=== PATIENT | female | born 1945 | race Caucasian/White ===

== ENCOUNTER → 2017-07-21 13:50 | Outpatient (CLI) | payer MEDICARE, OTHER, SELFPAY ==
[2017-07-19 09:20] VITALS: BP 153/92; BMI 22.8
--- NOTE | 2017-07-21 13:52 | US_ITS ---
PROCEDURE: ULTRASOUND GUIDED THORACENTESIS. DATE: July 21, 2017.. INDICATION: Female, 71 years old. Right pleural effusion. PHYSICIAN: Hever Madden M.D. PROCEDURE: The risks, benefits, and alternatives to the procedure were explained to the patient. The specific risks of bleeding, infection, and pneumothorax requiring chest tube insertion were discussed and accepted. Written informed consent was obtained. Ultrasonographic evaluation of the right lower pleural space was carried out. An adequate pocket was identified. The patient was placed in the sitting, upright position. The overlying skin was prepped and draped in sterile fashion. 1% lidocaine was administered subcutaneously for local anesthesia. Under ultrasound guidance, a 6 Portuguese thoracentesis needle/catheter system was advanced into the right posterior lower pleural fluid collection. Approximately 650 mL of librado-colored fluid fluid was drained. The catheter was removed, and a sterile dressing was applied. The patient tolerated the procedure well. A chest x-ray was ordered. US/Thoracentesis W US IMPRESSION: Ultrasound-guided right thoracentesis.. Electronically Signed: Hever Madden MD at 15:08 EST Tel [phone], Service support ,
--- NOTE | 2017-07-21 14:29 | RAD_ITS ---
STUDY: X-RAY CHEST REASON FOR EXAM: Female, 71 years old. The patient is status post right thoracentesis. TECHNIQUE: Single frontal inspiratory view of the chest. COMPARISON: Comparison is made with prior examination dated July 21, 2017. FINDINGS: The patient is status post right thoracentesis. There is no evidence of pneumothorax. Persistent elevation of the right hemidiaphragm. Persistent pleural parenchymal changes at both lung bases. RAD/Chest Insp/Exp 2 View IMPRESSION: Status post right thoracentesis. There is no evidence of pneumothorax. Electronically Signed: Hever Madden MD at 14:51 EST Tel [phone], Service support ,
== END ==
PROVIDERS: Visit Provider Internal Medicine Medical Oncology
DX: C50.919 Malignant neoplasm of unspecified site of unspecified female breast (principal); J90 Pleural effusion, not elsewhere classified
CPT/HCPCS: 32555; 71046

== ENCOUNTER → 2017-10-13 11:39 | Outpatient (CLI) | payer MEDICARE, OTHER, SELFPAY ==
--- NOTE | 2017-10-13 | FLU_PTH ---
PATIENT: ADOLFO TAMEZ LOC: U#:[id number] AGE/SX: 79/F ROOM: RE10/13/[address]: Dr. Saleem Tate MD : 1945 BED: DIS: SPEC #: [id number] RECD: 10/13/17 13:37 STATUS: JEANNINE CHRIS #: [id number] PETRA: 10/13/17 00:[address]: Saleem Tate DEPT: CYTOLOGY RECD BY: Rome Gil ENTERED: 10/13/17 13:37 SP TYPE: Fluid OTHR DR: Dr. Dm Barahona MD Tissues: THORACIC FLUID Procedures: Pap Stain (control) Special Stain Group II Surgery Specimen Level IV Cell Block Cytospin Fluid HEADER OPERATION: Ultrasound-guided thoracentesis PRE-OP DIAGNOSIS: Pleural effusion TISSUE SUBMITTED: Thoracentesis fluid for cytology DIAGNOSIS CYTOLOGY Thoracentesis fluid for cytology (cytospin and cell block): Negative for malignant cells. See cytology study and comment. SJ:yaya 10/14/17 COMMENT Please make reference to previous cytology ([id number]) pleural effusion with diagnosis of rare atypical cells noted. Clinical correlation and appropriate follow up are necessary. CYTOLOGY STUDY Slides are reviewed. The specimen consists of macrophages, mesothelial cells and inflammatory cells. CYTOLOGY GROSS Received is 120 ml of yellow, cloudy fluid labeled with the patient's name and and designated per the requisition as thoracentesis. Submitted for cytology preparation including cell block. / 10/13/17 TC:5 CPT: 81942, 55888
--- NOTE | 2017-10-13 11:43 | US_ITS ---
PROCEDURE: ULTRASOUND GUIDED THORACENTESIS - RIGHT HEMITHORAX CLINICAL HISTORY: Female, 71 years old. Right pleural effusion CONSENT: The risks, benefits and alternatives to the procedure were explained to the patient, and the patient agreed to the procedure and signed the consent. 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 SEDATION: Local anesthesia TECHNIQUE: Under the ultrasound guidance using all elements of maximum sterile technique and after infiltration of the skin and subcutaneous soft tissues with 10 mL of lidocaine 1% a 5 Maltese drainage catheter is introduced in the lower part of the right hemithorax. 120 mL of fluid were removed sample sent to lab for evaluation. The patient tolerated the procedure there was no immediate complication. US/Thoracentesis W US IMPRESSION: Successful ultrasound-guided thoracentesis. Electronically Signed: Sulma Cormier MD at 15:43 EDT Tel , Service support ,
--- NOTE | 2017-10-13 13:08 | RAD_ITS ---
STUDY: X-RAY CHEST REASON FOR EXAM: Female, 71 years old. PLEURAL EFFUSION. RT SIDE POST THORACENTESIS. INSPR AND EXPR VIEWS TECHNIQUE: Two view, frontal inspiration and expiration. COMPARISON: Oct 11 2017 10:54am FINDINGS: Slightly decreased decreased right pleural effusion. Stable right lower lobe consolidation. Left lung is clear. No evidence of left effusion. Extensive surgical clips in the chest wall region. Normal size heart. Normal mediastinum and hakan. Normal visualized pulmonary arteries. Normal visualized aortic arch and descending thoracic aorta. There are diffuse degenerative changes and metastatic lesions of the visualized thoracic spine. There is degenerative osteoarthritis of the bilateral shoulders. There is no demonstrated abnormality of the visualized soft tissue structures of the upper abdomen. RAD/Chest Insp/Exp 2 View IMPRESSION: Slightly decreased right pleural effusion with compressive consolidation of the right lower lobe. There is no evidence of pneumothorax. Electronically Signed: Sulma Cormier MD at 16:10 EDT Tel , Service support ,
[2017-10-13 13:25] LABS: Cytology, Body Fluid / CSF SEE PATHOLOGY REPORT
== END ==
PROVIDERS: Visit Provider Internal Medicine Medical Oncology
DX: J90 Pleural effusion, not elsewhere classified (principal)
CPT/HCPCS: 32555; 71046; 88108; 88305; 88313

== ENCOUNTER → 2017-10-27 12:00 | Outpatient (CLI) | payer MEDICARE, OTHER, SELFPAY ==
--- NOTE | 2017-10-27 12:02 | US_ITS ---
PROCEDURE: ULTRASOUND GUIDED THORACENTESIS. DATE: October 27, 2017.. INDICATION: Female, 71 years old. Right pleural effusion. PHYSICIAN: Hever Madden M.D. PROCEDURE: The risks, benefits, and alternatives to the procedure were explained to the patient. The specific risks of bleeding, infection, and pneumothorax requiring chest tube insertion were discussed and accepted. Written informed consent was obtained. Ultrasonographic evaluation of the right lower pleural space was carried out. An adequate pocket was identified. The patient was placed in the sitting, upright position. The overlying skin was prepped and draped in sterile fashion. 1% lidocaine was administered subcutaneously for local anesthesia. Under ultrasound guidance, a 6 Cypriot thoracentesis needle/catheter system was advanced into the right posterior lower pleural fluid collection. Approximately 550 mL of librado-colored fluid was drained. The catheter was removed, and a sterile dressing was applied. The patient tolerated the procedure well. A chest x-ray was ordered. US/Thoracentesis W US IMPRESSION: Ultrasound-guided right thoracentesis. Electronically Signed: Hever Madden MD at 13:52 EDT Tel [phone], Service support ,
--- NOTE | 2017-10-27 13:03 | RAD_ITS ---
STUDY: X-RAY CHEST REASON FOR EXAM: Female, 71 years old. Post right thoracentesis. TECHNIQUE: AP upright inspiration expiration views. COMPARISON: Comparison is made with prior study dated October 13, 2017. FINDINGS: The patient is status post right thoracentesis. There is no evidence of pneumothorax. Stable elevation of the right hemidiaphragm with right basilar atelectasis and residual blunting of the right costo phrenic angle. RAD/Chest Insp/Exp 2 View IMPRESSION: No evidence of pneumothorax following the right thoracocentesis. Electronically Signed: Hever Madden MD at 13:52 EDT Tel [phone], Service support ,
== END ==
PROVIDERS: Visit Provider Internal Medicine Medical Oncology
DX: J90 Pleural effusion, not elsewhere classified (principal)
CPT/HCPCS: 32555; 71046

== ENCOUNTER 2020-08-19 12:05 | Outpatient (RCR) | payer MEDICARE, OTHER, SELFPAY ==
[2020-08-18 09:13] VITALS: BMI 22.8
[2020-08-19] MEDS: COVID-19 VACC, MRNA(PFIZER)/PF 30 MCG/0.3 ML SYRINGE IM (13:34)
[2020-09-09] MEDS: COVID-19 VACC, MRNA(PFIZER)/PF 30 MCG/0.3 ML SYRINGE IM (13:23)
== END 2020-11-18 23:59 ==
LOC: IMMUN 12:05
PROVIDERS: Visit Provider Family Medicine
DX: Z23 Encounter for immunization (principal)
CPT/HCPCS: 0001A; 0002A; 91300

== ENCOUNTER → 2021-12-31 | Outpatient (CLI) | payer MEDICARE, SELFPAY ==
--- NOTE | 2021-12-31 08:06 | CT_ITS ---
STUDY: CT CHEST, ABDOMEN T PELVIS WITHOUT CONTRAST REASON FOR EXAM: Female, 76 years old. Assess response to treatment. History of metastatic breast cancer. RADIATION DOSAGE (If Supplied By Facility): CTDIvol = ( 5.98 ) mGy, DLP = ( 470.66 ) mGycm TECHNIQUE: Transaxial imaging was performed without the administration of intravenous contrast material. Multiplanar coronal and sagittal images were reformatted. Individualized dose optimization techniques were used for this CT. COMPARISON: Comparison is made with prior examination dated 06/27/2017. FINDINGS: CHEST Stable small benign-appearing axillary lymph nodes. Surgical clips are seen in the presternal region. Thickening of the overlying skin of the right breast. Small right pleural effusion. Fluid is also seen in the right major fissure. Atelectasis with mild degree of bronchiectasis at the right lung base. The left lung is clear. Stable small calcified granuloma in the posterior medial segment of the right lower lobe. There are calcifications of the coronary arteries. Normal mediastinum. Calcified right hilar lymph nodes. Normal unenhanced pulmonary arteries. There is atherosclerotic calcification of the aortic arch with tortuosity and elongation of the aortic arch and descending thoracic aorta. There is evidence of a sclerotic metastasis throughout the visualized lower cervical spine and thoracic spine. Stable 1.4 cm cystic nodule in the anterior aspect of the right lobe of liver near the dome. ABDOMEN Scattered small hypodense nodules throughout the liver. The previously seen nodular density in the inferior aspect of the right lobe of liver with focal calcification has resolved. Residual calcific densities are seen. Stable hypodensities in the left lobe of liver as well as in the region of the gallbladder fossa. These most likely represent cysts. Normal gallbladder and extrahepatic biliary system. There are multiple benign calcified granulomata of the spleen. Normal pancreas. Normal bilateral adrenal glands. Normal right kidney. Normal left kidney. There is a small hiatal hernia. Normal small intestine. There are multiple colonic diverticula consistent with diverticulosis. The appendix is visualized and appears normal. There is diffuse atherosclerotic calcification of the abdominal aorta, without a demonstrated aneurysm. Normal inferior vena cava. Normal retroperitoneum. Normal abdominal wall. There are diffuse degenerative changes of the visualized lumbar spine. Diffuse sclerotic metastasis involving the lumbar spine as well as the pelvic bones including the sacrum and iliac bones. PELVIS Normal urinary bladder. Normal visualized small intestine. There are multiple colonic diverticula of the sigmoid colon consistent with chronic diverticulosis. There is no pelvic fluid. There is no pelvic lymphadenopathy or mass lesion. There is diffuse atherosclerotic calcification of the pelvic arteries. CT/CT Chest, Abd, Pelvis WO Cont IMPRESSION: Diffuse bony metastasis as described. Stable appearance of the hepatic hypodensities. Sigmoid diverticulosis. Small right pleural effusion. The left lung is clear. Electronically Signed: Hever Madden MD at 12:07 EDT ,
== END | disposition home or self-care (01) ==
PROVIDERS: PCP Family Medicine; Referring Provider Nurse Practitioner Family; Visit Provider Nurse Practitioner Family
DX: C50.919 Malignant neoplasm of unspecified site of unspecified female breast (principal)
CPT/HCPCS: 71250; 74176

== ENCOUNTER → 2022-01-01 | Outpatient (CLI) | payer MEDICARE, SELFPAY ==
--- NOTE | 2022-01-01 09:35 | NM_ITS ---
STUDY: NM Bone Imaging Whole Body 01/01/2022 9:26 PM HISTORY: Female, 76 years old. History: METASTATIC BREAST CANCER -- -- COMPARE TO CT History: METASTATIC BREAST CANCER -- -- COMPARE TO CT TECHNIQUE: Following the IV administration of 26.7 MCI MDP , whole body bone imaging was performed with a gamma camera following a three hour delay. COMPARISON STUDIES : NM - None. CR - Not available for review at this time. CT - 12.31.21 MR - Not available for review at this time. US - Not available for review at this time. FINDINGS: There is abnormal concentration of radiopharmaceutical throughout the axial and appendicular skeletal system. Whole body delayed images demonstrate abnormal uptake in the shoulder, and wrist joints. This is likely related to degenerative findings. Focal increase in uptake is noted in the cervical spine, thoracic spine, lumbar spine, pelvic bones, and sacrum. NM/Bone Scan Whole Body IMPRESSION: The whole body scan confirms multiple metastatic foci. Electronically Signed: Bismark Haney MD at 21:31 EDT ,
== END | disposition home or self-care (01) ==
PROVIDERS: PCP Family Medicine; Referring Provider Internal Medicine Hematology & Oncology; Visit Provider Internal Medicine Hematology & Oncology
DX: C50.911 Malignant neoplasm of unspecified site of right female breast (principal)
CPT/HCPCS: 78306; A9503

== ENCOUNTER → 2022-04-23 | Outpatient (CLI) | payer MEDICARE, SELFPAY ==
--- NOTE | 2022-04-23 07:43 | CT_ITS ---
STUDY: CT CHEST, ABDOMEN T PELVIS WITH CONTRAST REASON FOR EXAM: Female, 76 years old. F/U METASTATIC BREAST CANCER RADIATION DOSAGE (If Supplied By Facility): CTDIvol = ( 7.95 ) mGy, DLP = ( 517.10 ) mGycm TECHNIQUE: Transaxial imaging was performed following intravenous administration of IV 100mL Isovue-300. Multiplanar coronal and sagittal images were reformatted. Individualized dose optimization techniques were used for this CT. COMPARISON: Comparison is made with prior examination of 12/31/2021. FINDINGS: CHEST Stable appearance of the surgical clips in the presternal region. Stable skin thickening overlying the right breast. Stable right pleural effusion with underlying basilar dependent atelectasis. The left lung is clear. There are calcifications of the coronary arteries. Normal mediastinum. Calcified right hilar lymph nodes. Normal unenhanced pulmonary arteries. There is atherosclerotic calcification of the aortic arch with tortuosity and elongation of the aortic arch and descending thoracic aorta. Once again, there is evidence of sclerotic metastasis of the visualized thoracic and lumbar vertebrae. ABDOMEN Stable small cysts seen throughout both lobes. Normal gallbladder and extrahepatic biliary system. There are multiple benign calcified granulomata of the spleen. Normal pancreas. Normal bilateral adrenal glands. Normal right kidney. Normal left kidney. Normal visualized stomach. Normal small intestine. There are multiple colonic diverticula consistent with diverticulosis. The appendix is visualized and appears normal. Normal abdominal aorta. Normal inferior vena cava. Normal retroperitoneum. Normal abdominal wall. Stable sclerotic metastasis of the visualized lumbar spine as well as the pelvic bones. PELVIS Normal urinary bladder. There is no pelvic fluid. There is no pelvic lymphadenopathy or mass lesion. There is diffuse atherosclerotic calcification of the pelvic arteries. CT/CT Chest, Abd, Pel w/Contrast IMPRESSION: Stable examination. Electronically Signed: Hever Madden MD at 14:03 EST ,
== END | disposition home or self-care (01) ==
PROVIDERS: PCP Family Medicine; Referring Provider Internal Medicine Hematology & Oncology; Visit Provider Internal Medicine Hematology & Oncology
DX: C50.919 Malignant neoplasm of unspecified site of unspecified female breast (principal); C79.51 Secondary malignant neoplasm of bone; J90 Pleural effusion, not elsewhere classified; I25.10 Atherosclerotic heart disease of native coronary artery without angina pectoris; K57.30 Diverticulosis of large intestine without perforation or abscess without bleeding
CPT/HCPCS: 71260; 74177; Q9967; A4216

== ENCOUNTER 2022-05-11 10:25 | Outpatient (CLI) | payer MEDICARE, SELFPAY ==
[2022-05-11 11:53] LABS: Microalbumin:Creatinine Ratio 53.8 mg/g CRE (<30 mg/g CRE)
[2022-05-11 12:07] LABS: Anion Gap 7 (5-15); BUN 18 mg/dL (7-18); BUN/Creat Ratio 14.1 RATIO (10-20); Calcium,Total 9.3 mg/dL (8.5-10.1); Chloride 106 mmol/L (98-107); Creatinine, Serum 1.28 mg/dL (0.55-1.02); EST Glomerular Filtration Rate 43 mL/min (>60); Est Glom Filt Rate - Afr Amer 52 mL/min (>60); Glucose 112 mg/dL (74-106); Potassium 3.9 mmol/L (3.5-5.1); Sodium Level 142 mmol/L (136-145)
== END 2022-05-11 23:59 | disposition home or self-care (01) ==
LOC: LAB 10:26
PROVIDERS: PCP Family Medicine; Visit Provider Internal Medicine Nephrology
DX: N18.31 Chronic kidney disease, stage 3a (principal)
CPT/HCPCS: 36415; 80048; 82043; 82570

== ENCOUNTER → 2022-07-08 | Outpatient (CLI) | payer MEDICARE, SELFPAY ==
--- NOTE | 2022-07-08 09:20 | NM_ITS ---
CLINICAL: 76-year-old female with history of primary breast carcinoma. WHOLE BODY 99m Tc MDP RADIONUCLIDE BONE SCINTIGRAPHY COMPARISON: Previous whole body bone scintigraphy study dated 01/01/2022, CT of the chest abdomen and pelvis 04/23/2022 FINDINGS: Following the intravenous administration of 26.9 mCi of 99m Tc MDP, whole body bone images reveal: 1. Enhanced uptake remains apparent in the left wrist, right knee, the bilateral shoulders, the cervical and thoracic spine. 2. Facilitated radiopharmaceutical concentration is noted in the proximal right clavicle-sternoclavicular joint, the second through fifth lumbar vertebra and sacrum. 3. The remaining skeletal structures are scintigraphically unremarkable with normal-appearing renal images and urinary bladder activity identified. Increased tracer distribution is noted in the left lacrimal bone most consistent with periostitis. NM/Bone Scan Whole Body IMPRESSION: 1. The increase in radiopharmaceutical concentration defined in the left wrist, right knee, the bilateral shoulders, the cervical and thoracic spine is commensurate with degenerative arthritis. 2. Uptake noted in the right proximal clavicle, the lumbar spine and sacrum likely is attributed to skeletal metastasis described on the previous bone scan report dated 01/01/2022. 3. Overall compared to the previous whole body bone scintigraphy study dated 01/01/2022, there is no significant interval change. Electronically Signed: Vasquez Sanchez, at 10:06 EST ,
== END | disposition home or self-care (01) ==
LOC: NM 09:20
PROVIDERS: PCP Family Medicine; Visit Provider Nurse Practitioner Family
DX: M19.012 Primary osteoarthritis, left shoulder (principal); C50.911 Malignant neoplasm of unspecified site of right female breast; M47.812 Spondylosis without myelopathy or radiculopathy, cervical region; M47.814 Spondylosis without myelopathy or radiculopathy, thoracic region; M19.011 Primary osteoarthritis, right shoulder; M17.11 Unilateral primary osteoarthritis, right knee; M19.032 Primary osteoarthritis, left wrist
CPT/HCPCS: 78306; A9503

== ENCOUNTER → 2022-07-13 | Outpatient (CLI) | payer MEDICARE, SELFPAY ==
--- NOTE | 2022-07-13 13:36 | CT_ITS ---
STUDY: CT CHEST, ABDOMEN T PELVIS WITH CONTRAST REASON FOR EXAM: Female, 76 years old. breast ca, assess treatment response; IV only RADIATION DOSAGE (If Supplied By Facility): CTDIvol = ( 8.00 ) mGy, DLP = ( 544.18 ) mGycm TECHNIQUE: Transaxial imaging was performed following intravenous administration of IV 100mL Isovue-300. Individualized dose optimization techniques were used for this CT. COMPARISON: April 23, 2022, December 31, 2021. FINDINGS: CHEST Unchanged moderate layering right pleural effusion with mild compressive atelectasis in the right lower lobe. No left lung effusion. Mild atelectasis left lung base. No new consolidation or pulmonary mass. No gross pleural thickening. Small calcified granuloma in the right lower lung. No cardiomegaly or pericardial effusion.. Moderate multivessel coronary atherosclerosis. No suspicious mediastinal or hilar adenopathy. Scattered small calcified lymph nodes are present.. Normal unenhanced pulmonary arteries. Mild aortic atherosclerosis without dissection or ectasia. ABDOMEN Unchanged hepatic cysts and segment 4 focal fat appear to April 23, 2022. No intrahepatic biliary ductal dilatation. Normal gallbladder and extrahepatic biliary system. Normal spleen. Normal pancreas. Normal bilateral adrenal glands. Normal right kidney. Normal left kidney. Minimal hiatal hernia. No acute gastric finding. No small bowel distention or focal wall thickening. Normal appendix. Large colonic stool burden without focal wall thickening or surrounding inflammation. Low-lying transverse colon is noted. Mild distal colonic diverticulosis without evidence of diverticulitis. Aortic atherosclerosis without ectasia.. Normal inferior vena cava. Normal retroperitoneum. Decompressed bladder. Unremarkable uterus and adnexa no free fluid, free air, or adenopathy. MUSCULOSKELETAL No subcutaneous soft tissue mass. Unchanged right scapular 1.1 cm sclerotic lesion, right proximal clavicle 1.1 cm sclerotic lesion, scattered bilateral posterior lateral rib sclerotic lesions, scattered diffuse vertebral sclerotic lesions, and pelvic sclerotic lesions remain unchanged from April 23, 2022. CT/CT Chest, Abd, Pel w/Contrast IMPRESSION: No evidence of new or enlarging mass along the chest abdomen or pelvis. No significant change in scattered diffuse osteoblastic metastatic disease compared with April 23, 2022. No significant change in unilateral right pleural effusion. Moderate multivessel coronary atherosclerosis. Large colonic stool burden as can be seen with constipation. Distal colonic diverticulosis without evidence of diverticulitis. Electronically Signed: Daniel Elmore MD at 23:03 EST ,
== END | disposition home or self-care (01) ==
LOC: CT 13:34
PROVIDERS: PCP Family Medicine; Referring Provider Nurse Practitioner Family; Visit Provider Nurse Practitioner Family
DX: I25.10 Atherosclerotic heart disease of native coronary artery without angina pectoris (principal); I70.0 Atherosclerosis of aorta; C50.911 Malignant neoplasm of unspecified site of right female breast; K57.30 Diverticulosis of large intestine without perforation or abscess without bleeding; J90 Pleural effusion, not elsewhere classified; K44.9 Diaphragmatic hernia without obstruction or gangrene
CPT/HCPCS: 71260; 74177; Q9967

== ENCOUNTER → 2022-10-05 | Outpatient (CLI) | payer MEDICARE, SELFPAY ==
--- NOTE | 2022-10-05 08:22 | CT_ITS ---
STUDY: CT CHEST, ABDOMEN T PELVIS WITH CONTRAST REASON FOR EXAM: Female, 76 years old. met breast ca; assess response to tx. Status post right lumpectomy. RADIATION DOSAGE (If Supplied By Facility): CTDIvol = ( 8.67 ) mGy, DLP = ( 611.33 ) mGycm TECHNIQUE: Transaxial imaging was performed following intravenous administration of IV 100mL Isovue-300. Individualized dose optimization techniques were used for this CT. COMPARISON: Comparison is made with prior study dated July 13, 2022. FINDINGS: CHEST Small right pleural effusion with atelectasis at the right lung base. The left lung is clear. Calcified granuloma in the posterior medial segment of the right lower lobe. There is no demonstrated pleural abnormality. There are calcifications of the coronary arteries. Tiny calcified mediastinal and right hilar lymph nodes. Normal unenhanced pulmonary arteries. There is atherosclerotic calcification of the aortic arch. Multiple sclerotic metastases are seen in the thoracic vertebrae more prominent in the upper thoracic vertebrae. This is unchanged. Sclerotic bilateral rib metastasis. ABDOMEN Stable subcentimeter cysts are seen scattered throughout both right and left lobes of the liver. There is evidence of fatty infiltration of the liver. Normal gallbladder and extrahepatic biliary system. Normal spleen. Normal pancreas. Normal bilateral adrenal glands. Normal right kidney. Normal left kidney. Normal visualized stomach. Normal small intestine. There are multiple colonic diverticula consistent with diverticulosis. The appendix is visualized and appears normal. There is diffuse atherosclerotic calcification of the abdominal aorta, without a demonstrated aneurysm. Normal inferior vena cava. Normal retroperitoneum. Normal abdominal wall. There are diffuse degenerative changes of the visualized lumbar spine. Sclerotic bony metastasis seen in the lower thoracic and lumbar vertebrae. Sclerotic metastasis seen within the pelvic bones. PELVIS Normal urinary bladder. Normal visualized pelvic arteries. CT/CT Chest, Abd, Pel w/Contrast IMPRESSION: Residual small right pleural effusion with right basilar atelectasis. Bony metastasis involving the thoracic and lumbar spines as well as the pelvic bones. There has been essentially no change. Multiple small benign-appearing hepatic cysts. Electronically Signed: Hever Madden MD at 15:30 EDT ,
== END | disposition home or self-care (01) ==
LOC: CT 08:21
PROVIDERS: PCP Family Medicine; Referring Provider Nurse Practitioner Family; Visit Provider Nurse Practitioner Family
DX: C50.919 Malignant neoplasm of unspecified site of unspecified female breast (principal)
CPT/HCPCS: 71260; 74177; Q9967

== ENCOUNTER → 2022-12-28 | Outpatient (CLI) | payer MEDICARE, SELFPAY ==
--- NOTE | 2022-12-28 07:33 | CT_ITS ---
STUDY: CT CHEST, ABDOMEN T PELVIS WITH CONTRAST REASON FOR EXAM: Female, 77 years old. met breast ca;assess response to tx RADIATION DOSAGE (If Supplied By Facility): CTDIvol = ( 8.08 ) mGy, DLP = ( 553.01 ) mGycm TECHNIQUE: Transaxial imaging was performed following intravenous administration of IV 100mL Isovue-300. Individualized dose optimization techniques were used for this CT. COMPARISON: October 05, 2022 FINDINGS: CHEST There is a persistent small pleural effusion on the right. There is persistent right lower lobe atelectasis of enhancing lung. There is persistent stable consolidation in the right middle lobe with hypoenhancement possibly representing fibrosis. Normal heart and pericardium. Normal mediastinum. Normal hilar regions. Normal unenhanced pulmonary arteries. Normal aorta arch and descending thoracic aorta. Sclerotic foci noted throughout the thoracic vertebral bodies appear grossly stable, possibly representing metastatic disease. ABDOMEN Tiny hypodensities are noted in the liver likely representing cysts. Normal gallbladder and extrahepatic biliary system. Normal spleen. Normal pancreas. Normal bilateral adrenal glands. Normal right kidney. Normal left kidney. Normal visualized stomach. Normal small intestine. There is descending and sigmoid colon diverticulosis without evidence for acute diverticulitis. The appendix is visualized and appears normal. Normal abdominal aorta. Normal inferior vena cava. Normal retroperitoneum. Normal abdominal wall. There is extensive sclerosis noted in the lumbar vertebral bodies and pelvic bones post representing metastatic disease appearing similar to prior study. PELVIS Normal urinary bladder. There is no pelvic fluid. There is no pelvic lymphadenopathy or mass lesion. Normal visualized pelvic arteries. CT/CT Chest, Abd, Pel w/Contrast IMPRESSION: Stable findings when compared to prior study including right pleural effusion, right lower lobe atelectasis, right middle lobe consolidation possibly fibrotic, and skeletal sclerosis suggestive of metastatic disease. Electronically Signed: Vitor Macdonald, at 8:21 EDT ,
== END | disposition home or self-care (01) ==
LOC: CT 07:32
PROVIDERS: PCP Family Medicine; Referring Provider Nurse Practitioner Family; Visit Provider Nurse Practitioner Family
DX: C50.919 Malignant neoplasm of unspecified site of unspecified female breast (principal)
CPT/HCPCS: 71260; 74177; Q9967

== ENCOUNTER 2023-02-09 06:07 | Day surgery (SDC) | payer MEDICARE, SELFPAY ==
[2023-02-09] VITALS (7 sets, daily range): BP systolic 95–137; BP diastolic 54–62; PULSE 69–74; RESP 16–18; TEMP 36.3–36.7; O2SAT 95–100; BMI 22.3
[2023-02-09] MEDS: Lactated Ringers 1,000 ML 15 ML IV (06:42)
--- NOTE | 2023-02-09 07:15 | IMM_PTH ---
PATIENT: ADOLFO TAMEZ LOC: EN U#:[id number] AGE/SX: 77/F ROOM: RE02/09/[address]: Dr. Carroll Dawson DO : 1945 BED: DIS: 02/09/2023 SPEC #: [id number] RECD: 02/09/23 13:58 STATUS: JEANNINE REZayda #: [id number] PETRA: 02/09/23 07:[address]: Carroll Dawson DEPT: IMMUNOHISTOCHEMISTRY RECD BY: Janneth Toro ENTERED: 02/09/23 13:58 SP TYPE: IMMUNO OTHR DR: Dr. Mar Bucio MD Tissues: A - Stomach, NOS Procedures: H Pylori (initial) PHYSICIAN & INSTITUTION [place] [id number] SPECIMEN INFORMATION: Tissue Source: A - Gastric body Clinical Info: GERD Specimen Number: [id number] CPT code: 86662 METHODOLOGY: Deparaffinized sections of prefer/formalin-fixed tissue or PAP/DQ stained slides are incubated with monoclonal/polyclonal antibodies/oligonucleotide probes. Localization is made via biotin free immunoperoxidase method. Appropriate controls are performed and reacted as expected. Results on target cell population are indicated in the following table: RESULTS: ANTIBODY / CLONE RESULT Block A H Pylori (polyclonal) negative These tests were developed and their performance characteristics determined by [facility]. They may not have been cleared or approved by the U.S. Food and Drug Administration. The FDA has determined that such clearance or approval is not necessary. The above immunohistochemical/dualISH markers are ordered and reviewed by the Pathologist. INTERPRETATION: A. Gastric body, biopsy: Negative for Helicobacter pylori organisms. SJ:yaya 02/10/2023
--- NOTE | 2023-02-09 07:15 | EGD_PTH ---
PATIENT: ADOLFO TAMEZ LOC: EN U#:[id number] AGE/SX: 77/F ROOM: RE02/09/[address]: Dr. Carroll Dawson DO : 1945 BED: DIS: 02/09/2023 SPEC #: [id number] RECD: 02/09/23 09:42 STATUS: JEANNINE ARIES #: [id number] PETRA: 02/09/23 07:[address]: Carroll Dawson DEPT: SURGICAL PATHOLOGY RECD BY: Ciara Sethi ENTERED: 02/09/23 11:00 SP TYPE: EGD BIOPSY [facility] DR: Dr. Mar Bucio MD Tissues: A - Gastric mucous membrane B - Esophagus, NOS C - Transverse colon Procedures: Special Stain Group II Surgery Specimen Level IV Alcian Blue/PAS (control) HEADER OPERATION: Colonoscopy, EGD [place] [place] biopsy PRE-OP DIAGNOSIS: GERD TISSUE SUBMITTED: A - Gastric body biopsy, B - Distal esophagus biopsy, C - Transverse polyp biopsy MICROSCOPIC DIAGNOSIS A. Gastric body, biopsy: Mild gastritis. See microscopic description and comment. B. Distal esophagus, biopsy: Fragments of gastroesophageal mucosa with moderate chronic inflammation. Intestinal metaplasia (goblet cell metaplasia) not identified. See comment. C. Transverse colon polyp, biopsy: A fragment of colonic mucosa, no pathologic diagnosis. SJ:rg 02/10/2023 COMMENT A. The results of immunohistochemistry for Helicobacter pylori will be reported separately ([id number]). B. Alcian blue/PAS stain with matched control is used in the evaluation of the specimen. MICROSCOPIC DESCRIPTION Slides are reviewed. A. The specimen shows fragments of gastric mucosa with chronic inflammatory cell infiltrates in the lamina propria consisting of lymphocytes and plasma cells, consistent with mild chronic gastritis. GROSS DESCRIPTION A - Received in fixative is one container labeled with the patient's name and designated gastric body biopsy. The specimen consists of one irregular fragment of light jeffries soft tissue that measures 0.8 x 0.2 x 0.1 cm. The specimen is totally submitted in one cassette. B - Received in fixative is one container labeled with the patient's name and designated distal esophagus biopsy. The specimen consists of two irregular fragments of light jeffries soft tissue that in aggregate measure 0.6 x 0.3 x 0.1 cm. The specimen is totally submitted in one cassette. C - Received in fixative is one container labeled with the patient's name and designated transverse polyp biopsy. The specimen consists of one irregular fragment of light jeffries soft tissue that measures 0.2 x 0.2 x 0.1 cm. The specimen is totally submitted in one cassette. / SJ:rg 02/09/2023 TC:3 CPT: 77218 x3, 57301
--- NOTE | 2023-02-09 07:16 | HP.PCM_ITS ---
History and Physical Date of Admission: 02/09/23 Chief Complaint: desire for colonoscopy Details: ADOLFO TAMEZ, is a 76 F who presents to the office today to establish with Gastroenterology in order to schedule a colonoscopy. She was referred by her oncologist for rectal bleeding, she has metastatic breast cancer. Pt denies any rectal bleeding. No melena. She reports she has hemorrhoids. She denies any abdominal pain, diarrhea, constipation. She has been on pantoprazole for heartburn x years. No prior EGD. Last colonoscopy [address] Mina at [facility], he recommended repeat in 3 yrs. She doesn't recall if hx of polyps. No nausea, vomiting, dysphagia, acid reflux. Weight is stable. ROS Const Constitutional: No fatigue ENT ENT: No difficulty swallowing Gastro GI: No abdominal pain, belching, bloating, change in bowel habits, change in stool character, coffee ground emesis, constipation, cramping, diarrhea, heartburn, difficulty swallowing, feeling full early, excessive flatus, incontinent of stools, Vomiting blood/hematemesis, Blood in stool, loose stools, Black,tarry stools, nausea/dyspepsia, pain with swallowing, vomiting or other Musc Musculoskeletal: No joint pain Skin Skin: No yellowing of the eye or itchy eyes Psych Psychiatric: No anxiety and No depression Endo Endocrine: No fatigue Aller/Imm Allergy/Immunologic: No itchy eyes Jaydon/Lymp Hematologic/Lymphatic: No easy bleeding or easy bruising Exam Const General: cooperative and comfortable Nutritional Appearance: average body habitus Orientation: alert, awake and oriented x3 Quality Reporting Tobacco Screening ([facility] 138) Smoking Status: Never smoker Assessment and Plan Assessment and Plan (1) GERD (gastroesophageal reflux disease): Status: Chronic Plan: Will schedule her for EGD and colonoscopy, f/u in office 2 wks later Continue PPI (2) Colonoscopy planned: Status: Acute Plan: as above I have examined the patient and the H&P has been reviewed. There are no clinical changes since date of exam.
--- NOTE | 2023-02-09 07:51 | OP.CCLET_ITS ---
02/09/2023 Mar Bucio [place] [id number] [address] Re : Upper GI endoscopy procedure for Martha Stephens Dear Dr. Bucio This procedure was performed on Tuesday, February 09, 2023. My impressions and recommendations are as follows: Impressions : - LA Grade A reflux esophagitis with no bleeding. Biopsied. - Hiatal hernia. - Erosive gastropathy with no stigmata of recent bleeding. Biopsied. Recommendations : - Discharge patient to home. - Resume previous diet. - Continue present medications. - Await pathology results. My findings are described in the full procedure note, which is enclosed. If I can be of further assistance, please feel free to contact me at . Sincerely, Carroll Dawson, 02/09/2023 7:50:18 AM This report has been signed electronically.
--- NOTE | 2023-02-09 07:51 | OP.EGD_ITS ---
Patient Name: Martha Stephens Procedure Date: 02/09/2023 7:10 AM Date of : 1945 Age: 77 Procedure: Upper GI endoscopy Indications: Functional Dyspepsia, Heartburn Providers: Carroll Dawson DO Referring MD: Mar Bucio Medicines: Monitored Anesthesia Care Patient Profile: This is a 77 year old female. Refer to note in patient chart for documentation of history and physical. Patient has symptoms of chronic heartburn. Complications: No immediate complications. Procedure: Pre-Anesthesia Assessment: - Prior to the procedure, a History and Physical was performed, and patient medications and allergies were reviewed. The patient is competent. The risks and benefits of the procedure and the sedation options and risks were discussed with the patient. All questions were answered and informed consent was obtained. Patient identification and proposed procedure were verified by the physician in the pre-procedure area. Mental Status Examination: alert and oriented. Airway Examination: normal oropharyngeal airway and neck mobility. Respiratory Examination: clear to auscultation. CV Examination: normal. Prophylactic Antibiotics: The patient does not require prophylactic antibiotics. Prior Anticoagulants: The patient has taken no anticoagulant or antiplatelet agents. ASA Grade Assessment: II - A patient with mild systemic disease. After reviewing the risks and benefits, the patient was deemed in satisfactory condition to undergo the procedure. The anesthesia plan was to use monitored anesthesia care (MAC). Immediately prior to administration of medications, the patient was re-assessed for adequacy to receive sedatives. The heart rate, respiratory rate, oxygen saturations, blood pressure, adequacy of pulmonary ventilation, and response to care were monitored throughout the procedure. The physical status of the patient was re-assessed after the procedure. After obtaining informed consent, the endoscope was passed under direct vision. Throughout the procedure, the patient's blood pressure, pulse, and oxygen saturations were monitored continuously. The colonoscope was introduced through the mouth, and advanced to the second part of duodenum. The upper GI endoscopy was accomplished without difficulty. The upper GI endoscopy was accomplished without difficulty. The patient tolerated the procedure well. Scope In: 7:20:56 AM Scope Out: 7:24:10 AM Total Procedure Duration Time 0 hours 3 minutes 14 seconds Findings: LA Grade A (one or more mucosal breaks less than 5 mm, not extending between tops of 2 mucosal folds) esophagitis with no bleeding was found 36 to 38 cm from the incisors. Biopsies were taken with a cold forceps for histology. Verification of patient identification for the specimen was done. Estimated blood loss was minimal. A hiatal hernia was present. A few localized 5 mm erosions with no stigmata of recent bleeding were found in the gastric body. Biopsies were taken with a cold forceps for histology. Verification of patient identification for the specimen was done. Estimated blood loss was minimal. Biopsies were taken with a cold forceps for Helicobacter pylori testing. Verification of patient identification for the specimen was done. Estimated blood loss was minimal. The exam of the duodenum was otherwise normal. Impression: - LA Grade A reflux esophagitis with no bleeding. Biopsied. - Hiatal hernia. - Erosive gastropathy with no stigmata of recent bleeding. Biopsied. Recommendation: - Discharge patient to home. - Resume previous diet. - Continue present medications. - Await pathology results. Procedure Code(s): --- Professional --- 82373, Esophagogastroduodenoscopy, flexible, transoral; with biopsy, single or multiple CPT copyright 2021 [employer]. All rights reserved. The codes documented in this report are preliminary and upon government teacher review may be revised to meet current compliance requirements. Carroll Dawson DO 02/09/2023 7:50:18 AM This report has been signed electronically. Number of Addenda: 0 Note Initiated On: 02/09/2023 7:10 AM
--- NOTE | 2023-02-09 07:53 | OP.COLON_ITS ---
Patient Name: Martha Stephens Procedure Date: 02/09/2023 7:24 AM Date of : 1945 Age: 77 Procedure: Colonoscopy Indications: Screening for colorectal malignant neoplasm Providers: Carroll Dawson DO Referring MD: Mar Bucio Medicines: Monitored Anesthesia Care Patient Profile: This is a 77 year old female. Refer to note in patient chart for documentation of history and physical. Patient has symptoms of chronic heartburn. Last Colonoscopy: several years ago. Complications: No immediate complications. Procedure: Pre-Anesthesia Assessment: - Prior to the procedure, a History and Physical was performed, and patient medications and allergies were reviewed. The patient is competent. The risks and benefits of the procedure and the sedation options and risks were discussed with the patient. All questions were answered and informed consent was obtained. Patient identification and proposed procedure were verified by the physician in the pre-procedure area. Mental Status Examination: alert and oriented. Airway Examination: normal oropharyngeal airway and neck mobility. Respiratory Examination: clear to auscultation. CV Examination: normal. Prophylactic Antibiotics: The patient does not require prophylactic antibiotics. Prior Anticoagulants: The patient has taken no anticoagulant or antiplatelet agents. ASA Grade Assessment: II - A patient with mild systemic disease. After reviewing the risks and benefits, the patient was deemed in satisfactory condition to undergo the procedure. The anesthesia plan was to use monitored anesthesia care (MAC). Immediately prior to administration of medications, the patient was re-assessed for adequacy to receive sedatives. The heart rate, respiratory rate, oxygen saturations, blood pressure, adequacy of pulmonary ventilation, and response to care were monitored throughout the procedure. The physical status of the patient was re-assessed after the procedure. After I obtained informed consent, the scope was passed under direct vision. Throughout the procedure, the patient's blood pressure, pulse, and oxygen saturations were monitored continuously. The colonoscope was introduced through the anus and advanced to the cecum, identified by appendiceal orifice and ileocecal valve. The colonoscopy was performed without difficulty. The patient tolerated the procedure well. The patient tolerated the procedure well. The quality of the bowel preparation was adequate. The ileocecal valve, appendiceal orifice, and rectum were photographed. Scope In: 7:25:57 AM Scope Withdrawal Time 0 hours 9 minutes 51 seconds Scope Out: 7:45:17 AM Total Procedure Duration Time 0 hours 19 minutes 20 seconds Findings: The perianal and digital rectal examinations were normal. Multiple small and large-mouthed diverticula were found in the recto-sigmoid colon, sigmoid colon and descending colon. A 5 mm polyp was found in the transverse colon. The polyp was sessile. The polyp was removed with a cold snare. Resection and retrieval were complete. Verification of patient identification for the specimen was done. Estimated blood loss was minimal. The exam was otherwise without abnormality on direct and retroflexion views. Impression: - Diverticulosis in the recto-sigmoid colon, in the sigmoid colon and in the descending colon. - One 5 mm polyp in the transverse colon, removed with a cold snare. Resected and retrieved. - The examination was otherwise normal on direct and retroflexion views. Recommendation: - Discharge patient to home. - Resume previous diet. - Continue present medications. - Await pathology results. - Repeat colonoscopy in 5 years for surveillance. Procedure Code(s): --- Professional --- 79334, Colonoscopy, flexible; with removal of tumor(s), polyp(s), or other lesion(s) by snare technique CPT copyright 2021 [employer]. All rights reserved. The codes documented in this report are preliminary and upon online advertising manager review may be revised to meet current compliance requirements. Carroll Dawson DO 02/09/2023 7:52:54 AM This report has been signed electronically. Number of Addenda: 0 Note Initiated On: 02/09/2023 7:24 AM
--- NOTE | 2023-02-09 07:53 | OP.CCLET_ITS ---
02/09/2023 Mar Bucio [place] [id number] [address] Re : Colonoscopy procedure for Martha Stephens Dear Dr. Bucio This procedure was performed on Thursday, February 09, 2023. My impressions and recommendations are as follows: Impressions : - Diverticulosis in the recto-sigmoid colon, in the sigmoid colon and in the descending colon. - One 5 mm polyp in the transverse colon, removed with a cold snare. Resected and retrieved. - The examination was otherwise normal on direct and retroflexion views. Recommendations : - Discharge patient to home. - Resume previous diet. - Continue present medications. - Await pathology results. - Repeat colonoscopy in 5 years for surveillance. My findings are described in the full procedure note, which is enclosed. If I can be of further assistance, please feel free to contact me at . Sincerely, Carroll Dawson, 02/09/2023 7:52:54 AM This report has been signed electronically.
== END 2023-02-09 08:39 | disposition home or self-care (01) ==
LOC: EN 06:08 → AC 06:10
PROVIDERS: PCP Family Medicine; Referring Provider Family Medicine; Visit Provider Internal Medicine Gastroenterology
PROC: 0DJD8ZZ Inspection of Lower Intestinal Tract, Via Natural or Artificial Opening Endoscopic (ICD-10-PCS; CPT 45378; principal; 2023-02-09 07:10)
DX: Z12.11 Encounter for screening for malignant neoplasm of colon (principal); C78.7 Secondary malignant neoplasm of liver and intrahepatic bile duct; C79.51 Secondary malignant neoplasm of bone; C50.911 Malignant neoplasm of unspecified site of right female breast; K62.5 Hemorrhage of anus and rectum; K63.5 Polyp of colon; K44.9 Diaphragmatic hernia without obstruction or gangrene; K57.30 Diverticulosis of large intestine without perforation or abscess without bleeding; K21.00 Gastro-esophageal reflux disease with esophagitis, without bleeding; K29.70 Gastritis, unspecified, without bleeding; I12.9 Hypertensive chronic kidney disease with stage 1 through stage 4 chronic kidney disease, or unspecified chronic kidney disease; N18.9 Chronic kidney disease, unspecified; E78.00 Pure hypercholesterolemia, unspecified
CPT/HCPCS: 45385; 43239; 88305; 88313; 88342; J7120; J2405

== ENCOUNTER → 2023-03-17 | Outpatient (CLI) | payer MEDICARE, SELFPAY ==
--- NOTE | 2023-03-17 08:31 | NM_ITS ---
CLINICAL: Female, 77 years old. met breast ca; assess treatment response WHOLE BODY NUCLEAR BONE SCAN TECHNIQUE: Following the IV administration of 25.9 mCi of Tc MDP, whole body bone imaging was performed with a gamma camera following a three hour delay. COMPARISON STUDIES : NM - comparison is made with prior nuclear medicine bone scan dated July 08, 2022. CR - Not available for review at this time. CT - Not available for review at this time. MR - Not available for review at this time. US - Not available for review at this time. FINDINGS: Once again, there is evidence of enhanced uptake of the radiopharmaceutical in the medial aspect of the right clavicle at the level of the sternoclavicular joint. This also evidence of increased uptake in the lumbar vertebrae as well as both sacral alar. Focal uptake is also seen in the dorsal spine. There has been essentially no change. NM/Bone Scan Whole Body IMPRESSION: Stable examination. Electronically Signed: Hever Madden MD at 15:21 EDT ,
== END | disposition home or self-care (01) ==
LOC: NM 08:31
PROVIDERS: PCP Family Medicine; Referring Provider Nurse Practitioner Family; Visit Provider Nurse Practitioner Family
DX: C79.51 Secondary malignant neoplasm of bone (principal)
CPT/HCPCS: 78306; A9503

== ENCOUNTER → 2023-03-23 | Outpatient (CLI) | payer MEDICARE, SELFPAY ==
--- NOTE | 2023-03-23 12:38 | CT_ITS ---
STUDY: CT CHEST, ABDOMEN T PELVIS WITH CONTRAST REASON FOR EXAM: Female, 77 years old. met breast ca; assess treatment response RADIATION DOSAGE (If Supplied By Facility): CTDIvol = ( 6.75 ) mGy, DLP = ( 445.70 ) mGycm TECHNIQUE: Transaxial imaging was performed following intravenous administration of Oral and amp; IV and amp; 100mL Isovue-300. Individualized dose optimization techniques were used for this CT. COMPARISON: Prior study dated: 12/28/2022. Bone scan from 03/17/2023. FINDINGS: CHEST Lungs/pleura: The central airways are patent. Persistent atelectasis of the right lower lobe and right middle lobe. This is similar to prior. No pneumothorax. Unchanged small right-sided pleural effusion with mild tracking along the right major fissure. No pneumothorax. Right lower lobe calcified granuloma. No suspicious pulmonary nodules. Mediastinum: Normal heart and pericardium. There are calcifications of the coronary arteries. Calcified mediastinal lymph nodes noted. No lymphadenopathy. Calcified hilar nodes also noted. Normal pulmonary arteries. Normal aorta arch and descending thoracic aorta. Chest wall: No axillary lymphadenopathy or chest wall mass. Surgical clips in the right axilla and right breast. ABDOMEN/PELVIS Liver/gallbladder/biliary tree: The liver is normal in size and shape. There is decreased attenuation of the liver consistent with steatosis. No biliary ductal dilatation. Multiple hypoattenuating lesions are again noted in the liver, unchanged from prior. These are too small to fully characterize but likely represent cysts. Normal gallbladder and extrahepatic biliary system. Pancreas: Normal pancreas. Spleen: Normal in size. No splenic lesion. Adrenal glands: Normal bilateral adrenal glands. Kidneys: The right kidney is normal in size, shape, and position. No hydronephrosis or nephrolithiasis. The left kidney is normal in size, shape, and position. No hydronephrosis or nephrolithiasis. GI tract: Small hiatal hernia. The stomach is otherwise unremarkable. Normal small intestine. Colonic diverticulosis without diverticulitis. No wall thickening or inflammation. The appendix is visualized and appears normal. Lymphovascular: There is diffuse atherosclerotic calcification of the abdominal aorta, without a demonstrated aneurysm. Normal inferior vena cava. Normal retroperitoneum. No retroperitoneal or mesenteric lymphadenopathy. Abdominal wall: Normal abdominal wall. Bladder: Normal urinary bladder. Pelvic viscera: There is no pelvic fluid. There is no pelvic lymphadenopathy or mass lesion. OSSEOUS STRUCTURES Diffuse sclerotic lesions throughout the osseous structures are again noted. This involves multiple vertebral bodies. Sulci involves the right scapula. Multiple lesions throughout the pelvis and bilateral femora. No significant change from prior. CT/CT Chest, Abd, Pel w/Contrast IMPRESSION: No significant change from previous. Small right-sided pleural effusion with right lower and middle lobe atelectasis. No lymphadenopathy. Diffuse osseous metastatic disease. Electronically Signed: Rolf Graham MD at 17:00 EDT ,
== END | disposition home or self-care (01) ==
LOC: CT 12:37
PROVIDERS: PCP Family Medicine; Referring Provider Nurse Practitioner Family; Visit Provider Nurse Practitioner Family
DX: C50.919 Malignant neoplasm of unspecified site of unspecified female breast (principal)
CPT/HCPCS: 71260; 74177; Q9967

== ENCOUNTER → 2023-06-07 | Outpatient (CLI) | payer MEDICARE, SELFPAY ==
[2023-06-07 10:07] LABS: Protein, Urine (Random) 22.5 mg/dL (<11.9); Protein:Creat Ratio 151 mg/g CRE (0-200)
[2023-06-07 10:29] LABS: Anion Gap 3 (5-15); BUN 20 mg/dL (7-18); BUN/Creat Ratio 14.1 RATIO (10-20); Calcium,Total 9.6 mg/dL (8.5-10.1); Chloride 107 mmol/L (98-107); Creatinine, Serum 1.42 mg/dL (0.55-1.02); EST Glomerular Filtration Rate 38 mL/min (>60); Est Glom Filt Rate - Afr Amer 46 mL/min (>60); Glucose 111 mg/dL (74-106); Sodium Level 139 mmol/L (136-145)
== END | disposition home or self-care (01) ==
LOC: LAB 08:30
PROVIDERS: PCP Family Medicine; Referring Provider Internal Medicine Nephrology; Visit Provider Internal Medicine Nephrology
DX: N18.31 Chronic kidney disease, stage 3a (principal)
CPT/HCPCS: 36415; 80048; 82570; 84156

== ENCOUNTER → 2023-06-14 | Outpatient (CLI) | payer MEDICARE, SELFPAY ==
--- NOTE | 2023-06-14 08:06 | CT_ITS ---
EXAM: CT CHEST, ABDOMEN AND PELVIS WITH INTRAVENOUS CONTRAST CLINICAL INDICATION: met breast ca assess response to treatment TECHNIQUE: Helically acquired images were obtained of the chest, abdomen and pelvis with intravenous contrast. This CT exam was performed using one or more of the following dose reduction techniques: automated exposure control, adjustment of the mA and/or kV according to patient size, and/or use of iterative reconstruction technique. CONTRAST: IV 100mL Isovue-370 RADIATION DOSE: CTDIvol = 6.74 mGy, DLP = 546.39 mGy-cm COMPARISON: 03/23/2023 FINDINGS: CHEST: LUNGS AND PLEURAL SPACES: Grossly stable small right pleural effusion. Stable compressive atelectasis in the right lower lobe. No definite mass. No pneumothorax. Elevated right hemidiaphragm. HEART: Coronary artery calcifications. Heart size is normal. No pericardial effusion. MEDIASTINUM: Unremarkable. No mediastinal or hilar adenopathy. Esophagus is unremarkable. Small hiatal hernia. THYROID: Unremarkable. No thyroid lesions. ABDOMEN: LIVER: Stable small low density structures of the liver as much as, most likely cysts. Otherwise Homogeneous. No definite solid mass. GALLBLADDER AND BILE DUCTS: Unremarkable. No calcified gallstones. No gallbladder distention or wall edema. No intra- or extrahepatic biliary ductal dilation. PANCREAS: Unremarkable. No focal cystic or solid mass. SPLEEN: Unremarkable. Normal size without focal cystic or solid mass. ADRENALS: Unremarkable. No nodules. KIDNEYS AND URETERS: Unremarkable. Normal renal size and position. No hydronephrosis. STOMACH AND BOWEL: Unremarkable. No stomach or bowel distention. No focal inflammatory change. PELVIS: APPENDIX: No evidence of acute appendicitis. BLADDER: Unremarkable. REPRODUCTIVE: Atrophic uterus. No mass. CHEST, ABDOMEN and PELVIS: INTRAPERITONEAL SPACE: Unremarkable. No ascites or other fluid collection. No free air. BONES/JOINTS: Stable extensive metastatic disease, especially throughout the spine. No compression fractures. Degenerative changes of the lumbar spine with mild dextroconvex scoliosis. SOFT TISSUES: Unremarkable. No discrete abdominal or pelvic wall hernia. VASCULATURE: Calcified tortuous abdominal aorta. No aneurysm. LYMPH NODES: Unremarkable. No enlarged lymph nodes. CT/CT Chest, Abd, Pel w/Contrast IMPRESSION: 1. No definite change. 2. Stable small right pleural effusion. 3. Stable widespread skeletal metastatic disease. 4. Probable liver cysts, stable. Electronically Signed: Hakan Rich MD at 18:30 EST ,
--- OUTSIDE RECORDS SUMMARY | 2023-06-14 08:33 | XMS RPT_ITS | CCD ---
Author Name Unknown Address [address] [place] [address] Organization [facility] Care Team Providers Care Greaser Helper Name Role Phone Dru Barahona Unavailable CHAPARRO LIU Unavailable Unavailable DRU BARAHONA Unavailable Unavailable Bryn Riojas Unavailable Unavailable Bryn Riojas Unavailable Unavailable Dru Barahona Unavailable Unavailable Dru Barahona Unavailable Unavailable Ivanauskeleonora, Saulius Unavailable Unavailable Jeanine, Saulius Unavailable Unavailable Dru Barahona DO Primary Care Provider No, Physician Primary Care Provider Unavailabl e SALEEM BROWN Admitting Unavaila ble TEQUILA KAY Attending Unavailable SALEEM BROWN Referring Unavaila DRU Tirado Primary Care Unavailable SALEEM BROWN Admitting Unavaila ble JAYSON GRANT Attending Unavailable SALEEM BROWN Referring Unavaila ble NO, PHYSICIAN Primary Care Unavailable SALEEM BROWN Admitting Unavaila ble SHANIKA WATSON Attending Unavailable SALEEM BROWN Referring Unavaila ble NO, PHYSICIAN Primary Care Unavailable SALEEM BROWN Admitting Unavaila ble SHANIKA WATSON Attending Unavailable SALEEM BROWN Referring Unavaila ble NO, PHYSICIAN Primary Care Unavailable SALEEM BROWN Admitting Unavaila ble MILI REYNOLDS Attending Unavailable SALEEM BROWN Referring Unavaila ble NO, PHYSICIAN Primary Care Unavailable SALEEM BROWN Admitting Unavaila ble JAYSON GRANT Attending Unavailable SALEEM BROWN Referring Unavaila ble NO, PHYSICIAN Primary Care Unavailable SALEEM BROWN Admitting Unavaila ble MILI REYNOLDS Attending Unavailable SALEEM BROWN Referring Unavaila ble NO, PHYSICIAN Primary Care Unavailable SALEEM BROWN Admitting Unavaila CRYSTAL Slater Attending Unavailable SALEEM BROWN Referring Unavaila ble NO, PHYSICIAN Primary Care Unavailable Dru Barahona DO Primary Care Provider [phone] Williams TORRES, Joyti Unavailable Amita TORRES, PhD, Catarino Renteria Unavailable Davin VERDIN-MASSAGE THERAPIST, Ghazal Elizalde Unavailable [phone] Buzz RN, Jennifer Unavailable Unavailable Brett EMANUEL, Bethany Unavailable Unavailable Jeffery [facility], Kody Unavailable [facility], Dimitris Unavailable Lawrence TORRES, Korey P Unavailable Jeffery [facility], Kody W Unavailable [phone] [facility], Dimitris Unavailable [phone] Lawrence TORRES, Korey P Unavailable [phone] Doug HOOKS, Fco Unavailable Dread VERDIN-MASSAGE THERAPIST, Taylor Huff Unavailable Mar Bucio Primary Care Provider [phone] Bryn Riojas Unavailable [phone] DRU BARAHONA Primary Care Unavailable CATARINO LEVI Attending Unavailable DRU BARAHONA Referring Unavailable CATARINO LEVI Referring Unavailable DRU BARAHONA Primary Care Unavailable CATARINO LEVI Attending Unavailable AMITA CATARINO B Referring Unavailable DRU BARAHONA Primary Care Unavailable CATARINO LEVI Attending Unavailable DRU BARAHONA Referring Unavailable DRU BARAHONA Primary Care Unavailable DRU BARAHONA Primary Care Unavailable AMITA, CATARINO B Referring Unavailable CATARINO LEVI B Attending Unavailable CATARINO LEVI B Attending Unavailable DRU BARAHONA Primary Care Unavailable DRU BARAHONA Referring Unavailable DRU BARAHONA Primary Care Unavailable VANDSITASEN, CATARINO B Referring Unavailable URBANOSEN, CATARINO B Attending Unavailable DRU BARAHONA Primary Care Unavailable VANDSITASENCATARINO Attending Unavailable URBANOSENCATARINO B Referring Unavailable DRU BARAHONA Primary Care Unavailable VANDEUSEN, CATARINO Renteria Attending Unavailable DRU BARAHONA Primary Care Unavailable VANDEUSEN, CATARINO Renteria Referring Unavailable VANDEUSEN, CATARINO Renteria Attending Unavailable DRU BARAHONA Primary Care Unavailable VANDEUSEN, CATARINO B Referring Unavailable VANDEUSEN, CATARINO B Attending Unavailable SURAJEUSEN, CATARINO B Referring Unavailable DRU BARAHONA Primary Care Unavailable DRU BARAHONA Primary Care Unavailable VANDEUSEN, CATARINO Renteria Attending Unavailable DRU BARAHONA Referring Unavailable VANDEUSEN, CATARINO Renteria Referring Unavailable DRU BARAHONA Primary Care Unavailable SURAJEUSEN, CATARINO Renteria Attending Unavailable DRU BARAHONA Primary Care Unavailable SURAJEUSEN, CATARINO B Referring Unavailable CATARINO LEVI Attending Unavailable DRU BARAHONA Primary Care Unavailable CATARINO LEVI Referring Unavailable SURAJEUSEN, CATARINO Rentreia Attending Unavailable DRU BARAHONA Referring Unavailable DRU BARAHONA Primary Care Unavailable SURAJEUSEN, CATARINO Renteria Attending Unavailable DRU BARAHONA Primary Care Unavailable URBANOSEN, CATARINO Renteria Referring Unavailable URBANOSEN, CATARINO Renteria Attending Unavailable DRU BARAHONA Primary Care Unavailable URBANOSENCATARINO Referring Unavailable URBANOSENCATARINO Attending Unavailable Mar Bucio Primary Care Provider [phone] Mar Bucio MD Primary Care Provider Mar Bucio MD Primary Care Provider QUE TOWNSEND Admitting Unavailable QUE TOWNSEND Attending Unavailable MAR BUCIO Primary Care UnavailQUE Galeana Attending Unavailable MAR BUCIO Primary Care Unavailable SHREYAS GASTON Referring Unavailabl e OWEN BUCIOH Jean Claude Primary Care Unavailable SHREYAS GASTON Attending UnavailQUE Galeana Attending Unavailable MAR BCUIO Primary Care Unavailable QUE TOWNSEND Referring Unavailable PABLITO BUCIONAH Jean Claude Primary Care Unavailable SHREYAS GASTON Attending Unavailabl e MIEDEL, MAR E Primary Care Unavailable TOWNSEND, QUE K Referring Unavailable COOPERRIDER II, JOSH H Attending Unavailabl e MIEDEL, MAR E Primary Care Unavailable ОЛЬГА TABARES Attending Unavailable TOWNSEND, QUE K Referring Unavailable MIEDEL, MAR E Primary Care Unavailable COOPERRIDER II, JOSH H Attending Unavailabl e TOWNSEND, QUE K Referring Unavailable MIEDEL, MAR E Primary Care Unavailable TOWNSEND, QUE K Referring Unavailable TOWNSEND, QUE K Attending Unavailable MIEDEL, MAR E Primary Care Unavailable TOWNSEND, QUE K Referring Unavailable TOWNSEND, QUE K Attending Unavailable COOPERRIDER II, JOSH H Attending Unavailabl e COOPERRIDER II, JOSH H Referring Unavailabl e MIEDEL, MAR E Primary Care Unavailable MIEDEL, MAR E Primary Care Unavailable TOWNSEND, QUE K Referring Unavailable TOWNSEND, QUE K Attending Unavailable TOWNSEND, QUE K Attending Unavailable MIEDEL, MAR E Primary Care Unavailable TOWNSEND, QUE K Referring Unavailable AngelesedMar giles MD Primary Care Provider U navailable Allergies Allergy Classification Reported Allergen(s) Allergy Type Date of Onset Reaction(s) Facility (5 sources) Sulfonamides (Antibiotic); Translations: [SULFA (SULFONAMIDE ANTIBIOTICS)] Propensity to adverse reactions to drug 6 [facility] Work Phone: (2 sources) Sulfonamides (Antibiotic); Translations: [sulfa drugs] Propensity to adverse reactions to drug (disorder) [facility] Repository (20 sources) Sulfonamides (Antibiotic) Propensity to adverse reactions to drug 6 [facility] (5 sources) Sulfonamides (Antibiotic) Propensity to adverse reactions to drug 9 [facility] Medications Current Medications Medication Drug Class(es) Dates Sig (Normalized) Sig (Original) calcium carbonate 1250 mg oral tablet (20 sources) take 1 tablet by heather once daily calcium carbonate (Oscal) 500 mg calcium (1,250 mg) tablet Take 1 tablet (1,250 mg) by mouth once daily. 0 Active Completed/Discontinued Medications Medication Drug Class(es) Dates Sig (Normalized) Sig (Original) acetaminophen 500 mg oral tablet (16 sources) acetaminophen (T YLENOL) 500 mg tablet Take 500 mg by mouth. 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] Onset: 10-26-2016 Chronic Cataract (20 sources) Bilateral senile combined form cataracts of eyes; Translations: [Combined forms of age-related cataract, bilateral] Onset: 05-13-2014 Resolved: 03-24-2023 Chronic Chronic kidney disease (1 source) Chronic kidney disease stage 3A ; Translations: [Stage 3a chronic kidney disease] Chronic Disorders of lipid metabolism (11 sources) Mixed hyperlipidemia; Translations: [Mixed hyperlipidemia] Onset: 05-17-2017 05-17-2017 Chronic Essential hypertension (18 sources) Hypertensive disorder; Translations: [Essential hypertension] Onset: 05-17-2017 05-17-2017 Chronic Heart valve disorders (1 source) Aortic valve stenosis Chronic Maintenance chemotherapy; radiotherapy (1 source) Patient encounter status; Translations: [Encounter for antineoplastic chemotherapy] Chronic Mood disorders (6 sources) Depressive disorder; Translations: [Depression] Onset: 03-24-2023 03-24-2023 Chronic Other acquired deformities (1 source) Acquired scoliosis; Translations: [Other forms of scoliosis, site unspecified] Chronic Other connective tissue disease (1 source) Muscle weakness; Translations: [Muscle weakness (generalized)] Episodic Other eye disorders (11 sources) Bilateral vitreous floaters; Translations: [Other vitreous opacities, bilateral] Onset: 05-13-2014 05-19-2015 Chronic Other eye disorders (20 sources) Chorioretinal scar of left eye; Translations: [Other chorioretinal scars, left eye] Onset: 12-02-2016 12-02-2016 Chronic Other eye disorders (11 sources) Choroidal and/or chorioretinal disorder; Translations: [Chorioretinal disorders in diseases classified elsewhere] Onset: 12-02-2016 12-02-2016 Chronic Other eye disorders (4 sources) H/O: R cataract extraction; Translations: [Cataract extraction status, right eye] 02-25-2023 Episodic Other eye disorders (3 sources) H/O: L cataract extraction; Translations: [Cataract extraction status, left eye] 03-30-2023 Episodic Retinal detachments; defects; vascular occlusion; and retinopathy (20 sources) Nonexudative age-related macular degeneration; Translations: [Nonexudative age-related macular degeneration, bilateral, early dry stage] Onset: 05-13-2014 Chronic Secondary malignancies (7 sources) Secondary malignant neoplasm of bone; Translations: [Secondary malignant neoplasm of bone] Onset: 01-16-2018 Chronic Secondary malignancies (4 sources) 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; Translations: [Secondary malignant neoplasm of unspecified site] Onset: 12-02-2016 Chronic Secondary malignancies (11 sources) Secondary malignant neoplasm of choroid; Translations: [Secondary malignant neoplasm of other parts of nervous system] Onset: 10-25-2022 Chronic Secondary malignancies (11 sources) Primary malignant neoplasm of breast; Translations: [Secondary malignant neoplasm of unspecified site] Onset: 12-02-2016 12-02-2016 Chronic Spondylosis; intervertebral disc disorders; other back problems (15 sources) Degeneration of lumbar intervertebral disc; Translations: [Other intervertebral disc degeneration, lumbar region] Onset: 06-26-2021 Chronic Spondylosis; intervertebral disc disorders; other back problems (1 source) Low back pain; Translations: [Lumbago] Episodic Past or Other Problems Problem Classification Problem Date Documented Da te Episodic/Chronic Cancer of breast (11 sources) History of malignant neoplasm of breast; Translations: [Personal history of malignant neoplasm of breast] Onset: 10-26-2016 10-26-2016 Episodic Cancer of bronchus; lung (13 sources) History of malignant neoplasm of thoracic cavity structure; Translations: [Personal history of other malignant neoplasm of bronchus and lung] Onset: 10-26-2016 10-26-2016 Episodic Cardiac dysrhythmias (1 source) Tachycardia Episodic Gastrointestinal hemorrhage (11 sources) Hemorrhage of rectum and anus; Translations: [Hemorrhage of anus and rectum] Onset: 01-11-2007 01-11-2007 Episodic Mood disorders (1 source) Mood disorders Onset: 10-05-2021 10-05-2021 Other and unspecified benign neoplasm (11 sources) Benign neoplasm of colon; Translations: [Benign neoplasm of colon, unspecified] Onset: 01-12-2007 01-12-2007 Episodic Other skin disorders (5 sources) Neck swelling; Translations: [Localized swelling, mass and lump, neck] Onset: 05-28-2018 Resolved: 03-31-2019 03-31-2019 Episodic Pleurisy; pneumothorax; pulmonary collapse (12 sources) Pleural effusion; Translations: [Pleural effusion, not elsewhere classified] Onset: 11-01-2016 Episodic Retinal detachments; defects; vascular occlusion; and retinopathy (11 sources) Retinal round hole; Translations: [Round hole, left eye] Onset: 01-03-2018 01-03-2018 Episodic Results Test Name Value Interpretation Reference Range Facil ity Vital Signs Date Time Vital Sign Value Performing Clinician Facility 03-24-2023 13:40-0400 Diastolic blood pressure 81 mm[Hg] Que Townsend MD Work Phone: [facility] 03-24-2023 13:40-0400 Heart rate 78 /min Que Townsend MD Work Phone: [facility] 03-24-2023 13:40-0400 Respiratory rate 16 /min Que Townsend MD Work Phone: [facility] 03-24-2023 13:40-0400 SaO2% (BldA) [Mass fraction] 94 % Que Townsend MD Work Phone: [facility] 03-24-2023 13:40-0400 Systolic blood pressure 132 mm[Hg] Que Townsend MD Work Phone: [facility] 03-24-2023 13:25-0400 Body temperature 97.9 [degF] Que Townsend MD Work Phone: [facility] 03-24-2023 12:09-0400 Body height 158 cm Que Townsend MD Work Phone: [facility] 03-24-2023 12:09-0400 Body mass index (BMI) [Ratio] 22.43 kg/m2 Que Townsend MD Work Phone: [facility] 03-24-2023 12:090400 Body weight 56 kg Que Townsend MD Work Phone: [facility] 02-16-2023 15:24-0400 Diastolic blood pressure 83 mm[Hg] Que Townsend MD Work Phone: [facility] 02-16-2023 15:24-0400 Heart rate 83 /min Que Townsend MD Work Phone: [facility] 02-16-2023 15:24-0400 Systolic blood pressure 145 mm[Hg] Que Townsend MD Work Phone: [facility] 01-28-2023 09:45-0400 Diastolic blood pressure 83 mm[Hg] Que Townsend MD Work Phone: [facility] 01-28-2023 09:45-0400 Heart rate 83 /min Que Townsend MD Work Phone: [facility] 01-28-2023 09:45-0400 Systolic blood pressure 145 mm[Hg] Que Townsend MD Work Phone: [facility] 10-05-2021 09:26-0400 Body mass index (BMI) [Ratio] 21.84 kg/m2 Fco HOOKS Work Phone: [facility] 10-05-2021 09:26-0400 Body temperature 98.4 [degF] Fco HOOKS Work Phone: [facility] 10-05-2021 09:26-0400 Body weight 54.16 kg Fco HOOKS Work Phone: [facility] 10-05-2021 09:26-0400 Diastolic blood pressure 84 mm[Hg] Fco HOOKS Work Phone: [facility] 10-05-2021 09:26-0400 Heart rate 79 /min Fco HOOKS Work Phone: [phone] [place] [address] 10-05-2021 09:26-0400 Respiratory rate 16 /min Fco HOOKS Work Phone: [phone] [place] [address] 10-05-2021 09:26-0400 Systolic blood pressure 145 mm[Hg] Fco HOOKS Work Phone: [phone] [place] [address] 01-26-2021 09:51-0400 Body mass index (BMI) [Ratio] 22.79 kg/m2 Catarino Levi MD, PhD Work Phone: [phone] [place] [address] 01-26-2021 09:51-0400 Body temperature 98.01 [degF] Catarino Levi MD, PhD Work Phone: [phone] [place] [address] 01-26-2021 09:51-0400 Body weight 56.52 kg Catarino Levi MD, PhD Work Phone: [phone] [place] [address] 01-26-2021 09:51-0400 Diastolic blood pressure 87 mm[Hg] Catarino Levi MD, PhD Work Phone: [phone] [place] [address] 01-26-2021 09:51-0400 Heart rate 88 /min Catarino Levi MD, PhD Work Phone: [phone] [place] [address] 01-26-2021 09:51-0400 Respiratory rate 16 /min Catarino Levi MD, PhD Work Phone: [phone] [place] [address] 01-26-2021 09:51-0400 SaO2% (BldA) [Mass fraction] 100 % Catarino Levi MD, PhD Work Phone: [phone] [place] [address] 01-26-2021 09:51-0400 Systolic blood pressure 152 mm[Hg] Catarino Levi MD, PhD Work Phone: [phone] [place] [address] 05-17-2017 09:40-0500 BMI (Body Mass Index) 21.77 kg/m2 Chaparro Liu [facility] Work Phone: 05-17-2017 09:40-0500 BP Diastolic 79 mm[Hg] Chaparro Liu [facility] Work Phone: 05-17-2017 09:40-0500 BP Systolic 116 mm[Hg] Chaparro Liu [facility] Work Phone: 05-17-2017 09:40-0500 Height 157.5 cm Chaparro Liu [facility] Work Phone: 05-17-2017 09:40-0500 Pulse (Heart Rate) 97 /min Chaparro Liu [facility] Work Phone: 05-17-2017 09:40-0500 Pulse Oximetry 94 % Chaparro Liu [facility] Work Phone: 05-17-2017 09:40-0500 Weight 53.98 kg Chaparro Liu [facility] Work Phone: Encounters Encounter Date Encounter Type Care Provider Facility Start: 04-20-2023 End: 04-20-2023 ambulatory [facility] Facility:[facility] Start: 04-20-2023 End: 04-20-2023 Patient encounter procedure Josh Gaston OD Work Phone: Optometry Procedures Date Procedure Procedure Detail Performing Clinician Start: 04-05-2023 End: 04-05-2023 Computerized ophthalmic imaging retina Ольга Tabares MD Work Phone: Start: 03-24-2023 DISCHARGE PATIENT EMIL GONZALEZ Start: 03-24-2023 PLACE IN OUTPATIENT/HOSPITAL AMBULATORY SURGERY QUE TOWNSEND Start: 01-28-2023 End: 01-28-2023 Visual field xm uni/bi w/interp extended exam Que Townsend MD Work Phone: Start: 01-28-2023 IOL BIOMETRY W/ IOL CALC OU (BOTH EYES) Que Townsend MD Work Phone: Start: 10-25-2022 End: 10-25-2022 Computerized ophthalmic imaging retina Que Townsend MD Work Phone: Start: 10-07-2021 Lipid 1996 panel - S jasson or Plasma Que Townsend MD Work Phone: Start: 10-06-2021 End: 10-06-2021 Computerized ophthalmic imaging retina Que Townsend MD Work Phone: Start: 10-05-2021 Bilirubin direct Meliss a L Jin [employer] FOREMAN-MASSAGE THERAPIST Work Phone: Start: 10-05-2021 CBC AND ELECTRONIC DIFF Ghazal L Jin [employer] FOREM[employer]-MASSAGE THERAPIST Work Phone: Start: 10-05-2021 Complete blood count with white cell differential, automated Ghazal L Jin [employer] FOREM[employer]-MASSAGE THERAPIST Work Phone: Start: 10-05-2021 MANUAL DIFF Ghazal L Jin [employer] FOREM[employer]-MASSAGE THERAPIST Work Phone: Start: 01-26-2021 Bilirubin direct Meliss a L Jin [employer] FOREMAN-MASSAGE THERAPIST Work Phone: Start: 01-26-2021 CBC AND ELECTRONIC DIFF Ghazal L Jin [employer] FOREMAN-MASSAGE THERAPIST Work Phone: Start: 01-26-2021 Complete blood count with white cell differential, automated Ghazal L Jin [employer] FOREMAN-MASSAGE THERAPIST Work Phone: Start: 01-26-2021 MANUAL DIFF Ghazal L Jin [employer] FOREM[employer]-MASSAGE THERAPIST Work Phone: Start: 01-26-2021 Ct thorax w/o contra st material Catarino Levi MD, PhD Work Phone: Start: 02-26-2016 Mammography Que philippe MD Work Phone: Start: 05-29-2015 Colonoscopy Que philippe MD Work Phone: Plan of Treatment Date Care Activity Detail Author Start: 03-14-2028 Tetanus vaccination [facility] Start: 03-14-2028 Urine microalbumin profile DTaP,Tdap,Td Vaccine (2 - Td or Tdap) [facility] Start: 10-07-2026 Lipid 1996 panel - Serum or Plasma Lipid Screening [facility] Start: 10-07-2026 LIPID SCREEN LIPID SCREEN [facility] Start: 10-07-2024 DIABETES SCREEN DIABETES SCREEN [facility] Start: 10-07-2024 Diabetes Screening Diabetes Screening [facility] Start: 03-24-2023 End: 03-24-2023 Phacoemulsification Cataract with Insertion Intraocular Lens Phacoemulsification Cataract with Insertion Intraocular Lens Combined forms of age-related cataract of left eye 03/24/2023 12:52 PM EDT [facility] Work Phone: Start: 02-11-2023 Covid-19 Vaccine () Covid-19 Vaccine () [facility] Start: 02-11-2023 Influenza vaccination [facility] Start: 06-13-2022 ADVANCE DIRECTIVE DISCUSSION ADVANCE DIRECTIVE DISCUSSION [facility] Start: 06-13-2022 DEPRESSION ASSESSMENT DEPRESSION ASSESSMENT [facility] Start: 06-03-2022 COVID-19 VACCINE (5 - Pfizer risk series) COVID-19 VACCINE (5 - Pfizer risk series) [facility] Start: 02-11-2022 Influenza vaccination INFLUENZA (#1) [facility] Start: 12-02-2021 End: 12-02-2021 Patient encounter procedure Department o f Radiology Start: 10-18-2021 COVID-19 Vaccine (4 - Booster for Pfizer series) COVID-19 Vaccine (4 - Booster for Pfizer series) [facility] Start: 09-18-2021 COVID-19 Vaccine (4 - Booster for Pfizer series) COVID-19 Vaccine (4 - Booster for Pfizer series) [facility] Start: 07-31-2021 End: 07-31-2021 ambulatory 07/31/2021 Treatment Rehabilitation Saleem Brown, DO [address] [place] [address] [phone] Tequila Kay, PT [facility] Start: 07-28-2021 End: 07-28-2021 ambulatory 07/28/2021 Treatment Rehabilitation Saleem Brown, DO [address] [place] [address] [place] [id number] Mili Reynolds, [facility] Start: 07-23-2021 End: 07-23-2021 ambulatory 07/23/2021 Treatment Rehabilitation Kevin Saleem Korey, DO [address] [place] [address] Jayson Grant [facility] Start: 07-21-2021 End: 07-21-2021 ambulatory 07/21/2021 Treatment Rehabilitation Saleem Brown, DO [address] [place] [address] [address] [place] [address] Mili Reynolds [facility] Start: 07-21-2021 COVID-19 VACCINE (4 - Booster for Pfizer series) COVID-19 VACCINE (4 - Booster for Pfizer series) [facility] Start: 07-17-2021 End: 07-17-2021 ambulatory [facility] Start: 07-14-2021 End: 07-14-2021 ambulatory 07/14/2021 Treatment Rehabilitation Saleem Brown, DO [address] [place] [address] [address] [place] [address] Shanika Watson [facility] Start: 07-09-2021 End: 07-09-2021 ambulatory 07/09/2021 Treatment Rehabilitation Saleem Brown, DO [address] [place] [address] [address] [place] [address] Jayson Grant [facility] Start: 07-07-2021 End: 07-07-2021 ambulatory 07/07/2021 [place] [address] [place] [address] Road [address] [place] [address] Shanika Watson [facility] Start: 07-02-2021 End: 07-02-2021 ambulatory 07/02/2021 Treatment Rehabilitation Saleem Brown, DO [address] [place] [address] [address] [place] [address] Jayson Grant PTA [facility] Start: 06-30-2021 End: 06-30-2021 ambulatory 06/30/2021 Treatment Rehabilitation Saleem Brown, DO [address] [place] [address] [address] [place], [place] [id number] Shanika Watson PTA [facility] Start: 06-15-2021 COVID-19 Vaccine (2 - Pfizer series) COVID-19 Vaccine (2 - Pfizer series) [facility] Start: 06-15-2021 COVID-19 VACCINE (4 - Booster for Pfizer series) COVID-19 VACCINE (4 - Booster for Pfizer series) [facility] Start: 06-13-2021 ADVANCE DIRECTIVE DISCUSSION ADVANCE DIRECTIVE DISCUSSION [facility] Start: 06-13-2021 DEPRESSION ASSESSMENT DEPRESSION ASSESSMENT [facility] Start: 04-20-2021 End: 01-26-2022 CT of abdomen and pelvis CT ABDOMEN/PELVIS WITHOUT CONTRAST Imaging Routine Metastatic breast cancer Expected: 04/20/2021, Expires: 01/26/2022 [facility] Work Phone: Immunizations Immunization Date Immunization Notes Care Provider [facility] 03-26-2022 influenza virus vaccine, unspecified formulation Que Townsend MD Work Phone: [facility] 04-20-2021 COVID-19 vaccine, MR YAMILET, Kelli, 0.3 ML Fco HOOKS Work Phone: [facility] 04-20-2019 zoster vaccine, unspecified formulation Tess Weeks RN [facility] 03-13-2019 influenza, high dose seasonal, preservative-free Tess Weeks RN [facility] 03-13-2019 influenza virus vaccine, unspecified formulation Tess Weeks RN [facility] Payers Date Payer Category Payer Unknown 2021 Unknown [id number] 2018 Private Health Insurance [id number] [id number] 2018 Unknown [id number] 1.2.840.740835.1.13.172.2. 7.3.198581.315 2017 Medicare 2017 Private Health Insurance 2012 Medicare [id number] 2.16.840.1.125824.3.249.13 1947 Unknown [id number] 2.16.840.1.163622.3.579.2. 717 1945 Unknown [id number] 2.16.840.1.895600.3.579.2. 71 1945 Unknown [id number] 2.16840.1.054193.3.579.2. 356 1945 Unknown [id number] 2.16.840.1.266357.3.579.2. 90 1945 Unknown [id number] 2.16.840.1.290000.3.579.2. 90 1945 Unknown [id number] 2.16.840.1.940359.3.579.2. 903 1945 Unknown [id number] 2.16840.1.555264.3.579.2. 90 1945 Unknown [id number] 2.16.840.1.900093.3.579.2. 90 1945 Unknown [id number] 2.16.840.1.901677.3.579.2. 90 1945 Unknown [id number] 2.16.840.1.447011.3.579.2. 90 1947 Unknown [id number] 2.16.840.1.257321.3.579.2. 90 1947 Unknown [id number] 2.16.840.1.285382.3.579.2. 594 1947 Unknown [id number] 2.16.840.1.015494.3.579.2. 594 1947 Unknown [id number] 2.16.840.1.114296.3.579.2. 594 1947 Unknown [id number] 2.16.840.1.197928.3.579.2. 594 1947 Unknown [id number] 2.16.840.1.662055.3.579.2. 594 1947 Unknown [id number] 2.840.1.475833.3.579.2. 594 1947 Unknown [id number] 2.16840.1.743340.3.579.2. 594 1947 Unknown [id number] 2.840.1.215082.3.579.2. 594 1947 Unknown [id number] 2.16840.1.389220.3.579.2. 594 1947 Unknown [id number] 2.16840.1.691286.3.579.2. 594 1947 Unknown [id number] 2.16.840.1.018476.3.579.2. 594 1947 Unknown [id number] 2.16840.1.311700.3.579.2. 594 1945 Unknown [id number] 2.16.840.1.468812.3.579.2. 594 1947 Unknown [id number] 2.16.840.1.118855.3.579.2. 594 1947 Unknown [id number] 2.16.840.1.687573.3.579.2. 594 1947 Unknown [id number] 2.16840.1.979209.3.579.2. 594 1947 Unknown [id number] 2.16.840.1.716365.3.579.2. 594 1947 Unknown [id number] 2.16.840.1.890333.3.579.2. 594 1945 Unknown [id number] 2.16.840.1.110550.3.579.2. 594 1945 Unknown [id number] 2.16.840.1.799875.3.579.2. 1243 Medicare MEDICARE MEDICAR E A AND B [id number] Effective for all dates [address] [place] [address] [id number] 1.2.840.369873.1.13.172.2. 7.3.931300.315 Medicare [id number] Social History Date Type Detail Facility Start: 05-17-2017 End: 01-28-2023 Tobacco smoking status NHIS Never smoker [facility] Start: 1945 Sex Assigned At Not on file [employer] Work Phone: Start: 03-27-2015 End: 01-28-2023 Tobacco use and exposure Smokeless tobacco non-user [facility] Start: 05-17-2017 End: 04-20-2023 Alcohol intake Current non-drinker of alcohol (finding) [facility] Start: 07-26-2021 End: 03-23-2023 Exposure to SARS-CoV-2 (event) Not sure [facility] Start: 07-12-2018 End: 03-23-2023 Cigarettes smoked current (pack per day) - Reported 0.5 [facility] Start: 10-25-2022 End: 03-23-2023 Tobacco use panel [facility] National Score (1-10 0), lower number is lower risk 59 [facility] Start: 03-23-2023 Alcohol intake Lifetime non-d elvin (finding) [facility] Work Phone: Tobacco smoking stat us SDIS Tobacco smoking consumption unknown [facility] Work Phone: Medical Equipment Procedure Code Equipment Code Equipment Origin al Text Equipment Identifier Dates Lens, Intraocula r, [id number] 22.5 Harlan - [id number] - [id number] Start: 03-24-2023 Clinical Notes 05-29-2015 to 04-20-2023 Patient InstructionsJosh Gaston II, OD - 04/20/2023 8:58 AM Ольга Prasad MD - 04/05/2023 12:04 PM EDTPatient InstructionsJosh Gaston II, OD - 03/30/2023 4:26 PM EDT Note Date & Type Note Facility 04-20-2023 Note HNO ID: [id number] Author: Josh Gaston II, OD Service: ? Author Type: WIRE FENCE ERECTOR Type: Progress Notes Filed: 04/20/2023 9:00 AM Note Text: Assessment and Plan Z98.42, Z96.1 Status post cataract extraction and insertion of intraocular lens of left eye (primary encounter diagnosis) Z98.41, Z96.1 Status post cataract extraction and insertion of intraocular lens of right eye Comment: Healing well. Recommend update glasses to maximize visual performance. Recheck in 2 months. Instruct patient to immediately report any change in condition outside of expected and discussed symptoms. I have confirmed and edited as necessary the relevant ophthalmic history, ROS, and the neuro exam findings as obtained by others. I have seen and examined Martha Stephens. I have discussed the case and the management of this patient's care with the Resident/Fellow, if applicable. I also have reviewed and agree with the assessment and plan as stated above and agree with all of its relevant components. Josh Gaston II, OD [facility] 04-20-2023 Instructions AbrahamshaggyYue lawrenceflorencio Barone II, OD - 04/20/2023 8:59 AM EST Assessment and Plan Z98.42, Z96.1 Status post cataract extraction and insertion of intraocular lens of left eye (primary encounter diagnosis) Z98.41, Z96.1 Status post cataract extraction and insertion of intraocular lens of right eye Comment: Healing well. Recommend update glasses to maximize visual performance. Recheck in 2 months. Instruct patient to immediately report any change in condition outside of expected and discussed symptoms. I have confirmed and edited as necessary the relevant ophthalmic history, ROS, and the neuro exam findings as obtained by others. I have seen and examined Martha Stephens. I have discussed the case and the management of this patient's care with the Resident/Fellow, if applicable. I also have reviewed and agree with the assessment and plan as stated above and agree with all of its relevant components. Josh Gaston II, OD documented in this encounter [facility] 04-20-2023 History of Present illness Narrative Assessment and Plan Z98.42, Z96.1 Status post cataract extraction and insertion of intraocular lens of left eye (primary encounter diagnosis) Z98.41, Z96.1 Status post cataract extraction and insertion of intraocular lens of right eye Comment: Healing well. Recommend update glasses to maximize visual performance. Recheck in 2 months. Instruct patient to immediately report any change in condition outside of expected and discussed symptoms. I have confirmed and edited as necessary the relevant ophthalmic history, ROS, and the neuro exam findings as obtained by others. I have seen and examined Martha Stephens. I have discussed the case and the management of this patient's care with the Resident/Fellow, if applicable. I also have reviewed and agree with the assessment and plan as stated above and agree with all of its relevant components. Josh Gaston II, OD documented in this encounter [facility] 04-05-2023 Note HNO ID: [id number] Author: Ольга Tabares MD Service: ? Author Type: Physician Type: Progress Notes Filed: 04/05/2023 12:42 PM Note Text: Referred by Dr. Que Townsend Incidental finding on routine examination - asymptomatic except shadow 1. Stage IV breast cancer - 09/10/16 CT A/P: Right pleural effusion, small left pleural effusion, multiple sclerotic lesions, liver lesions - 10/06/[address] Usha Hathaway, [facility]. - 10/21/16 Thoracentesis 900 mL - Metastatic adenocarcinoma consistent with breast primary - Patient went in for annual eye exam at [facility] and left eye cancer was found. - 11/01/16 New patient visit with Dr. Levi - 11/10/16: Liver biopsy demonstrates small patches of cells which are ER strongly +100%, IL negative, HER2 negative. - 11/17/17 Seen at [facility]. Started Letrozole. Palbociclib ordered. - 11/22/16 Started Palbociclib and continued Letrozole - 02/09/17 CT chest abdomen pelvis showed increased sclerosis of her bone lesions consistent with disease response. She has persistent right greater than left pleural effusion. - 02/21/18 Seen at [facility]. Continue current treatment with Palbociclib + Letrozole. Recommend Xgeva. - 05/09/17 Chest x-ray showed reaccumulation of pleural fluid in right lung base. - 05/09/17 Started Xgeva every 3 months - 05/23/17 Seen at [facility]. Recommend repeat staging scans with local oncologist and continue current therapy if stable. - 06/08/17 Bone scan: Overall compared to the previous bone scan of 02/07/18, there is continued demonstration of skeletal metastatic disease in the distribution of the left proximal humeral diaphysis. Stable diffuse osteoblastic metastatic lesions involving the thoracic spine, the ribs, the sternum and shoulders. There is no pathologic fracture. - 06/27/17 CT chest with large bilateral pleural effusions, left smaller than since the previous study. CT A/P with multiple stable hypoattenuation lesions of the liver may represent cysts. - 07/07/17 Left thoracentesis with hemoptysis - 07/21/17 Chest x-ray showed increased right pleural effusion - 07/21/17 Right thoracentesis - 08/02/[address] Tate. C10 Palbo + Letrozole, Xgeva - 09/19/17 Seen at [facility]. Recommended consideration of Pleurx vs continued intermittent thoracentesis as needed. Continue current therapy. - October 2017 Palbo dose-reduced to 100 mg - 10/24/17 Thoracentesis - 04/19/18: Continue Palbo 100 mg+AI-letrozole/Zometa (Xgeva discontinued approx 3 months ago). Scans reviewed by Dr. Levi, stable - 10/04/2018 Continue Palbo 100 mg+AI-letrozole/Zometa. Scans Stable - 08/11/20 C46-48 Palbo + Letrozole. Hold C11D1 Zometa d/t worsening renal insufficiency. - 11/05/20 C46 Palbo + Letrozole. Resume Zometa. - 04/20/21 C55-57 Palbociclib + Letrozole, C13 Zometa held due to renal function, Scans stable. - Oncologist - Dr Fco Camacho- [facility] [place] [facility] - CT C/A/P 07/13/21: stable. - Metastatic Disease Sites: lung, bone, liver, left eye - Current Therapy: Letrozole and Palbociclib. 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 Suspicion of retinal hole (infero-nasal) Today: stable, atrophic lesion, no new lesion Plan: - RTC: [address] Townsend RTC 1 year I have confirmed and edited as necessary the relevant ophthalmic history, ROS, and the neuro exam findings as obtained by others. I have seen and examined this patient. I have discussed the case and the management of this patient's care with the Resident/Fellow, if applicable. I also have reviewed and agree with the assessment and plan as stated above and agree with all of its relevant components. Ольга Tabares MD April 05, 2023 12:41 PM [facility] 04-05-2023 History of Present illness Narrative Referred by Dr. Que Townsend Incidental finding on routine examination - asymptomatic except shadow 1. Stage IV breast cancer - 09/10/16 CT A/P: Right pleural effusion, small left pleural effusion, multiple sclerotic lesions, liver lesions - 10/06/[address] Usha Hathaway, [facility]. - 10/21/16 Thoracentesis 900 mL - Metastatic adenocarcinoma consistent with breast primary - Patient went in for annual eye exam at [facility] and left eye cancer was found. - 11/01/16 New patient visit with Dr. Levi - 11/10/16: Liver biopsy demonstrates small patches of cells which are ER strongly +100%, IL negative, HER2 negative. - 11/17/17 Seen at [facility]. Started Letrozole. Palbociclib ordered. - 11/22/16 Started Palbociclib and continued Letrozole - 02/09/17 CT chest abdomen pelvis showed increased sclerosis of her bone lesions consistent with disease response. She has persistent right greater than left pleural effusion. - 02/21/18 Seen at [facility]. Continue current treatment with Palbociclib + Letrozole. Recommend Xgeva. - 05/09/17 Chest x-ray showed reaccumulation of pleural fluid in right lung base. - 05/09/17 Started Xgeva every 3 months - 05/23/17 Seen at [facility]. Recommend repeat staging scans with local oncologist and continue current therapy if stable. - 06/08/17 Bone scan: Overall compared to the previous bone scan of 02/07/18, there is continued demonstration of skeletal metastatic disease in the distribution of the left proximal humeral diaphysis. Stable diffuse osteoblastic metastatic lesions involving the thoracic spine, the ribs, the sternum and shoulders. There is no pathologic fracture. - 06/27/17 CT chest with large bilateral pleural effusions, left smaller than since the previous study. CT A/P with multiple stable hypoattenuation lesions of the liver may represent cysts. - 07/07/17 Left thoracentesis with hemoptysis - 07/21/17 Chest x-ray showed increased right pleural effusion - 07/21/17 Right thoracentesis - 08/02/[address] Tate. C10 Palbo + Letrozole, Xgeva - 09/19/17 Seen at [facility]. Recommended consideration of Pleurx vs continued intermittent thoracentesis as needed. Continue current therapy. - October 2017 Palbo dose-reduced to 100 mg - 10/24/17 Thoracentesis - 04/19/18: Continue Palbo 100 mg+AI-letrozole/Zometa (Xgeva discontinued approx 3 months ago). Scans reviewed by Dr. Levi, stable - 10/04/2018 Continue Palbo 100 mg+AI-letrozole/Zometa. Scans Stable - 08/11/20 C46-48 Palbo + Letrozole. Hold C11D1 Zometa d/t worsening renal insufficiency. - 11/05/20 C46 Palbo + Letrozole. Resume Zometa. - 04/20/21 C55-57 Palbociclib + Letrozole, C13 Zometa held due to renal function, Scans stable. - Oncologist - Dr Fco Camacho- [facility] - CT C/A/P 07/13/21: stable. - Metastatic Disease Sites: lung, bone, liver, left eye - Current Therapy: Letrozole and Palbociclib. 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 Suspicion of retinal hole (infero-nasal) Today: stable, atrophic lesion, no new lesion Plan: - RTC: [address] Townsend RTC 1 year I have confirmed and edited as necessary the relevant ophthalmic history, ROS, and the neuro exam findings as obtained by others. I have seen and examined this patient. I have discussed the case and the management of this patient's care with the Resident/Fellow, if applicable. I also have reviewed and agree with the assessment and plan as stated above and agree with all of its relevant components. Ольга Tabares MD April 05, 2023 12:41 PM documented in this encounter [facility] 03-30-2023 Note HNO ID: [id number] Author: Josh Gaston II, OD Service: ? Author Type: WIRE FENCE ERECTOR Type: Progress Notes Filed: 03/30/2023 4:27 PM Note Text: Assessment and Plan Z98.42, Z96.1 Status post cataract extraction and insertion of intraocular lens of left eye (primary encounter diagnosis) Z98.41, Z96.1 Status post cataract extraction and insertion of intraocular lens of right eye Comment: Healing well both eyes. Posterior chamber intraocular lenses are well positioned and clear. Continue schedule of postoperative medications as directed. Recheck refraction at next visit before pseudophakic spectacles obtained. Recheck in 3 weeks. Instruct patient to immediately report any change in condition outside of expected and discussed symptoms. I have confirmed and edited as necessary the relevant ophthalmic history, ROS, and the neuro exam findings as obtained by others. I have seen and examined Martha Stephens. I have discussed the case and the management of this patient's care with the Resident/Fellow, if applicable. I also have reviewed and agree with the assessment and plan as stated above and agree with all of its relevant components. Josh Gaston II, OD [facility] 03-30-2023 Instructions Josh Gaston II, OD - 03/30/2023 4:27 PM EDT Assessment and Plan Z98.42, Z96.1 Status post cataract extraction and insertion of intraocular lens of left eye (primary encounter diagnosis) Z98.41, Z96.1 Status post cataract extraction and insertion of intraocular lens of right eye Comment: Healing well both eyes. Posterior chamber intraocular lenses are well positioned and clear. Continue schedule of postoperative medications as directed. Recheck refraction at next visit before pseudophakic spectacles obtained. Recheck in 3 weeks. Instruct patient to immediately report any change in condition outside of expected and discussed symptoms. I have confirmed and edited as necessary the relevant ophthalmic history, ROS, and the neuro exam findings as obtained by others. I have seen and examined Martha Stephens. I have discussed the case and the management of this patient's care with the Resident/Fellow, if applicable. I also have reviewed and agree with the assessment and plan as stated above and agree with all of its relevant components. Josh Gaston II, OD documented in this encounter [facility] 03-30-2023 History of Present illness Narrative Assessment and Plan Z98.42, Z96.1 Status post cataract extraction and insertion of intraocular lens of left eye (primary encounter diagnosis) Z98.41, Z96.1 Status post cataract extraction and insertion of intraocular lens of right eye Comment: Healing well both eyes. Posterior chamber intraocular lenses are well positioned and clear. Continue schedule of postoperative medications as directed. Recheck refraction at next visit before pseudophakic spectacles obtained. Recheck in 3 weeks. Instruct patient to immediately report any change in condition outside of expected and discussed symptoms. I have confirmed and edited as necessary the relevant ophthalmic history, ROS, and the neuro exam findings as obtained by others. I have seen and examined Martha Stephens. I have discussed the case and the management of this patient's care with the Resident/Fellow, if applicable. I also have reviewed and agree with the assessment and plan as stated above and agree with all of its relevant components. Josh Gaston II, OD documented in this encounter [facility] 03-25-2023 Note HNO ID: [id number] Author: Que Townsend MD Service: ? Author Type: Physician Type: Progress Notes Filed: 03/25/2023 1:20 PM Note Text: ASSESSMENT/PLAN: 1. Status post cataract extraction and insertion of intraocular lens of left eye - ICD9: V45.61, V43.1, ICD10: Z98.42, Z96.1 (primary diagnosis) -S/P Cataract extraction with insertion of PC Intraocular lens Left eye 03/24/2023. Current Ophthalmic Meds keTORolac (ACULAR) 0.5 % ophthalmic solution Use 1 Drop in the left eye four times daily. For one week, then three times a day, until 04/28/2023, then stop prednisoLONE acetate (PRED FORTE) 1 % ophthalmic suspension Use 1 Drop in the left eye four times daily. For one week, then three times a day until 04/28/2023, then stop. Continue: Systane Complete solution instill 1 drop 3 times daily Both Eyes. 2. Status post cataract extraction and insertion of intraocular lens of right eye - ICD9: V45.61, V43.1, ICD10: Z98.41, Z96.1 -S/P Cataract extraction with insertion of PC Intraocular lens Right eye 02/24/2023. Current Ophthalmic Meds keTORolac (ACULAR) 0.5 % ophthalmic solution Use 1 Drop in the right eye three times a day. prednisoLONE acetate (PRED FORTE) 1 % ophthalmic suspension Use 1 Drop in the right eye three times a day. Continue: Systane Complete solution instill 1 drop 3 times daily Both Eyes. -Post operative care with Dr. Gaston in 1 week. 3. Essential hypertension - ICD9: 401.9, ICD10: I10 Continue to monitor with primary care physician. I have confirmed and edited as necessary the relevant ophthalmic history, review of systems, surgical history, and ophthalmological examination findings as obtained by the ophthalmic technical staff. I have seen and examined Martha Stephens. I have discussed the examination findings, diagnosis, and treatment options with Martha Stephens and/or her family. I have also reviewed and agree with the assessment and plan as stated above and agree with all its relevant components. I gave the patient the opportunity to ask questions about the findings, diagnosis, and treatment options. Que Townsend MD [facility] 03-24-2023 Hospital Discharge instructions Que Townsend MD - 03/24/2023 1:39 PM EDT Follow printed discharge instructions documented in this encounter [facility] Work Phone: 03-24-2023 Note Formatting of this n ote is different from the original. 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 Procedure Summary Anesthesia: Monitor Anesthesia Care ASA: II Anesthesia Staff: Anesthesiologist: Dru Hi DO Estimated Blood Loss: None Intra-op Medications: Medication Name Total Dose lactated Ringer's infusion 23.75 mL ketorolac (Acular) 0.5 % ophthalmic solution 1 drop 3 drop lubricating eye drops ophthalmic solution 1 drop 3 drop ondansetron (Zofran) injection 4 mg 4 mg phenylephrine-tropicamide 10 %-1 % ophthalmic solution 1 drop 3 drop povidone-iodine 5 % ophthalmic solution 1 Application 1 Application tetracaine (Altacaine) 0.5 % ophthalmic solution 1 drop 1 drop Anesthesia Record Intraprocedure I/O Totals Intake lactated Ringer's infusion 350.00 mL Total Intake 350 mL Specimen: No specimens collected Staff: [employer] Worker: Asha Nuñez RN Scrub Person: Ambrosio Mensah RN Implants: Implants Type Name Action Serial No. Lens LENS, INTRAOCULAR, [id number] 22.5 HARLAN - [id number] - [id number] Implanted [id number] Findings: Combined Form Age Related Cataract Left Eye Indications: Martha Stephens is an 77 y.o. 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 Patient complains of difficulty seeing for near and for distance left eye. Difficulty seeing to read with left eye. Difficulty seeing to drive due to poor vision left eye. The patient was seen in the preoperative area. The risks, benefits, complications, treatment options, non-operative alternatives, expected recovery and outcomes were discussed with the patient. The possibilities of reaction to medication, pulmonary aspiration, injury to surrounding structures, bleeding, recurrent infection, the need for additional procedures, failure to diagnose a condition, and creating a complication requiring transfusion or operation were discussed with the patient. The patient concurred with the proposed plan, giving informed consent. The site of surgery was properly noted/marked if necessary per policy. The patient has been actively warmed in preoperative area. Preoperative antibiotics are not indicated. Venous thrombosis prophylaxis are not indicated. Procedure Details: The patient was correctly identified in the preop area and the operative eye was marked with a marking pen. The operative eye was dilated in the preoperative area. The patient was then taken to the operating room where timeout was performed before starting the procedure. Combined anesthesia with intravenous sedation and topical tetracaine eyedrops were given the left eye. The operative eye was prepped and draped in the standard sterile ophthalmic fashion in preparation for ophthalmic surgery. A Carlos wire speculum was then inserted between the eyelids of the left eye and the operating microscope was placed over the left eye. A paracentesis incision was made approximately 30 away from the planned surgical incision site with the help of MVR blade. 1% lidocaine MPF with Phenylephrine 1.5% PF was injected into the anterior chamber through the paracentesis incision. A near limbal clear corneal incision was fashioned in the temporal quadrant just outside the vascular arcade and Viscoat was injected into anterior chamber to firm the eye. A bent needle cystotome was used and Utrata forceps were utilized to create a continuous curvilinear capsulorrhexis. BSS was injected beneath the anterior capsule to hydrodissect the nucleus from adjacent cortex and capsule. The residual cortex were then aspirated with irrigation aspiration handpiece. The posterior capsule was then polished with the help of soft irrigation-aspiration tip. Provisc viscoelastic was then injected into the eye to reform the anterior chamber and to open the capsular bag. The intraocular lens implant was taken from its sterile wrapping, inspected under the surgical microscope and found to be in good condition. The intraocular lens implant 22.5D was injected into the capsule bag. The Provisc was then aspirated from the anterior chamber and from behind the intraocular lens implant. The anterior chamber was inflated with the help of BSS to moderate tension. The edges of the surgical incision were then hydrated with the help of BSS. Vigamox was then injected into the anterior chamber and into the capsule bag through the paracentesis incision. The surgical wound was then inspected and found to be watertight. The wire speculum and drapes were then removed. Pred Forte eyedrops, Acular eyedrops and Betadine 5% sterile ophthalmic solution were instilled in the conjunctival sac. The patient tolerated the procedure well and was taken to recovery room in stable condition. Complications: None; patient tolerated the procedure well. Condition: stable Attending Attestation: I performed the procedure. 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 Procedure Summary Anesthesia: Monitor Anesthesia Care ASA: II Anesthesia Staff: Anesthesiologist: Dru Hi DO Estimated Blood Loss: None Intra-op Medications: Medication Name Total Dose lactated Ringer's infusion 23.75 mL ketorolac (Acular) 0.5 % ophthalmic solution 1 drop 3 drop lubricating eye drops ophthalmic solution 1 drop 3 drop ondansetron (Zofran) injection 4 mg 4 mg phenylephrine-tropicamide 10 %-1 % ophthalmic solution 1 drop 3 drop povidone-iodine 5 % ophthalmic solution 1 Application 1 Application tetracaine (Altacaine) 0.5 % ophthalmic solution 1 drop 1 drop Anesthesia Record Intraprocedure I/O Totals Intake lactated Ringer's infusion 350.00 mL Total Intake 350 mL Specimen: No specimens collected Staff: [employer] Worker: Asha Nuñez RN Scrub Person: Ambrosio Mensah RN Implants: Implants Type Name Action Serial No. Lens LENS, INTRAOCULAR, [id number] 22.5 HARLAN - [id number] - [id number] Implanted [id number] Findings: Combined Form Age Related Cataract Left Eye Indications: Martha Stephens is an 77 y.o. 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 Patient complains of difficulty seeing for near and for distance left eye. Difficulty seeing to read with left eye. Difficulty seeing to drive due to poor vision left eye. The patient was seen in the preoperative area. The risks, benefits, complications, treatment options, non-operative alternatives, expected recovery and outcomes were discussed with the patient. The possibilities of reaction to medication, pulmonary aspiration, injury to surrounding structures, bleeding, recurrent infection, the need for additional procedures, failure to diagnose a condition, and creating a complication requiring transfusion or operation were discussed with the patient. The patient concurred with the proposed plan, giving informed consent. The site of surgery was properly noted/marked if necessary per policy. The patient has been actively warmed in preoperative area. Preoperative antibiotics are not indicated. Venous thrombosis prophylaxis are not indicated. Procedure Details: The patient was correctly identified in the preop area and the operative eye was marked with a marking pen. The operative eye was dilated in the preoperative area. The patient was then taken to the operating room where timeout was performed before starting the procedure. Combined anesthesia with intravenous sedation and topical tetracaine eyedrops were given the left eye. The operative eye was prepped and draped in the standard sterile ophthalmic fashion in preparation for ophthalmic surgery. A Carlos wire speculum was then inserted between the eyelids of the left eye and the operating microscope was placed over the left eye. A paracentesis incision was made approximately 30 away from the planned surgical incision site with the help of MVR blade. 1% lidocaine MPF with Phenylephrine 1.5% PF was injected into the anterior chamber through the paracentesis incision. A near limbal clear corneal incision was fashioned in the temporal quadrant just outside the vascular arcade and Viscoat was injected into anterior chamber to firm the eye. A bent needle cystotome was used and Utrata forceps were utilized to create a continuous curvilinear capsulorrhexis. BSS was injected beneath the anterior capsule to hydrodissect the nucleus from adjacent cortex and capsule. The residual cortex were then aspirated with irrigation aspiration handpiece. The posterior capsule was then polished with the help of soft irrigation-aspiration tip. Provisc viscoelastic was then injected into the eye to reform the anterior chamber and to open the capsular bag. The intraocular lens implant was taken from its sterile wrapping, inspected under the surgical microscope and found to be in good condition. The intraocular lens implant 22.5D was injected into the capsule bag. The Provisc was then aspirated from the anterior chamber and from behind the intraocular lens implant. The anterior chamber was inflated with the help of BSS to moderate tension. The edges of the surgical incision were then hydrated with the help of BSS. Vigamox was then injected into the anterior chamber and into the capsule bag through the paracentesis incision. The surgical wound was then inspected and found to be watertight. The wire speculum and drapes were then removed. Pred Forte eyedrops, Acular eyedrops and Betadine 5% sterile ophthalmic solution were instilled in the conjunctival sac. The patient tolerated the procedure well and was taken to recovery room in stable condition. Complications: None; patient tolerated the procedure well. Condition: stable Attending Attestation: I performed the procedure. Que Townsend documented in this encounter [facility] Work Phone: 03-24-2023 History and physical note Images from the original note were not included. 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 Last address used for calculation [address] [place] [address] Social History Sex and Gender Information Value Date Recorded Sex Assigned at Not on file Gender Identity Not on file Sexual Orientation Not on file Last Filed Vital Signs - documented in this encounter Last Filed Vital Signs Vital Sign Reading Time Taken Comments Blood Pressure 145/83 03/14/2023 10:23 AM EDT Pulse 83 03/14/2023 10:23 AM EDT Temperature - - Respiratory Rate - - Oxygen Saturation - - Inhaled Oxygen Concentration - - Weight - - Height - - Body Mass Index - - Progress Notes - documented in this encounter Que Townsend MD - 03/14/2023 10:24 AM EDT ASSESSMENT/PLAN: 1. Combined form of age-related cataract, left eye - ICD9: 366.19, ICD10: H25.812 (primary diagnosis) PHYSICAL EXAM: Vital Signs: Blood pressure 145/83, pulse 83. Respiratory: Normal breath sounds, no wheezing. CARD: Normal heart sounds 1 & 2, normal sinus rhythm. Reviewed Dr. Josh Gaston's examination and notes Cataract Presurgical Documentation Cataract: Left eye (OS) Current Visual Acuity Right Eye Distance SC 20/25 Left Eye Distance CC 20/80 Visual Function: Martha Stephens states that the decline in vision from the cataract impedes her abilities as listed in the HPI, as well as other activities of daily living. Martha Stephens has confirmed that she is no longer able to function adequately on a day-to-day basis because of her current visual condition. Further, it is my medical opinion that the cataract is the primary cause, or at least a significantly contributory cause of her visual dysfunction. With uncomplicated cataract surgery and lens implantation, it is my expectation that her visual function and quality of life will improve, significantly. The risks, benefits, alternatives, personnel and complications of cataract surgery with lens implantation were discussed with Martha Stephens in detail. she appeared to understand and asked that I proceed with plans for surgery. Upon eye examination, patient was found to have a visually significant cataract left eye . Discussed cataract surgery with patient and different intraocular lens implant options with patient: basic monofocal intraocular lens implant, Toric intraocular lens implant, and presbyopia correction intraocular lens implant. In my medical opinion, based on medical history and ocular examination, cataract surgery with intraocular lens implant will correct patient's vision and improve quality of patient's daily living activities. Patient wishes to have traditional cataract surgery with basic intraocular lens left eye . Patient wishes to have cataract surgery with the option stated above. Patient understands that an intraocular lens implant does not necessarily replace the need for glasses. Patient understands that it is impossible for the surgeon to inform him/her of every possible complication that may occur. The surgeon has answered all of the patient's questions. Patient understands that if he/she has a mature or dense cataract, pseudoexfoliation cataract, or history of use of Flomax, he/she may require the use of Maluyugin Ring and/or Vision Blue during surgery. Patient understands the risks, benefits, and alternatives to surgery. 2. Status post cataract extraction and insertion of intraocular lens of right eye - ICD9: V45.61, V43.1, ICD10: Z98.41, Z96.1 Current Ophthalmic Meds prednisoLONE acetate (PRED FORTE) 1 % ophthalmic suspension Use 1 Drop in the right eye four times daily until 03/31/2023 keTORolac (ACULAR) 0.5 % ophthalmic solution Use 1 Drop in the right eye four times daily until 03/31/2023 Systane Complete Artificial Tears - Use 1 Drop into both eyes three times a day. 3. 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 Ольга Tabares's examination and notes - regression following chemotherapy - Almost flat (less 1 mm); 2 large areas of RPE changes (leopard spots) - No clinical evidence of SRF on exam/ OCT - Atrophic response : No recurrance 5. Essential hypertension - ICD9: 401.9, ICD10: I10 Continue care with primary care physician Que Townsend MD I have confirmed and edited as necessary the relevant ophthalmic history, review of systems, surgical history, and ophthalmological examination findings as obtained by the ophthalmic technical staff. I have seen and examined Martha Stephens. I have discussed the examination findings, diagnosis, and treatment options with Martha Stephens and/or her family. I have also reviewed and agree with the assessment and plan as stated above and agree with all its relevant components. I gave the patient the opportunity to ask questions about the findings, diagnosis, and treatment options. Plan of Treatment - documented as of this encounter Plan of Treatment - Upcoming Encounters Upcoming Encounters Date Type Department Care Team Description 03/25/2023 1:00 PM EDT [place] [address] [place] [address] 04/05/2023 10:00 AM EDT Office Visit [facility] Ophthalmology [address] [address] Ольга Tabares MD [address] [place] [address] Plan of Treatment - Scheduled Procedures Scheduled Procedures Name Priority Associated Diagnoses Date/Time SURGERY AT [facility] Combined form of age-related cataract, left eye 03/24/2023 10:15 AM EDT Procedures - documented in this encounter Procedures Procedure Name Priority Date/Time Associated Diagnosis Comments VISUAL FIELD 24-2 OU (BOTH EYES) Routine 03/14/2023 11:04 AM EDT Visual field loss Imaging Results - documented in this encounter VISUAL FIELD 24-2 OU (BOTH EYES) (03/14/2023 11:04 AM EDT) Imaging Results - VISUAL FIELD 24-2 OU (BOTH EYES) (03/14/2023 11:04 AM EDT) Anatomical Region Laterality Modality Other Imaging Results - VISUAL FIELD 24-2 OU (BOTH EYES) (03/14/2023 11:04 AM EDT) Narrative 03/14/2023 11:04 AM EDT Date of Procedure 03/14/2023. Reliability Right Eye Good. Left Eye Good. Interpretation Right Eye Normal. Left Eye Nasal step defect. Interval Change Right Eye Better. Left Eye Stable. 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 In the event of a Fluress shortage, administer Lily-Fluor 1 drop into both eyes as directed for applanation tonometry Given 03/14/2023 10:30 AM EDT 1 Drop Orders - documented in this encounter Orders Medications Ordered That Might Not Have Been Administered Count Last Ordered Date First Ordered Date fluorescein-benoxinate 0.25-0.4 % 1 Drop (FLURESS) 1 03/14/2023 Eye Exam Eye Exam - Visual Acuity (Snellen - Linear) Visual Acuity (Snellen - Linear) Right eye Left eye Dist sc 20/25 Dist cc 20/80 Dist ph cc 20/40 Near cc J6 Eye Exam - Pupils Pupils Pupils Dark Shape React APD Right eye PERRL 4 Round +2 None Left eye PERRL 4 Round +2 None Eye Exam - Visual Matta Visual Matta Right eye Left eye Full Full Eye Exam - Extraocular Movement Extraocular Movement Right eye Left eye Full Full Eye Exam - Neuro/Psych Neuro/Psych Oriented x3: Yes Mood/Affect: Normal LENSTAR Left eye: AL 22.02 ACD 2.72 WTW 11.89 Eye Exam - External Exam External Exam Right eye Left eye External Normal including orbits and preauricular lymph nodes Normal including orbits and preauricular lymph nodes Eye Exam - Slit Lamp Exam Slit Lamp Exam Right eye Left eye Lids/Lashes Normal lids, lashes, lacrimal glands, and lacrimal drainage Normal lids, lashes, lacrimal glands, and lacrimal drainage Conjunctiva/Sclera White and quiet White and quiet Cornea Normal epithelium, stroma, endothelium, and tear film Central Corneal Scar Anterior Chamber Deep and quiet Deep and quiet Iris Round and reactive No new Neovascularization of iris or angle Lens Posterior chamber intraocular lens 3+ Nuclear sclerotic cataract, 4+ Posterior subcapsular cataract Anterior Vitreous Vitreous floaters Vitreous floaters Eye Exam - Fundus Exam Fundus Exam Right eye Left eye Disc Normal Normal C/D Ratio 0.2 0.3 Macula Retinal pigment epithelial mottling, foveal reflex slightly blunt Large diffuse area of RPE changes between arcades; involving the fovea, Retinal pigment epithelial mottling Vessels Normal Normal Periphery Operculated tear at 3 o'clock with pigmentation around it Large area of RPE changes; flat; RPE changes +; SRP No tumor observed Eye Exam - Wearing Rx Wearing Rx Sphere Cylinder [place] Right eye Left eye -4.75 +0.75 171 Eye Exam Type: SVL Eye Exam - Manifest Refraction (Auto) Manifest Refraction (Auto) Sphere Cylinder [place] Right eye -0.50 +1.25 026 Left eye -5.00 +1.50 165 Care Teams - documented as of this encounter Care Teams Greaser Helper Relationship Specialty Start Date End Date Mar Bucio MD PCP - General Family Medicine 08/24/21 [facility] Work Phone: 03-24-2023 History and physical note Images from the original note were not included. 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 Last address used for calculation [address] [place] [address] [address] Social History Sex and Gender Information Value Date Recorded Sex Assigned at Not on file Gender Identity Not on file Sexual Orientation Not on file Last Filed Vital Signs - documented in this encounter Last Filed Vital Signs Vital Sign Reading Time Taken Comments Blood Pressure 145/83 03/14/2023 10:23 AM EDT Pulse 83 03/14/2023 10:23 AM EDT Temperature - - Respiratory Rate - - Oxygen Saturation - - Inhaled Oxygen Concentration - - Weight - - Height - - Body Mass Index - - Progress Notes - documented in this encounter Que Townsend MD - 03/14/2023 10:24 AM EDT ASSESSMENT/PLAN: 1. Combined form of age-related cataract, left eye - ICD9: 366.19, ICD10: H25.812 (primary diagnosis) PHYSICAL EXAM: Vital Signs: Blood pressure 145/83, pulse 83. Respiratory: Normal breath sounds, no wheezing. CARD: Normal heart sounds 1 & 2, normal sinus rhythm. Reviewed Dr. Josh Gaston's examination and notes Cataract Presurgical Documentation Cataract: Left eye (OS) Current Visual Acuity Right Eye Distance SC 20/25 Left Eye Distance CC 20/80 Visual Function: Martha Stephens states that the decline in vision from the cataract impedes her abilities as listed in the HPI, as well as other activities of daily living. Martha Stephens has confirmed that she is no longer able to function adequately on a day-to-day basis because of her current visual condition. Further, it is my medical opinion that the cataract is the primary cause, or at least a significantly contributory cause of her visual dysfunction. With uncomplicated cataract surgery and lens implantation, it is my expectation that her visual function and quality of life will improve, significantly. The risks, benefits, alternatives, personnel and complications of cataract surgery with lens implantation were discussed with Martha Stephens in detail. she appeared to understand and asked that I proceed with plans for surgery. Upon eye examination, patient was found to have a visually significant cataract left eye . Discussed cataract surgery with patient and different intraocular lens implant options with patient: basic monofocal intraocular lens implant, Toric intraocular lens implant, and presbyopia correction intraocular lens implant. In my medical opinion, based on medical history and ocular examination, cataract surgery with intraocular lens implant will correct patient's vision and improve quality of patient's daily living activities. Patient wishes to have traditional cataract surgery with basic intraocular lens left eye . Patient wishes to have cataract surgery with the option stated above. Patient understands that an intraocular lens implant does not necessarily replace the need for glasses. Patient understands that it is impossible for the surgeon to inform him/her of every possible complication that may occur. The surgeon has answered all of the patient's questions. Patient understands that if he/she has a mature or dense cataract, pseudoexfoliation cataract, or history of use of Flomax, he/she may require the use of Maluyugin Ring and/or Vision Blue during surgery. Patient understands the risks, benefits, and alternatives to surgery. 2. Status post cataract extraction and insertion of intraocular lens of right eye - ICD9: V45.61, V43.1, ICD10: Z98.41, Z96.1 Current Ophthalmic Meds prednisoLONE acetate (PRED FORTE) 1 % ophthalmic suspension Use 1 Drop in the right eye four times daily until 03/31/2023 keTORolac (ACULAR) 0.5 % ophthalmic solution Use 1 Drop in the right eye four times daily until 03/31/2023 Systane Complete Artificial Tears - Use 1 Drop into both eyes three times a day. 3. 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 Ольга Tabares's examination and notes - regression following chemotherapy - Almost flat (less 1 mm); 2 large areas of RPE changes (leopard spots) - No clinical evidence of SRF on exam/ OCT - Atrophic response : No recurrance 5. Essential hypertension - ICD9: 401.9, ICD10: I10 Continue care with primary care physician Que Townsend MD I have confirmed and edited as necessary the relevant ophthalmic history, review of systems, surgical history, and ophthalmological examination findings as obtained by the ophthalmic technical staff. I have seen and examined Martha Stephens. I have discussed the examination findings, diagnosis, and treatment options with Martha Stephens and/or her family. I have also reviewed and agree with the assessment and plan as stated above and agree with all its relevant components. I gave the patient the opportunity to ask questions about the findings, diagnosis, and treatment options. Plan of Treatment - documented as of this encounter Plan of Treatment - Upcoming Encounters Upcoming Encounters Date Type Department Care Team Description 03/25/2023 1:00 PM EDT Office Visit [facility] [address] [place] [address] Que Townsend MD [address] [place] [address] 04/05/2023 10:00 AM EDT Office Visit [facility] [address] [place] [id number] Ольга Tabares MD [address] [place] [address] Plan of Treatment - Scheduled Procedures Scheduled Procedures Name Priority Associated Diagnoses Date/Time SURGERY AT [facility] Combined form of age-related cataract, left eye 03/24/2023 10:15 AM EDT Procedures - documented in this encounter Procedures Procedure Name Priority Date/Time Associated Diagnosis Comments VISUAL FIELD 24-2 OU (BOTH EYES) Routine 03/14/2023 11:04 AM EDT Visual field loss Imaging Results - documented in this encounter VISUAL FIELD 24-2 OU (BOTH EYES) (03/14/2023 11:04 AM EDT) Imaging Results - VISUAL FIELD 24-2 OU (BOTH EYES) (03/14/2023 11:04 AM EDT) Anatomical Region Laterality Modality Other Imaging Results - VISUAL FIELD 24-2 OU (BOTH EYES) (03/14/2023 11:04 AM EDT) Narrative 03/14/2023 11:04 AM EDT Date of Procedure 03/14/2023. Reliability Right Eye Good. Left Eye Good. Interpretation Right Eye Normal. Left Eye Nasal step defect. Interval Change Right Eye Better. Left Eye Stable. 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 In the event of a Fluress shortage, administer Lily-Fluor 1 drop into both eyes as directed for applanation tonometry Given 03/14/2023 10:30 AM EDT 1 Drop Orders - documented in this encounter Orders Medications Ordered That Might Not Have Been Administered Count Last Ordered Date First Ordered Date fluorescein-benoxinate 0.25-0.4 % 1 Drop (FLURESS) 1 03/14/2023 Eye Exam Eye Exam - Visual Acuity (Snellen - Linear) Visual Acuity (Snellen - Linear) Right eye Left eye Dist sc 20/25 Dist cc 20/80 Dist ph cc 20/40 Near cc J6 Eye Exam - Pupils Pupils Pupils Dark Shape React APD Right eye PERRL 4 Round +2 None Left eye PERRL 4 Round +2 None Eye Exam - Visual Matta Visual Matta Right eye Left eye Full Full Eye Exam - Extraocular Movement Extraocular Movement Right eye Left eye Full Full Eye Exam - Neuro/Psych Neuro/Psych Oriented x3: Yes Mood/Affect: Normal LENSTAR Left eye: AL 22.02 ACD 2.72 WTW 11.89 Eye Exam - External Exam External Exam Right eye Left eye External Normal including orbits and preauricular lymph nodes Normal including orbits and preauricular lymph nodes Eye Exam - Slit Lamp Exam Slit Lamp Exam Right eye Left eye Lids/Lashes Normal lids, lashes, lacrimal glands, and lacrimal drainage Normal lids, lashes, lacrimal glands, and lacrimal drainage Conjunctiva/Sclera White and quiet White and quiet Cornea Normal epithelium, stroma, endothelium, and tear film Central Corneal Scar Anterior Chamber Deep and quiet Deep and quiet Iris Round and reactive No new Neovascularization of iris or angle Lens Posterior chamber intraocular lens 3+ Nuclear sclerotic cataract, 4+ Posterior subcapsular cataract Anterior Vitreous Vitreous floaters Vitreous floaters Eye Exam - Fundus Exam Fundus Exam Right eye Left eye Disc Normal Normal C/D Ratio 0.2 0.3 Macula Retinal pigment epithelial mottling, foveal reflex slightly blunt Large diffuse area of RPE changes between arcades; involving the fovea, Retinal pigment epithelial mottling Vessels Normal Normal Periphery Operculated tear at 3 o'clock with pigmentation around it Large area of RPE changes; flat; RPE changes +; SRP No tumor observed Eye Exam - Wearing Rx Wearing Rx Sphere Cylinder [place] Right eye Left eye -4.75 +0.75 171 Eye Exam Type: SVL Eye Exam - Manifest Refraction (Auto) Manifest Refraction (Auto) Sphere Cylinder [place] Right eye -0.50 +1.25 026 Left eye -5.00 +1.50 165 Care Teams - documented as of this encounter Care Teams Greaser Helper Relationship Specialty Start Date End Date Mar Bucio MD PCP - General Family Medicine 08/24/21 documented in this encounter [facility] Work Phone: 03-14-2023 Note HNO ID: [id number] Author: Que Townsend MD Service: ? Author Type: Physician Type: Progress Notes Filed: 03/14/2023 11:05 AM Note Text: ASSESSMENT/PLAN: 1. Combined form of age-related cataract, left eye - ICD9: 366.19, ICD10: H25.812 (primary diagnosis) PHYSICAL EXAM: Vital Signs: Blood pressure 145/83, pulse 83. Respiratory: Normal breath sounds, no wheezing. CARD: Normal heart sounds 1 AND 2, normal sinus rhythm. Reviewed Dr. Josh Gaston's examination and notes Cataract Presurgical Documentation Cataract: Left eye (OS) Current Visual Acuity Right Eye Distance SC 20/25 Left Eye Distance CC 20/80 Visual Function: Martha Stephens states that the decline in vision from the cataract impedes her abilities as listed in the HPI, as well as other activities of daily living. Martha Stephens has confirmed that she is no longer able to function adequately on a day-to-day basis because of her current visual condition. Further, it is my medical opinion that the cataract is the primary cause, or at least a significantly contributory cause of her visual dysfunction. With uncomplicated cataract surgery and lens implantation, it is my expectation that her visual function and quality of life will improve, significantly. The risks, benefits, alternatives, personnel and complications of cataract surgery with lens implantation were discussed with Martha Stephens in detail. she appeared to understand and asked that I proceed with plans for surgery. Upon eye examination, patient was found to have a visually significant cataract left eye . Discussed cataract surgery with patient and different intraocular lens implant options with patient: basic monofocal intraocular lens implant, Toric intraocular lens implant, and presbyopia correction intraocular lens implant. In my medical opinion, based on medical history and ocular examination, cataract surgery with intraocular lens implant will correct patient's vision and improve quality of patient's daily living activities. Patient wishes to have traditional cataract surgery with basic intraocular lens left eye . Patient wishes to have cataract surgery with the option stated above. Patient understands that an intraocular lens implant does not necessarily replace the need for glasses. Patient understands that it is impossible for the surgeon to inform him/her of every possible complication that may occur. The surgeon has answered all of the patient's questions. Patient understands that if he/she has a mature or dense cataract, pseudoexfoliation cataract, or history of use of Flomax, he/she may require the use of [place]ugin Ring and/or Vision Blue during surgery. Patient understands the risks, benefits, and alternatives to surgery. 2. Status post cataract extraction and insertion of intraocular lens of right eye - ICD9: V45.61, V43.1, ICD10: Z98.41, Z96.1 Current Ophthalmic Meds prednisoLONE acetate (PRED FORTE) 1 % ophthalmic suspension Use 1 Drop in the right eye four times daily until 03/31/2023 keTORolac (ACULAR) 0.5 % ophthalmic solution Use 1 Drop in the right eye four times daily until 03/31/2023 Systane Complete Artificial Tears - Use 1 Drop into both eyes three times a day. 3. 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 Ольга Tabares's examination and notes - regression following chemotherapy - Almost flat (less 1 mm); 2 large areas of RPE changes (leopard spots) - No clinical evidence of SRF on exam/ OCT - Atrophic response : No recurrance 5. Essential hypertension - ICD9: 401.9, ICD10: I10 Continue care with primary care physician Que Townsend MD I have confirmed and edited as necessary the relevant ophthalmic history, review of systems, surgical history, and ophthalmological examination findings as obtained by the ophthalmic technical staff. I have seen and examined Martha Stephens. I have discussed the examination findings, diagnosis, and treatment options with Martha Stephens and/or her family. I have also reviewed and agree with the assessment and plan as stated above and agree with all its relevant components. I gave the patient the opportunity to ask questions about the findings, diagnosis, and treatment options. [facility] 03-03-2023 Note HNO ID: [id number] Author: Josh Gaston II, OD Service: ? Author Type: WIRE FENCE ERECTOR Type: Progress Notes Filed: 03/03/2023 1:15 PM Note Text: Assessment and Plan Z98.41, Z96.1 Status post cataract extraction and insertion of intraocular lens of right eye (primary encounter diagnosis) Comment: Healing well. Posterior chamber intraocular lens is well positioned and clear. Continue schedule of postoperative medications as directed. Recheck refraction at next visit before pseudophakic spectacles obtained. Scheduled for cataract removal left eye with Dr. Townsend in a couple weeks. Instruct patient to immediately report any change in condition outside of expected and discussed symptoms. I have confirmed and edited as necessary the relevant ophthalmic history, ROS, and the neuro exam findings as obtained by others. I have seen and examined Martha Stephens. I have discussed the case and the management of this patient's care with the Resident/Fellow, if applicable. I also have reviewed and agree with the assessment and plan as stated above and agree with all of its relevant components. Josh Gaston II, OD [facility] 03-03-2023 Instructions Josh Gaston II OD - 03/03/2023 1:14 PM EDT Assessment and Plan Z98.41, Z96.1 Status post cataract extraction and insertion of intraocular lens of right eye (primary encounter diagnosis) Comment: Healing well. Posterior chamber intraocular lens is well positioned and clear. Continue schedule of postoperative medications as directed. Recheck refraction at next visit before pseudophakic spectacles obtained. Scheduled for cataract removal left eye with Dr. Townsend in a couple weeks. Instruct patient to immediately report any change in condition outside of expected and discussed symptoms. I have confirmed and edited as necessary the relevant ophthalmic history, ROS, and the neuro exam findings as obtained by others. I have seen and examined Martha Stephens. I have discussed the case and the management of this patient's care with the Resident/Fellow, if applicable. I also have reviewed and agree with the assessment and plan as stated above and agree with all of its relevant components. Josh Gaston II, OD documented in this encounter [facility] 03-03-2023 History of Present illness Narrative Assessment and Plan Z98.41, Z96.1 Status post cataract extraction and insertion of intraocular lens of right eye (primary encounter diagnosis) Comment: Healing well. Posterior chamber intraocular lens is well positioned and clear. Continue schedule of postoperative medications as directed. Recheck refraction at next visit before pseudophakic spectacles obtained. Scheduled for cataract removal left eye with Dr. Townsend in a couple weeks. Instruct patient to immediately report any change in condition outside of expected and discussed symptoms. I have confirmed and edited as necessary the relevant ophthalmic history, ROS, and the neuro exam findings as obtained by others. I have seen and examined Martha Stephens. I have discussed the case and the management of this patient's care with the Resident/Fellow, if applicable. I also have reviewed and agree with the assessment and plan as stated above and agree with all of its relevant components. Josh Gaston II, OD documented in this encounter [facility] 02-25-2023 Note HNO ID: [id number] Author: Que Townsend MD Service: ? Author Type: Physician Type: Progress Notes Filed: 02/25/2023 1:39 PM Note Text: ASSESSMENT/PLAN: 1. Status post cataract extraction and insertion of intraocular lens of right eye - ICD9: V45.61, V43.1, ICD10: Z98.41, Z96.1 (primary diagnosis) - Use medication as directed Current Ophthalmic Meds prednisoLONE acetate (PRED FORTE) 1 % ophthalmic suspension Use 1 Drop in the right eye four times daily. keTORolac (ACULAR) 0.5 % ophthalmic solution Use 1 Drop in the right eye four times daily. Systane Complete Artificial Tears - Use 1 Drop into both eyes three times a day. See Dr. Gaston for post operative care in 1 week 2. Combined form of age-related cataract, left eye - ICD9: 366.19, ICD10: H25.812 - Cataract surgery left eye is scheduled on 03/24/23 3. Central scotoma, right eye - ICD9: 368.41, ICD10: H53.411 - Repeat Visual field at next appointment I have confirmed and edited as necessary the relevant ophthalmic history, review of systems, surgical history, and ophthalmological examination findings as obtained by the ophthalmic technical staff. I have seen and examined Martha Stephens. I have discussed the examination findings, diagnosis, and treatment options with Martha Stephens and/or her family. I have also reviewed and agree with the assessment and plan as stated above and agree with all its relevant components. I gave the patient the opportunity to ask questions about the findings, diagnosis, and treatment options. Que Townsend MD [facility] 02-25-2023 Instructions Que Townsend MD - 02/25/2023 1:36 PM EDT - Use medication as directed Current Ophthalmic Meds prednisoLONE acetate (PRED FORTE) 1 % ophthalmic suspension Use 1 Drop in the right eye four times daily. keTORolac (ACULAR) 0.5 % ophthalmic solution Use 1 Drop in the right eye four times daily. Systane Complete Artificial Tears - Use 1 Drop into both eyes three times a day. Cataract surgery left eye is scheduled on 03/24/23 If you have any questions please contact our office at [phone]. After office hours or on the weekend, please call Dr. Townsend on his cell phone at [phone]. documented in this encounter [facility] 02-25-2023 History of Present illness Narrative ASSESSMENT/PLAN: 1. Status post cataract extraction and insertion of intraocular lens of right eye - ICD9: V45.61, V43.1, ICD10: Z98.41, Z96.1 (primary diagnosis) - Use medication as directed Current Ophthalmic Meds prednisoLONE acetate (PRED FORTE) 1 % ophthalmic suspension Use 1 Drop in the right eye four times daily. keTORolac (ACULAR) 0.5 % ophthalmic solution Use 1 Drop in the right eye four times daily. Systane Complete Artificial Tears - Use 1 Drop into both eyes three times a day. See Dr. Gaston for post operative care in 1 week 2. Combined form of age-related cataract, left eye - ICD9: 366.19, ICD10: H25.812 - Cataract surgery left eye is scheduled on 03/24/23 3. Central scotoma, right eye - ICD9: 368.41, ICD10: H53.411 - Repeat Visual field at next appointment I have confirmed and edited as necessary the relevant ophthalmic history, review of systems, surgical history, and ophthalmological examination findings as obtained by the ophthalmic technical staff. I have seen and examined Martha Stephens. I have discussed the examination findings, diagnosis, and treatment options with Martha Stephens and/or her family. I have also reviewed and agree with the assessment and plan as stated above and agree with all its relevant components. I gave the patient the opportunity to ask questions about the findings, diagnosis, and treatment options. Que Townsend MD documented in this encounter [facility] 02-24-2023 Miscellaneous Notes Post Operative Note: Post-Procedure Diagnosis: 1. Combined Form Age Related Cataract Right Eye Procedure: 1. Cataract Extraction with Intraocular Lens Implant Right Eye Surgeon: Que Townsend MD Resident/Fellow/Other Supervisor Pipe Finishing: None Estimated Blood Loss (mL): none Specimen: no Findings: 1. Combined Form Age Related Cataract Right Eye Operative Report Dictated: Dictation: not applicable - note contains Operative Report Operative Report: The patient was correctly identified and the patient's operative eye was marked with a marking pen and verified with the patient in the pre-operative area. The operative eye was dilated in the preoperative area. The patient was then taken to the operating room where timeout was performed before starting the procedure. Combined anesthesia with intravenous sedation and topical tetracaine eyedrops were instilled into the right eye. The operative eye was prepped and draped in the standard sterile ophthalmic fashion in preparation for ophthalmic surgery. A Carlos wire speculum was then inserted between the eyelids of the right eye and the operating microscope was placed over the right eye. A paracentesis incision was made approximately 30 away from the planned surgical incision site with the help of MVR blade. 1% lidocaine MPF with Phenylephrine 1.5% PF was injected into the anterior chamber through the paracentesis incision. A near limbal clear corneal incision was fashioned in the temporal quadrant just outside the vascular arcade and Viscoat was injected into anterior chamber to firm the eye. A bent needle cystotome was used and Utrata forceps were utilized to create a continuous curvilinear capsulorrhexis. BSS was injected beneath the anterior capsule to hydrodissect the nucleus from adjacent cortex and capsule. The residual cortex was then aspirated with irrigation/aspiration handpiece. The posterior capsule was then polished with the help of soft irrigation-aspiration tip. Provisc viscoelastic was then injected into the eye to reform the anterior chamber and to open the capsular bag. The intraocular lens implant was taken from its sterile wrapping, inspected under the surgical microscope and found to be in good condition. The intraocular lens implant 23.0D was injected into the capsule bag. The Provisc was then aspirated from the anterior chamber and from behind the intraocular lens implant. The anterior chamber was inflated with the help of BSS to moderate tension. And the edges of the surgical incision were then hydrated with the help of BSS. Vigamox was then injected into the anterior chamber and into the capsule bag through the paracentesis incision. The surgical wound was then inspected and found to be watertight. The wire speculum and drapes were then removed. Pred Forte eyedrops, Acular eyedrops and Betadine 5% sterile ophthalmic solution were instilled in the conjunctival sac. The patient tolerated the procedure well and was taken to recovery room in stable condition. Attestation: Note Completion: Attending Attestation I performed the procedure without a resident Electronic Signatures: Que Townsend) (Signed 24-Feb-2023 11:32) Authored: Post Operative Note, Note Completion Last Updated: 24-Feb-2023 11:32 by Que Townsend () documented in this encounter [facility] Work Phone: 02-24-2023 Note Formatting of this n ote is different from the original. Post Operative Note: Post-Procedure Diagnosis: 1. Combined Form Age Related Cataract Right Eye Procedure: 1. Cataract Extraction with Intraocular Lens Implant Right Eye Surgeon: Que Townsend MD Resident/Fellow/Other Supervisor Pipe Finishing: None Estimated Blood Loss (mL): none Specimen: no Findings: 1. Combined Form Age Related Cataract Right Eye Operative Report Dictated: Dictation: not applicable - note contains Operative Report Operative Report: The patient was correctly identified and the patient's operative eye was marked with a marking pen and verified with the patient in the pre-operative area. The operative eye was dilated in the preoperative area. The patient was then taken to the operating room where timeout was performed before starting the procedure. Combined anesthesia with intravenous sedation and topical tetracaine eyedrops were instilled into the right eye. The operative eye was prepped and draped in the standard sterile ophthalmic fashion in preparation for ophthalmic surgery. A Carlos wire speculum was then inserted between the eyelids of the right eye and the operating microscope was placed over the right eye. A paracentesis incision was made approximately 30 away from the planned surgical incision site with the help of MVR blade. 1% lidocaine MPF with Phenylephrine 1.5% PF was injected into the anterior chamber through the paracentesis incision. A near limbal clear corneal incision was fashioned in the temporal quadrant just outside the vascular arcade and Viscoat was injected into anterior chamber to firm the eye. A bent needle cystotome was used and Utrata forceps were utilized to create a continuous curvilinear capsulorrhexis. BSS was injected beneath the anterior capsule to hydrodissect the nucleus from adjacent cortex and capsule. The residual cortex was then aspirated with irrigation/aspiration handpiece. The posterior capsule was then polished with the help of soft irrigation-aspiration tip. Provisc viscoelastic was then injected into the eye to reform the anterior chamber and to open the capsular bag. The intraocular lens implant was taken from its sterile wrapping, inspected under the surgical microscope and found to be in good condition. The intraocular lens implant 23.0D was injected into the capsule bag. The Provisc was then aspirated from the anterior chamber and from behind the intraocular lens implant. The anterior chamber was inflated with the help of BSS to moderate tension. And the edges of the surgical incision were then hydrated with the help of BSS. Vigamox was then injected into the anterior chamber and into the capsule bag through the paracentesis incision. The surgical wound was then inspected and found to be watertight. The wire speculum and drapes were then removed. Pred Forte eyedrops, Acular eyedrops and Betadine 5% sterile ophthalmic solution were instilled in the conjunctival sac. The patient tolerated the procedure well and was taken to recovery room in stable condition. Attestation: Note Completion: Attending Attestation I performed the procedure without a resident Electronic Signatures: Que Townsend) (Signed 24-Feb-2023 11:32) Authored: Post Operative Note, Note Completion Last Updated: 24-Feb-2023 11:32 by Que Townsend) [facility] Work Phone: 02-24-2023 History and physical note History & Physical Reviewed: I have reviewed the History and Physical dated: 16-Feb-2023 History and Physical reviewed and relevant findings noted. Patient examined to review pertinent physical findings.: No significant changes Home Medications Reviewed: no changes noted Allergies Reviewed: no changes noted ERAS (Enhanced Recovery After Surgery): ERAS Patient: no Consent: COVID-19 Consent: COVID-19 Risk Consent Surgeon has reviewed garrison risks related to the risk of scott COVID-19 and if they contract COVID-19 what the risks are. Electronic Signatures: Que Townsend) (Signed 24-Feb-2023 10:15) Authored: History & Physical Reviewed, ERAS, Consent, Note Completion Last Updated: 24-Feb-2023 10:15 by Que Townsend) [facility] Work Phone: 02-24-2023 History and physical note History & Physical Reviewed: I have reviewed the History and Physical dated: 16-Feb-2023 History and Physical reviewed and relevant findings noted. Patient examined to review pertinent physical findings.: No significant changes Home Medications Reviewed: no changes noted Allergies Reviewed: no changes noted ERAS (Enhanced Recovery After Surgery): ERAS Patient: no Consent: COVID-19 Consent: COVID-19 Risk Consent Surgeon has reviewed garrison risks related to the risk of scott COVID-19 and if they contract COVID-19 what the risks are. Electronic Signatures: Que Townsend) (Signed 24-Feb-2023 10:15) Authored: History & Physical Reviewed, ERAS, Consent, Note Completion Last Updated: 24-Feb-2023 10:15 by Que Townsend) documented in this encounter [facility] Work Phone: 02-16-2023 Note HNO ID: [id number] Author: Que Townsend MD Service: ? Author Type: Physician Type: Progress Notes Filed: 02/16/2023 3:26 PM Note Text: ASSESSMENT/PLAN: 1. Combined form of age-related cataract, right eye - ICD9: 366.19, ICD10: H25.811 (primary diagnosis) 2. Combined form of age-related cataract, left eye - ICD9: 366.19, ICD10: H25.812 Martha Stephens has confirmed that she is no longer able to function adequately on a day-to-day basis because of her current visual condition. Further, it is my medical opinion that the cataract is the primary cause, or at least a significant cause of her visual dysfunction. Other eye diseases have been ruled out as primary cause of decreased vision. It is my expectation that visual function and quality of life will improve significantly with cataract extraction and intraocular lens implantation. The risks, benefits, alternatives, and complications of cataract surgery with intraocular lens implantation were discussed with Martha Stephens in detail. Martha Stephens appeared to understand and asked that I proceed with plans for cataract surgery. A complete, comprehensive eye examination and biometry has been performed on Martha Stephens. Upon eye examination, patient was found to have a visually significant cataract both eyes. Discussed cataract surgery with patient and different intraocular lens implant options with patient: basic monofocal intraocular lens implant, Toric intraocular lens implant, and presbyopia correction intraocular lens implant. In my medical opinion, based on medical history and ocular examination, cataract surgery with intraocular lens implant will correct patient's vision and improve quality of patient's daily living activities. Patient wishes to have traditional cataract surgery with basic intraocular lens right eye scheduled on 02/24/23 at [facility]. Patient wishes to have cataract surgery with the option stated above. Patient understands that an intraocular lens implant does not necessarily replace the need for glasses. Patient understands that it is impossible for the surgeon to inform him/her of every possible complication that may occur. The surgeon has answered all of the patient's questions. Patient understands that if he/she has a mature or dense cataract, pseudoexfoliation cataract, or history of use of Flomax, he/she may require the use of Maluyugin Ring and/or Vision Blue during surgery. Patient understands the risks, benefits, and alternatives to surgery. PHYSICAL EXAM: Vital Signs: Blood pressure 145/83, pulse 83. Respiratory: Normal breath sounds, no wheezing. CARD: Normal heart sounds 1 AND 2, normal sinus rhythm. Continue: Systane Complete Artificial Tears - Use 1 Drop into both eyes three times a day. 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 Malignant neoplasm of left choroid (HCC) - ICD9: 190.6, ICD10: C69.32 Patient is scheduled to see Dr. Ольга Tabares 04/05/23 5. Central scotoma, right eye - ICD9: 368.41, ICD10: H53.411 - Reevaluate after cataract surgery 6. Early dry stage nonexudative age-related macular degeneration of both eyes - ICD9: 362.51, ICD10: H35.3131 - Please monitor each eye daily with Amsler Grid. - Stable / Monitor 7. Essential hypertension - ICD9: 401.9, ICD10: I10 8. Hypercholesteremia - ICD9: 272.0, ICD10: E78.00 - Continue to monitor with PCP 9. 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 History of lung cancer - ICD9: V10.11, ICD10: Z85.118 - Continue to monitor with Oncologist - Patient is currently undergoing chemotherapy I have confirmed and edited as necessary the relevant ophthalmic history, review of systems, surgical history, and ophthalmological examination findings as obtained by the ophthalmic technical staff. I have seen and examined Martha Stephens. I have discussed the examination findings, diagnosis, and treatment options with Martha Stephens and/or her family. I have also reviewed and agree with the assessment and plan as stated above and agree with all its relevant components. I gave the patient the opportunity to ask questions about the findings, diagnosis, and treatment options. Que Townsend MD [facility] 02-16-2023 History of Present illness Narrative ASSESSMENT/PLAN: 1. Combined form of age-related cataract, right eye - ICD9: 366.19, ICD10: H25.811 (primary diagnosis) 2. Combined form of age-related cataract, left eye - ICD9: 366.19, ICD10: H25.812 Martha Stephens has confirmed that she is no longer able to function adequately on a day-to-day basis because of her current visual condition. Further, it is my medical opinion that the cataract is the primary cause, or at least a significant cause of her visual dysfunction. Other eye diseases have been ruled out as primary cause of decreased vision. It is my expectation that visual function and quality of life will improve significantly with cataract extraction and intraocular lens implantation. The risks, benefits, alternatives, and complications of cataract surgery with intraocular lens implantation were discussed with Martha Stephens in detail. Martha Stephens appeared to understand and asked that I proceed with plans for cataract surgery. A complete, comprehensive eye examination and biometry has been performed on Martha Stephens. Upon eye examination, patient was found to have a visually significant cataract both eyes. Discussed cataract surgery with patient and different intraocular lens implant options with patient: basic monofocal intraocular lens implant, Toric intraocular lens implant, and presbyopia correction intraocular lens implant. In my medical opinion, based on medical history and ocular examination, cataract surgery with intraocular lens implant will correct patient's vision and improve quality of patient's daily living activities. Patient wishes to have traditional cataract surgery with basic intraocular lens right eye scheduled on 02/24/23 at [facility]. Patient wishes to have cataract surgery with the option stated above. Patient understands that an intraocular lens implant does not necessarily replace the need for glasses. Patient understands that it is impossible for the surgeon to inform him/her of every possible complication that may occur. The surgeon has answered all of the patient's questions. Patient understands that if he/she has a mature or dense cataract, pseudoexfoliation cataract, or history of use of Flomax, he/she may require the use of Maluyugin Ring and/or Vision Blue during surgery. Patient understands the risks, benefits, and alternatives to surgery. PHYSICAL EXAM: Vital Signs: Blood pressure 145/83, pulse 83. Respiratory: Normal breath sounds, no wheezing. CARD: Normal heart sounds 1 & 2, normal sinus rhythm. Continue: Systane Complete Artificial Tears - Use 1 Drop into both eyes three times a day. 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 Malignant neoplasm of left choroid (HCC) - ICD9: 190.6, ICD10: C69.32 Patient is scheduled to see Dr. Ольга Tabares 04/05/23 5. Central scotoma, right eye - ICD9: 368.41, ICD10: H53.411 - Reevaluate after cataract surgery 6. Early dry stage nonexudative age-related macular degeneration of both eyes - ICD9: 362.51, ICD10: H35.3131 - Please monitor each eye daily with Amsler Grid. - Stable / Monitor 7. Essential hypertension - ICD9: 401.9, ICD10: I10 8. Hypercholesteremia - ICD9: 272.0, ICD10: E78.00 - Continue to monitor with PCP 9. 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 History of lung cancer - ICD9: V10.11, ICD10: Z85.118 - Continue to monitor with Oncologist - Patient is currently undergoing chemotherapy I have confirmed and edited as necessary the relevant ophthalmic history, review of systems, surgical history, and ophthalmological examination findings as obtained by the ophthalmic technical staff. I have seen and examined Martha Stephens. I have discussed the examination findings, diagnosis, and treatment options with Martha Stephens and/or her family. I have also reviewed and agree with the assessment and plan as stated above and agree with all its relevant components. I gave the patient the opportunity to ask questions about the findings, diagnosis, and treatment options. Que Townsend MD documented in this encounter [facility] 02-16-2023 Instructions Que Townsend MD - 02/16/2023 3:23 PM EDT Continue: Systane Complete Artificial Tears - Use 1 Drop into both eyes three times a day. If you have any questions please contact our office at [phone]. After office hours or on the weekend, please call Dr. Townsend on his cell phone at [phone]. documented in this encounter [facility] documented as of this encounter (statuses as of 03/31/2023) [facility]09-06-2023 History of Past illness Narrative* Problem Noted Date Diagnosed Date Resolved Date Combined form of age-related cataract, right eye 02/16/2023 03/14/2023 Screening for colon cancer 05/29/2015 1 07/30/2014 Combined forms of age-relate d cataract of both eyes 05/13/2014 03/14/2023 Presbyopia - Both Eyes 05/13/201403/14 Myopia - Left Eye 05/13/2014 05/19/2015 Other chronic dermatitis due to solar radiation 05/01/2008 04/25/2015 Other seborrheic keratosis 05/01/2008 1 06/25/2014 Viral warts, unspecified 05/01/2008 NEVUS BACK/TRUNK///BENIGN GURDEEP SKIN TRUNK 05/01/2008 04/25/2015 VIVEROS ANGIOMA///NEVUS, NON-NEOPLASTIC 05/01/2008 04/25/2015 Diverticulosis of colon (wit hout mention of hemorrhage) 01/12/2007 04/25/2015 Internal hemorrhoids without mention of complication 01/12/2007 04/25/2015 External hemorrhoids without mention of complication 01/12/2007 04/25/2015 Unspecified constipation 01/11/2007 Postmenopausal atrophic vaginitis 11/02/2006 04/25/2015 Malignant neoplasm of other specified sites of female breast 08/26/2006 05/29/2015 documented as of this encounter (statuses as of 04/05/2023) [facility]09-06-2023 History of Past illness Narrative* Problem Noted Date Diagnosed Date Resolved Date Combined form of age-related cataract, right eye 02/16/2023 03/14/2023 Screening for colon cancer 05/29/2015 1 07/30/2014 Combined forms of age-relate d cataract of both eyes 05/13/2014 03/14/2023 Presbyopia - Both Eyes 05/13/201403/14 Myopia - Left Eye 05/13/2014 05/19/2015 Other chronic dermatitis due to solar radiation 05/01/2008 04/25/2015 Other seborrheic keratosis 05/01/2008 1 06/25/2014 Viral warts, unspecified 05/01/2008 NEVUS BACK/TRUNK///BENIGN GURDEEP SKIN TRUNK 05/01/2008 04/25/2015 VIVEROS ANGIOMA///NEVUS, NON-NEOPLASTIC 05/01/2008 04/25/2015 Diverticulosis of colon (wit hout mention of hemorrhage) 01/12/2007 04/25/2015 Internal hemorrhoids without mention of complication 01/12/2007 04/25/2015 External hemorrhoids without mention of complication 01/12/2007 04/25/2015 Unspecified constipation 01/11/2007 Postmenopausal atrophic vaginitis 11/02/2006 04/25/2015 Malignant neoplasm of other specified sites of female breast 08/26/2006 05/29/2015 documented as of this encounter (statuses as of 04/20/2023) [facility]08-18-2023 NoteHNO ID: [id number] Author: Que Townsend MD Service: ? Author Type: Physician Type: Progress Notes Filed: 01/28/2023 11:35 AM Note Text: ASSESSMENT/PLAN: 1. Combined form of age-related cataract, right eye - ICD9: 366.19, ICD10: H25.811 (primary diagnosis) 2. Combined form of age-related cataract, left eye - ICD9: 366.19, ICD10: H25.812 - IOL BIOMETRY W/ IOL CALC OU (BOTH EYES) - OCT MACULA CIRRUS OU (BOTH EYES) Martha Stephens has confirmed that she is no longer able to function adequately on a day-to-day basis because of her current visual condition. Further, it is my medical opinion that the cataract is the primary cause, or at least a significant cause of her visual dysfunction. Other eye diseases have been ruled out as primary cause of decreased vision. It is my expectation that visual function and quality of life will improve significantly with cataract extraction and intraocular lens implantation. The risks, benefits, alternatives, and complications of cataract surgery with intraocular lens implantation were discussed with Martha Stephens in detail. Martha Stephens appeared to understand and asked that I proceed with plans for cataract surgery. A complete, comprehensive eye examination and biometry has been performed on Martha Stephens. Upon eye examination, patient was found to have a visually significant cataract both eyes. Discussed cataract surgery with patient and different intraocular lens implant options with patient: basic monofocal intraocular lens implant, Toric intraocular lens implant, and presbyopia correction intraocular lens implant. In my medical opinion, based on medical history and ocular examination, cataract surgery with intraocular lens implant will correct patient's vision and improve quality of patient's daily living activities. Patient wishes to have traditional cataract surgery with basic intraocular lens right eye scheduled on 02/24/23. Patient wishes to have cataract surgery with the option stated above. Patient understands that an intraocular lens implant does not necessarily replace the need for glasses. Patient understands that it is impossible for the surgeon to inform him/her of every possible complication that may occur. The surgeon has answered all of the patient's questions. Patient understands that if he/she has a mature or dense cataract, pseudoexfoliation cataract, or history of use of Flomax, he/she may require the use of Maluyugin Ring and/or Vision Blue during surgery. Patient understands the risks, benefits, and alternatives to surgery. Blood pressure 145/83, pulse 83. 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 Malignant neoplasm of left choroid (HCC) - ICD9: 190.6, ICD10: C69.32 - FUNDUS PHOTOS OU (BOTH EYES) Patient is scheduled to see Dr. Ольга Tabares 04/05/23 5. Central scotoma, right eye - ICD9: 368.41, ICD10: H53.411 - Reevaluate after cataract surgery 6. Early dry stage nonexudative age-related macular degeneration of both eyes - ICD9: 362.51, ICD10: H35.3131 - Please monitor each eye daily with Amsler Grid. - Stable / Monitor 7. Essential hypertension - ICD9: 401.9, ICD10: I10 8. Hypercholesteremia - ICD9: 272.0, ICD10: E78.00 - Continue to monitor with PCP 9. 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 History of lung cancer - ICD9: V10.11, ICD10: Z85.118 - Continue to monitor with Oncologist - Patient is currently undergoing chemotherapy I have confirmed and edited as necessary the relevant ophthalmic history, review of systems, surgical history, and ophthalmological examination findings as obtained by the ophthalmic technical staff. I have seen and examined Martha Stephens. I have discussed the examination findings, diagnosis, and treatment options with Martha Stephens and/or her family. I have also reviewed and agree with the assessment and plan as stated above and agree with all its relevant components. I gave the patient the opportunity to ask questions about the findings, diagnosis, and treatment options. Que Townsend, [facility]08-18-2023 Instructions* Patient Instructions* Que Townsend MD - 01/28/2023 11:35 AM EDT Systane Complete Artificial Tears - Use 1 Drop into both eyes three times a day. Cataract surgery right eye is scheduled on 02/24/23 If you have any questions please contact our office at [phone]. After office hours or on the weekend, please call Dr. Townsend on his cell phone at [phone]. [facility] History of Present illness Narrative* Que Townsend MD - 01/28/2023 11:15 AM EDT ASSESSMENT/PLAN: 1. Combined form of age-related cataract, right eye - ICD9: 366.19, ICD10: H25.811 (primary diagnosis) 2. Combined form of age-related cataract, left eye - ICD9: 366.19, ICD10: H25.812 - IOL BIOMETRY W/ IOL CALC OU (BOTH EYES) - OCT MACULA CIRRUS OU (BOTH EYES) Martha Stephens has confirmed that she is no longer able to function adequately on a day-to-day basis because of her current visual condition. Further, it is my medical opinion that the cataract is the primary cause, or at least a significantcause of her visual dysfunction. Other eye diseases have been ruled out as primary cause of decreased vision. It is my expectation that visual function and quality of life will improve significantly with cataract extraction and intraocular lens implantation. The risks, benefits, alternatives, and complications of cataract surgery with intraocular lens implantation were discussed with Martha Stephens in detail. Martha Stephens appeared to understand and asked that I proceed with plans for cataract surgery. A complete, comprehensive eye examination and biometry has been performed on Martha Stephens. Upon eye examination, patient was found to have a visually significant cataract both eyes. Discussed cataract surgery with patient and different intraocular lens implant options with patient: basic monofocal intraocular lens implant, Toric intraocular lens implant, and presbyopia correction intraocular lens implant. In my medical opinion, based on medical history and ocular examination, cataract surgery with intraocular lens implant will correct patient's vision and improve quality of patient'sdaily living activities. Patient wishes to have traditional cataract surgery with basic intraocularlens right eye scheduled on 02/24/23. Patient wishes to have cataract surgery with the option statedabove. Patient understands that an intraocular lens implant does not necessarily replace the need for glasses. Patient understands that it is impossible for the surgeon to inform him/her of every possible complication that may occur. The surgeon has answered all of the patient's questions. Patient understands that if he/she has a mature or dense cataract, pseudoexfoliation cataract, or history ofuse of Flomax, he/she may require the use of Maluyugin Ring and/or Vision Blue during surgery. Patient understands the risks, benefits, and alternatives to surgery. Blood pressure 145/83, pulse 83. 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 Malignant neoplasm of left choroid (HCC) - ICD9: 190.6, ICD10: C69.32 - FUNDUS PHOTOS OU (BOTH EYES) Patient is scheduled to see Dr. Ольга Tabares 04/05/23 5. Central scotoma, right eye - ICD9: 368.41, ICD10: H53.411 - Reevaluate after cataract surgery 6. Early dry stage nonexudative age-related macular degeneration of both eyes - ICD9: 362.51, ICD10: H35.3131 - Please monitor each eye daily with Amsler Grid. - Stable / Monitor 7. Essential hypertension - ICD9: 401.9, ICD10: I10 8. Hypercholesteremia - ICD9: 272.0, ICD10: E78.00 - Continue to monitor with PCP 9. 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 History of lung cancer - ICD9: V10.11, ICD10: Z85.118 - Continue to monitor with Oncologist - Patient is currently undergoing chemotherapy I have confirmed and edited as necessary the relevant ophthalmic history, review of systems, surgical history, and ophthalmological examination findings as obtained by the ophthalmic technical staff.I have seen and examined Martha Stephens. I have discussed the examination findings, diagnosis, andtreatment options with Martha Stephens and/or her family. I have also reviewed and agree with the assessment and plan as stated above and agree with all its relevant components. I gave the patient the opportunity to ask questions about the findings, diagnosis, and treatment options. Que Townsend MD [facility] NoteHNO ID: [id number] Author: Shreyas Gaston, JANUSZ Service: ? Author Type: WIRE FENCE ERECTOR Type: Progress Notes Filed: 01/24/2023 3:19 PM Note Text: ASSESSMENT/PLAN: 1. Combined forms of age-related cataract of both eyes - ICD9: 366.19, ICD10: H25.[address] Townsend for a cataract evaluation. She is having trouble driving and lives alone. She also has an overall haze in her vision. Return as directed. Shreyas Gaston, OD I have confirmed and edited as necessary the relevant ophthalmic history, ROS, and the neuro exam findings as obtained by others.[facility]05-15-2023 NoteHNO ID: [id number] Author: Que Townsend MD Service: ? Author Type: Physician Type: Progress Notes Filed: 10/25/2022 10:29 AM Note Text: ASSESSMENT/PLAN: 1. Early dry stage nonexudative age-related macular degeneration of both eyes - ICD9: 362.51, ICD10: H35.3131 (primary diagnosis) Please monitor each eye daily with Amsler Grid. AREDS 2 Vitamins are available over the counter at any drug store. 2. 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 Malignant neoplasm of left choroid (HCC) - ICD9: 190.6, ICD10: C69.32 -stable/ monitor 4. Combined forms of age-related cataract of both eyes - ICD9: 366.19, ICD10: H25.813 -Not visually significant/ monitor. I have confirmed and edited as necessary the relevant ophthalmic history, review of systems, surgical history, and ophthalmological examination findings as obtained by the ophthalmic technical staff. I have seen and examined Martha Stephens. I have discussed the examination findings, diagnosis, and treatment options with Martha Stephens and/or her family. I have also reviewed and agree with the assessment and plan as stated above and agree with all its relevant components. I gave the patient the opportunity to ask questions about the findings, diagnosis, and treatment options. Que Townsend, [facility]05-15-2023 Instructions* Patient Instructions* Que Townsend MD - 10/25/2022 10:27 AM EDT Please monitor each eye daily with Amsler Grid. AREDS 2 Vitamins are available over the counter at any drug store. If you have any questions please contact our office at [phone]. After office hours or on the weekend, please call Dr. Townsend on his cell phone at [phone]. [facility] History of Present illness Narrative* Que Townsend MD - 10/25/2022 10:26 AM EDT ASSESSMENT/PLAN: 1. Early dry stage nonexudative age-related macular degeneration of both eyes - ICD9: 362.51, ICD10: H35.3131 (primary diagnosis) Please monitor each eye daily with Amsler Grid. AREDS 2 Vitamins are available over the counter at any drug store. 2. 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 Malignant neoplasm of left choroid (HCC) - ICD9: 190.6, ICD10: C69.32 -stable/ monitor 4. Combined forms of age-related cataract of both eyes - ICD9: 366.19, ICD10: H25.813 -Not visually significant/ monitor. I have confirmed and edited as necessary the relevant ophthalmic history, review of systems, surgical history, and ophthalmological examination findings as obtained by the ophthalmic technical staff.I have seen and examined Martha Stephens. I have discussed the examination findings, diagnosis, andtreatment options with Martha Stephens and/or her family. I have also reviewed and agree with the assessment and plan as stated above and agree with all its relevant components. I gave the patient the opportunity to ask questions about the findings, diagnosis, and treatment options. Que Townsend MD documented in this encounterC[facility]-27-2023 NoteHNO ID: [id number] Author: Shreyas Gaston OD Service: ? Author Type: WIRE FENCE ERECTOR Type: Progress Notes Filed: 09/06/2022 11:10 AM Note Text: ASSESSMENT/PLAN: 1. Myopia, bilateral - ICD9: 367.1, ICD10: H52.13 (primary diagnosis) 2. Regular astigmatism of both eyes - ICD9: 367.21, ICD10: H52.223 3. Presbyopia - ICD9: 367.4, ICD10: H52.4 Continue to wear her glasses with the update as desired. She prefers to remove her glasses to read. Continue medical care with Dr. Tabares and Dr. Townsend. Return as directed. Shreyas Gaston, OD I have confirmed and edited as necessary the relevant ophthalmic history, ROS, and the neuro exam findings as obtained by others.[facility]03-27-2023 Instructions* Patient Instructions* Shreyas Gaston, OD - 09/06/2022 11:09 AM EDT ASSESSMENT/PLAN: 1. Myopia, bilateral - ICD9: 367.1, ICD10: H52.13 (primary diagnosis) 2. Regular astigmatism of both eyes - ICD9: 367.21, ICD10: H52.223 3. Presbyopia - ICD9: 367.4, ICD10: H52.4 Continue to wear her glasses with the update as desired. She prefers to remove her glasses to read. Continue medical care with Dr. Tabares and Dr. Townsend. Return as directed. documented in this encounterC[facility]03-27-2023 History of Present illness Narrative* Shreyas Gaston, OD - 09/06/2022 11:08 AM EDT ASSESSMENT/PLAN: 1. Myopia, bilateral - ICD9: 367.1, ICD10: H52.13 (primary diagnosis) 2. Regular astigmatism of both eyes - ICD9: 367.21, ICD10: H52.223 3. Presbyopia - ICD9: 367.4, ICD10: H52.4 Continue to wear her glasses with the update as desired. She prefers to remove her glasses to read. Continue medical care with Dr. Tabares and Dr. Townsend. Return as directed. Shreyas Gaston, OD I have confirmed and edited as necessary the relevant ophthalmic history, ROS, and the neuro exam findings as obtained by others. documented in this encounterC[facility]12-21-2022 Miscellaneous Notes* Telephone Encounter - Sonali Hagen RN - 06/02/2022 10:00 AM EST Received a request for Medical records from [facility] for Martha's last colonoscopy. Faxed 2014 colonoscopy report to [phone]. Fax confirmation sheet received. Sonali Hagen RN documented in this encounterC[facility]04-26-2022 History of Present illness Narrative* Que Townsend MD - 10/06/2021 10:12 AM EDT ASSESSMENT/PLAN: 1. Malignant neoplasm of left choroid (HCC) - ICD9: 190.6, ICD10: C69.32 (primary diagnosis) - Stable / Observe Consult Dr. Ольга Tabares for follow up, patient last seen in 2018 2. Early dry stage nonexudative age-related macular degeneration of both eyes - ICD9: 362.51, ICD10: H35.3131 Please monitor each eye daily with [employer] Grid. AREDS 2 Vitamins are available over the counter at any drug store. 3. Combined form of age-related cataract, both eyes - ICD9: 366.19, ICD10: H25.813 - Not visually significant - Monitor for any visual changes 4. 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 Suspicion of retinal hole (infero-nasal) - Left eye Que Townsend MD I have confirmed and edited as necessary the relevant ophthalmic history, review of systems, surgical history, and ophthalmological examination findings as obtained by the ophthalmic technical staff.I have seen and examined aMrtha Stephens. I have discussed the examination findings, diagnosis, andtreatment options with Martha Stephens and/or her family. I have also reviewed and agree with the assessment and plan as stated above and agree with all its relevant components. I gave the patient the opportunity to ask questions about the findings, diagnosis, and treatment options. documented in this encounterC[facility]04-26-2022 Instructions* Patient Instructions* Que Townsend MD - 10/06/2021 10:06 AM EDT If you have any questions please contact our office at [phone]. After office hours or on the weekend, please call Dr. Townsend on his cell phone at [phone]. documented in this encounterC[facility]04-25-2022 History of Present illness Narrative* Bethany West RN - 10/05/2021 9:40 AM EDT Patient offered a medical technician terminal and repeater for sensitive exam. Pt declined * NEVA Chen - 10/05/2021 9:40 AM EDT Martha Stephens is a 75 y.o. White female who presents today to the [facility] for evaluation on Palbo + Letrozole, Zometa, and scan review. History of Present Illness: ONCOLOGIC HISTORY: 12/08/05 CT Chest: Right breast medially located spiculated mass contiguous with medial margin of the right pectoralis muscle, but involvement of the stebrrnum is doubtful. Bone scan may be a better exam for evaluation of this lesion involving the sternum. Primary breast malignancy is considered. No suspicious pulmonary nodules to indicate metastatic disease. Mild right middle lobe atelectasis/scar ground glass density pattern, with calcified granulomata noted. Multiple hepatic low-attenuation lesions of variable size,most likely benign. 12/08/05 US: Multiple targeted images at 2-3 o'clock area show irregular echopenic mass highly suggesting malignant tumor. The mass measures 1.15 x 1.55 x 2.07 cm. The posterior margin of the mass appears to be continuous to the chest wall muscle. 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 06/01/06 Mammo: No discrete lesion. US: Mass is no longer seen. Clip is within that structure. There has been dramatic response to the chemotherapy. 06/20/06 Right Breast/Chest Wall Quadrantectomy and Axillary Lymph Node Dissection >1.4 cm , Mammary Carcinoma, Margins positive, LVI negative, 0/8 LN pos, 07/25/06 Chest Wall Re-Excision Negative for residual malignancy 09/05/06 - 10/19/06 Completed radiation therapy to right breast and chest wall. Total Dose 6040cGy. 10/2006 Initiated Anastrozole. Completed 5 years of therapy. 12/21/15 CT Brain without Contrast due to syncope: No acute intracranial abnormality. 05/02/16 CT Face d/t fall with facial injury: Soft tissue contusions of left face, periapical abscess of posterior most right mandibular tooth. 05/02/16 CTA: Mild lymphadenopathy and likely posttreatment changes with soft tissue thickening about the pre-vascular and right paratracheal mediastinum. There is smooth narrowing of the brachiocephalic vein and superior vena cava with prominent paraspinal, chest wall, azygos and left shoulder deya ateralization. Lymphadenopathy most prominent subcarinal region. Small right pleural effusion, volume loss, right lower lobe atelectasis with subsegmental areas of atelectasis right middle lobe, right upper lobe. Interstitial edema. Numerous indeterminate circumscribed hypodense hepatic lesions thelargest of which may represent hepatic cysts. 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 She went to the ED in [place]. When she returned from [place] she established with Stitch Separator, Dr. Karson Luis for heartburn with nausea, 20-lb weight loss. 09/07/16 EGD Chronic inflammation 09/10/16 CT A/P: Right pleural effusion, small left pleural effusion, multiple sclerotic lesions, liver lesions 10/06/[address] Usha Hathaway, [facility]. 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 11/01/16 New patient visit with Dr. Levi 11/10/16: Liver biopsy demonstrates small patches of cells which are ER strongly +100%, IL negative, HER2 negative. 11/17/17 Seen at [facility]. Started Letrozole. Palbociclib ordered. 11/22/16 Started Palbociclib and continued Letrozole 02/09/17 CT chest abdomen pelvis showed increased sclerosis of her bone lesions consistent with disease response. She has persistent right greater than left pleural effusion. 02/21/18 Seen at [facility]. Continue current treatment with Palbociclib + Letrozole. Recommend Xgeva. 02/23/17 Left thoracentesis 03/02/17 Right thoracentesis 05/09/17 Chest x-ray showed reaccumulation of pleural fluid in right lung base. 05/09/17 Started Xgeva every 3 months 05/23/17 Seen at [facility]. Recommend repeat staging scans with local oncologist and continue current therapy if stable. 06/08/17 Bone scan: Overall compared to the previous bone scan of 02/07/18, there is continued demonstration of skeletal metastatic disease in the distribution of the left proximal humeral diaphysis. Stable diffuse osteoblastic metastatic lesions involving the thoracic spine, the ribs, the sternum and shoulders. There is no pathologic fracture. 06/27/17 CT chest with large bilateral pleural effusions, left smaller than since the previous study. CT A/P with multiple stable hypoattenuation lesions of the liver may represent cysts. 07/07/17 Left thoracentesis with hemoptysis 07/21/17 Chest x-ray showed increased right pleural effusion 07/21/17 Right thoracentesis 08/02/[address] Tate. C10 Palbo + Letrozole, Xgeva 09/19/17 Seen at [facility]. Recommended consideration of Pleurx vs continued intermittent thoracentesisas needed. Continue current therapy. October 2017 Palbo dose-reduced to 100 mg 10/24/17 Thoracentesis 04/19/18: Continue Palbo 100 mg+AI-letrozole/Zometa (Xgeva discontinued approx 3 months ago). Scans reviewed by Dr. Levi, stable 10/04/2018 Continue Palbo 100 mg+AI-letrozole/Zometa. Scans Stable 08/11/20 C46-48 Palbo + Letrozole. Hold C11D1 Zometa d/t worsening renal insufficiency. 11/05/20 C46 Palbo + Letrozole. Resume Zometa. 04/20/21 C55-57 Palbociclib + Letrozole, C13 Zometa held due to renal function, Scans stable. INTERVAL HISTORY, 10/05/2021: Chief Complaint Patient presents with Chemotherapy Ibrance + Letrozole, Here for C61-62 of palbociclib. Also on letrozole and zoledronate (which is on hold for renal failure). Week off next week;'scheduled to start next cycle on 10-16-21. She discussed that if switching todenosumab is recommended instead of zoledronate, given chronic kidney disease stage III she would want to get care locally near her home in [facility] where there is a clinic that collaborates with the [place]. No bone pains, shortness of breath, cough, RUQ abdominal pain, focal numbness,weakness, visual blurring, nausea, vomiting, weight loss or loss of appetite. Medical/Surgical History: Past Medical History: Diagnosis Date Benign hypertension Bone metastasis 01/16/2018 GERD (gastroesophageal reflux disease) History of antineoplastic chemotherapy 12/22/2005 AC x4, taxol weekly x 12 History of radiation therapy 09/05/2006 Right breast and chest wall History of thoracentesis 10/21/2016 Metastatic adenocarcinoma consistent with breast primary Malignant neoplasm of breast (female), unspecified site 12/08/05 IDC rt. breast chest wall. preop chemo . Re-excision SLN bx.06/19. ER/IL pos HER- 2/la nena neg. Past Surgical History: Procedure Laterality Date THORACENTESIS W/ IMAGING GUIDANCE Left 11/03/2016 Laterality: Left; Surgeon: Matias Kwan MD; Location: [facility] INTERVENTIONAL RADIOLOGY (VIR) BREAST LUMPECTOMY Right 07/25/2006 Re-excision quandrantectomy rt. breast and chest wall BUNIONECTOMY Bilateral Medications/Allergies/Immunizations: Her current medication(s) include has a current medication list which includes the following prescription(s): acetaminophen 500 MG tablet, Calcium Carbonate (CALCIUM 600 PO), Cholecalciferol (VITAMIND-3) 1000 units Cap, cyanocobalamin 100 MCG tablet, Diphenhydramine-APAP, sleep, (TYLENOL PM EXTRA STRENGTH PO), DISABILITY PLACARD, Letrozole 2.5 MG tablet, lovastatin 20 MG Tab, metoprolol succinate 50 MG tablet XL, mirtazapine 15 MG tablet, multivitamin PO TABS, pantoprazole [address], palbociclib 100 MG tablet, and Zoledronic Acid (ZOMETA IV). Allergies: Sulfa antibiotics Review of Systems: All other systems negative Fatigue: Absent or within normal limits Physical Exam: Vitals: BP 145/84 Pulse 79 Temp 98.4 F (36.9 C) Resp 16 Wt 54.2 kg (119 lb 6.4 oz) BMI 21.84 kg/m Smoking Status Never Smoker Patient's Current Performance Status: 1 General/Constitutional: Well-appearing, well-developed female who appears stated age of 75 y.o. No acute distress. HEENT: Head: Normocephalic and atraumatic. Eyes: Pupils are equal, round, and reactive to light. Extraocular movements are intact. Sclerae are anicteric. Neck: Supple, non-tender. Cardiac: Regular rate and rhythm. Normal S1, S2. No murmurs, rubs or gallops. Pulmonary/Chest: Chronic decreased breath sounds to right lung with crackles in the right lower lobe, about 1/[address] Left lung is clear to auscultation. Abdominal: Abdomen with normoactive bowel sounds in all four quadrants. Soft, non-tender, non-distended. No organomegaly. Extremities: No peripheral edema. Skin: Skin is warm and dry. She is not diaphoretic. Psychiatric: Appropriate mood and affect. Back: No point vertebral tenderness. Lymph: No cervical or supraclavicular adenopathy. Chest Wall: No abnormalities noted. Patient offered a medical technician terminal and repeater for sensitive exam. N/A Laboratory Data: Results for orders placed or performed in visit on 04/25/22 CHEM 6 (LYTES, BUN CREA) Result Value Ref Range BUN 19 7 - 25 mg/dL Sodium 140 135 - 145 mmol/L Potassium 3.9 3.5 - 5.0 mmol/L Chloride 107 98 - 108 mmol/L CO2 27 21 - 31 mmol/L Creatinine 1.26 (H) 0.50 - 1.20 mg/dL Bun/Crea Ratio 15 Anion Gap 10 7 - 17 mmol/L eGFR, CKD-EPI, Female 45 (L) >=60 mL/min/1.73m2 GLUCOSE Result Value Ref Range Glucose 103 (H) 70 - 99 mg/dL CALCIUM Result Value Ref Range Calcium 10.1 8.6 - 10.5 mg/dL HEPATIC FUNCTION PANEL Result Value Ref Range Albumin 4.1 3.5 - 5.0 g/dL Bilirubin Direct 0.1 <0.3 mg/dL Bilirubin Total 0.5 <1.5 mg/dL ALP 39 32 - 126 U/L ALT 16 9 - 48 U/L AST 18 10 - 39 U/L Total Protein 7.0 6.4 - 8.3 g/dL CBC AND ELECTRONIC DIFF Result Value Ref Range WBC Count 2.34 (L) 3.99 - 11.19 K/uL RBC Count 3.07 (L) 3.91 - 5.04 M/uL Hemoglobin 11.0 (L) 11.4 - 15.2 g/dL Hematocrit 32.6 (L) 34.9 - 44.3 % Mean Cell Volume 106.2 (H) 79.6 - 97.7 fL Mean Cell Hgb 35.8 (H) 25.9 - 33.9 pg Mean Cell Hgb Conc 33.7 31.4 - 35.9 g/dL RBC Distribution 13.4 10.8 - 14.9 % Platelet Count 171 150 - 393 K/uL Mean Platelet Volume 9.7 8.5 - 12.2 fL Segs + Bands Auto Immature Grans % Lymphocyte % Auto Monocyte % Auto Eosinophil % Auto Basophil % Auto Segs + Bands,Absolute Auto Immature Grans Absolute Abs Lymph Auto Abs Yolo Auto Abs Eos Auto Abs Baso Auto MANUAL DIFF Result Value Ref Range DIFF STATUS Manual Differential Bands Relative 0.0 % Segs Relative 67.0 % Lymph Relative 25.0 % Yolo Relative 4.0 % Eos Relative 4.0 % Baso Relative 0.0 % Nucleated RBC 0.0 <=0.0 /100 WBC Segs & Bands, Absolute 1.57 (L) 1.64 - 7.28 K/uL Abs Lymph Manual 0.59 (L) 1.16 - 3.51 K/uL Abs Yolo Manual 0.09 (L) 0.22 - 0.87 K/uL Abs Eos Manual 0.09 0.00 - 0.42 K\uL Abs Baso Manual 0.00 0.00 - 0.15 K/uL RBC Morphology RBC INDICES CONFIRMED WITH MANUAL SLIDE REVIEW Platelet Estimate Automated platelet count confirmed by manual slide review Imaging Data: I have personally reviewed imaging both by myself and with the patient at today's visit. CT C/A/P 07/13/21: stable. Impression and Recommendations: Martha Stephens is a 75 y.o. female diagnosed in 2017 with ER+/IL-/HER2-, metastatic breast cancer who is here today for evaluation on Palbo + Letrozole, Zometa, and scan review. Metastatic Disease Sites: lung, bone, liver, left eye Last staging scans: 04/20/21 Prior Cancer Therapies: AC, Taxol, Anastrozole, Xgeva Current Therapy: Letrozole and Palbociclib. Zometa (on hold) *Metastatic Breast Cancer: -She started therapy with Palbo + Letrozole in November 2016 -She presents today for evaluation prior to C61-62 -She is tolerating therapy with no dose limiting toxicities. -Restaging CT C/A/P scheduled for November. -Today's labs reviewed and adequate. -She will proceed with C61 Palbo on 10/16/21 and every 4 weeks -She will continue Letrozole daily. -Patient will return to clinic in 3 months. -She has been very stable. We will move scans to [id number] will try to get PET scans through her insurance given CKD .For the next assessment will keep to non contrast CT as this is already ordered but will recommend changing after that. *Bone Mets: -Zometa [id number] initiated on 04/19/18. -We will hold now due to prior effects on renal function. -Continue calcium and vitamin D -We talked about initiating denosumab, as she is seeking oncologic care near [place] I urged her todiscuss this with her new oncologist and that we would include this advice in our transfer notes. *Chronic Kidney Disease: -Will avoid contrast, have discontinued zoledronate, advise denousmab instead, and have provided hernan a paper copy for referral to nephrology for recommendations on measures to delay progression such as ABIEL inhibitors.. *BCC: -She is s/p Mohs procedure of BCC. Healed well. *Grief Over Loss of /Insomnia: -Insomnia well controlled with Mirtazapine. Rx refilled. *Left Choroid Malignancy: . -Follows with Dr. Townsend in [place] for Ophthalmology. *Health Maintenance: -We recommend maintaining a healthy diet and exercise Orders Placed This Encounter CBC, EDIF, PLATELET CHEM 6 (LYTES, BUN CREA) GLUCOSE CALCIUM HEPATIC FUNCTION PANEL CBC AND ELECTRONIC DIFF MANUAL DIFF NEPHROLOGY palbociclib 100 MG tablet Return in 8 weeks (on 12/02/2021) for RTc 12-02-21 with lab/Doug; change CT scan date to 12-02-21;change provider to [facility]. NEVA Chen documented in this encounterPar[facility]04-25-2022 Instructions* Patient Instructions* Bethany West RN - 10/05/2021 9:35 AM EDT Images from the original note were not included. Medical Information Management at [phone] to request your medical records Store your prescribed pain medication in a locked cabinet or in an area only accessible to you. When you no longer need your prescribed pain medication, dispose of it immediately by one of the safe methods listed below: TAKE BACK PROGRAM: A drug take-back program is the best method to dispose of un- needed opioids safely. You can locate the take-back program closest to you @ https://takebackday.sima.gov under the COLLECTION SITE ELECTRIC METER INSPECTOR tab. Never dispose of un-needed medications down the sink or toilet. Instead, crush the medication and mix with damp coffee grounds or cat litter, place in a sealed plastic freezer bag, and dispose of in your regular trash. Your Medical/Oncology Team Doctor: Daniel Camacho MD Nurse Practitioner: Taylor Canada, [employer] PAVING FOREMAN-MASSAGE THERAPIST Primary Nurses: JENAE Pino BSN, RN TYRONE Acosta RN We are available to take calls Tuesday-Tuesday 8:00am-4:30pm. During non-business hours and holidays phone calls will be managed by after-hours [facility] RN's. Please allow at least 10 business days for your team to complete any paperwork. When requesting medication refills, please try to provide as much notice as possible (5 days) in order to ensure that you do not run out of medication. Call At the 1st prompt, the product you are calling about - Ibrance At the 2nd prompt, yes you are enrolled in [email or web address] medication assistance program At the 3rd prompt, no you are not calling to reorder You will then be told you are getting connected to a live litigation claim representative, or you may press 1 and enter extension number [id number] for Eunice Jimenez, the [email or web address] access counselor who works with the [facility] account - tell her you are a patient from [facility] and that your doctor electronically prescribed your Ibrance and that you are calling to set up delivery. If you must leave a message, remember to leave your name, date of , name of medication (Ibrance), dose of Ibrance, start date of the next cycle of Ibrance, whether or not you want a signature isidoro required for delivery, and a phone number for [email or web address] to call you back If you leave a message and do not receive a call back within 24 hours, please call [email or web address] again. documented in this encounterParma [facility]04-25-2022 Evaluation note * Diagnosis Metastatic breast cancer- Primary Stage 3a chronic kidney disease documented in this encounter [facility]04[facility] Reason for referral (narrative)* Consultation (Routine) - Patient to Arrange Specialty Diagnoses / Procedures Referred By Leo mendoza Referred To Contact Nephrology Diagnoses Stage 3a chronic kidney disease Fco Camacho MBBS [address], [address] [place] [address] Referral ID Status Reason Start Date Expiration Date V isits Requested Visits Authorized [id number] Patient to Arrange 10/05/2021 10/30/2022 1 1 [facility]02-23-[facility] History of Present illness Narrative* Crystal Talley, PT - 08/05/2021 1:00 PM EST [facility] OUTPATIENT REH[facility] DAILY TREATMENT NOTE Today's Date 08/05/2021 Patient Name: aMrtha Stephens Date of : 1945 Current Visit #: 7 Authorized Visits: [id number] Case Name: Degeneration of lumbar intervertebral disc, scoliosis History: Pre-Treatment Pain Scale: 0 Symptoms: stabilized Functional Diagnosis: 1. Degeneration of lumbar intervertebral disc Clinical Information: Subjective: Pt denies change in med hx and reports no new complaints. She reports little to no painthroughout the day and has been increasing her activity. She does notice onset of pain if she does repetitive lifting/carry but has no pain with prolonged positioning or walking. Objective Lumbar Spine Trunk AROM: Movement Loss % of Loss Description Flexion 0% mild pain in left side low back Extension 0% no pain Side Gliding R 0% mild pain in left side low back Side Gliding L 0% no pain Dermatomes Sensation: grossly intact Muscle Strength: Hip Flexion Right: 4+ Left: 4+ Knee extension Right: 5 Left: 5 Ankle DF Right: 5 Left: 5 Ankle PF Right: 5 Left: 5 Knee flexion Right: 4+ Left: 5 Hip extension Right: 4+ Left: 4+ Hip ABD Right: 5 Left: 4+ FOTO Score: 70 Treatments: Physical Therapy Exercise Log - 08/05/21 1302 OTHER Precautions/Contraindications Evaluating Therapist: Tequila Kay Notes Visit 7: 1:03 - 1:18 Vitals back flexibility and core stability, hip strengthening, manual Therapeutic Exercise ([id number]) Intervention -- Parameters -- Intervention -- Parameters -- Intervention -- Parameters -- Intervention -- Parameters -- Intervention -- Parameters -- Intervention -- Parameters -- PT Treatment Times Therex Total Time 15 Direct Treatment Time 15 Total Treatment Time 15 Goals: Physical Therapy Ortho Goals: 1. The patient will safely, correctly and independently demonstrate the ability to perform a progressive HEP to achieve maximal rehabilitation potential and prevent this condition from recurring. 2 weeks 2. The patient will demonstrate increased strength of Hip extensors and abductors 5/5 to increase participation of going up and down the stairs. 5 weeks 3. The patient will demonstrate increased core stabilisation of the spine in order to be able to doall ADLs and function with 0-3/10 pain level. 5 weeks 4. The patient will demonstrate less pain at night and able to sleep at night. 6 weeks 5. Patient will increase FOTO score to at least 76 (predicted) from 65 to show MDC/MCII and expected functional outcome. 5 weeks Patient Education: Quality of movement, HEP Adherence, Diagnosis and recovery specific education and Pain Management with patient verbalized understanding. Post-Treatment Pain Scale: 0 Assessment: Patient had an expected response to treatment. Skilled Intervention demonstrated by modifications of treatment per exercise log including assessment of patient's response and safety interventions per exercise log. Progress towards goals as expected. Plan: Discharge Crystal Talley PT State License, [id number] documented in this [id number] History of Present illness Narrative* Jayson Grant PTA - 07/23/2021 2:30 PM EST [facility] OUTPATIENT REHABILITATION DAILY TREATMENT NOTE Today's Date 07/23/2021 Patient Name: Martha Stephens Date of : 1945 Current Visit #: 6 Authorized Visits: 11 Case Name: Degeneration of lumbar intervertebral disc, scoliosis History: Pre-Treatment Pain Scale: 0 Symptoms: gradually improved Functional Diagnosis: 1. Degeneration of lumbar intervertebral disc Clinical Information: Subjective: Pt reports back been improving with no pain today. Compliant with HEP. Back gets achy at night and in morning until she gets moving. Objective Treatments: Physical Therapy Exercise Log - 07/23/21 1430 OTHER Precautions/Contraindications Evaluating Therapist: Tequila Kay Notes Visit 5: 2:30 - 3:00 Vitals back flexibility and core stability, hip strengthening, manual Therapeutic Exercise ([id number]) Intervention Scifit L1 x5 min Parameters SKTC 10 x3 Intervention bridging (shallow today) 5 2 x10 Parameters PPT - 5 sec x10 Intervention hip abd, add - x20 ball, BTB Parameters Marches with abdominal bracing - x20 Intervention SLR - 2x10 Parameters LTR 5 x10 Intervention Paloff Press - x10 Lvl 3 Parameters seated trunk rotation, side bending and forward 5 x10 Intervention Seated HS stretch - 10 sec x5 bilat PT Treatment Times Therex Total Time 30 Direct Treatment Time 30 Total Treatment Time 30 Goals: Physical Therapy Ortho Goals: 1. The patient will safely, correctly and independently demonstrate the ability to perform a progressive HEP to achieve maximal rehabilitation potential and prevent this condition from recurring. 2 weeks 2. The patient will demonstrate increased strength of Hip extensors and abductors 5/5 to increase participation of going up and down the stairs. 5 weeks 3. The patient will demonstrate increased core stabilisation of the spine in order to be able to doall ADLs and function with 0-3/10 pain level. 5 weeks 4. The patient will demonstrate less pain at night and able to sleep at night. 6 weeks 5. Patient will increase FOTO score to at least 76 (predicted) from 65 to show MDC/MCII and expected functional outcome. 5 weeks Patient Education: Quality of movement with patient demonstrated understanding. Post-Treatment Pain Scale: 0 Assessment: Patient had an expected response to treatment. Skilled Intervention demonstrated by modifications of treatment per exercise log including increased load and safety interventions per exercise log. Progress towards goals as expected. Plan for Next Visit: Treatment Visit with focus on core strengthening in and stability Jayson Grant PTA STATE LICENSE, [id number] documented in this [id number] History of Present illness Narrative* Mili Reynolds PTA - 07/21/2021 2:30 PM EST [facility] OUTPATIENT REHABILITATION DAILY TREATMENT NOTE Today's Date 07/21/2021 Patient Name: Martha Stephens Date of : 1945 Current Visit #: 5 Authorized Visits: 11 Case Name: Degeneration of lumbar intervertebral disc, scoliosis History: Pre-Treatment Pain Scale: 1 Symptoms: gradually improved Functional Diagnosis: 1. Degeneration of lumbar intervertebral disc Clinical Information: Subjective: she is compliant with HEP and is having less pain each day Objective Fair eccentric ab control Treatments: Physical Therapy Exercise Log - 07/21/21 1521 OTHER Precautions/Contraindications Evaluating Therapist: Tequila Kay Notes Visit 4 [id number] Vitals back flexibility and core stability, hip strengthening, manual Therapeutic Exercise ([id number]) Intervention Scifit L1 x5 min Parameters SKTC 10 x3 Intervention bridging (shallow today) 5 2 x10 Parameters PPT - 5 sec x10 Intervention hip abd, add - x20 ball, BTB Parameters Marches with abdominal bracing - x20 Intervention SLR - 2x10 Parameters LTR 5 x10 Parameters seated trunk rotation, side bending and forward 5 x10 Intervention Seated HS stretch - 10 sec x5 bilat PT Treatment Times Therex Total Time 35 Direct Treatment Time 35 Total Treatment Time 35 Goals: Physical Therapy Ortho Goals: 1. The patient will safely, correctly and independently demonstrate the ability to perform a progressive HEP to achieve maximal rehabilitation potential and prevent this condition from recurring. 2 weeks 2. The patient will demonstrate increased strength of Hip extensors and abductors 5/5 to increase participation of going up and down the stairs. 5 weeks 3. The patient will demonstrate increased core stabilisation of the spine in order to be able to doall ADLs and function with 0-3/10 pain level. 5 weeks 4. The patient will demonstrate less pain at night and able to sleep at night. 6 weeks 5. Patient will increase FOTO score to at least 76 (predicted) from 65 to show MDC/MCII and expected functional outcome. 5 weeks Patient Education: Quality of movement with patient demonstrated understanding. Post-Treatment Pain Scale: 1 Assessment: Patient had an expected response to treatment. Skilled Intervention demonstrated by modifications of treatment per exercise log including increased load and safety interventions per exercise log. Progress towards goals as expected. Plan for Next Visit: Treatment Visit with focus on core strengthening Mili Reynolds PTA STATE LICENSE, [id number] documented in this [id number] History of Present illness Narrative* Shanika Watson PTA - 07/14/2021 2:30 PM EST [facility] OUTPATIENT REHABILITATION DAILY TREATMENT NOTE Today's Date 07/14/2021 Patient Name: Martha Stephens Date of : 1945 Current Visit #: 4 Authorized Visits: 11 Case Name: Degeneration of lumbar intervertebral disc, scoliosis History: Pre-Treatment Pain Scale: 1 Symptoms: stabilized Functional Diagnosis: 1. Degeneration of lumbar intervertebral disc Clinical Information: Subjective: Pt reports min pain coming in today, min soreness after LV Objective Added scifit to progress endurance *Pt prefers seated ex's to begin and ending with supine Gave pt green band for HEP Treatments: Physical Therapy Exercise Log - 07/14/21 1431 OTHER Precautions/Contraindications Evaluating Therapist: Tequila aKy Notes Visit 3 [id number] Vitals back flexibility and core stability, hip strengthening, manual Therapeutic Exercise ([id number]) Intervention Scifit L1 x5 min Parameters SKTC 10 x3 Intervention bridging (shallow today) 5 2 x10 Parameters PPT - 5 sec x10 Intervention hip abd, add - x20 ball, BTB Parameters Marches with abdominal bracing - x20 Intervention SLR - 2x10 Parameters LTR 5 x10 Parameters seated trunk rotation, side bending and forward 5 x10 Intervention Seated HS stretch - 10 sec x5 bilat PT Treatment Times Therex Total Time 38 Direct Treatment Time 38 Total Treatment Time 38 Goals: Physical Therapy Ortho Goals: 1. The patient will safely, correctly and independently demonstrate the ability to perform a progressive HEP to achieve maximal rehabilitation potential and prevent this condition from recurring. 2 weeks 2. The patient will demonstrate increased strength of Hip extensors and abductors 5/5 to increase participation of going up and down the stairs. 5 weeks 3. The patient will demonstrate increased core stabilisation of the spine in order to be able to doall ADLs and function with 0-3/10 pain level. 5 weeks 4. The patient will demonstrate less pain at night and able to sleep at night. 6 weeks 5. Patient will increase FOTO score to at least 76 (predicted) from 65 to show MDC/MCII and expected functional outcome. 5 weeks Patient Education: Verbal HEP with patient verbalized understanding. Post-Treatment Pain Scale: 1 Assessment: Patient had an expected response to treatment. Skilled Intervention demonstrated by modifications of treatment per exercise log including assessment of patient's response and safety interventions per exercise log. Progress towards goals as expected. Plan for Next Visit: Treatment Visit with focus on progressing as tolerated Shanika Watson PTA STATE LICENSE, [id number] documented in this [id number] History of Present illness Narrative* Shanika Watson PTA - 07/09/2021 2:30 PM EST [facility] OUTPATIENT REHABILITATION DAILY TREATMENT NOTE Today's Date 07/09/2021 Patient Name: Martha Stephens Date of : 1945 Current Visit #: 3 Authorized Visits: 11 Case Name: Degeneration of lumbar intervertebral disc, scoliosis History: Pre-Treatment Pain Scale: 1 Symptoms: stabilized Functional Diagnosis: 1. Degeneration of lumbar intervertebral disc Clinical Information: Subjective: Pt reports feeling really good today, some soreness after LV but feeling good overall. Good compliance with HEP Objective Provided copy of HEP and reviewed technique Treatments: Physical Therapy Exercise Log - 07/09/21 1420 OTHER Precautions/Contraindications Evaluating Therapist: Tequila Kay Notes Visit 2 [id number] Vitals back flexibility and core stability, hip strengthening, manual Therapeutic Exercise ([id number]) Intervention LTR 5 x10 Parameters SKTC 10 x3 Intervention bridging (shallow today) 5 x10 Parameters PPT - 5 sec x10 Intervention hip abd, add - x20 ball, BTB Parameters Marches with abdominal bracing - x20 Intervention SLR - 2x10 Parameters -- Intervention -- Parameters seated trunk rotation, side bending and forward 5 x10 Intervention Seated HS stretch - 10 sec x5 bilat PT Treatment Times Therex Total Time 36 Direct Treatment Time 36 Total Treatment Time 36 Goals: Physical Therapy Ortho Goals: 1. The patient will safely, correctly and independently demonstrate the ability to perform a progressive HEP to achieve maximal rehabilitation potential and prevent this condition from recurring. 2 weeks 2. The patient will demonstrate increased strength of Hip extensors and abductors 5/5 to increase participation of going up and down the stairs. 5 weeks 3. The patient will demonstrate increased core stabilisation of the spine in order to be able to doall ADLs and function with 0-3/10 pain level. 5 weeks 4. The patient will demonstrate less pain at night and able to sleep at night. 6 weeks 5. Patient will increase FOTO score to at least 76 (predicted) from 65 to show MDC/MCII and expected functional outcome. 5 weeks Patient Education: Verbal HEP with patient verbalized understanding. Post-Treatment Pain Scale: 1 Assessment: Patient had an expected response to treatment. Skilled Intervention demonstrated by modifications of treatment per exercise log including assessment of patient's response and safety interventions per exercise log. Progress towards goals as expected. Plan for Next Visit: Treatment Visit with focus on progressing as tolerated Shnaika Watson PTA STATE LICENSE, [id number] documented in this [id number] History of Present illness Narrative* Jayson Grant PTA - 07/02/2021 2:30 PM EST [facility] OUTPATIENT REHABILITATION DAILY TREATMENT NOTE Today's Date 07/02/2021 Patient Name: Martha Stephens Date of : 1945 Current Visit #: 2 Authorized Visits: 11 Case Name: Degeneration of lumbar intervertebral disc, scoliosis History: Pre-Treatment Pain Scale: 0 Symptoms: gradually improved Functional Diagnosis: 1. Degeneration of lumbar intervertebral disc Clinical Information: Subjective: Pt reports back feeling good today with no c/o pain. Compliant with HEP Objective Treatments: Physical Therapy Exercise Log - 07/02/21 1429 OTHER Precautions/Contraindications Evaluating Therapist: Tequila Kay Notes Visit 1: 2:30 - 2:55 Vitals back flexibility and core stability, hip strengthening, manual Therapeutic Exercise ([id number]) Intervention LTR 5 x10 Parameters SKTC 10 x3 Intervention bridging (shallow today) 5 x10 Parameters seated trunk rotation, side bending and forward 5 x10 Intervention Seated HS stretch - 10 sec x5 bilat Parameters PPT - 5 sec x10 Intervention hip abd, add - x15 ball, RTB Parameters SLR - x10 Intervention Marches with abdominal bracing - x20 PT Treatment Times Therex Total Time 25 Direct Treatment Time 25 Total Treatment Time 25 Goals: Physical Therapy Ortho Goals: 1. The patient will safely, correctly and independently demonstrate the ability to perform a progressive HEP to achieve maximal rehabilitation potential and prevent this condition from recurring. 2 weeks 2. The patient will demonstrate increased strength of Hip extensors and abductors 5/5 to increase participation of going up and down the stairs. 5 weeks 3. The patient will demonstrate increased core stabilisation of the spine in order to be able to doall ADLs and function with 0-3/10 pain level. 5 weeks 4. The patient will demonstrate less pain at night and able to sleep at night. 6 weeks 5. Patient will increase FOTO score to at least 76 (predicted) from 65 to show MDC/MCII and expected functional outcome. 5 weeks Patient Education: Quality of movement with patient demonstrated understanding. Post-Treatment Pain Scale: 3 Assessment: Patient had an expected response to treatment. Skilled Intervention demonstrated by modifications of treatment per exercise log including increased load and safety interventions per exercise log. Progress towards goals as expected. Plan for Next Visit: Treatment Visit with focus on core strengthening and stability Jayson Grant PTA STATE LICENSE, [id number] documented in this [id number] History of Present illness Narrative* Tequila Kay, PT - 06/26/2021 1:45 PM EST Images from the original note were not included. [facility] OUTPATIENT REHABILITATION Evaluation Today's Date 06/26/2021 Patient Name: Martha Stephens Date of : 1945 Case Name: Degeneration of lumbar intervertebral disc, scoliosis Functional Diagnosis: 1. Degeneration of lumbar intervertebral disc 2. Scoliosis due to degenerative disease of spine in adult patient Clinical Information: Subjective Referring Diagnosis: Degeneration of lumbar intervertebral disc, scoliosis History of Present Illness Subjective History: Patient reports left side of back pain for last 3 months. Last couple of weeks getting some better due to started on arthritis tylenol. She has left back pain that comes and back.She has worst pain at night when she has to turn on left side from right. She is doing all ADLs butshe feels tightness and pain. CC: She has difficulty sleeping and wakes up frequently. Denies any leg pain or weakness or T+N or falls or injury Previous therapy: she went to other therapy place in [place] couple of days ago and provided with exercises and she is doing twice a day (kitchen sink, pelvic tilt) which is helping some. She uses heat to help with night pain muscle tightness Pain Scale: Pain location: lumbar spine Average Pain: 2/10 Pain at highest: 10/10 (night when she tries to turn) Aggravating factors: turning and moving in bed at night Easing factors: tylenol, heat Personal Goals: Wants to get some pain relief and able to sleep well at night Functional Mobility Status Functional Limitations: limited mobility, recent decline in level of ADL and standing patient reported Current Activity Level: active Social Support: Patient lives alone. Sikh, social, or cultural considerations to be made aware of before starting treatment: No Home Environment: Current Home Environment: Basement: laundry (one rail) Additional comments: no issue carrying laundry bucket Sleep Assessment Average Sleep: 2hrs and wakes up for 30 mins Preferred sleep position: on side (prefer right side) Sleep disturbance: Sleep Disturbance Fall risk screening Fallen 2 or more times in the last 12 months: No Injured as a result of a fall in the last 12 months: No Sikh, social, or cultural considerations to be made aware of before starting treatment: No Lumbar Spine Trunk AROM: Movement Loss % of Loss Description Flexion returning from bending, pain on left side Extension pain on left side Side Gliding R R side bending : pain on left , L side bending: no pain Side Gliding L rotation: pain on L side with R rotation Dermatomes L1 Right: normal Muscle Strength:WFL Special Tests Slump Right: no Slump R Left: no Slump L SLR Right: no SLR R Left: no SLR L Test for piriformis syndrome Right: no Piriformis Syndrome R Left: no Piriformis syndrome L SIJ dysfunction: no SIJ Dysfunction Palpation/ Tenderness: Tenderness on L3 central and left side, left flank Hip Left Hip Tenderness: No tenderness Range of Motion: WFL Special Tests Emani: Negative Scour: Negative Treatments: Physical Therapy Exercise Log - 06/26/21 7824 OTHER Notes back flexibility and core stability, hip strengthening, manual Therapeutic Exercise ([id number]) Intervention LTR 5 x10 Parameters SKTC 10 x3 Intervention bridging (shallow today) 5 x10 Parameters seated trunk rotation, side bending and forward 5 x10 Treatment Plan: Frequency of Visits: twice per week Duration: 5 weeks Interventions: Therapeutic Exercise (47470), Manual Therapy (00807) and Hot/Cold Pack (11893) Rehab Potential: good Goals: Physical Therapy Ortho Goals: 1. The patient will safely, correctly and independently demonstrate the ability to perform a progressive HEP to achieve maximal rehabilitation potential and prevent this condition from recurring. 2 weeks 2. The patient will demonstrate increased strength of Hip extensors and abductors 5/5 to increase participation of going up and down the stairs. 5 weeks 3. The patient will demonstrate increased core stabilisation of the spine in order to be able to doall ADLs and function with 0-3/10 pain level. 5 weeks 4. The patient will demonstrate less pain at night and able to sleep at night. 6 weeks 5. Patient will increase FOTO score to at least 76 (predicted) from 65 to show MDC/MCII and expected functional outcome. 5 weeks Patient Education provided: Patient was educated about the condition, precautions, and physical therapy plan of care. Provided with print out of HEP. Clinical Impression: Pt is a 75 y.o. year old female who presented to the clinic with L side lower back pain. Upon assessment, pt has been found with the following impairments: Pain, decreased ROM; muscle tightness, joint stiffness, decreased endurance; tolerance to do activities. The documented impairments result in the following functional limitations: standing, walking, stairs, creative/art director, bending, lifting, carrying and reaching, functional mobility, ADLs/IADLs, sleep, quality of life.The pt would benefit from skilled PT services focused on the above listed impairments and limitations in order to safely progress pt to their desired level of function. Pt to be discharged from OP PT services if/when goals are met, if they fail to make progress with conservative management in PT, if their level of progress plateaus, or if they do not maintain compliance with attendance or HEP. At this time, it is my clinical judgment that services are medically necessary. Tequila Kay, PT STATE LICENSE, [id number] documented in this [id number] History of Present illness Narrative* Tess Weeks RN - 01/26/2021 12:30 PM EDT Martha Stephens received Zometa today. Patient tolerated and will return on 04/20/21. Patient received copy of After Visit Summary with appointment information. * Erna Matamoros RN - 01/26/2021 12:30 PM EDT Martha Stephens seen in Medical Oncology clinic today. Nursing documentation of today's clinic visit reviewed. OK to treat placed for elevated creatinine. [id number] History of Present illness Narrative* Kenia West RN - 01/26/2021 11:20 AM EDT Patient offered a medical technician terminal and repeater for sensitive exam. Pt declined. Bisphosphonate/Denosumab Assessment Patient's Oral Assessment: own teeth Patient compliant with oral hygiene program including: Regular Brushing/Flossing: Yes Dental exam every 6 months: Yes Is patient experiencing any dental issues: Dental Pain/Swelling/Loose Teeth: No Ulcers in mouth/Exposed bone in mouth/Irritated areas around dentures or plates: No Any dental extractions since last visit: No Calcium supplementation: Patient is receiving anti-resorptive bone agent (zolendronic acid, pamidronate, or denosumab) for bone metastasis or osteopenia/osteoporosis and is taking at least one Calcium Carbonate 600 mg + Vitamin D 400 IU tablet daily (or equivalent): Yes Clinic to Infusion Handoff Report S - Patient coming from Exam to Infusion for treatment Zometa B - Clinic Nurse reviewed the following: Allergies yes Medications yes Vital signs within treatment parameters yes Patient accessed yes A - Reviewed patient assessment and verified following: ECOG/Toxicity yes Ht/wt yes Labs within treatment parameters Yes If no, MD/SANCHO notified. Ok to Treat order entered Yes-ok with creat If no, MD/SANCHO notified. Treatment plans signed yes If no, MD/SANCHO notified. Report called to Erna (process manager) R - Recommendations for plan of care: Describe any changes to plan of care: none Patient has AVS, completed check out, and discharged to infusion unit For questions, please call: Kenia West RN * Catarino Levi MD, PhD - 01/26/2021 11:20 AM EDT Martha Stephens is a 75 y.o. White female who presents today to the [facility] for evaluation on Palbo + Letrozole and scan review. History of Present Illness: ONCOLOGIC HISTORY: 12/08/05 CT Chest: Right breast medially located spiculated mass contiguous with medial margin of the right pectoralis muscle, but involvement of the sternum is doubtful. Bone scan may be a better exam for evaluation of this lesion involving the sternum. Primary breast malignancy is considered. No suspicious pulmonary nodules to indicate metastatic disease. Mild right middle lobe atelectasis/scarground glass density pattern, with calcified granulomata noted. Multiple hepatic low-attenuation lesions of variable size,most likely benign. 12/08/05 US: Multiple targeted images at 2-3 o'clock area show irregular echopenic mass highly suggesting malignant tumor. The mass measures 1.15 x 1.55 x 2.07 cm. The posterior margin of the mass appears to be continuous to the chest wall muscle. 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 06/01/06 Mammo: No discrete lesion. US: Mass is no longer seen. Clip is within that structure. There has been dramatic response to the chemotherapy. 06/20/06 Right Breast/Chest Wall Quadrantectomy and Axillary Lymph Node Dissection >1.4 cm , Mammary Carcinoma, Margins positive, LVI negative, 0/8 LN pos, 07/25/06 Chest Wall Re-Excision Negative for residual malignancy 09/05/06 - 10/19/06 Completed radiation therapy to right breast and chest wall. Total Dose 6040cGy. 10/2006 Initiated Anastrozole. Completed 5 years of therapy. 12/21/15 CT Brain without Contrast due to syncope: No acute intracranial abnormality. 05/02/16 CT Face d/t fall with facial injury: Soft tissue contusions of left face, periapical abscess of posterior most right mandibular tooth. 05/02/16 CTA: Mild lymphadenopathy and likely posttreatment changes with soft tissue thickening about the pre-vascular and right paratracheal mediastinum. There is smooth narrowing of the brachiocephalic vein and superior vena cava with prominent paraspinal, chest wall, azygos and left shoulder deya ateralization. Lymphadenopathy most prominent subcarinal region. Small right pleural effusion, volume loss, right lower lobe atelectasis with subsegmental areas of atelectasis right middle lobe, right upper lobe. Interstitial edema. Numerous indeterminate circumscribed hypodense hepatic lesions thelargest of which may represent hepatic cysts. 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 She went to the ED in [place]. When she returned from [place] she established with [facility], Dr. Karson Luis for heartburn with nausea, 20-lb weight loss. 09/07/16 EGD Chronic inflammation 09/10/16 CT A/P: Right pleural effusion, small left pleural effusion, multiple sclerotic lesions, liver lesions 10/06/[address] Usha Hathaway, [facility]. 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 11/01/16 New patient visit with Dr. Levi 11/10/16: Liver biopsy demonstrates small patches of cells which are ER strongly +100%, IL negative, HER2 negative. 11/17/17 Seen at [facility]. Started Letrozole. Palbociclib ordered. 11/22/16 Started Palbociclib and continued Letrozole 02/09/17 CT chest abdomen pelvis showed increased sclerosis of her bone lesions consistent with disease response. She has persistent right greater than left pleural effusion. 02/21/18 Seen at [facility]. Continue current treatment with Palbociclib + Letrozole. Recommend Xgeva. 02/23/17 Left thoracentesis 03/02/17 Right thoracentesis 05/09/17 Chest x-ray showed reaccumulation of pleural fluid in right lung base. 05/09/17 Started Xgeva every 3 months 05/23/17 Seen at [facility]. Recommend repeat staging scans with local oncologist and continue current therapy if stable. 06/08/17 Bone scan: Overall compared to the previous bone scan of 02/07/18, there is continued demonstration of skeletal metastatic disease in the distribution of the left proximal humeral diaphysis. Stable diffuse osteoblastic metastatic lesions involving the thoracic spine, the ribs, the sternum and shoulders. There is no pathologic fracture. 06/27/17 CT chest with large bilateral pleural effusions, left smaller than since the previous study. CT A/P with multiple stable hypoattenuation lesions of the liver may represent cysts. 07/07/17 Left thoracentesis with hemoptysis 07/21/17 Chest x-ray showed increased right pleural effusion 07/21/17 Right thoracentesis 08/02/[address] Tate. C10 Palbo + Letrozole, Xgeva 09/19/17 Seen at [facility]. Recommended consideration of Pleurx vs continued intermittent thoracentesisas needed. Continue current therapy. October 2017 Palbo dose-reduced to 100 mg 10/24/17 Thoracentesis 04/19/18: Continue Palbo 100 mg+AI-letrozole/Zometa (Xgeva discontinued approx 3 months ago). Scans reviewed by Dr. Levi, stable 10/04/2018 Continue Palbo 100 mg+AI-letrozole/Zometa. Scans Stable 08/11/20 C46-48 Palbo + Letrozole. Hold C11D1 Zometa d/t worsening renal insufficiency. 11/05/20 C46 Palbo + Letrozole. Resume Zometa. INTERVAL HISTORY, 01/26/2021: Chief Complaint Patient presents with Chemotherapy scan review, palbo, letrozole, zometa Martha Stephens presents to the clinic for an evaluation prior to C52-54 Palbociclib + Letrozole and scan review. She will start next Palbo cycle on 02/06/21. She has been following with a chiropractor for manipulation of her back after bending the wrong way. In addition, she took Meloxicam for approximately 4 weeks. She was evaluated by dermatology at [facility] for 3 suspicious lesions on right central baptist, right lateral cheek, and left superior central forehead. Shave biopsy of lesionson 12/15/20 confirmed BCC of all 3 lesions. She will be scheduled for a Mohs procedure. Energy levelsare stable. Her appetite is good. No nausea, vomiting, or unintentional weight loss. She has normalbowel movements. No diarrhea, constipation, abdominal pain or bloating. She denies cough or shortness of breath. She denies chest pain, palpitations, or pedal edema. She denies rash or other skin changes. She has a good mood. Of note, she is due for a Zometa dose today and has been following with her dentist on a regular basis. No dental concerns. Medical/Surgical History: Past Medical History: Diagnosis Date Benign hypertension Bone metastasis 01/16/2018 GERD (gastroesophageal reflux disease) History of antineoplastic chemotherapy 12/22/2005 AC x4, taxol weekly x 12 History of radiation therapy 09/05/2006 Right breast and chest wall History of thoracentesis 10/21/2016 Metastatic adenocarcinoma consistent with breast primary Malignant neoplasm of breast (female), unspecified site 12/08/05 IDC rt. breast chest wall. preop chemo . Re-excision SLN bx.06/19. ER/IL pos HER- 2/la nena neg. Past Surgical History: Procedure Laterality Date THORACENTESIS W/ IMAGING GUIDANCE Left 11/03/2016 Laterality: Left; Surgeon: Matias Kwan MD; Location: [facility] INTERVENTIONAL RADIOLOGY (VIR) BREAST LUMPECTOMY Right 07/25/2006 Re-excision quandrantectomy rt. breast and chest wall BUNIONECTOMY Bilateral Medications/Allergies/Immunizations: Her current medication(s) include has a current medication list which includes the following prescription(s): acetaminophen (TYLENOL) 500 MG Tab, Calcium Carbonate (CALCIUM 600 PO), Cholecalciferol (VITAMIN D-3) 1000 units Cap, cyanocobalamin 100 MCG tablet, Diphenhydramine-APAP, sleep, (TYLENOL PMEXTRA STRENGTH PO), DISABILITY PLACARD, Letrozole 2.5 MG tablet, lovastatin 20 MG Tab, metoprolol succinate (TOPROL XL) 50 MG tablet XL, mirtazapine 15 MG tablet, multivitamin PO TABS, palbociclib 100 MG tablet, pantoprazole [address], and Zoledronic Acid (ZOMETA IV). Allergies: Sulfa antibiotics Review of Systems: A 14 point review of systems was performed with the patient at today's patient and is negative except for those items mentioned in the interval history and those items mentioned below as well as in the nursing documentation review of systems. Fatigue: Absent or within normal limits Physical Exam: Vitals: BP 152/87 (BP Location: Right arm, BP Position: Sitting) Pulse 88 Temp 98 F (36.7 C) (Oral) Resp 16 Wt 56.5 kg (124 lb 9.6 oz) SpO2 100% BMI 22.79 kg/m Smoking Status Never Smoker Patient's Current Performance Status: 1 General/Constitutional: Well-appearing, well-developed female who appears stated age of 75 y.o. No acute distress. HEENT: Head: Normocephalic and atraumatic. Eyes: Pupils are equal, round, and reactive to light. Extraocular movements are intact. Sclerae are anicteric. Neck: Supple, non-tender. Cardiac: Regular rate and rhythm. Normal S1, S2. No murmurs, rubs or gallops. Pulmonary/Chest: Chronic decreased breath sounds to right lung with crackles in the right lower lobe, about 1/[address] Left lung is clear to auscultation. Abdominal: Abdomen with normoactive bowel sounds in all four quadrants. Soft, non-tender, non-distended. No organomegaly. Extremities: No peripheral edema. Skin: Skin is warm and dry. She is not diaphoretic. Biopsy confirmed BCC of right central baptist, right lateral cheek, and left superior central forehead. Psychiatric: Appropriate mood and affect. Back: No point vertebral tenderness. Lymph: No cervical or supraclavicular adenopathy. Chest Wall: No abnormalities noted. Patient offered a medical technician terminal and repeater for sensitive exam. N/A Laboratory Data: Results for orders placed or performed in visit on 01/26/21 CHEM 6 (LYTES, BUN CREA) Result Value Ref Range BUN 18 7 - 22 mg/dL Sodium 140 133 - 143 mmol/L Potassium 4.3 3.5 - 5.0 mmol/L Chloride 106 98 - 108 mmol/L CO2 26 22 - 30 mmol/L Creatinine 1.49 (H) 0.50 - 1.20 mg/dL Bun/Crea Ratio 12 EST GFR,Non 34 (L) >=60 mL/min/1.73sqM EST GFR, 42 (L) >=60 mL/min/1.73sqM Anion Gap 12 7 - 17 mmol/L GLUCOSE Result Value Ref Range Glucose 134 (H) 70 - 99 mg/dL CALCIUM Result Value Ref Range Calcium 10.4 8.6 - 10.5 mg/dL HEPATIC FUNCTION PANEL Result Value Ref Range Albumin 4.5 3.5 - 5.0 g/dL Bilirubin Direct 0.1 <0.3 mg/dL Bilirubin Total 0.6 <1.5 mg/dL ALP 58 32 - 126 U/L ALT 14 9 - 48 U/L AST 22 14 - 40 U/L Total Protein 7.8 6.4 - 8.3 g/dL CBC AND ELECTRONIC DIFF Result Value Ref Range WBC Count 2.15 (L) 3.99 - 11.19 K/uL RBC Count 3.35 (L) 3.91 - 5.04 M/uL Hemoglobin 11.6 11.4 - 15.2 g/dL Hematocrit 35.0 34.9 - 44.3 % Mean Cell Volume 104.5 (H) 79.6 - 97.7 fL Mean Cell Hgb 34.6 (H) 25.9 - 33.9 pg Mean Cell Hgb Conc 33.1 31.4 - 35.9 g/dL RBC Distribution 13.2 10.8 - 14.9 % Platelet Count 184 150 - 393 K/uL Mean Platelet Volume 10.3 8.5 - 12.2 fL Segs + Bands Auto Immature Grans % Lymphocyte % Auto Monocyte % Auto Eosinophil % Auto Basophil % Auto Segs + Bands,Absolute Auto Immature Grans Absolute Abs Lymph Auto Abs Yolo Auto Abs Eos Auto Abs Baso Auto MANUAL DIFF Result Value Ref Range DIFF STATUS Manual Differential Bands Relative 1.0 % Segs Relative 65.0 % Lymph Relative 22.0 % Yolo Relative 7.0 % Eos Relative 4.0 % Baso Relative 1.0 % Nucleated RBC 0.0 <=0.0 /100 WBC Segs & Bands, Absolute 1.42 (L) 1.64 - 7.28 K/uL Abs Lymph Manual 0.47 (L) 1.16 - 3.51 K/uL Abs Yolo Manual 0.15 (L) 0.22 - 0.87 K/uL Abs Eos Manual 0.09 0.00 - 0.42 K\uL Abs Baso Manual 0.02 0.00 - 0.15 K/uL RBC Morphology RBC INDICES CONFIRMED WITH MANUAL SLIDE REVIEW Ovalocytes Present (A) (none) Platelet Estimate Automated platelet count confirmed by manual slide review Imaging Data: I have personally reviewed imaging both by myself and with the patient at today's visit. CT A/P waspending final radiology report at the time of visit. Personal review of CT A/P showed stable osseous lesions in lumbar spine and pelvis. Otherwise no other changes. CT Chest w/out Contrast, 01/26/21 IMPRESSION: 1. Small to moderate-sized right pleural effusion, unchanged. 2. Decreased groundglass nodular areas in the left lower lobe, likely an improving inflammatory process. 3. No change in the infiltrative density in the anterior/superior portion of the mediastinum. 4. Stable extensive metastatic disease to bone. CT Abdomen and Pelvis w/out Contrast, 01/26/21 IMPRESSION: pending. Impression and Recommendations: Martha Stephens is a 75 y.o. female diagnosed in 2017 with ER+/IL-/HER2-, metastatic breast cancer who is here today for evaluation on Palbo + Letrozole, Zometa, and scan review. Metastatic Disease Sites: lung, bone, liver, left eye Last staging scans: 01/26/21 Prior Cancer Therapies: AC, Taxol, Anastrozole, Xgeva Current Therapy: Letrozole and Palbociclib. Zometa *Metastatic Breast Cancer: . -She started therapy with Palbo + Letrozole in November 2016 -She presents today for evaluation prior to C52-54 -She is tolerating therapy with no dose limiting toxicities. -Restaging CT C/A/P on 02/06/32 were reviewed with patient today showing stable disease. -Today's labs reviewed and adequate. ANC 1.42 k/uL. -She will proceed with C52 Palbo on 02/06/21 and every 4 weeks -She will continue Letrozole daily. -Patient will return to clinic in 3 months. *Bone Mets: -Zometa d3keyppm initiated on 04/19/18. -Zometa previously held d/t renal insuffiencey. Next dose due today. Renal function has improved. No dental concerns. -Continue calcium and vitamin D *Chronic Kidney Disease: -Suspect worsening renal insufficiency due to Meloxicam usage. -Strongly advised patient to avoid taking Meloxicam and Ibuprofen. -Will continue to monitor. *BCC: -Right central baptist, right lateral cheek, and left superior central forehead. -Evaluated by dermatology at [facility]. Shave biopsy on 12/15/20 confirmed BCC of all 3 lesions -Scheduled for MOHS procedure. *Grief Over Loss of /Insomnia: -She declines medications or referrals at this time -Undergoing counseling with hospice group -She has family close for support -Insomnia well controlled with Mirtazapine. Rx refilled. 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 Follows with Dr. Tabares in [facility]. *Health Maintenance: -We recommend maintaining a healthy diet and exercise Orders Placed This Encounter CT ABDOMEN/PELVIS WITHOUT CONTRAST CT CHEST WITHOUT CONTRAST CBC, EDIF, PLATELET CHEM 6 (LYTES, BUN CREA) GLUCOSE CALCIUM HEPATIC FUNCTION PANEL CBC AND ELECTRONIC DIFF MANUAL DIFF Return in about 12 weeks (around 04/20/2021) for Labs, scans, MD visit, nimco. Documented by Alexandra Medina, for Dr. Levi on 01/26/2021 at 10:21 AM. All medical record entries made by the Adam were at my direction and personally dictated by me, Dr. Amita MD PhD. I have reviewed the chart and agree that the record accurately reflects my personal performance of the history, physical exam, assessment and plan. I have also personally directed, reviewed, and agree with the discharge instructions. documented in this encounterParma [facility]08-16-[facility]21 Instructions* Patient Instructions* Kenia West RN - 01/26/2021 11:20 AM EDT Images from the original note were not included. Store your prescribed pain medication in a locked cabinet or in an area only accessible to you. When you no longer need your prescribed pain medication, dispose of it immediately by one of the safe methods listed below: TAKE BACK PROGRAM: A drug take-back program is the best method to dispose of un- needed opioids safely. You can locate the take-back program closest to you @ https://takebackday.sima.gov under the COLLECTION SITE ELECTRIC METER INSPECTOR tab. Never dispose of un-needed medications down the sink or toilet. Instead, crush the medication and mix with damp coffee grounds or cat litter, place in a sealed plastic freezer bag, and dispose of in your regular trash. Your Medical/Oncology Team Doctor: Catarino Levi MD Nurse Practitioner: Ghazal Jin, [employer] PAVING FOREMAN-MASSAGE THERAPIST Primary Nurses: Elmo BSN, RN, Bethany BSN, RN OCN, Matias BSN RN We are available to take calls Tuesday-Tuesday 8:00am-4:30pm. During non-business hours and holidays phone calls will be managed by after-hours [facility] RN's. Please allow at least 10 business days for your team to complete any paperwork. When requesting medication refills, please try to provide as much notice as possible (5 days) in order to ensure that you do not run out of medication. If you are currently receiving an oral cancer medication (listed below) from a mail-order specialtypharmacy, your doctor may have sent an electronic prescription to your specialty pharmacy during your visit today. Pharmacies will not deliver these medications until speaking with you to verify information. You MUST call the specialty pharmacy at your earliest convenience (phone numbers listed below) to set up shipment. In the event the specialty pharmacy calls you, please ensure your voice mailbox is set up to receive messages and please return phone calls to the pharmacy if they leave a message. [ ] Abemaciclib (Verzenio ) [ ] Alpelisib (Piqray ) [ ] Capecitabine (Xeloda ) [ ] Lapatinib (Tykerb ) [ ] Neratinib (Nerlynx ) [ ] Olaparib (Lynparza ) [ ] Palbociclib (Ibrance ) [ ] Ribociclib (Kisqali ) [ ] Talazoparib (Talzenna ) [ ] Tucatinib (Tukysa ) [ ] Other: [ ] [employer] # [phone] [ ] [facility] # [phone] [ ] [facility] # [phone] [ ] [facility] # [phone] [ ] [facility] # [phone] [ ] [employer] # [phone] [ ] [facility] # [phone] [ ] [employer] # [phone] [ ] [facility] # [phone] [ ] [facility] # [phone] [ ] [facility] # [phone] [ ] Other: # documented in this encounterParma [facility]12-17-2015 History of Past illness Narrative* Problem Noted Date Resolved Date Screening for colon cancer 05/29/201505/29 Myopia - Left Eye 05/13/2014 05/19/2015 Other chronic dermatitis due to solar radiation 05/01/2008 04/25/2015 Other seborrheic keratosis 05/01/200804/25 Viral warts, unspecified 05/01/2008 015 NEVUS BACK/TRUNK///BENIGN GURDEEP SKIN TRUNK 008 04/25/2015 VIVEROS ANGIOMA///NEVUS, NON-NEOPLASTIC 8 04/25/2015 Diverticulosis of colon (without mention of hemo rrhage) 01/12/2007 04/25/2015 Internal hemorrhoids without mention of complica tion 01/12/2007 04/25/2015 External hemorrhoids without mention of complica tion 01/12/2007 04/25/2015 Unspecified constipation 01/11/2007 015 Postmenopausal atrophic vaginitis 11/02/2006 04/25/2015 Malignant neoplasm of other specified sites of f emale breast 08/26/2006 05/29/2015 documented as of this encounter (statuses as of 10/06/2021) [facility] History of Past illness Narrative* Problem Noted Date Resolved Date Screening for colon cancer 05/29/201505/29 Myopia - Left Eye 05/13/2014 05/19/2015 Other chronic dermatitis due to solar radiation 05/01/2008 04/25/2015 Other seborrheic keratosis 05/01/200804/25 Viral warts, unspecified 05/01/2008 015 NEVUS BACK/TRUNK///BENIGN GURDEEP SKIN TRUNK 008 04/25/2015 VIVEROS ANGIOMA///NEVUS, NON-NEOPLASTIC 8 04/25/2015 Diverticulosis of colon (without mention of hemo rrhage) 01/12/2007 04/25/2015 Internal hemorrhoids without mention of complica tion 01/12/2007 04/25/2015 External hemorrhoids without mention of complica tion 01/12/2007 04/25/2015 Unspecified constipation 01/11/2007 015 Postmenopausal atrophic vaginitis 11/02/2006 04/25/2015 Malignant neoplasm of other specified sites of f emale breast 08/26/2006 05/29/2015 documented as of this encounter (statuses as of 06/02/2022) [facility]12-[facility] History of Past illness Narrative* Problem Noted Date Resolved Date Screening for colon cancer 05/29/201505/29 Myopia - Left Eye 05/13/2014 05/19/2015 Other chronic dermatitis due to solar radiation 05/01/2008 04/25/2015 Other seborrheic keratosis 05/01/200804/25 Viral warts, unspecified 05/01/2008 015 NEVUS BACK/TRUNK///BENIGN GURDEEP SKIN TRUNK 008 04/25/2015 VIVEROS ANGIOMA///NEVUS, NON-NEOPLASTIC 8 04/25/2015 Diverticulosis of colon (without mention of hemo rrhage) 01/12/2007 04/25/2015 Internal hemorrhoids without mention of complica tion 01/12/2007 04/25/2015 External hemorrhoids without mention of complica tion 01/12/2007 04/25/2015 Unspecified constipation 01/11/2007 015 Postmenopausal atrophic vaginitis 11/02/2006 04/25/2015 Malignant neoplasm of other specified sites of f emale breast 08/26/2006 05/29/2015 documented as of this encounter (statuses as of 09/06/2022) [facility]12-[facility] History of Past illness Narrative* Problem Noted Date Resolved Date Screening for colon cancer 05/29/201505/29 Myopia - Left Eye 05/13/2014 05/19/2015 Other chronic dermatitis due to solar radiation 05/01/2008 04/25/2015 Other seborrheic keratosis 05/01/200804/25 Viral warts, unspecified 05/01/2008 015 NEVUS BACK/TRUNK///BENIGN GURDEEP SKIN TRUNK 008 04/25/2015 VIVEROS ANGIOMA///NEVUS, NON-NEOPLASTIC 8 04/25/2015 Diverticulosis of colon (without mention of hemo rrhage) 01/12/2007 04/25/2015 Internal hemorrhoids without mention of complica tion 01/12/2007 04/25/2015 External hemorrhoids without mention of complica tion 01/12/2007 04/25/2015 Unspecified constipation 01/11/2007 015 Postmenopausal atrophic vaginitis 11/02/2006 04/25/2015 Malignant neoplasm of other specified sites of f emale breast 08/26/2006 05/29/2015 documented as of this encounter (statuses as of 10/25/2022) [facility] History of Past illness Narrative* Problem Noted Date Diagnosed Date Resolved Date Screening for colon cancer 05/29/2015 1 07/30/2014 Myopia - Left Eye 05/13/2014 05/19/2015 Other chronic dermatitis due to solar radiation 05/01/2008 04/25/2015 Other seborrheic keratosis 05/01/2008 1 06/25/2014 Viral warts, unspecified 05/01/2008 NEVUS BACK/TRUNK///BENIGN GURDEEP SKIN TRUNK 05/01/2008 04/25/2015 VIVEROS ANGIOMA///NEVUS, NON-NEOPLASTIC 05/01/2008 04/25/2015 Diverticulosis of colon (wit hout mention of hemorrhage) 01/12/2007 04/25/2015 Internal hemorrhoids without mention of complication 01/12/2007 04/25/2015 External hemorrhoids without mention of complication 01/12/2007 04/25/2015 Unspecified constipation 01/11/2007 Postmenopausal atrophic vaginitis 11/02/2006 04/25/2015 Malignant neoplasm of other specified sites of female breast 08/26/2006 05/29/2015 documented as of this encounter (statuses as of 01/28/2023) [facility] History of Past illness Narrative* Problem Noted Date Diagnosed Date Resolved Date Screening for colon cancer 05/29/2015 1 07/30/2014 Myopia - Left Eye 05/13/2014 05/19/2015 Other chronic dermatitis due to solar radiation 05/01/2008 04/25/2015 Other seborrheic keratosis 05/01/2008 1 06/25/2014 Viral warts, unspecified 05/01/2008 NEVUS BACK/TRUNK///BENIGN GURDEEP SKIN TRUNK 05/01/2008 04/25/2015 VIVEROS ANGIOMA///NEVUS, NON-NEOPLASTIC 05/01/2008 04/25/2015 Diverticulosis of colon (wit hout mention of hemorrhage) 01/12/2007 04/25/2015 Internal hemorrhoids without mention of complication 01/12/2007 04/25/2015 External hemorrhoids without mention of complication 01/12/2007 04/25/2015 Unspecified constipation 01/11/2007 Postmenopausal atrophic vaginitis 11/02/2006 04/25/2015 Malignant neoplasm of other specified sites of female breast 08/26/2006 05/29/2015 documented as of this encounter (statuses as of 02/17/2023) [facility] History of Past illness Narrative* Problem Noted Date Diagnosed Date Resolved Date Screening for colon cancer 05/29/2015 1 07/30/2014 Myopia - Left Eye 05/13/2014 05/19/2015 Other chronic dermatitis due to solar radiation 05/01/2008 04/25/2015 Other seborrheic keratosis 05/01/2008 1 06/25/2014 Viral warts, unspecified 05/01/2008 NEVUS BACK/TRUNK///BENIGN GURDEEP SKIN TRUNK 05/01/2008 04/25/2015 VIVEROS ANGIOMA///NEVUS, NON-NEOPLASTIC 05/01/2008 04/25/2015 Diverticulosis of colon (mavis schulte mention of hemorrhage) 01/12/2007 04/25/2015 Internal hemorrhoids without mention of complication 01/12/2007 04/25/2015 External hemorrhoids without mention of complication 01/12/2007 04/25/2015 Unspecified constipation 01/11/2007 Postmenopausal atrophic vaginitis 11/02/2006 04/25/2015 Malignant neoplasm of other specified sites of female breast 08/26/2006 05/29/2015 documented as of this encounter (statuses as of 02/25/2023) [facility] History of Past illness Narrative* Problem Noted Date Diagnosed Date Resolved Date Screening for colon cancer 05/29/2015 1 07/30/2014 Myopia - Left Eye 05/13/2014 05/19/2015 Other chronic dermatitis due to solar radiation 05/01/2008 04/25/2015 Other seborrheic keratosis 05/01/2008 1 06/25/2014 Viral warts, unspecified 05/01/2008 NEVUS BACK/TRUNK///BENIGN GURDEEP SKIN TRUNK 05/01/2008 04/25/2015 VIVEROS ANGIOMA///NEVUS, NON-NEOPLASTIC 05/01/2008 04/25/2015 Diverticulosis of colon (wit hout mention of hemorrhage) 01/12/2007 04/25/2015 Internal hemorrhoids without mention of complication 01/12/2007 04/25/2015 External hemorrhoids without mention of complication 01/12/2007 04/25/2015 Unspecified constipation 01/11/2007 Postmenopausal atrophic vaginitis 11/02/2006 04/25/2015 Malignant neoplasm of other specified sites of female breast 08/26/2006 05/29/2015 documented as of this encounter (statuses as of 03/04/2023) [facility] Diagnosis Degeneration of lumbar intervertebral disc Degeneration of lumbar or lumbosacral intervertebral disc Scoliosis due to degenerative disease of spine in adult patient documented in this encounter [facility] Degeneration of lumbar intervertebral disc Degeneration of lumbar or lumbosacral intervertebral disc [facility] Diagnosis Degeneration of lumbar intervertebral disc Degeneration of lumbar or lumbosacral intervertebral disc [facility] Diagnosis Degeneration of lumbar intervertebral disc Degeneration of lumbar or lumbosacral intervertebral disc [facility] Diagnosis Degeneration of lumbar intervertebral disc Degeneration of lumbar or lumbosacral intervertebral disc [facility] Diagnosis Degeneration of lumbar intervertebral disc Degeneration of lumbar or lumbosacral intervertebral disc [facility] Diagnosis Degeneration of lumbar intervertebral disc- Primary Degeneration of lumbar or lumbosacral intervertebral disc [facility] Diagnosis Bone metastasis- Primary Secondary malignant neoplasm of bone and bone marrow Recurrent right pleural effusion Unspecified pleural effusion Metastatic breast cancer [facility] Metastatic breast cancer Metastatic breast cancer [facility] Diagnosis Metastatic breast cancer- Primary Bone metastasis Secondary malignant neoplasm of bone and bone marrow Recurrent right pleural effusion Unspecified pleural effusion Chemotherapy management, encounter for [facility] Diagnosis 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 Malignant neoplasm of choroid Early dry stage nonexudative age-related macular degeneration of both eyes Combined forms of age-related cataract of both eyes Other and combined forms of senile cataract 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) Other malignant neoplasm without specification of site [facility] Myopia, bilateral- Primary Myopia Regular astigmatism of both eyes Regular astigmatism Presbyopia [facility] Diagnosis 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) Malignant neoplasm of choroid Combined forms of age-related cataract of both eyes Other and combined forms of senile cataract [facility] Diagnosis Combined form of age-related cataract, right eye- Primary Combined form of age-related cataract, left eye 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, 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 Essential hypertension Unspecified essential hypertension Hypercholesteremia Pure hypercholesterolemia 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) Other malignant neoplasm without specification of site History of lung cancer Personal history of malignant neoplasm of bronchus and lung [facility] Diagnosis Combined form of age-related cataract, right eye- Primary Combined form of age-related cataract, left eye 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, 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 Essential hypertension Unspecified essential hypertension Hypercholesteremia Pure hypercholesterolemia 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) Other malignant neoplasm without specification of site History of lung cancer Personal history of malignant neoplasm of bronchus and lung Combined form of age-related cataract, right eye [facility] Diagnosis Status post cataract extraction and insertion of intraocular lens of right eye- Primary Combined form of age-related cataract, left eye Combined form of age-related cataract, left eye [facility] Diagnosis Status post cataract extraction and insertion of intraocular lens of right eye- Primary Combined form of age-related cataract, left eye [facility] Diagnosis Combined forms of age-related cataract of left eye- Primary Combined forms of age-related cataract of left eye Depression Depressive disorder, not elsewhere classified Anxiety Anxiety state, unspecified Bipolar disorder (CMS/HCC) Bipolar disorder, unspecified documented in this encounter [facility] Work Phone: Evaluation note* Diagnosis Status post cataract extraction and insertion of intraocular lens of left eye- Primary Status post cataract extraction and insertion of intraocular lens of right eye [facility] Diagnosis Status post cataract extraction and insertion of intraocular lens of left eye- Primary 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) Other malignant neoplasm without specification of site [facility] Diagnosis Combined forms of age-related cataract, right eye documented in this encounter [facility] Work Phone: Assessments Diagnosis Hypertension, unspecified ty pe - Primary Mixed hyperlipidemia Carcinoma of breast metastat ic to bone, unspecified laterality (HCC) Tachycardia Unspecified tachycardia Essential hypertension Unspecified essential hypertension Aortic stenosis, mild Summary Purpose Family History No Family History Records FoundNo Family History Records FoundNo Family History Records FoundNo Family History Records FoundNo Family History Records FoundNo Family History Records FoundNo Family History Records FoundNo Family History Records FoundNo Family History Records FoundNo Family History Records Found Advance Directives Documents on File Type Date 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 Advance Directives and Living Will Documents on File Type Date Recorded 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 Power of [employer] Drm Consultant 05/28/2019 11:59 AM Advance Directives/Living Will 05/28/2019 11:59 AM HealthCare Power of [employer] Drm Consultant 07/17/2003 12:00 AM Advance Directives/Living Will 07/17/2003 12:00 AM Latest Code Status on File Code Status Date Activated Date Inactivated Comments Full Code 05/28/2018 11:33 PM Documents on File Type Date Recorded 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 Power of [employer] Drm Consultant 05/28/2019 11:59 AM Advance Directives/Living Will 05/28/2019 11:59 AM HealthCare Power of [employer] Drm Consultant 07/17/2003 12:00 AM Advance Directives/Living Will 07/17/2003 12:00 AM Latest Code Status on File Code Status Date Activated Date Inactivated Comments Full Code 05/28/2018 11:33 PM Documents on File Type Date Recorded 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 Power of [employer] Drm Consultant 05/28/2019 11:59 AM Advance Directives/Living Will 05/28/2019 11:59 AM HealthCare Power of [employer] Drm Consultant 07/17/2003 Advance Directives/Living Will 07/17/2003 Latest Code Status on File Code Status Date Activated Date Inactivated Comments Full Code 03/24/2023 12:18 PM Question Answer Comments Plan of Care: Code Status Discussion Not Compl eted Decision Maker: Provider Rationale: Patient condition do es not warrant discussion Latest Code Status on File Code Status Date Activated Date Inactivated Comments Full Code 03/24/2023 12:18 PM 03/24/2023 3:55 PM Question Answer Comments Plan of Care: Code Status Discussion Not Compl eted Decision Maker: Provider Rationale: Patient condition do es not warrant discussion Reason for Referral Specialty Diagnoses / Procedures Referred By Contac t Referred To Contact Diagnoses Metastatic breast cancer Procedures CT ABDOMEN/PELVIS WITHOUT CONTRAST CHG CT SCAN,ABDOMENT AND PELVIS,W/O CONTRAST Catarino Levi MD, PhD [address] [facility] [address] [place] [address] Referral ID Status Reason Start Date Expiration Date V isits Requested Visits Authorized [id number] New Request 2020 11/30/2021 1 1 Specialty Diagnoses / Procedures Referred By Contac t Referred To Contact Diagnoses Metastatic breast cancer Procedures CT CHEST WITHOUT CONTRAST CHG DIAGNOSTIC COMPUTED TOMOGRAPHY THORAX W/O CNTRST Catarino Levi MD, PhD [address] [facility] [address] [place] [address] Referral ID Status Reason Start Date Expiration Date V isits Requested Visits Authorized [id number] New Request 2020 11/30/2021 1 1 Referral ID Status Reason Start Date Expiration Date V isits Requested Visits Authorized [id number] New Request 01/26/2021 02/20/2022 1 1 Referral ID Status Reason Start Date Expiration Date V isits Requested Visits Authorized [id number] New Request 01/26/2021 02/20/2022 1 1 Medications Administered Section Active Administered Medications - up to 3 most recent administrations Medication Order MAR Action Action Date Dose Rate Site fluorescein-benoxinate 0.25-0.4 % 1 Drop (FLURESS) 1 Drop, BOTH EYES, DIRECTED, Starting on Tue10/06/21 at 0900, Until Tue10/06/21 at 2058, Administer for applanation tonometry. In the event of a Fluress shortage, administer Lily-Fluor 1 drop into both eyes as directed for applanation tonometry Given 10/06/2021 9:02 AM EDT 1 Drop PHENYLephrine 2.5 % 1 Drop (AK-DILATE, GURDEEP-SYNEPHRINE) 1 Drop, BOTH EYES, DIRECTED, Starting on Tue10/06/21 at 0900, Until Tue10/06/21 at 2058, Administer for dilation PROTECT FROM LIGHT Given 10/06/2021 9:02 AM EDT 1 Drop proparacaine 0.5 % 1 Drop (ALCAINE) 1 Drop, BOTH EYES, DIRECTED, Starting on Tue10/06/21 at 0900, Until Tue10/06/21 at 2058, Administer for pneumo tonometry, tonopen tonometry, or pachymetry. In the event of a proparacaine shortage, administer tetracaine 0.5% ophthalmic drops 1 drop in the left eye as directed for pneumo tonometry, tonopen tonometry, or pachymetry Given 10/06/2021 9:02 AM EDT 1 Drop tropicamide 1 % 1 Drop (MYDRIACYL) 1 Drop, BOTH EYES, DIRECTED, Starting on Tue10/06/21 at 0900, Until Tue10/06/21 at 2058, Administer for dilation Given 10/06/2021 9:02 AM EDT 1 Drop Active Administered Medications - up to 3 most recent administrations Medication Order MAR Action Action Date Dose Rate Site PHENYLephrine 2.5 % 1 Drop (AK-DILATE, GURDEEP-SYNEPHRINE) 1 Drop, BOTH EYES, DIRECTED, Starting on Tue10/25/22 at 1000, Until Tue10/25/22 at 2158, Administer for dilation PROTECT FROM LIGHT Given 10/25/2022 10:00 AM EDT 1 Drop proparacaine 0.5 % 1 Drop (ALCAINE) 1 Drop, BOTH EYES, DIRECTED, Starting on Tue10/25/22 at 1000, Until Tue10/25/22 at 2158, Administer for pneumo tonometry, tonopen tonometry, or pachymetry. In the event of a proparacaine shortage, administer tetracaine 0.5% ophthalmic drops 1 drop in the left eye as directed for pneumo tonometry, tonopen tonometry, or pachymetry Given 10/25/2022 10:00 AM EDT 1 Drop tropicamide 1 % 1 Drop (MYDRIACYL) 1 Drop, BOTH EYES, DIRECTED, Starting on Tue10/25/22 at 1000, Until Tue10/25/22 at 2159, Administer for dilation Given 10/25/2022 10:00 AM EDT 1 Drop Active Administered Medications - up to 3 most recent administrations Medication Order MAR Action Action Date Dose Rate Site fluorescein-benoxinate 0.25-0.4 % 1 Drop (FLURESS) 1 Drop, BOTH EYES, DIRECTED, Starting on Tue01/28/23 at 0930, Until Tue01/28/23 at 2128, Administer for applanation tonometry. In the event of a Fluress shortage, administer Lily-Fluor 1 drop into both eyes as directed for applanation tonometry Given 01/28/2023 9:30 AM EDT 1 Drop PHENYLephrine 2.5 % 1 Drop (AK-DILATE, GURDEEP-SYNEPHRINE) 1 Drop, BOTH EYES, DIRECTED, Starting on Tue01/28/23 at 0930, Until Tue01/28/23 at 2128, Administer for dilation PROTECT FROM LIGHT Given 01/28/2023 9:30 AM EDT 1 Drop tropicamide 1 % 1 Drop (MYDRIACYL) 1 Drop, BOTH EYES, DIRECTED, Starting on Tue01/28/23 at 0930, Until Tue01/28/23 at 2128, Administer for dilation Given 01/28/2023 9:30 AM EDT 1 Drop Inactive Administered Medications - up to 3 most recent administrations Medication Order MAR Action Action Date Dose Rate Site fluorescein-benoxinate 0.3-0.4 % 1 Drop (FLURESS) 1 Drop, BOTH EYES, DIRECTED, Starting on Tue04/20/23 at 0900, Until Tue04/20/23 at 2058, Administer for applanation tonometry. In the event of a Fluress shortage, administer [place]-Fluor 1 drop into both eyes as directed for applanation tonometry Given 04/20/2023 9:00 AM EST 1 Drop Additional Source Comments INFORMATION SOURCE (unrecogn ized section and content) DATE CREATED AUTHOR AUTHOR'S ORGANIZ ATION 12/07/2017 [facility] DATE CREATED AUTHOR AUTHOR'S ORGANIZ ATION 05/30/2018 [facility] DATE CREATED AUTHOR AUTHOR'S ORGANIZ ATION 06/01/2018 [facility] DATE CREATED AUTHOR AUTHOR'S ORGANIZ ATION 08/09/2021 [facility] DATE CREATED AUTHOR AUTHOR'S ORGANIZ ATION 08/29/2021 [facility] DATE CREATED AUTHOR AUTHOR'S ORGANIZ ATION 11/03/2021 [facility] DATE CREATED AUTHOR AUTHOR'S ORGANIZ ATION 11/24/2021 [facility] DATE CREATED AUTHOR AUTHOR'S ORGANIZ ATION 03/31/2023 [facility] DATE CREATED AUTHOR AUTHOR'S ORGANIZ ATION 04/21/2023 [facility] Reason for Visit (unrecogniz ed section and content) Specialty Diagnoses / Procedures Referred By Contac t Referred To Contact Rehabilitation Diagnoses Degeneration of lumbar intervertebral disc Scoliosis due to degenerative disease of spine in adult patient Saleem Brown, [address] [address] Referral ID Status Reason Start Date Expiration Date V isits Requested Visits Authorized [id number] Authorized 06/25/2021 10/05/2021 11 11 Reason Comments Infusion Visit zometa Specialty Diagnoses / Procedures Referred By Contac t Referred To Contact Diagnoses Metastatic breast cancer Procedures CT ABDOMEN/PELVIS WITHOUT CONTRAST CHG CT SCAN,ABDOMENT AND PELVIS,W/O CONTRAST Catarino Levi MD, PhD [facility] [address] [place] [address] Referral ID Status Reason Start Date Expiration Date V isits Requested Visits Authorized [id number] New Request 2020 11/30/2021 1 1 Specialty Diagnoses / Procedures Referred By Contac t Referred To Contact Diagnoses Metastatic breast cancer Procedures CT CHEST WITHOUT CONTRAST CHG DIAGNOSTIC COMPUTED TOMOGRAPHY THORAX W/O CNTRST Catarino Levi MD, PhD [address] [facility] [address] [place] [address] Referral ID Status Reason Start Date Expiration Date V isits Requested Visits Authorized [id number] New Request 2020 11/30/2021 1 1 Reason Comments Chemotherapy scan review, palbo, letrozole, zometa Reason Comments Chemotherapy Ibrance + Letrozole, Reason Comments 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 Townsend and Dr. Tabares for Malignant Neoplasm of Left Choroid. Reason Comments Cataract Follow Up Follow up pigment epithelial mottling ri ght eye Vitreous Floaters Follow Up Reason Comments Blurred Vision Both Eyes Right eye worse than left eye for 3 months Difficulty Reading Both Eyes For 3 month s Glare Both eyes for 3 ericka hs, has not driven at night for past year due to poor night vision Reason Comments Blurred Vision Both Eyes Difficulty Reading Both Eyes Glare Halos Both Eyes Reason Comments Post-op Cataract OD S/P Cataract surgery with IOL right eye done on 02/24/23 Reason Comments Post-op Cataract Right eye-02/24/2023 Specialty Diagnoses / Procedures Referred By Leo t Referred To Contact Diagnoses Combined forms of age-related cataract of left eye Combined forms of age-related cataract of left eye [H25.812] Procedures IL XCAPSL CTRC RMVL INSJ IO LENS PROSTH W/O ECP CATARACT EXTRACTION W/IOL IMPLANT L EYE Que Townsend MD [address] [facility] [place] [address] [facility] [place] [address] Referral ID Status Reason Start Date Expiration Date Visits Re quested Visits Authorized [id number] 1 1 Reason Comments Post-op Cataract OU OD 02/24/23OS Reason Comments Malignant Neoplasm of Left Choroid Reason Comments Post-op Cataract OD 02/24/23 OS 03/24 Reason Comments Other Combined forms of ag e-related cataract, R eye Care Teams (unrecognized sec tion and content) Greaser Helper Relationship Specialty Start Date End Date No, Physician [facility] PCP - General 07/02/21 Greaser Helper Relationship Specialty Start Date End Date No, Physician [facility] PCP - General 07/02/21 Greaser Helper Relationship Specialty Start Date End Date No, Physician [facility] PCP - General 07/02/21 Greaser Helper Relationship Specialty Start Date End Date No, Physician [facility] PCP - General 07/02/21 Greaser Helper Relationship Specialty Start Date End Date No, Physician [facility] PCP - General 07/02/21 Greaser Helper Relationship Specialty Start Date End Date No, Physician [facility] PCP - General 07/02/21 Greaser Helper Relationship Specialty Start Date End Date Dru Barahona, DO [address] [place] [phone] PCP - General 07/04/07 Jyoti Kramer MD [address] [place] [address] Radiation Oncology 11/01/16 Catarino Levi MD, PhD [address] [facility] [address] [place] [address] Oncologist Medical Oncology 11/09/16 Ghazal Jin, ASPHALT PAVING FOREMAN-MASSAGE THERAPIST [address] [facility] [address] [place] [id number] Nurse Practitioner Medical Oncology 11/09/16 Jennifer Gerber, RN Registered Nurse Medical Oncology 02/15/17 Bethany West, RN Registered Nurse Medical Oncology 04/13/18 Kody Gil [facility] [address] [place] [address] Pharmacist Pharmacist 07/13/18 Dimitris Cuevas [facility] [address] [place] [address] Pharmacist Pharmacist 07/13/18 Korey Bravo MD [address] [facility] [address] [place] [address] Surgeon Surgical Oncology 09/24/09 Greaser Helper Relationship Specialty Start Date End Date Dru Barahona, DO [address] [place] [address] PCP - General 07/04/07 Jyoti Kramer MD [address], [place] [phone] Radiation Oncology 11/01/16 Catarino Levi MD, PhD [address] [facility] [address] [place] [phone] Oncologist Medical Oncology 11/09/16 Ghazal Jin, ASPHALT PAVING FOREMAN-MASSAGE THERAPIST [address] [facility] [place] [address] Nurse Practitioner Medical Oncology 11/09/16 Jennifer Gerber, RN Registered Nurse Medical Oncology 02/15/17 Bethany West, RN Registered Nurse Medical Oncology 04/13/18 Kody Gil, [facility] [address] [facility] [address] [place] [address] Pharmacist Pharmacist 07/13/18 Dimitris Cuevas, [facility] [address] [facility] [address] [place] [address] Pharmacist Pharmacist 07/13/18 Korey Bravo MD [address] [facility] [address] [place] [address] Surgeon Surgical Oncology 09/24/09 Greaser Helper Relationship Specialty Start Date End Date Dru Barahona, DO [address] [place] [address] PCP - General 07/04/07 Jyoti Kramer MD [address] [place], [place] [phone] Radiation Oncology 11/01/16 Catarino Levi MD, PhD [address] [facility] [address] [place] [phone] Oncologist Medical Oncology 11/09/16 Ghazal Jin, ASPHALT PAVING FOREMAN-MASSAGE THERAPIST [address] [facility] [address] [place], [place] [phone] Nurse Practitioner Medical Oncology 11/09/16 Jennifer Gerber, RN Registered Nurse Medical Oncology 02/15/17 Bethany West, RN Registered Nurse Medical Oncology 04/13/18 Kody Gil, [facility] [address] [facility] [address] [place] [address] Pharmacist Pharmacist 07/13/18 Dimitris Cuevas, [facility] [address] [facility] [address] [place] [address] Pharmacist Pharmacist 07/13/18 Korey Bravo MD [address] [facility] [address] [place] [address] Surgeon Surgical Oncology 09/24/09 Greaser Helper Relationship Specialty Start Date End Date Dru Barahona, DO [address] [place] [address] PCP - General 07/04/07 Jyoti Kramer MD [address] [place], [place] [phone] Radiation Oncology 11/01/16 Catarino Levi MD, PhD [address] [facility] [address] [place] [address] Oncologist Medical Oncology 11/09/16 Ghazal Jin, ASPHALT PAVING FOREMAN-MASSAGE THERAPIST [address] [facility] [place] [phone] Nurse Practitioner Medical Oncology 11/09/16 Jennifer Gerber, RN Registered Nurse Medical Oncology 02/15/17 Bethany West, RN Registered Nurse Medical Oncology 04/13/18 Kody Gil, [facility] [address] [place] [address] Pharmacist Pharmacist 07/13/18 Dimitris Cuevas [facility] [address] [place] [address] Pharmacist Pharmacist 07/13/18 Korey Bravo MD [address] [facility] [address] [place] [phone] Surgeon Surgical Oncology 09/24/09 Greaser Helper Relationship Specialty Start Date End Date Dru Barahona, DO [address] [place] [address] PCP - General 07/04/07 Jyoti Kramer MD [address] [place], [place] [phone] Radiation Oncology 11/01/16 Ghazal Jin, ASPHALT PAVING FOREMAN-MASSAGE THERAPIST [address] [facility] [place] [phone] Nurse Practitioner Medical Oncology 11/09/16 Kody Gil [facility] [address] [place] [address] Pharmacist Pharmacist 07/13/18 Dimitris Cuevas [facility] [address] [place] [address] Pharmacist Pharmacist 07/13/18 Korey Bravo MD [address], [address] [place] [address] Surgeon Surgical Oncology 09/24/09 Fco Camacho MBBS [address], [address] [place] [address] Oncologist Medical Oncology 10/05/21 Taylor Canada APRN-MASSAGE THERAPIST [address], [address] [place] [address] Certified Nurse Practitioner 10/05/21 Greaser Helper Relationship Specialty Start Date End Date Mar Bucio [address] [place] [address] PCP - General Family Practice 08/24/21 Greaser Helper Relationship Specialty Start Date End Date Mar Bucio [address] [place] [address] PCP - General Family Medicine 08/24/21 Greaser Helper Relationship Specialty Start Date End Date Mar Bucio MD PCP - General Family Medicine 08/24/21 Greaser Helper Relationship Specialty Start Date End Date Mar Bucio MD PCP - General Family Medicine 08/24/21 Greaser Helper Relationship Specialty Start Date End Date Mar Bucio MD PCP - General Family Medicine 08/24/21 Greaser Helper Relationship Specialty Start Date End Date Mar Bucio MD PCP - General Family Medicine 08/24/21 Greaser Helper Relationship Specialty Start Date End Date Mar Bucio MD PCP - General Family Medicine 08/24/21 Greaser Helper Relationship Specialty Start Date End Date Mar Bucio MD [address] [facility] [place] [address] PCP - General 02/24/23 Greaser Helper Relationship Specialty Start Date End Date Mar Bucio MD PCP - General Family Medicine 08/24/21 Greaser Helper Relationship Specialty Start Date End Date Mar Bucio MD PCP - General Family Medicine 08/24/21 Greaser Helper Relationship Specialty Start Date End Date Mar Bucio MD PCP - General Family Medicine 08/24/21 Greaser Helper Relationship Specialty Start Date End Date Mar Bucio MD PCP - General 02/24/23 Source Comments (unrecognize d section and content) In the event this informatio n is protected by the Federal Confidentiality of Alcohol and Drug Abuse Patient Records regulations: The Federal rules restrict any use of the information to criminally investigate or prosecute any alcohol or drug abuse patient.[facility] the event this information is protected by the Federal Confidentiality of Alcohol and Drug Abuse Patient Records regulations: The Federal rules restrict any use of the information to criminally investigate or prosecute any alcohol or drug abuse patient.[facility] GeneralIn the event this information is protected by the Federal Confidentiality of Alcohol and Drug Abuse Patient Records regulations: The Federal rules restrict any use of the information to criminally investigate or prosecute any alcohol or drug abuse patient.[facility] GeneralIn the event this information is protected by the Federal Confidentiality of Alcohol and Drug Abuse Patient Records regulations: The Federal rules restrict any use of the information to criminally investigate or prosecute any alcohol or drug abuse patient.[facility] GeneralIn the event this information is protected by the Federal Confidentiality of Alcohol and Drug Abuse Patient Records regulations: The Federal rules restrict any use of the information to criminally investigate or prosecute any alcohol or drug abuse patient.[facility] GeneralIn the event this information is protected by the Federal Confidentiality of Alcohol and Drug Abuse Patient Records regulations: The Federal rules restrict any use of the information to criminally investigate or prosecute any alcohol or drug abuse patient.[facility] GeneralIn the event this information is protected by the Federal Confidentiality of Alcohol and Drug Abuse Patient Records regulations: The Federal rules restrict any use of the information to criminally investigate or prosecute any alcohol or drug abuse patient.[facility] GeneralIn the event this information is protected by the Federal Confidentiality of Alcohol and Drug Abuse Patient Records regulations: The Federal rules restrict any use of the information to criminally investigate or prosecute any alcohol or drug abuse patient.[facility] GeneralIn the event this information is protected by the Federal Confidentiality of Alcohol and Drug Abuse Patient Records regulations: The Federal rules restrict any use of the information to criminally investigate or prosecute any alcohol or drug abuse patient.[facility] GeneralIn the event this information is protected by the Federal Confidentiality of Alcohol and Drug Abuse Patient Records regulations: The Federal rules restrict any use of the information to criminally investigate or prosecute any alcohol or drug abuse patient.[facility] GeneralIn the event this information is protected by the Federal Confidentiality of Alcohol and Drug Abuse Patient Records regulations: The Federal rules restrict any use of the information to criminally investigate or prosecute any alcohol or drug abuse patient.[facility] Scheduled Active and Recently Administ ered Medications (unrecognized section and content) Continuous Medication Order 03/22/2023 03/23/2023 03/24/2023 lactated Ringer's infusion 75 mL/hr, intravenous, Continuous, Starting on Ligia 03/24/23 at 1230 1221 (New Bag - Prov ider: Shasha Sierra RN)1302 (Continued by Anesthesia - Provider: Dru Hi DO)1326 (Anesthesia Volume Adjustment - Provider: Dru Hi DO) PRN Medication Order 03/22/2023 03/23/2023 03/24/2023 chondroitin sulf-sod hyaluron (Duovisc) intraocular kit (CANCELED) As needed, Starting on Ligia 03/24/23 at 1312, Intraprocedure 1312 (Given - Provid er: Que Townsend MD) lidocaine 1%-phenylephrine 1.5% intravitreal injection (CANCELED) As needed, Starting on Ligia 03/24/23 at 1312, Intraprocedure 1312 (Given - Provid er: Que Townsend MD) moxifloxacin (Vigamox) 0.5 % ophthalmic solution (CANCELED) As needed, Starting on Ligia 03/24/23 at 1314, Intraprocedure 1314 (Given - Provid er: Que Townsend MD - Comment: 0.8 ml intracameral) FOR RECORDS PERTAINING TO PATIENTS WHO ARE OR HAVE BEEN ENROLLED IN A CHEMICAL DEPENDENCY/SUBSTANCEABUSE PROGRAM, SOME INFORMATION MAY BE OMITTED. This clinical summary was aggregated from multiple sources. Caution should be exercised in using it in the provision of clinical care. This summary normalizes information from multiple sources, and as a consequence, information in this document may materially change the coding, format and clinical context of patient data. In addition, data may be omitted in some cases. CLINICAL DECISIONS SHOULD BE BASED ON THE PRIMARY CLINICAL RECORDS. [employer] [facility]. provides no warranty or guarantee of the accuracy or completeness of information in this document.
== END | disposition home or self-care (01) ==
LOC: CT 08:05
PROVIDERS: PCP Family Medicine; Referring Provider Nurse Practitioner Family; Visit Provider Nurse Practitioner Family
DX: C50.911 Malignant neoplasm of unspecified site of right female breast (principal)
CPT/HCPCS: 71260; 74177; Q9967

== ENCOUNTER 2023-07-19 09:03 | Inpatient (IN) | payer MEDICARE, SELFPAY ==
[2023-07-19] VITALS (14 sets, daily range): BP systolic 120–151; BP diastolic 70–114; PULSE 19–120; RESP 15–28; TEMP 36.7–36.8; O2SAT 95–100; BMI 22.9; BMI 22.0
--- NOTE | 2023-07-19 09:21 | RAD_ITS ---
STUDY: X-RAY CHEST REASON FOR EXAM: Female, 77 years old. Chest pain TECHNIQUE: Single AP portable view of the chest. COMPARISON: None. FINDINGS: EKG electrodes are seen. Surgical clips are seen in the right axilla as well as in the right side of the mediastinum and both hilar regions. Elevation of the right hemidiaphragm with a small right pleural effusion and right basilar atelectasis. The left lung is clear. Normal size heart. Normal mediastinum and hakan. Normal visualized pulmonary arteries. Normal visualized aortic arch and descending thoracic aorta. Normal visualized thoracic spine. Normal visualized ribs, clavicles, and shoulders. There is no demonstrated abnormality of the visualized soft tissue structures of the upper abdomen. RAD/Chest 1 View (Portable) IMPRESSION: Elevation of the right hemidiaphragm. Small right pleural effusion with right basilar atelectasis. Electronically Signed: Hever Madden MD at 10:05 EST ,
--- NOTE | 2023-07-19 09:23 | ED.VIS.CHEST ---
HPI History of Present Illness Chief Complaint: Chest Pain Detail of Chief Complaint: Midsternal chest tightness Informant: patient Onset/Context/Timing Onset: Today, Yesterday and Days Activity at onset: sudden Timing: Continuous (Continuous since onset at 0300) and Intermittent (Intermittent Tuesday and Tuesday) Quality: Positive for Tightness Location: Substernal Current Severity: Mild Maximum Severity: Severe Worsened By: Exertion Relieved By: Nothing Associated Symptoms: Positive for Dyspnea; Negative for Nausea, Vomiting, Diaphoresis, Cough, Fever, Lightheadedness, Acid Reflux or Palpitations Narrative Narrative: Patient is a 77-year-old woman who has history of hypertension, hyperlipidemia, metastatic breast cancer to bone and liver who presents because she was awakened from sleep at 0300 Tuesday with chest tightness and dyspnea that lasted 1 hour. There was no other associated symptoms and there was no radiation of the discomfort. She was awakened Tuesday. She states it was not as worse. This morning when she was awakened from sleep with chest tightness it was the worst. She did have shortness of breath. When she got up to walk to catch her breath she states the tightness was worse. There was no diaphoresis, nausea and there was no radiation. Father had MA at the age 65. She had a brother had MA at 65 and brother who had MA at 75. She denies history of PE or DVT. Risk factors is metastatic cancer. She denies leg pain, swelling discoloration. She denies history of peptic ulcer disease. She denies recent history of black or maroon-colored stool. CVD Risk Factors: Positive for Hypertension and Hypercholesterolemia PE Risk Factors: Positive for Cancer; Negative for Recent Travel/Surgery, Recent Immobilization, Prior DVT or PE or OCP + Smoking + >/=35 TAD Risk Factors: Positive for Hypertension; Negative for Marfan's Syndrome or Family History [facility] Medical History Bone metastases Cancer Cancer of right female breast CRF (chronic renal failure) Gastric reflux GERD (gastroesophageal reflux disease) High cholesterol History of echocardiogram History of stress test Hyperlipidemia Hypertension Hypokalemia Leg cramps Liver metastasis Low iron Neutropenia Non-smoker Pleural effusion, bilateral Pleural metastasis Wears glasses Home Medications acetaminophen 500 mg tablet 500 mg PO Q6H PRN Pain 11/18/16 [History Last Taken 07/16/23] calcium carbonate 600 mg calcium (1,500 mg) tablet 600 mg PO DAILY supplement 11/18/16 [History Last Taken 07/18/23] cholecalciferol (vitamin D3) 25 mcg (1,000 unit) tablet (Vitamin D3) 1,000 unit PO DAILY supplement 11/18/16 [History Last Taken 07/18/23] lovastatin 20 mg tablet 20 mg PO DAILY cholesterol 11/18/16 [History Last Taken 07/18/23] palbociclib 125 mg capsule (Ibrance) 75 mg PO DAILY breast cancer 11/18/16 [History Last Taken 02/08/23] cyanocobalamin (vitamin B-12) 100 mcg tablet 100 mcg PO DAILY supplement 10/09/21 [History Last Taken 07/18/23] pantoprazole 40 mg tablet,delayed release 40 mg PO DAILY acid reflux 02/23/22 [History Last Taken 07/18/23] mirtazapine 15 mg tablet 7.5 mg PO QHS insomnia 02/04/23 [History Last Taken 07/18/23] letrozole 2.5 mg tablet See Rx Instructions .Route .COMPLEX breast cancer #90 tabs 02/24/23 [Rx Last Taken 07/18/23] metoprolol tartrate 50 mg tablet 50 mg PO DAILY blood pressure 07/19/23 [History Last Taken 07/18/23] peg 400 0.4 %-propylene glycol (PF) 0.3 % eye drops (Systane Ultra (PF)) 1 drp EACH EYE BID cataract surgery 07/19/23 [History Last Taken 07/18/23] Allergy/AdvReac Type Severity Reaction Status Date / Time Sulfa (Sulfonamide Allergy Mild Rash Verified 07/19/23 09:03 Antibiotics) Family History Mother Heart disease Father Hypertension Surgical History H/O tooth extraction History of cataract extraction History of lumpectomy History of thoracentesis Status post bunionectomy Social History (Updated 07/19/23 @ 09:[address] José Miguel Bains MD) household members: none Smoking Status: Never smoker substance use type: does not use ROS ROS ED Constitutional Constitutional ED: Denies chills, fever(s), subjective, sweats or weight loss Eyes Eyes: Reports none ENT ENT ED: Denies ear pain, rhinorrhea or sore throat Cardiovascular Cardiovascular: Reports as per HPI and paroxysmal nocturnal dyspnea; Denies orthopnea Respiratory/Chest Respiratory/Chest: Reports dyspnea, dyspnea on exertion and paroxysmal nocturnal dyspnea; Denies cough or orthopnea Gastrointestinal Gastrointestinal: Denies abdominal pain, melena, nausea or vomiting Genitourinary Genitourinary ED: Denies dysuria, hematuria or urinary frequency Musculoskeletal Musculoskeletal: Denies arthralgias, back pain or neck pain Integumentary Denies rash Neurologic Neurologic: Denies paresthesias or weakness Endocrine Endocrinology: Denies cold intolerance or heat intolerance Hematologic/Lymphatic Hematologic/Lymphatic: Denies easy bleeding or easy bruising EXAM Physical Exam Const Vital Signs: 07/19/23 09:04 07/19/23 09:04 07/19/23 09:21 Temperature 98.1 F Temperature Source Oral Pulse Rate 111 H Respiratory Rate 20 H Respiratory Effort Normal Non-Labored Blood Pressure 151/83 H Blood Pressure Mean 105 Pulse Ox 95 Oxygen Delivery Method Room Air Room Air 07/19/23 11:03 Temperature Temperature Source Pulse Rate 120 H Respiratory Rate 20 H Respiratory Effort Blood Pressure 127/114 H Blood Pressure Mean 118 Pulse Ox 97 Oxygen Delivery Method Room Air Positive well nourished and well developed General Appearance ED: well developed, NAD and pallor HEENT Reports moist mucous membranes normocephalic and atraumatic Eyes PERRL and EOMs intact bilaterally General Eye ED: Negative for pale conjunctiva or scleral icterus Neck no lymphadenopathy, supple and no JVD Neck Narrative: Trachea is midline. Chest Wall inspection of chest normal and palpation of chest normal Resp normal respiratory effort and clear to auscultation bilaterally Cardio regular rate, regular rhythm, S1 normal heart sound, S2 normal heart sound and no murmurs GI normal to inspection, nondistended, normoactive bowel sounds, soft to palpation, non-tender, non-distended and no masses; Negative for hepatosplenomegaly Back/Spine no CVA tenderness and no thoracic nor lumbar tenderness Extremity normal to inspection General Extremety ED: Negative for edema or pulses abnormal General Extremity: Negative for edema or pulses abnormal Neuro oriented x3, CN's II-XII intact bilaterally and no sensory deficits noted Sensorium / Orientation: awake and alert Psych mental status grossly normal Skin no rashes or lesions noted and no wounds General Skin Exam: pallor; Negative for jaundice Heart Score History: Highly Suspicious ECG: Significant ST-Depression Age: >/= 65 years Risk Factors: 1 or 2 Risk Factors Score: 7 MDM MDM MDM Narrative Medical decision making narrative: Patient has a concerning story for cardiac ischemia. EKG reveals ST depression predominantly lateral leads. This is new since September 01, 2016. Patient is not on aspirin. She received 4 baby aspirin Emergency Department and nitroglycerin and she reports continued chest tightness. Patient was informed that her EKG is not normal and unchanged from prior. She also was informed based on her story that she will need to be admitted most likely have a cardiac catheterization. Chest x-ray was obtained to assess for any pulmonary pathology and specifically to determine there is any evidence of CHF. Troponin was obtained to evaluate for probable non-ST elevation MA. CBC to assess H&H and rule out anemia since she appears pale and has history of cancer. BMP to assess renal function. 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 History & Record Review Additional record(s) reviewed:: Prior outpatient record (Dr. Osei's note was reviewed. Patient was initially diagnosed 2005. She transferred care to [place] in 2021 since her oncologist at [facility] left.), Prior ED visit and Prior labs Lab Data Attestation: I reviewed the patient's lab results. Lab results narrative: White count is 2.5 thousand with unremarkable differential. H&H is normal. Basic metabolic panel reveals a BUN/creatinine of 20 and 1.35. Creatinine is approximately her baseline. First troponin is 32. 2-hour troponin is pending. Labs: Laboratory Results - last 24 hr 07/19/23 09:12 WBC 2.5 L RBC 3.91 L Hgb 13.1 Hct 39.2 MCV 100.3 H MCH 33.5 H MCHC 33.4 RDW Std Deviation 48.0 H RDW Coeff of Aurea 13.2 Plt Count 145 L MPV 10.3 Immature Gran % (Auto) 0.000 Neut % (Auto) 48.1 Lymph % (Auto) 33.7 Pitt % (Auto) 14.6 H Eos % (Auto) 1.2 Baso % (Auto) 2.4 H Absolute Neuts (auto) 1.2 L Absolute Lymphs (auto) 0.83 Nucleated RBC % 0 Sodium 141 Potassium 3.5 Chloride 108 H Carbon Dioxide 27.0 Anion Gap 6 BUN 20 H Creatinine 1.35 H Estim Creat Clear Calc 28.48 Est GFR (MDRD) Af Amer 49 L Est GFR (MDRD) Non-Af 41 L BUN/Creatinine Ratio 14.8 Glucose 113 H Calcium 10.2 H Troponin I High Sens 32 Radiography Chest X-Ray - ED: 1 View and Read by ED Physician (Numerous surgical clips noted. The right heart border is obscured most likely due to atelectasis due to prior surgery and there is a small effusion. Lung parenchyma is unremarkable. No obvious metastatic lesions noted.) Diagnostic Testing: Clinical Impression(s) from Imaging Studies Chest X-Ray 07/19/23 09:21 IMPRESSION: Elevation of the right hemidiaphragm. Small right pleural effusion with right basilar atelectasis. Electronically Signed: Hever Madden MD at 10:05 EST , Radiology report was reviewed at 1014. Rhythm Strip Rhythm Strip: Sinus Tach Rate: 102 Ectopy: None EKG Initial EKG: Attestation: I personally reviewed and interpreted this EKG as follows: Interpretation: Sinus Tachycardia (Rate is 108. Patient does have ischemic lateral changes that are new from September 01, 2016. Parables 142 ms. QRS duration 84 ms. QT duration 364 ms. Hinckley is normal.) Follow-up EKG: Attestation: I personally reviewed and interpreted this EKG as follows: Interpretation: Sinus Tachycardia (Sinus tachycardia rate of [address] depression consistent with cardiac ischemia. This occurred after walking to the restroom and developing chest tightness. IL interval 178 ms. QRS duration 84 ms. QT duration 262 ms. H[place]ckley is normal.) Management Discussion w/another healthcare provider: Hospitalist (Dr. Laboy the hospitalist were made aware of patient's history physical. He requested a D-dimer. He was informed that patient has classic exertional chest tightness and has new EKG changes. He was informed that cardiology was consulted. Will anticoagulate the person.) and Tailings Worker (Spoke with Dr. Joaquin Watters cardiology. He has reviewed patient's EKG. Is aware history and physical. He is contacting the interventional radiologist for patient to go to the [facility] potentially from ER. He would like her anticoagulated with heparin.) Treatment and Re-Evaluation :: Nurse informed me at 0941 that patient's tightness had resolved. Therefore the nitro was held. Comments:: I was informed that approximately 06/13/2006 that patient had chest tightness walking from room to to the restroom. EKG was obtained. This EKG reveals sinus tach of [address]-T wave changes. The changes in V2 are new since 902. Depression may be slightly worse. There is no evidence of ST elevation. There is no early transition to suggest posterior MA. Nurse was instructed to administer the nitro that was ordered for the tightness. Will contact cardiology. Dr. Watters contacted Dr. Sow on. Patient will go to [facility] from ER. Therefore will have nurse administer 4000 units of heparin. Critical Care Time Critical Care Time: Yes Critical care time (excluding procedures): 30-74 minutes (32), Including time spent: (History, physical, documentation, review of prior records,), Discussing w/Patient &/or Family/Dry Goods Clerk (Patient and family been made aware of test results and need for admission), Discussing w/Consultants (Cardiology paged for anticoagulation and hospitalist for admission) and Arranging Admission or Transfer Discharge Plan Dx/Rx/DC Orders Clinical Impression: Breast cancer metastasized to multiple sites, Hyperlipidemia, Abnormal electrocardiogram finding, Chest tightness, Hypertension Disposition Disposition: Acute Care Hospital [facility]
[2023-07-19] MEDS: Aspirin 81 MG TAB.CHEW 324 MG PO (09:39)
[2023-07-19 09:55] LABS: Absolute Lymphocyte Count 0.83 X10^3/uL (0.83-4.51); Absolute Neutrophil Count 1.2 X10^3/uL (2.0-7.7); Basophil# 0.06 X10^3/uL; Basophil% 2.4 % (0-1); Eosinophil# 0.03 X10^3/uL; Eosinophils% 1.2 % (0-5); Hematocrit 39.2 % (37-47); Hemoglobin 13.1 g/dL (12.0-15.0); Lymphocyte # 0.83 X10^3/ul (0.83-4.51); Lymphocyte % 33.7 % (19-41); Mean Corp Hgb Conc 33.4 g/dL (32-36); Mean Corpuscular Hgb 33.5 pg (27.0-32.0); Mean Corpuscular Volume 100.3 fL (81-99); Mean Platelet Vol. 10.3 fl (6.2-12.0); Monocyte# 0.36 X10^3/uL; Monocyte% 14.6 % (0-10); NRBC Flagged by Analyzer 0 % (0-5); Neutrophil # 1.18 X10^3/uL (2.7-7.7); Neutrophil % 48.1 % (47-70); Platelet Count 145 K/mm3 (150-450); RBC Distribution Width CV 13.2 % (11.6-14.6); Red Blood Count 3.91 M/mm3 (4.2-5.4); White Blood Count 2.5 K/mm3 (4.4-11.0)
--- OUTSIDE RECORDS SUMMARY | 2023-07-19 09:56 | XMS RPT_ITS | CCD ---
Author Name Unknown Address [address] [place] [address] Organization [facility] Care Team Providers Care Manager Of Network Name Role Phone Dru Barahona Unavailable [phone] CHAPARRO LIU Unavailable Unavailable DRU BARAHONA Unavailable [...] Unavailable Dru Barahona DO Primary Care Provider Williams TORRES, Jyoti Unavailable Amita TORRES, PhD, Catarino Renteria Unavailable Davin [employer], Ghazal Elizalde Unavailable [phone] Buzz RN, Jennifer Unavailable Unavailable Brett EMANUEL, Bethany Unavailable Unavailable Jeffery [facility], Kody Unavailable [phone] [facility], Dimitris Unavailable [phone] Lawrence TORRES, Korey P Unavailable [phone] Jeffery [facility], Kody W Unavailable [facility], Dimitris Unavailable [phone] Lawrence TORRES, Korey P Unavailable [phone] Doug HOOKS, Fco Unavailable Dread [employer], Taylor Huff Unavailable Mar Bucio Primary Care Provider [phone] Bryn Riojas Unavailable DRU BARAHONA Primary Care Unavailable CATARINO [...] Referring Unavailable VANDEUSEN, CATARINO B Attending Unavailable DRU BARAHONA Primary Care Unavailable VANDEUSEN, CATARINO B Referring Unavailable VANDEUSEN, CATARINO B Attending Unavailable SURAJEUSEN, CATARINO B Referring Unavailable DRU BARAHONA Primary Care Unavailable DRU BARAHONA Primary Care Unavailable VANDEUSEN, CATARINO B Attending Unavailable DRU BARAHONA Referring Unavailable VANDEUSEN, CATARINO B Referring Unavailable DRU BARAHONA Primary Care Unavailable SURAJEUSEN, CATARINO Renteria Attending Unavailable DRU BARAHONA Primary Care Unavailable SURAJEUSEN, CATARINO B Referring Unavailable CATARINO LEVI Attending Unavailable DRU BARAHONA Primary Care Unavailable CATARINO LEVI Referring Unavailable URBANOSEN, CATARINO Renteria Attending Unavailable DRU BARAHONA Referring Unavailable DRU BARAHONA Primary Care Unavailable SURAJEUSEN, CATARINO Renteria Attending Unavailable DRU BARAHONA Primary Care Unavailable URBANOSEN, CATARINO Renteria Referring Unavailable URBANOSEN, CATARINO Renteria Attending Unavailable DRU BARAHONA Primary Care Unavailable URBANOSENCATARINO Referring Unavailable URBANOSENCATARINO Attending Unavailable Mar Bucio Primary Care Provider [phone] Kristin Bucio MDh Jean Claude Primary Care Provider Mar Bucio MD Primary Care Provider QUE TOWNSEND Admitting Unavailable QUE TOWNSEND Attending Unavailable MAR BUCIO Primary Care Unavailmathew Bucio MD, Mar Claudia Primary Care Provider U ОЛЬГА Lambert Attending Unavailable REINIER MAR E Primary Care Unavailable QUE TOWNSEND Referring Unavailable MIEDEL, MAR E Primary Care Unavailable JOSH GASTON II Attending UnavailQUE Galeana Referring Unavailable MIEDEL, MAR E Primary Care Unavailable QUE TOWNSEND Referring Unavailable QUE TOWNSEND Attending Unavailable FRANKEDEL, MAR E Primary Care Unavailable TOWNSEND, QUE K Referring Unavailable TOWNSENDQUE K Attending Unavailable COOPERRIDER II, JOSH Barone Attending Unavailabl e COOPERRIDER II, JOSH Barone Referring Unavailabl e MIEDEL, MAR E Primary Care Unavailable MIEDEL, MAR E Primary Care Unavailable TOWNSEND, QUE K Referring Unavailable TOWNSEND, QUE K Attending Unavailable MIEDEL, MAR E Primary Care Unavailable TOWNSEND, QUE K Referring Unavailable TOWNSEND, QUE K Attending Unavailable MIEDEL, MAR E Primary Care Unavailable COOPERRIDERSHREYAS Referring Unavailabl e TOWNSEND, QUE K Attending Unavailable MIEDEL, MAR E Primary Care Unavailable COOPERRIDERLIASHREYAS T Attending Unavailabl e MIEDEL, MAR E Primary Care Unavailable TOWNSEND, QUE K Referring Unavailable TOWNSEND, QUE K Attending Unavailable MIEDEL, MAR E Primary Care Unavailable AMARAERSHREYAS T Attending Unavailabl e TOWNSEND, QUE K Referring Unavailable COOPERRIDER IIJOSH Attending Unavailabl e MIEDEL, MAR E Primary Care Unavailable TOWNSEND, QUE K Referring Unavailable MIEDEL, MAR E Primary Care Unavailable COOPERRIDER II, JOSH Barone Attending Unavailabl e Allergies Allergy Classification Reported Allergen(s) Allergy Type Date of Onset Reaction(s) Facility (5 sources) Sulfonamides (Antibiotic); Translations: [SULFA (SULFONAMIDE ANTIBIOTICS)] Propensity to adverse reactions to drug 6 [facility] Work Phone: (2 sources) Sulfonamides (Antibiotic); Translations: [sulfa drugs] Propensity to adverse reactions to drug (disorder) [facility] Repository (20 sources) Sulfonamides (Antibiotic) Propensity to adverse reactions to drug 6 Rash [facility] (5 sources) Sulfonamides (Antibiotic) Propensity to adverse reactions to drug 9 Rash [facility] Medications Current Medications Medication Drug Class(es) Dates Sig (Normalized) Sig (Original) calcium carbonate 1250 mg oral tablet (20 sources) take 1 tablet by heather th once daily calcium carbonate (Oscal) 500 mg [...] 81 mm[Hg] Que Townsend MD Work Phone: [facility] 03-24-2023 13:40-0400 Heart rate 78 /min Que Townsend MD Work Phone: [facility] 03-24-2023 13:40-0400 Respiratory rate 16 /min Que Townsend MD Work Phone: [facility] 03-24-2023 13:40-0400 SaO2% (BldA) [Mass fraction] 94 % Que Townsend MD Work Phone: [facility] 03-24-2023 13:40-0400 Systolic blood pressure 132 mm[Hg] Que Townsend MD Work Phone: [facility] 03-24-2023 13:25-0400 Body temperature 97.9 [degF] Que Townsend MD Work Phone: [facility] 03-24-2023 12:09-0400 Body height 158 cm Que Townsend MD Work Phone: [facility] 03-24-2023 12:09-0400 Body mass index (BMI) [Ratio] 22.43 kg/m2 Que Townsend MD Work Phone: [facility] 03-24-2023 12:09-0400 Body weight 56 kg Que Townsend MD Work Phone: [facility] 02-16-2023 15:24-0400 Diastolic blood pressure 83 mm[Hg] Que Townsend MD Work Phone: [facility] 02-16-2023 15:24-0400 Heart rate 83 /min Que Townsend MD Work Phone: [facility] 02-16-2023 15:24-0400 Systolic blood pressure 145 mm[Hg] Que Townsend MD Work Phone: [facility] 01-28-2023 09:45-0400 Diastolic blood pressure 83 mm[Hg] Que Townsend MD Work Phone: [facility] 01-28-2023 09:45-0400 Heart rate 83 /min Que Townsend MD Work Phone: [facility] 01-28-2023 09:45-0400 Systolic blood pressure 145 mm[Hg] Que Townsend MD Work Phone: [facility] 10-05-2021 09:26-0400 Body mass index (BMI) [Ratio] 21.84 kg/m2 Fco HOOKS Work Phone: [facility] 10-05-2021 09:26-0400 Body temperature 98.4 [degF] Fco HOOKS Work Phone: [facility] 10-05-2021 09:26-0400 Body weight 54.16 kg Fco HOOKS Work Phone: [facility] 10-05-2021 09:26-0400 Diastolic blood pressure 84 mm[Hg] Fco HOOKS Work Phone: [phone] [place] [address] 10-05-2021 09:26-0400 Heart rate 79 /min Fco HOOKS Work Phone: 9(992)147-943994 [place] [address] 10-05-2021 09:26-0400 Respiratory rate 16 /min Fco HOOKS Work Phone: 5(715)[phone] [place] [address] 10-05-2021 09:26-0400 Systolic blood pressure 145 mm[Hg] Fco HOOKS Work Phone: 6(785)219-602294 [place] [address] 01-26-2021 09:51-0400 Body mass index (BMI) [Ratio] 22.79 kg/m2 Catarino Levi MD, PhD Work Phone: 4([phone])[phone] [place] [address] 01-26-2021 09:51-0400 Body temperature 98.01 [degF] Catarino Levi MD, PhD Work Phone: 0(206)881-902094 [place] [address] 01-26-2021 09:51-0400 Body weight 56.52 kg Catarino Levi MD, PhD Work Phone: 5(550)435-781894 [place] [address] 01-26-2021 09:51-0400 Diastolic blood pressure 87 mm[Hg] Catarino Levi MD, PhD Work Phone: 0(053)409-941494 [place] [address] 01-26-2021 09:51-0400 Heart rate 88 /min Catarino Levi MD, PhD Work Phone: 4(078)354-161294 [place] [address] 01-26-2021 09:51-0400 Respiratory rate 16 /min Catarino Levi MD, PhD Work Phone: 3([phone])[phone] [place] [address] 01-26-2021 09:51-0400 SaO2% (BldA) [Mass fraction] 100 % Catarino Levi MD, PhD Work Phone: 0(210)[phone] [place] [address] 01-26-2021 09:51-0400 Systolic blood pressure 152 mm[Hg] Catarino Levi MD, PhD Work Phone: [facility] 05-17-2017 09:40-0500 BMI (Body Mass Index) 21.77 kg/m2 Chaparro Liu [facility] Work Phone: 05-17-2017 09:40-0500 BP Diastolic 79 mm[Hg] Chaparro Liu [facility] Work Phone: 05-17-2017 09:40-0500 BP Systolic 116 mm[Hg] Chaparro Liu [facility] Work Phone: 05-17-2017 09:40-0500 Height 157.5 cm Chaparro Liu [facility] Work Phone: 05-17-2017 09:40-0500 Pulse (Heart Rate) 97 /min Chaparro Liu [facility] Work Phone: 05-17-2017 09:40-0500 Pulse Oximetry 94 % Chaparro Liu [facility] Work Phone: 05-17-2017 09:40-0500 Weight 53.98 kg Chaparro Liu [facility] Work Phone: Encounters Encounter Date Encounter Type Care Provider Facility Start: 06-22-2023 End: 06-22-2023 ambulatory QUE TOWNSEND Facility:[facility] Start: 04-20-2023 End: 04-20-2023 ambulatory QUE TOWNSEND Facility:[facility] Start: 04-20-2023 End: 04-20-2023 Patient encounter procedure [...] 10-05-2021 Bilirubin direct Meliss a L Jin INTERNIST MEDICAL DOCTOR [employer] Work Phone: Start: 10-05-2021 CBC AND ELECTRONIC DIFF Ghazal L Jin INTERNIST MED[employer] Work Phone: Start: 10-05-2021 Complete blood count with white cell differential, automated Ghazal L Jin INTERNIST MEDICAL DOCTOR [employer] Work Phone: Start: 10-05-2021 MANUAL DIFF Ghazal L Jin INTERNIST MEDICAL DOCTOR [employer] Work Phone: Start: 01-26-2021 Bilirubin direct Meliss a L Jin INTERNIST MEDICAL DOCTOR [employer] Work Phone: Start: 01-26-2021 CBC AND ELECTRONIC DIFF Ghazal L Jin INTERNIST MEDICAL DOCTOR [employer] Work Phone: Start: 01-26-2021 Complete blood count with white cell differential, automated Ghazal L Jin INTERNIST MEDICAL DOCTOR [employer] Work Phone: Start: 01-26-2021 MANUAL DIFF Ghazal L Jin INTERNIST MEDICAL DOCTOR [employer] Work Phone: Start: 01-26-2021 Ct thorax w/o contra st material Catarino Levi MD, PhD Work Phone: Start: 02-26-2016 Mammography Que philippe MD Work Phone: Start: 05-29-2015 [facility] Que philippe MD Work Phone: Plan of Treatment Date Care Activity Detail Author Start: 03-14-2028 Tetanus vaccination [facility] Start: 03-14-2028 Urine microalbumin profile DTaP,Tdap,Td Vaccine (2 - Td or Tdap) [facility] Start: 10-07-2026 Lipid 1996 panel - Serum or Plasma Lipid Screening [facility] Start: 10-07-2026 LIPID SCREEN LIPID SCREEN [facility] Start: 10-07-2024 DIABETES SCREEN DIABETES SCREEN [facility] Start: 10-07-2024 Diabetes Screening Diabetes Screening [facility] Start: 03-24-2023 End: 03-24-2023 Phacoemulsification Cataract with Insertion Intraocular Lens Phacoemulsification Cataract with Insertion Intraocular Lens Combined forms of age-related cataract of left eye 03/24/2023 12:52 PM EDT [facility] Work Phone: Start: 02-11-2023 Covid-19 Vaccine () Covid-19 Vaccine () [facility] Start: 02-11-2023 Influenza vaccination [facility] Start: 06-13-2022 ADVANCE DIRECTIVE DISCUSSION ADVANCE DIRECTIVE DISCUSSION [facility] Start: 06-13-2022 DEPRESSION ASSESSMENT DEPRESSION ASSESSMENT [facility] Start: 06-03-2022 COVID-19 VACCINE (5 - Pfizer risk series) COVID-19 VACCINE (5 - Pfizer risk series) [facility] Start: 02-11-2022 Influenza vaccination INFLUENZA (#1) [facility] Start: 12-02-2021 End: 12-02-2021 Patient encounter procedure Department o f Radiology Start: 10-18-2021 COVID-19 Vaccine (4 - Booster for Pfizer series) COVID-19 Vaccine (4 - Booster for Pfizer series) [facility] Start: 09-18-2021 COVID-19 Vaccine (4 - Booster for Pfizer series) COVID-19 Vaccine (4 - Booster for Pfizer series) [facility] Start: 07-31-2021 End: 07-31-2021 ambulatory 07/31/2021 Treatment Rehabilitation Saleem Brown, [address] [facility] [address] [place] [id number] Tequila Kay, PT [facility] Start: 07-28-2021 End: 07-28-2021 ambulatory 07/28/2021 Treatment Rehabilitation Saleem Brown, DO [address] [place] [address] Mili Reynolds, [facility] Start: 07-23-2021 End: 07-23-2021 ambulatory 07/23/2021 Treatment Rehabilitation Saleem Brown, DO [address] [place] [address] [address] [place] [address] Jayson Grant [facility] Start: 07-21-2021 End: 07-21-2021 ambulatory 07/21/2021 Treatment Rehabilitation Saleem Brown, DO [address] [place] [address] [address] [place] [address] Mili Reynolds [facility] Start: 07-21-2021 COVID-19 VACCINE (4 - Booster for Pfizer series) COVID-19 VACCINE (4 - Booster for Pfizer series) [facility] Start: 07-17-2021 End: 07-17-2021 ambulatory [facility] Start: 07-14-2021 End: 07-14-2021 ambulatory 07/14/2021 Treatment Rehabilitation Saleem Brown, DO [address] [place] [address] [address] [place] [address] Shanika Watson [facility] Start: 07-09-2021 End: 07-09-2021 ambulatory 07/09/2021 Treatment Rehabilitation Saleem Brown, DO [address] [place] [address] [address] [place] [address] Jayson Grant [facility] Start: 07-07-2021 End: 07-07-2021 ambulatory 07/07/2021 Treatment Rehabilitation Saleem Brown, DO [address] [place] [address] [address] [place] [address] Shanika Watson, [facility] Start: 07-02-2021 End: 07-02-2021 ambulatory 07/02/2021 Treatment Rehabilitation Saleem Brown, DO [address] [place] [address] [address] [place], [place] [id number] Jayson Grant, [facility] Start: 06-30-2021 End: 06-30-2021 ambulatory 06/30/2021 Treatment Rehabilitation Saleem Brown, DO [address] [place] [address] [address] [place], [place] [id number] Shanika Watson, [facility] Start: 06-15-2021 COVID-19 Vaccine (2 - Pfizer series) COVID-19 Vaccine (2 - Pfizer series) [facility] Start: 06-15-2021 COVID-19 VACCINE (4 - Booster for Pfizer series) COVID-19 VACCINE (4 - Booster for Pfizer series) [facility] Start: 06-13-2021 ADVANCE DIRECTIVE DISCUSSION ADVANCE DIRECTIVE DISCUSSION [facility] Start: 06-13-2021 DEPRESSION ASSESSMENT DEPRESSION ASSESSMENT [facility] Start: 04-20-2021 End: 01-26-2022 CT of abdomen and pelvis CT ABDOMEN/PELVIS WITHOUT CONTRAST Imaging Routine Metastatic breast cancer Expected: 04/20/2021, Expires: 01/26/2022 [facility] Work Phone: Immunizations Immunization Date Immunization Notes Care Provider Fa [facility] 03-26-2022 influenza virus vaccine, unspecified formulation Que Townsend MD Work Phone: [facility] 04-20-2021 COVID-19 vaccine, MR YAMILET, Pfizer, 0.3 ML Fco HOOKS Work Phone: [facility] 04-20-2019 zoster vaccine, unspecified formulation Tess Weeks RN [facility] 03-13-2019 influenza, high dose seasonal, preservative-free Tess Weeks RN [facility] 03-13-2019 influenza virus vaccine, unspecified formulation Tess Weeks RN [facility] Payers Date Payer Category Payer Unknown 2021 Unknown [id number] 2018 Private Health Insurance [id number] [id number] 2018 Unknown [id number] [id number]. [id number] 2017 Medicare 2017 Private Health Insurance 2012 Medicare [id number] 2.16.840.1.707213.3.249.13 1947 Unknown [id number] 2.16840.1.914461.3.579.2. 71 1947 Unknown [id number] 2.16840.1.808872.3.579.2 1947 Unknown [id number] 2.16.840.1.360797.3.579.2. 356 1947 Unknown [id number] 2.16.840.1.472289.3.579.2 1947 Unknown [id number] 2.16.840.1.977302.3.579.2. 1947 Unknown [id number] 2.16.840.1.314638.3.579.2. 90 1947 Unknown [id number] 2.16.840.1.295926.3.579.2. 1947 Unknown [id number] 2.16.840.1.818589.3.579.2 1947 Unknown [id number] 2.16.840.1.296615.3.579.2. 1947 Unknown [id number] 2.16.840.1.486610.3.579.2. 903 1947 Unknown [id number] 2.16.840.1.442903.3.579.2. 903 1947 Unknown [id number] 2.16.840.1.021927.3.579.2. 594 1947 Unknown [id number] 2.16.840.1.470570.3.579.2. 594 1947 Unknown [id number] 2.16.840.1.784883.3.579.2. 594 1947 Unknown [id number] 2.16840.1.661293.3.579.2. 594 1947 Unknown [id number] 2.16.840.1.934881.3.579.2. 594 1947 Unknown [id number] 2.16840.1.809063.3.579.2. 594 1947 Unknown [id number] 2.16.840.1.484776.3.579.2. 594 1947 Unknown [id number] 2.16840.1.992517.3.579.2. 594 1947 Unknown [id number] 2.16.840.1.971317.3.579.2. 594 1947 Unknown [id number] 2.16840.1.049414.3.579.2. 594 1947 Unknown [id number] 2.16.840.1.333171.3.579.2. 594 1947 Unknown [id number] 2.16.840.1.614008.3.579.2. 594 1947 Unknown [id number] 2.16.840.1.782955.3.579.2. 594 1947 Unknown [id number] 2.16.840.1.211581.3.579.2. 594 1947 Unknown [id number] 2.16.840.1.475681.3.579.2. 594 1947 Unknown [id number] 2.16.840.1.815113.3.579.2. 594 1947 Unknown [id number] 2.16.840.1.896784.3.579.2. 594 1947 Unknown [id number] 2.16.840.1.577239.3.579.2. 594 1947 Unknown [id number] 2.16.840.1.449268.3.579.2. 594 1947 Unknown [id number] 2.16.840.1.151130.3.579.2. 1243 Medicare MEDICARE MEDICAR E A AND B [id number] Effective for all dates [address] [place] [address] [id number] 1.2.840.873751.1.13.172.2. 7.3.824075.315 Medicare [id number] Social History Date Type Detail Facility Start: 05-17-2017 End: 01-28-2023 Tobacco smoking status NHIS Never smoker [facility] Start: 1945 Sex Assigned At Not on file O [facility] Work Phone: Start: 03-27-2015 End: 01-28-2023 Tobacco use and exposure Smokeless tobacco non-user [facility] Start: 05-17-2017 End: 04-20-2023 Alcohol intake Current non-drinker of alcohol (finding) [facility] Start: 07-26-2021 End: 03-23-2023 Exposure to SARS-CoV-2 (event) Not sure [facility] Start: 07-12-2018 End: 03-23-2023 Cigarettes smoked current (pack per day) - Reported 0.5 [facility] Start: 10-25-2022 End: 03-23-2023 Tobacco use panel [facility] National Score (1-10 0), lower number is lower risk 59 [facility] Start: 03-23-2023 Alcohol intake Lifetime non-d elvin (finding) [facility] Work Phone: Tobacco smoking stat us NHIS Tobacco smoking consumption unknown [facility] Work Phone: Medical Equipment Procedure Code Equipment Code Equipment Origin al Text Equipment Identifier Dates Lens, Intraocula r, [id number] 22.5 Harlan - [id number] - [id number] Start: 03-24-2023 Clinical Notes 05-29-2015 to 06-22-2023 Patient InstructionsJosh Gaston II, OD - 04/20/2023 8:58 AM Ольга Prasad MD - 04/05/2023 12:04 PM EDTPatient InstructionsJosh Gaston II, OD - 03/30/2023 4:26 PM EDT Note Date & Type Note Facility 06-22-2023 Note HNO ID: [id number] Author: JOSH GASTON II, OD Service: ? Author Type: DERRICK CAR OPERATOR Type: Progress Notes Filed: 06/22/2023 10:55 Note Text: Assessment and Plan Z98.42, Z96.1 Status post cataract extraction and insertion of intraocular lens of left eye (primary encounter diagnosis) Z98.41, Z96.1 Status post cataract extraction and insertion of intraocular lens of right eye Comment: Healing well. Continue yearly exams starting in 03/06. Instruct patient to immediately report any change [...] its relevant components. Josh Gaston II, OD [facility] 04-20-2023 Note HNO ID: [id number] Author: Josh Gaston II, OD Service: ? Author Type: DERRICK CAR OPERATOR Type: Progress Notes Filed: 04/20/2023 9:00 AM [...] its relevant components. Josh Gaston II, OD [facility] 04-20-2023 Instructions Josh Gaston II, OD - 04/20/2023 8:59 AM EST [...] Gaston II, OD documented in this encounter [facility] 04-20-2023 History of Present illness Narrative Assessment [...] Gaston II, OD documented in this encounter [facility] 04-05-2023 Note HNO ID: [id number] Author: Ольга Tabares MD Service: ? Author Type: Physician Type: Progress Notes Filed: 04/05/2023 12:42 PM Note Text: Referred by Dr. Que Townsend Incidental finding on routine examination - asymptomatic except shadow 1. Stage IV breast cancer - 09/10/16 CT A/P: Right pleural effusion, small left pleural effusion, multiple sclerotic lesions, liver lesions - 10/06/[address] Usha Hathaway, [facility]. - 10/21/16 Thoracentesis 900 mL - Metastatic adenocarcinoma consistent with breast primary - Patient went in for annual eye exam at [facility] and left eye cancer was found. - 11/01/16 New patient visit with Dr. Levi - 11/10/16: Liver biopsy demonstrates small patches of cells which are ER strongly +100%, VT negative, HER2 negative. - 11/17/17 Seen at [facility]. Started Letrozole. Palbociclib ordered. - 11/22/16 Started Palbociclib and continued Letrozole - 02/09/17 CT chest abdomen pelvis showed increased sclerosis of her bone lesions consistent with disease response. She has persistent right greater than left pleural effusion. - 02/21/18 Seen at [facility]. Continue current treatment with Palbociclib + Letrozole. Recommend Xgeva. - 05/09/17 Chest x-ray showed reaccumulation of pleural fluid in right lung base. - 05/09/17 Started Xgeva every 3 months - 05/23/17 Seen at [facility]. Recommend repeat staging scans with local oncologist [...] + Letrozole, Xgeva - 09/19/17 Seen at [facility]. Recommended consideration of Pleurx vs continued intermittent [...] function, Scans stable. - Oncologist - Dr cFo Camacho- [facility] - [facility] - CT C/A/P 07/13/21: stable. - Metastatic [...] Tabares MD April 05, 2023 12:41 PM [facility] 04-05-2023 History of Present illness Narrative Referred by Dr. Que Townsend Incidental finding on routine examination - asymptomatic except shadow 1. Stage IV breast cancer - 09/10/16 CT A/P: Right pleural effusion, small left pleural effusion, multiple sclerotic lesions, liver lesions - 10/06/[address] Usha Hathaway, [facility]. - 10/21/16 Thoracentesis 900 mL - Metastatic adenocarcinoma consistent with breast primary - Patient went in for annual eye exam at [facility] and left eye cancer was found. - 11/01/16 New patient visit with Dr. Levi - 11/10/16: Liver biopsy demonstrates small patches of cells which are ER strongly +100%, VT negative, HER2 negative. - 11/17/17 Seen at [facility]. Started Letrozole. Palbociclib ordered. - 11/22/16 Started Palbociclib and continued Letrozole - 02/09/17 CT chest abdomen pelvis showed increased sclerosis of her bone lesions consistent with disease response. She has persistent right greater than left pleural effusion. - 02/21/18 Seen at [facility]. Continue current treatment with Palbociclib + Letrozole. Recommend Xgeva. - 05/09/17 Chest x-ray showed reaccumulation of pleural fluid in right lung base. - 05/09/17 Started Xgeva every 3 months - 05/23/17 Seen at [facility]. Recommend repeat staging scans with local oncologist [...] + Letrozole, Xgeva - 09/19/17 Seen at [facility]. Recommended consideration of Pleurx vs continued intermittent [...] stable. - Oncologist - Dr Fco Camacho- [facility] - [facility] - CT C/A/P 07/13/21: stable. - Metastatic [...] 2023 12:41 PM documented in this encounter [facility] 03-30-2023 Note HNO ID: [id number] Author: Josh Gaston II, OD Service: ? Author Type: DERRICK CAR OPERATOR Type: Progress Notes Filed: 03/30/2023 4:27 PM [...] its relevant components. Josh Gaston II, OD [facility] 03-30-2023 Instructions Josh Gaston II OD - 03/30/2023 4:27 PM EDT Assessment [...] Gaston II, OD documented in this encounter [facility] 03-30-2023 History of Present illness Narrative Assessment [...] Gaston II, OD documented in this encounter [facility] 03-25-2023 Note HNO ID: [id number] Author: Que Townsend MD Service: ? Author [...] diagnosis, and treatment options. Que Townsend MD [facility] 03-24-2023 Hospital Discharge instructions Que Townsend MD - 03/24/2023 1:39 PM EDT Follow printed discharge instructions documented in this encounter [facility] Work Phone: 03-24-2023 Note Formatting of this n ote is different from the original. CATARACT EXTRACTION W/IOL IMPLANT L EYE (L) Operative Note Date: 03/24/2023 OR Location: [facility] OR Name: Martha Stephens, : 1945, Age: 77 y.o., , Sex: female Diagnosis Pre-op Diagnosis * Combined forms of age-related cataract of left eye [H25.812] Post-op Diagnosis * Combined forms of age-related cataract of left eye [H25.812] Procedures * CATARACT EXTRACTION W/IOL IMPLANT L EYE Surgeons * Que Townsend - Primary Resident/Fellow/Other Glue Maker: No surgical staff documented. Procedure Summary Anesthesia: [...] 350 mL Specimen: No specimens collected Staff: Improvement Nurse: Asha Nuñez RN Scrub Person: Ambrosio Mensah RN Implants: Implants Type Name Action Serial No. Lens LENS, INTRAOCULAR, SN60WF 22.5 HARLAN - [id number] - [id number] Implanted [id number] Findings: Combined Form Age Related Cataract Left [...] Attestation: I performed the procedure. Que Townsend [facility] Work Phone: 03-24-2023 Miscellaneous Notes CATARACT EXTRACTION W/IOL IMPLANT L EYE (L) Operative Note Date: 03/24/2023 OR Location: [facility] OR Name: Martha Lindsey DO JoiB: 1945, Age: 77 y.o., , Sex: female Diagnosis Pre-op Diagnosis * Combined forms of age-related cataract of left eye [H25.812] Post-op Diagnosis * Combined forms of age-related cataract of left eye [H25.812] Procedures * CATARACT EXTRACTION W/IOL IMPLANT L EYE Surgeons * Que Townsned - Primary Resident/Fellow/Other Glue Maker: No surgical staff documented. Procedure Summary Anesthesia: [...] 350 mL Specimen: No specimens collected Staff: Improvement Nurse: Asha Nuñez RN Scrub Person: Ambrosio Mensah RN Implants: Implants Type Name Action Serial No. Lens LENS, INTRAOCULAR, SN60WF 22.5 HARLAN - [id number] - [id number] Implanted [id number] Findings: Combined Form Age Related Cataract Left [...] procedure. Que Townsend documented in this encounter [facility] Work Phone: 03-24-2023 History and physical note Images from the original note were not included. Reason for Visit Reason for Visit - Reason Comments Cataract Follow Up Left eye Post-op Cataract OD 02/24/2023 Encounter Details Encounter Details Date Type Department Care Team Description 03/14/2023 10:00 AM EDT Office Visit [place] [address] Que Townsend MD [address] [place] [address] Combined form of age-related cataract, left eye [...] number is lower risk 4 Data from: https://www.neighborhoodatlas.[facility]/. Last address used for calculation [address] [place] [address] 175 Social History Sex and Gender Information [...] PM EDT Office Visit [facility] Ophthalmology [address] [place] [address] Que Townsend MD [address] [place] [address] 04/05/2023 10:00 AM EDT Office Visit [facility] Ophthalmology [address] [address] Ольга Tabares MD [address] [place], [place] [id number] Plan of Treatment - Scheduled Procedures Scheduled Procedures Name Priority Associated Diagnoses Date/Time SURGERY AT [facility] Combined form of age-related [...] the event of a Fluress shortage, administer [place]-Fluor 1 drop into both eyes as directed [...] - Wearing Rx Wearing Rx Sphere Cylinder Coleraine Right eye Left eye -4.75 +0.75 171 Eye Exam Type: SVL Eye Exam - Manifest Refraction (Auto) Manifest Refraction (Auto) Sphere Cylinder Coleraine Right eye -0.50 +1.25 026 Left eye -5.00 +1.50 165 Care Teams - documented as of this encounter Care Teams Manager Of Network Relationship Specialty Start Date End Date Mar Bucio MD PCP - General Family Medicine 08/24/[address] [facility] Work Phone: 03-24-2023 History and physical note Images from the original note were not included. Reason for Visit Reason for Visit - Reason Comments Cataract Follow Up Left eye Post-op Cataract OD 02/24/2023 Encounter Details Encounter Details Date Type Department Care Team Description 03/14/2023 10:00 AM EDT Office Visit [facility] Ophthalmology [address] [place] [address] Que Townsend MD [address] [place] [address] Combined form of age-related cataract, left eye [...] number is lower risk 4 Data from: https://www.neighborhoodatlas.[facility]/. Last address used for calculation [address] [place] [address] [address] Social History Sex and Gender [...] 2, normal sinus rhythm. Reviewed Dr. Josh aGston's examination and notes Cataract Presurgical Documentation Cataract: [...] 1:00 PM EDT Office Visit [facility] Ophthalmology [place] [id number] Que Townsend MD [address] [place] [address] 04/05/2023 10:00 AM EDT Office Visit [facility] Ophthalmology [address] [address] Ольга Tabares MD [address] [place] [address] Plan of Treatment - Scheduled Procedures Scheduled Procedures Name Priority Associated Diagnoses Date/Time SURGERY AT [facility] Combined form of age-related [...] 1 Drop, BOTH EYES, DIRECTED, Starting on Tue03/14/23 at 1030, Until Tue03/14/23 at 2229, Administer for applanation tonometry. In the event of a Fluress shortage, administer [place]-Fluor 1 drop into both eyes as directed [...] - Wearing Rx Wearing Rx Sphere Cylinder Coleraine Right eye Left eye -4.75 +0.75 171 Eye Exam Type: SVL Eye Exam - Manifest Refraction (Auto) Manifest Refraction (Auto) Sphere Cylinder Coleraine Right eye -0.50 +1.25 026 Left eye -5.00 +1.50 165 Care Teams - documented as of this encounter Care Teams Manager Of Network Relationship Specialty Start Date End Date Mar Bucio MD PCP - General Family Medicine 08/24/21 documented in this encounter [facility] Work Phone: 03-14-2023 Note HNO ID: [id number] Author: Que Townsend MD Service: ? Author [...] about the findings, diagnosis, and treatment options. [facility] 03-03-2023 Note HNO ID: [id number] Author: Josh Gaston II, OD Service: ? Author Type: DERRICK CAR OPERATOR Type: Progress Notes Filed: 03/03/2023 1:15 PM [...] of its relevant components. Josh Gaston II, JANUSZ [facility] 03-03-2023 Instructions Josh Gaston II OD - [...] Gaston II, OD documented in this encounter [facility] 03-03-2023 History of Present illness Narrative Assessment [...] Gaston II, OD documented in this encounter [facility] 02-25-2023 Note HNO ID: [id number] Author: Que Townsend MD Service: ? Author [...] diagnosis, and treatment options. Que Townsend MD [facility] 02-25-2023 Instructions Que Townsend MD - 02/25/2023 [...] any questions please contact our office at [phone]. After office hours or on the weekend, please call Dr. Townsend on his cell phone at [phone]. documented in this encounter [facility] 02-25-2023 History of Present illness Narrative ASSESSMENT/PLAN: [...] Que Townsend MD documented in this encounter [facility] 02-24-2023 Miscellaneous Notes Post Operative Note: Post-Procedure Diagnosis: 1. Combined Form Age Related Cataract Right Eye Procedure: 1. Cataract Extraction with Intraocular Lens Implant Right Eye Surgeon: Que Townsend MD Resident/Fellow/Other Glue Maker: None Estimated Blood Loss (mL): none Specimen: [...] Last Updated: 24-Feb-2023 11:32 by Que Townsend) documented in this encounter [facility] Work Phone: 02-24-2023 Note Formatting of this n ote is different from the original. Post Operative Note: Post-Procedure Diagnosis: 1. Combined Form Age Related Cataract Right Eye Procedure: 1. Cataract Extraction with Intraocular Lens Implant Right Eye Surgeon: Que Townsend MD Resident/Fellow/Other Glue Maker: None Estimated Blood Loss (mL): none Specimen: [...] Last Updated: 24-Feb-2023 11:32 by Que Townsend) [facility] Work Phone: 02-24-2023 History and physical [...] Last Updated: 24-Feb-2023 10:15 by Que Townsend) [facility] Work Phone: 02-24-2023 History and physical [...] by Que Townsend) documented in this encounter [facility] Work Phone: 02-16-2023 Note HNO ID: [id number] Author: Que Townsend MD Service: ? Author [...] lens right eye scheduled on 02/24/23 at [facility]. Patient wishes to have cataract surgery with [...] diagnosis, and treatment options. Que Townsend MD [facility] 02-16-2023 History of Present illness Narrative ASSESSMENT/PLAN: [...] lens right eye scheduled on 02/24/23 at [facility]. Patient wishes to have cataract surgery with [...] Que Townsend MD documented in this encounter [facility] 02-16-2023 Instructions Que Townsend MD - 02/16/2023 3:23 PM EDT Continue: Systane Complete Artificial Tears - Use 1 Drop into both eyes three times a day. If you have any questions please contact our office at [phone]. After office hours or on the weekend, please call Dr. Townsend on his cell phone at [phone]. documented in this encounter [facility] documented as of this encounter (statuses as of 03/31/2023) [facility]09-06-2023 History of Past illness Narrative* Problem Noted [...] of this encounter (statuses as of 04/05/2023) [facility]09-06-2023 History of Past illness Narrative* Problem Noted [...] of this encounter (statuses as of 04/20/2023) [facility]08-18-2023 NoteHNO ID: [id number] Author: Que Townsend MD Service: ? Author [...] findings, diagnosis, and treatment options. Que Townsend, [facility]08-18-2023 Instructions* Patient Instructions* Que Townsend MD - 01/28/2023 11:35 AM EDT Systane Complete Artificial Tears - Use 1 Drop into both eyes three times a day. Cataract surgery right eye is scheduled on 02/24/23 If you have any questions please contact our office at [phone]. After office hours or on the weekend, please call Dr. Townsend on his cell phone at [phone]. [facility] History of Present illness Narrative* Que Townsend MD - 01/28/2023 11:15 AM EDT ASSESSMENT/PLAN: 1. Combined form of age-related cataract, right eye - ICD9: 366.19, ICD10: H25.811 (primary diagnosis) 2. Combined form of age-related cataract, left eye - ICD9: 366.19, ICD10: H25.812 - IOL BIOMETRY W/ IOL CALC OU (BOTH EYES) - OCT MACULA CIRRUS OU (BOTH EYES) Marhta Stephens has confirmed that she is no [...] options. Que Townsend MD [facility]2023 NoteHNO ID: [id number] Author: Shreyas Gaston, JANUSZ Service: ? Author Type: DERRICK CAR OPERATOR Type: Progress Notes Filed: 01/24/2023 3:19 PM [...] the neuro exam findings as obtained by others.[facility]05-15-2023 NoteHNO ID: [id number] Author: Que Townsend MD Service: ? Author [...] findings, diagnosis, and treatment options. Que Townsend [facility]05-15-2023 Instructions* Patient Instructions* Que Townsend MD - 10/25/2022 10:27 AM EDT Please monitor each eye daily with Amsler Grid. AREDS 2 Vitamins are available over the counter at any drug store. If you have any questions please contact our office at [phone]. After office hours or on the weekend, please call Dr. Townsend on his cell phone at [phone]. documented in [facility] encounter[facility] History of Present illness Narrative* Que Townsend [...] options. Que Townsend MD documented in this encounter[facility]03-27-2023 NoteHNO ID: [id number] Author: Shreyas Gaston OD Service: ? Author Type: DERRICK CAR OPERATOR Type: Progress Notes Filed: 09/06/2022 11:10 AM [...] Dr. Townsend. Return as directed. Shreyas Gaston, JANUSZ I have confirmed and edited as necessary the relevant ophthalmic history, ROS, and the neuro exam findings as obtained by others.[facility]03-27-2023 Instructions* Patient Instructions* Shreyas Gaston OD - 09/06/2022 11:09 AM EDT ASSESSMENT/PLAN: [...] Townsend. Return as directed. documented in this encounter[facility] History of Present illness Narrative* Shreyas Gaston OD - 09/06/2022 11:08 AM EDT ASSESSMENT/PLAN: [...] as obtained by others. documented in this encounterOhio[facility]22 Miscellaneous Notes* Telephone Encounter - Sonali Hagen RN - 06/02/2022 10:00 AM EST Received a request for Medical records from [facility]iega [facility] for Martha's last colonoscopy. Faxed 2014 colonoscopy report to [phone]. Fax confirmation sheet received. Sonali Hagen RN documented in this encounterOhio[facility]04-[facility]22 History of Present illness Narrative* Que Townsend MD - 10/06/2021 10:12 AM EDT ASSESSMENT/PLAN: 1. Malignant neoplasm of left choroid (HCC) - ICD9: 190.6, ICD10: C69.32 (primary diagnosis) - Stable / Observe Consult Dr. Ольга Tabares for follow up, patient last seen in 2019 2. 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 documented in this encounterOhio[facility]04-26-2022 Instructions* Patient Instructions* Que Townsend MD - 10/06/2021 10:06 AM EDT If you have any questions please contact our office at [phone]. After office hours or on the weekend, please call Dr. Townsend on his cell phone at [phone]. documented in this encounter[facility] History of Present illness Narrative* Bethany West RN - 10/05/2021 9:40 AM EDT Patient offered a medical physician pediatrician for sensitive exam. Pt declined * NEVA Chen - 10/05/2021 9:40 AM EDT Martha Stephnes is a 75 y.o. 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 [facility] exam at [facility] showed left retinal tumor 05/18/16 Stress Test: EF 80% 06/2016 Patient went to [place] for one month. [place] went [place] [facility] with Storage Engineer, Dr. Karson Luis for heartburn with nausea, 20-lb weight loss. 09/07/16 EGD Chronic inflammation 09/10/16 CT A/P: Right pleural effusion, small left pleural effusion, multiple sclerotic lesions, liver lesions 10/06/[address] Usha Hathaway, [facility] Pulmonology. 10/21/16 Thoracentesis 900 mL Metastatic adenocarcinoma consistent with breast primary Patient went in for annual [facility] exam at [facility] and left eye cancer was found. 11/01/16 New patient visit with Dr. Levi 11/10/16: Liver biopsy demonstrates small patches of cells which are ER strongly +100%, VT negative, HER2 negative. 11/17/17 Seen at [facility]. Started Letrozole. Palbociclib ordered. 11/22/16 Started Palbociclib and continued Letrozole 02/09/17 CT chest abdomen pelvis showed increased sclerosis of her bone lesions consistent with disease response. She has persistent right greater than left pleural effusion. 02/21/18 Seen at [facility]. Continue current treatment with Palbociclib + Letrozole. Recommend Xgeva. 02/23/17 Left thoracentesis 03/02/17 Right thoracentesis 05/09/17 Chest x-ray showed reaccumulation of pleural fluid in right lung base. 05/09/17 Started Xgeva every 3 months 05/23/17 Seen at [facility]. Recommend repeat staging scans with local oncologist [...] Palbo + Letrozole, Xgeva 09/19/17 Seen at [facility]. Recommended consideration of Pleurx vs continued intermittent [...] get care locally near her home in [facility] where there is a clinic that [...] wall. preop chemo . Re-excision SLN bx.06/19. ER/VT pos HER- 2/la nena neg. Past Surgical History: Procedure Laterality Date THORACENTESIS W/ IMAGING GUIDANCE Left 11/03/2016 Laterality: Left; Surgeon: Matias Kwan MD; Location: [facility] INTERVENTIONAL RADIOLOGY (VIR) BREAST LUMPECTOMY Right 07/25/2006 [...] No abnormalities noted. Patient offered a medical physician pediatrician for sensitive exam. N/A Laboratory Data: Results for orders placed or performed in visit on 10/05/21 CHEM 6 (LYTES, BUN CREA) Result Value [...] Immature Grans Absolute Abs Lymph Auto Abs [place] Auto Abs Eos Auto Abs Baso Auto MANUAL DIFF Result Value Ref Range DIFF STATUS Manual Differential Bands Relative 0.0 % Segs Relative 67.0 % Lymph Relative 25.0 % [place] Relative 4.0 % Eos Relative 4.0 % Baso Relative 0.0 % Nucleated RBC 0.0 <=0.0 /100 WBC Segs & Bands, Absolute 1.57 (L) 1.64 - 7.28 K/uL Abs Lymph Manual 0.59 (L) 1.16 - 3.51 K/uL Abs [place] Manual 0.09 (L) 0.22 - 0.87 K/uL [...] 75 y.o. female diagnosed in 2017 with ER+/VT-/HER2-, metastatic breast cancer who is here today [...] very stable. We will move scans to q2ocicsr will try to get PET scans through her insurance given CKD .For the next assessment will keep to non contrast CT as this is already ordered but will recommend changing after that. *Bone Mets: -Zometa u5bysfqw initiated on 04/19/18. -We will hold now due to prior effects on renal function. -Continue calcium and vitamin D -We talked about initiating denosumab, as she is seeking oncologic care near [place] I urged her todiscuss this with her [...] Malignancy: . -Follows with Dr. Townsend in [place] for Ophthalmology. *Health Maintenance: -We recommend maintaining [...] to Doug. NEVA Chen [facility] Instructions* Patient Instructions* Bethany West RN - 10/05/2021 9:35 AM EDT Images from the original note were not included. Medical Information Management at [phone] to request your medical records Store your [...] the take-back program closest to you @ https://takebackday.[place].gov under the COLLECTION SITE CLERICAL GRADER tab. Never dispose of un-needed medications down the sink or toilet. Instead, crush the medication and mix with damp coffee grounds or cat litter, place in a sealed plastic freezer bag, and dispose of in your regular trash. Your Medical/Oncology Team Doctor: Daniel Camacho MD Nurse Practitioner: Taylor Canada APRN-[employer] OFFICER Primary Nurses: JENAE Pino, DEBN, RN DEB AcostaN RN We are available to take calls Tuesday-Tuesday 8:00am-4:30pm. During non-business hours and holidays phone calls will be managed by after-hours U/Carlos RN's. Please allow at least 10 business [...] 2nd prompt, yes you are enrolled in [employer] medication assistance program At the 3rd prompt, no you are not calling to reorder You will then be told you are getting connected to a live mechanical service representative, or you may press 1 and enter extension number [id number] for Eunice Jimenez, the [employer] access counselor who works with the [facility] account - tell her you are a patient from [facility] and that your doctor electronically prescribed your Ibrance and that you are calling to set up delivery. If you must leave a message, remember to leave your name, date of , name of medication (Ibrance), dose of Ibrance, start date of the next cycle of Ibrance, whether or not you want a signature isidoro required for delivery, and a phone number for [employer] to call you back If you leave a message and do not receive a call back within 24 hours, please call [facility] again. documented in this encounterK[facility] Evaluation note * Diagnosis Metastatic breast cancer- Primary Stage 3a chronic kidney disease documented in this encounter [facility]04-25-2022 Reason for referral (narrative)* Consultation (Routine) - Patient to Arrange Specialty Diagnoses / Procedures Referred By Leo mendoza Referred To Contact Nephrology Diagnoses Stage 3a chronic kidney disease Fco Camacho MBBS [address], [address] [place] [address] Referral ID Status Reason Start Date Expiration Date V isits Requested Visits Authorized [id number] Patient to Arrange 10/05/2021 10/30/2022 1 1 [facility]02-23-2022 History of Present illness Narrative* Crystal Talley, PT - 08/05/2021 1:00 PM EST [facility] DAILY TREATMENT NOTE Today's Date 08/05/2021 Patient Name: Martha Stephens Date of : [...] core stability, hip strengthening, manual Therapeutic Exercise (08528) Intervention -- Parameters -- Intervention -- Parameters [...] Plan: Discharge Crystal Talley PT State License, [id number] documented in this [id number] History of Present illness Narrative* Jayson Grant, BUSINESS PROCESS ASSOCIATE - 07/23/2021 2:30 PM EST [facility] DAILY TREATMENT NOTE Today's Date [...] core stability, hip strengthening, manual Therapeutic Exercise (17244) Intervention Scifit L1 x5 min Parameters SKTC [...] and stability Jayson Grant PTA STATE LICENSE, [id number] documented in this [id number] History of Present illness Narrative* Mili Reynolds PTA - 07/21/2021 2:30 PM EST [facility] DAILY TREATMENT NOTE Today's Date [...] Evaluating Therapist: Tequila Kay Notes Visit 4 [phone] Vitals back flexibility and core stability, hip strengthening, manual Therapeutic Exercise (05412) Intervention Scifit L1 x5 min Parameters SKTC [...] core strengthening Mili Reynolds PTA STATE LICENSE, [id number] documented in this [id number] History of Present illness Narrative* Shanika Watson PTA - 07/14/2021 2:30 PM EST [facility] DAILY TREATMENT NOTE Today's Date [...] 07/14/21 1431 OTHER Precautions/Contraindications Evaluating Therapist: Tequila Kay Notes Visit 3 [phone] Vitals back flexibility and core stability, hip strengthening, manual Therapeutic Exercise (74074) Intervention Scifit L1 x5 min Parameters SKTC [...] as tolerated Shanika Watson PTA STATE LICENSE, [id number] documented in this [id number] History of Present illness Narrative* Shanika Watson PTA - 07/09/2021 2:30 PM EST [facility] REHABILITATION DAILY TREATMENT NOTE Today's Date [...] Evaluating Therapist: Tequila Kay Notes Visit 2 1215-1206 Vitals back flexibility and core stability, hip strengthening, manual Therapeutic Exercise (05523) Intervention LTR 5 x10 Parameters SKTC 10 [...] as tolerated Shanika Watson PTA STATE LICENSE, [id number] documented in this [id number] History of Present illness Narrative* Jayson Grant PTA - 07/02/2021 2:30 PM EST [facility] OUTPATIENT REHABILITATION DAILY TREATMENT NOTE Today's Date [...] Treatments: Physical Therapy Exercise Log - 07/02/21 5275 OTHER Precautions/Contraindications Evaluating Therapist: Tequila Kay Notes Visit 1: 2:30 - 2:55 Vitals back flexibility and core stability, hip strengthening, manual Therapeutic Exercise (08693) Intervention LTR 5 x10 Parameters SKTC 10 [...] and stability Jayson Grant PTA STATE LICENSE, [id number] documented in this [id number] History of Present illness Narrative* Tequila Kay, PT - 06/26/2021 1:45 PM EST Images from the original note were not included. [facility] OUTPATIENT REHABILITATION Evaluation Today's Date 06/26/2021 Patient [...] she went to other therapy place in [place] couple of days ago and provided with [...] Level: active Social Support: Patient lives alone. Moravian, social, or cultural considerations to be made [...] fall in the last 12 months: No Moravian, social, or cultural considerations to be made [...] Treatments: Physical Therapy Exercise Log - 06/26/21 1426 OTHER Notes back flexibility and core stability, hip strengthening, manual Therapeutic Exercise (84643) Intervention LTR 5 x10 Parameters SKTC 10 x3 Intervention bridging (shallow today) 5 x10 Parameters seated trunk rotation, side bending and forward 5 x10 Treatment Plan: Frequency of Visits: twice per week Duration: 5 weeks Interventions: Therapeutic Exercise (63124), Manual Therapy (67069) and Hot/Cold Pack (32706) Rehab Potential: good Goals: Physical Therapy Ortho [...] the following functional limitations: standing, walking, stairs, supervising 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 Tequila Kay, PT STATE LICENSE, [id number] documented in this [id number] History of Present illness Narrative* Tess Weeks [...] placed for elevated creatinine. [facility] History of Present illness Narrative* Kenia West RN - 01/26/2021 11:20 AM EDT Patient offered a medical physician pediatrician for sensitive exam. Pt declined. Bisphosphonate/Denosumab Assessment [...] no, MD/SANCHO notified. Report called to Erna (nurse ob) R - Recommendations for plan of care: Describe any changes to plan of care: none Patient has AVS, completed check out, and discharged to infusion unit For questions, please call: Kenia West RN * Catarino Levi MD, PhD - 01/26/2021 11:20 AM EDT Martha Stephens is a 75 y.o. 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 Eye exam at [facility] showed left retinal tumor 05/18/16 Stress Test: EF 80% 06/2016 Patient went to [place] for one month. She went to the [place] [facility] established with Storage Engineer, Dr. Karson Luis for heartburn with nausea, 20-lb weight loss. 09/07/16 EGD Chronic inflammation 09/10/16 CT A/P: Right pleural effusion, small left pleural effusion, multiple sclerotic lesions, liver lesions 10/06/[address] Usha Hathaway, [facility] Pulmonology. 10/21/16 Thoracentesis 900 mL Metastatic adenocarcinoma consistent with breast primary Patient went in for annual eye exam at [facility] and left eye cancer was found. 11/01/16 New patient visit with Dr. Levi 11/10/16: Liver biopsy demonstrates small patches of cells which are ER strongly +100%, VT negative, HER2 negative. 11/17/17 Seen at [facility]. Started Letrozole. Palbociclib ordered. 11/22/16 Started Palbociclib and continued Letrozole 02/09/17 CT chest abdomen pelvis showed increased sclerosis of her bone lesions consistent with disease response. She has persistent right greater than left pleural effusion. 02/21/18 Seen at [facility]. Continue current treatment with Palbociclib + Letrozole. Recommend Xgeva. 02/23/17 Left thoracentesis 03/02/17 Right thoracentesis 05/09/17 Chest x-ray showed reaccumulation of pleural fluid in right lung base. 05/09/17 Started Xgeva every 3 months 05/23/17 Seen at [facility]. Recommend repeat staging scans with local oncologist [...] Palbo + Letrozole, Xgeva 09/19/17 Seen at [facility]. Recommended consideration of Pleurx vs continued intermittent [...] weeks. She was evaluated by dermatology at [facility] for 3 suspicious lesions on right central mandaen, right lateral cheek, and left superior central [...] wall. preop chemo . Re-excision SLN bx.06/19. ER/VT pos HER- 2/la nena neg. Past Surgical History: Procedure Laterality Date THORACENTESIS W/ IMAGING GUIDANCE Left 11/03/2016 Laterality: Left; Surgeon: Matias Kwan MD; Location: [facility] INTERVENTIONAL RADIOLOGY ([facility]IR) BREAST LUMPECTOMY Right 07/25/2006 [...] diaphoretic. Biopsy confirmed BCC of right central mandaen, right lateral cheek, and left superior central forehead. Psychiatric: Appropriate mood and affect. Back: No point vertebral tenderness. Lymph: No cervical or supraclavicular adenopathy. Chest Wall: No abnormalities noted. Patient offered a medical physician pediatrician for sensitive exam. N/A Laboratory Data: Results [...] Immature Grans Absolute Abs Lymph Auto Abs [place] Auto Abs Eos Auto Abs Baso Auto MANUAL DIFF Result Value Ref Range DIFF STATUS Manual Differential Bands Relative 1.0 % Segs Relative 65.0 % Lymph Relative 22.0 % [place] Relative 7.0 % Eos Relative 4.0 % Baso Relative 1.0 % Nucleated RBC 0.0 <=0.0 /100 WBC Segs & Bands, Absolute 1.42 (L) 1.64 - 7.28 K/uL Abs Lymph Manual 0.47 (L) 1.16 - 3.51 K/uL Abs [place] Manual 0.15 (L) 0.22 - 0.87 K/uL [...] 75 y.o. female diagnosed in 2017 with ER+/VT-/HER2-, metastatic breast cancer who is here today [...] clinic in 3 months. *Bone Mets: -Zometa [id number] initiated on 04/19/18. -Zometa previously held d/t renal insuffiencey. Next dose due today. Renal function has improved. No dental concerns. -Continue calcium and vitamin D *Chronic Kidney Disease: -Suspect worsening renal insufficiency due to Meloxicam usage. -Strongly advised patient to avoid taking Meloxicam and Ibuprofen. -Will continue to monitor. *BCC: -Right central mandaen, right lateral cheek, and left superior central forehead. -Evaluated by dermatology at [facility]. Shave biopsy on 12/15/20 confirmed BCC of all 3 lesions -Scheduled for MOHS procedure. *Grief Over Loss of /Insomnia: -She declines medications or referrals at this time -Undergoing counseling with hospice group -She has family close for support -Insomnia well controlled with Mirtazapine. Rx refilled. 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 Follows with Dr. Tabares in [facility]hthalmology. *Health Maintenance: -We recommend maintaining a [...] with the discharge instructions. documented in [facility] Instructions* Patient Instructions* Kenia West RN - [...] you @ https://takebackday.sima.gov under the COLLECTION SITE CLERICAL GRADER tab. Never dispose of un-needed medications down the sink or toilet. Instead, crush the medication and mix with damp coffee grounds or cat litter, place in a sealed plastic freezer bag, and dispose of in your regular trash. Your Medical/Oncology Team Doctor: Catarino Levi MD Nurse Practitioner: Ghazal Jin, INTERNIST MEDICAL DOCTOR MD-MOUNTED POLICE OFFICER Primary Nurses: Elmo BOYDN, RN, Bethany BOYDN, RN OCN, Matias BOYDN RN We are available to take calls [...] (Tukysa ) [ ] Other: [ ] [employer] # [phone] [ ] [facility] # [phone] [ ] [facility] # [phone] [ ] [facility] # [phone] [ ] [facility] # [phone] [ ] [facility] # [phone] [ ] [facility] # [phone] [ ] [employer] # [phone] [ ] [facility] # [phone] [ ] [facility] # [phone] [ ] [facility] # [phone] [ ] Other: # documented in this encounterK[facility] History of Past illness Narrative* Problem Noted [...] of this encounter (statuses as of 10/06/2021) [facility] History of Past illness Narrative* Problem [...] of this encounter (statuses as of 06/02/2022) [facility] of Past illness Narrative* Problem [...] of this encounter (statuses as of 09/06/2022) [facility] of Past illness Narrative* Problem [...] of this encounter (statuses as of 10/25/2022) [facility] History of Past illness Narrative* Problem Noted Date Diagnosed Date Resolved Date Screening for colon cancer 05/29/2015 1 07/30/2014 Myopia - Left Eye 05/13/2014 05/19/2015 Other chronic dermatitis due to solar radiation 05/01/2008 04/25/2015 Other seborrheic keratosis 05/01/2008 1 06/25/2014 Viral warts, unspecified 05/01/2008 NEVUS BACK/TRUNK///BENIGN GURDEEP SKIN TRUNK 05/01/2008 04/25/2015 VIVEROS ANGIOMA///NEVUS, NON-NEOPLASTIC 05/01/2008 04/25/2015 Diverticulosis of colon (wit hoerika mention of hemorrhage) 01/12/2007 04/25/2015 Internal hemorrhoids without mention of complication 01/12/2007 04/25/2015 External hemorrhoids without mention of complication 01/12/2007 04/25/2015 Unspecified constipation 01/11/2007 Postmenopausal atrophic vaginitis 11/02/2006 04/25/2015 Malignant neoplasm of other specified sites of female breast 08/26/2006 05/29/2015 documented as of this encounter (statuses as of 01/28/2023) [facility] History of Past illness Narrative* Problem [...] of this encounter (statuses as of 02/17/2023) [facility] of Past illness Narrative* Problem [...] of this encounter (statuses as of 02/25/2023) [facility] of Past illness Narrative* Problem [...] of this encounter (statuses as of 03/04/2023) [facility] Diagnosis Degeneration of lumbar intervertebral disc [...] lumbosacral intervertebral disc [facility] Diagnosis Degeneration of lumbar intervertebral disc Degeneration of lumbar or lumbosacral intervertebral disc [facility] Diagnosis Degeneration of lumbar intervertebral disc Degeneration of lumbar or lumbosacral intervertebral disc [facility] Diagnosis Degeneration of lumbar intervertebral disc Degeneration of lumbar or lumbosacral intervertebral disc [facility] Diagnosis Degeneration of lumbar intervertebral disc- Primary Degeneration of lumbar or lumbosacral intervertebral disc [facility] Diagnosis Bone metastasis- Primary Secondary malignant neoplasm of bone and bone marrow Recurrent right pleural effusion Unspecified pleural effusion Metastatic breast cancer [facility] Diagnosis Metastatic breast cancer [facility] Diagnosis Metastatic breast cancer Metastatic breast cancer [facility]* Diagnosis Metastatic breast cancer- Primary Bone metastasis Secondary malignant neoplasm of bone and bone marrow Recurrent right pleural effusion Unspecified pleural effusion Chemotherapy management, encounter for [facility]* Diagnosis 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 Malignant neoplasm of choroid Early dry stage nonexudative age-related macular degeneration of both eyes Combined forms of age-related cataract of both eyes Other and combined forms of senile cataract 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) Other malignant neoplasm without specification of site [facility]* Diagnosis Myopia, bilateral- Primary Myopia Regular astigmatism of both eyes Regular astigmatism Presbyopia [facility] Diagnosis 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) Malignant neoplasm of choroid Combined forms of age-related cataract of both eyes Other and combined forms of senile cataract [facility] Diagnosis Combined form of age-related cataract, [...] bronchus and lung [facility] Diagnosis Combined form of age-related cataract, [...] cataract, right eye [facility]* Diagnosis Status post cataract extraction and insertion of intraocular lens of right eye- Primary Combined form of age-related cataract, left eye Combined form of age-related cataract, left eye [facility]* Diagnosis Status post cataract extraction and insertion of intraocular lens of right eye- Primary Combined form of age-related cataract, left eye [facility] Diagnosis Combined forms of age-related cataract of left eye- Primary Combined forms of age-related cataract of left eye Depression Depressive disorder, not elsewhere classified Anxiety Anxiety state, unspecified Bipolar disorder ([facility]/HCC) Bipolar disorder, unspecified documented in this encounter 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 HealthCare Power of Painting Worker 05/28/2019 11:59 AM Advance Directives/Living Will 05/28/2019 11:59 AM HealthCare Power of Painting Worker 07/17/2003 12:00 AM Advance Directives/Living Will 07/17/2003 12:00 AM Latest Code Status on File Code Status Date Activated Date Inactivated Comments Full Code 05/28/2018 11:33 PM Documents on File Type Date Recorded 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 HealthCare Power of Painting Worker 05/28/2019 11:59 AM Advance Directives/Living Will 05/28/2019 11:59 AM HealthCare Power of Painting Worker 07/17/2003 12:00 AM Advance Directives/Living Will 07/17/2003 12:00 AM Latest Code Status on File Code Status Date Activated Date Inactivated Comments Full Code 05/28/2018 11:33 PM Documents on File Type Date Recorded 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 HealthCare Power of Painting Worker 05/28/2019 11:59 AM Advance Directives/Living Will 05/28/2019 11:59 AM HealthCare Power of Painting Worker 07/17/2003 Advance Directives/Living Will 07/17/2003 Latest Code [...] AND PELVIS,W/O CONTRAST Catarino Levi MD, PhD [address] [facility] [address] [place] [address] Referral ID Status Reason Start Date Expiration Date V isits Requested Visits Authorized [id number] New Request 2020 11/30/2021 1 1 Specialty Diagnoses / Procedures Referred By Contac t Referred To Contact Diagnoses Metastatic breast cancer Procedures CT CHEST WITHOUT CONTRAST CHG DIAGNOSTIC COMPUTED TOMOGRAPHY THORAX W/O Catarino Houston MD, PhD [address] [facility] [address] [place] [address] Referral ID Status Reason Start Date Expiration Date V isits Requested Visits Authorized [id number] New Request 2020 11/30/2021 1 1 Referral ID Status Reason Start Date Expiration Date V isits Requested Visits Authorized [id number] New Request 01/26/2021 02/20/2022 1 1 Referral ID Status Reason Start Date Expiration Date V isits Requested Visits Authorized [id number] New Request 01/26/2021 02/20/2022 1 1 Medications [...] on Tue10/25/22 at 1000, Until Tue10/25/22 at 215, Administer for dilation PROTECT FROM LIGHT Given 10/25/2022 10:00 AM EDT 1 Drop proparacaine 0.5 % 1 Drop (ALCAINE) 1 Drop, BOTH EYES, DIRECTED, Starting on Tue10/25/22 at 1000, Until Tue10/25/22 at 215, Administer for pneumo tonometry, tonopen tonometry, or pachymetry. In the event of a proparacaine shortage, administer tetracaine 0.5% ophthalmic drops 1 drop in the left eye as directed for pneumo tonometry, tonopen tonometry, or pachymetry Given 10/25/2022 10:00 AM EDT 1 Drop tropicamide 1 % 1 Drop (MYDRIACYL) 1 Drop, BOTH EYES, DIRECTED, Starting on Tue10/25/22 at 1000, Until Tue10/25/22 at 215, Administer for dilation Given 10/25/2022 10:00 AM EDT 1 Drop Active Administered Medications - up to 3 most recent administrations Medication Order MAR Action Action Date Dose Rate Site fluorescein-benoxinate 0.25-0.4 % 1 Drop (FLURESS) 1 Drop, BOTH EYES, DIRECTED, Starting on Tue01/28/23 at 0930, Until Tue01/28/23 at 2129, Administer for applanation tonometry. In the event [...] DATE CREATED AUTHOR AUTHOR'S ORGANIZ ATION 12/07/2017 [place] DATE CREATED AUTHOR AUTHOR'S ORGANIZ ATION 05/30/2018 [facility] DATE CREATED AUTHOR AUTHOR'S ORGANIZ ATION 06/01/2018 [facility] DATE CREATED AUTHOR AUTHOR'S ORGANIZ ATION 08/09/2021 [facility] DATE CREATED AUTHOR AUTHOR'S ORGANIZ ATION 08/29/2021 [facility] DATE CREATED AUTHOR AUTHOR'S ORGANIZ ATION 11/03/2021 [employer] DATE CREATED AUTHOR AUTHOR'S ORGANIZ ATION 11/24/2021 [facility] DATE CREATED AUTHOR AUTHOR'S ORGANIZ ATION 03/31/2023 [facility] DATE CREATED AUTHOR AUTHOR'S ORGANIZ ATION 06/23/2023 [facility] Reason for Visit (unrecogniz ed section and content) Specialty Diagnoses / Procedures Referred By Contac t Referred To Contact Rehabilitation Diagnoses Degeneration of lumbar intervertebral disc Scoliosis due to degenerative disease of spine in adult patient Saleem BrownDO [address] [facility] [address] [place] [address] [facility] [address] [address] Referral ID Status Reason Start Date Expiration Date V isits Requested Visits Authorized [id number] Authorized 06/25/2021 10/05/2021 11 11 Reason Comments Infusion Visit zometa Specialty Diagnoses / Procedures Referred By Contac t Referred To Contact Diagnoses Metastatic breast cancer Procedures CT ABDOMEN/PELVIS WITHOUT CONTRAST CHG CT SCAN,ABDOMENT AND PELVIS,W/O CONTRAST Catarino Levi MD, PhD [address] [address] Referral ID Status Reason Start Date Expiration Date V isits Requested Visits Authorized [id number] New Request 2020 11/30/2021 1 1 Specialty Diagnoses / Procedures Referred By Contac t Referred To Contact Diagnoses Metastatic breast cancer Procedures CT CHEST WITHOUT CONTRAST CHG DIAGNOSTIC COMPUTED TOMOGRAPHY THORAX W/O CNTRST Catarino Levi MD, PhD [address] [facility] [address] [place] [address] Referral ID Status Reason Start Date Expiration Date V isits Requested Visits Authorized [id number] New Request 2020 11/30/2021 1 1 Reason Comments Chemotherapy scan review, palbo, letrozole, zometa Reason Comments Chemotherapy Ibrance + Letrozole, Reason Comments Malignant Neoplasm of Left Choroid Nonexudative Macular Degeneration Follow Up Early Stage, Bilateral Cataract Follow Up Bilateral Reason Comments Release Of Medical Records Colonoscopy 2 015 Reason Comments Blurred Vision Both Eyes Here for yan guerin Dr. and Dr. Tabares for Malignant Neoplasm of [...] age-related cataract of left eye [H25.812] Procedures VT XCAPSL CTRC RMVL INSJ IO LENS PROSTH W/O ECP CATARACT EXTRACTION W/IOL IMPLANT L EYE Que Townsend MD [address] [facility] [place] [address] [facility] [address] [place] [phone] Referral ID Status Reason Start Date Expiration Date Visits Re quested Visits Authorized [id number] 1 1 Reason Comments Post-op Cataract OU OD 02/24/23OS Reason Comments Malignant Neoplasm of Left Choroid Reason Comments Post-op Cataract OD 02/24/23 OS 03/24 Reason Comments Other Combined forms of ag e-related cataract, R eye Care Teams (unrecognized sec tion and content) Manager Of Network Relationship Specialty Start Date End Date No, Physician [facility] PCP - General 07/02/21 Manager Of Network Relationship Specialty Start Date End Date No, Physician [facility] PCP - General 07/02/21 Manager Of Network Relationship Specialty Start Date End Date No, Physician [facility] PCP - General 07/02/21 Manager Of Network Relationship Specialty Start Date End Date No, Physician [facility] PCP - General 07/02/21 Manager Of Network Relationship Specialty Start Date End Date No, Physician [facility] PCP - General 07/02/21 Manager Of Network Relationship Specialty Start Date End Date No, Physician [facility] PCP - General 07/02/21 Manager Of Network Relationship Specialty Start Date End Date Dru Barahona, DO [address] [place] [address] PCP - General 07/04/07 Jyoti Kramer MD [address] [place], [place] [id number] Radiation Oncology 11/01/16 Catarino Levi MD, PhD [address] [facility] [address] [place] [phone] Oncologist Medical Oncology 11/09/16 Ghazal Jin, INTERNIST MEDICAL DOCTOR MD-MOUNTED POLICE OFFICER [address] [facility] [address] [place], [place] [id number] Nurse Practitioner Medical Oncology 11/09/16 Jennifer Gerber, RN Registered Nurse Medical Oncology 02/15/17 Bethany West, RN Registered Nurse Medical Oncology 04/13/18 Kody Gil, [facility] [address] [facility] [address] [place] [address] Pharmacist Pharmacist 07/13/18 Dimitris Cuevas, [facility] [address] [facility] [address] [place] [address] Pharmacist Pharmacist 07/13/18 Korey Bravo MD [address] [facility] [address] [place] [phone] Surgeon Surgical Oncology 09/24/09 Manager Of Network Relationship Specialty Start Date End Date Dru Barahona, DO [address] [place] [address] PCP - General 07/04/07 Jyoti Kramer MD [address] [place], [place] [phone] Radiation Oncology 11/01/16 Catarino Levi MD, PhD [address] [place] [address] Oncologist Medical Oncology 11/09/16 Ghazal Jin, INTERNIST MEDICAL DOCTOR MD-[employer] [address] [place] [address] Nurse Practitioner Medical Oncology 11/09/16 Jennifer Gerber, JENAE Registered Nurse Medical Oncology 02/15/17 Bethany West, RN Registered Nurse Medical Oncology 04/13/18 Kody Gil, [facility] [address] [place] [address] Pharmacist Pharmacist 07/13/18 Dimitris Cuevas, [facility] [address] [facility] [address] [place] [address] Pharmacist Pharmacist 07/13/18 Korey Bravo MD [address] [place] [phone] Surgeon Surgical Oncology 09/24/09 Manager Of Network Relationship Specialty Start Date End Date Dru Barahona, DO [address] [place] [address] PCP - General 07/04/07 Jyoti Kramer MD [address] [place], [place] [id number] Radiation Oncology 11/01/16 Catarino Levi MD, PhD [address] [place] [phone] Oncologist Medical Oncology 11/09/16 Ghazal Jin, INTERNIST MEDICAL DOCTOR MD-[employer] [address] [place] [phone] Nurse Practitioner Medical Oncology 11/09/16 Jennifer Gerber, JENAE Registered Nurse Medical Oncology 02/15/17 Bethany West, RN Registered Nurse Medical Oncology 04/13/18 Kody Gil, [facility] [address] [place] [address] Pharmacist Pharmacist 07/13/18 Dimitris Cuevas, [facility] [address] [place] [address] Pharmacist Pharmacist 07/13/18 Korey Bravo MD [address] [place] [phone] Surgeon Surgical Oncology 09/24/09 Manager Of Network Relationship Specialty Start Date End Date Dru Barahona, DO [address] [place] [address] PCP - General 07/04/07 Jyoti Kramer MD [address] [place], [place] [phone] Radiation Oncology 11/01/16 Catarino Levi MD, PhD [address] [place] [phone] Oncologist Medical Oncology 11/09/16 Ghazal Jin, INTERNIST MEDICAL DOCTOR MD-[employer] [address] [place] [address] Nurse Practitioner Medical Oncology 11/09/16 Jennifer Gerber, RN Registered Nurse Medical Oncology 02/15/17 Bethany West, RN Registered Nurse Medical Oncology 04/13/18 Kody Gil, [facility] [address] [place] [address] Pharmacist Pharmacist 07/13/18 Dimitris Cuevas, [facility] [address] [place] [address] Pharmacist Pharmacist 07/13/18 Korey Bravo MD [address] [place] [phone] Surgeon Surgical Oncology 09/24/09 Manager Of Network Relationship Specialty Start Date End Date Dru Barahona Tonio, DO [address] [place] [address] PCP - General 07/04/07 Jyoti Kramer MD [address] [place] [address] Radiation Oncology 11/01/16 Ghazal Jin, INTERNIST MEDICAL DOCTOR MD-[employer] [address] [place] [address] Nurse Practitioner Medical Oncology 11/09/16 Kody Gil, [facility] [address] [place] [address] Pharmacist Pharmacist 07/13/18 Dimitris Cuevas, [facility] [address] [place] [address] Pharmacist Pharmacist 07/13/18 Korey Bravo MD [address], [address] [place] [phone] Surgeon Surgical Oncology 09/24/09 Fco Camacho MBBS [address], [address] [place] [phone] Oncologist Medical Oncology 10/05/21 Taylor Canada INTERNIST MEDICAL DOCTOR MD-[employer] [address], [address] [place] [phone] Certified Nurse Practitioner 10/05/21 Manager Of Network Relationship Specialty Start Date End Date Mar Bucio [address] [place] [phone] PCP - General Family Practice 08/24/21 Manager Of Network Relationship Specialty Start Date End Date Mar Bucio [address] [place] [address] PCP - General Family Medicine 08/24/21 Manager Of Network Relationship Specialty Start Date End Date Mar Bucio MD PCP - General Family Medicine 08/24/21 Manager Of Network Relationship Specialty Start Date End Date Mar Bucio MD PCP - General Family Medicine 08/24/21 Manager Of Network Relationship Specialty Start Date End Date Mar Bucio MD PCP - General Family Medicine 08/24/21 Manager Of Network Relationship Specialty Start Date End Date Mar Bucio MD PCP - General Family Medicine 08/24/21 Manager Of Network Relationship Specialty Start Date End Date Mar Bucio MD PCP - General Family Medicine 08/24/21 Manager Of Network Relationship Specialty Start Date End Date Mar Bucio MD [address] [facility] [place] [address] PCP - General 02/24/23 Manager Of Network Relationship Specialty Start Date End Date Mar Bucio MD PCP - General Family Medicine 08/24/21 Manager Of Network Relationship Specialty Start Date End Date Mar Bucio MD PCP - General Family Medicine 08/24/21 Manager Of Network Relationship Specialty Start Date End Date Mar Bucio MD PCP - General Family Medicine 08/24/21 Manager Of Network Relationship Specialty Start Date End Date Mar Bucio MD PCP - General 02/24/23 Source Comments (unrecognize d section and content) In the event this informatio n is protected by the Federal Confidentiality of Alcohol and Drug Abuse Patient Records regulations: The Federal rules restrict any use of the information to criminally investigate or prosecute any alcohol or drug abuse patient.[facility] the event this information is protected by the Federal Confidentiality of Alcohol and Drug Abuse Patient Records regulations: The Federal rules restrict any use of the information to criminally investigate or prosecute any alcohol or drug abuse patient.[facility] the event this information is protected by the Federal Confidentiality of Alcohol and Drug Abuse Patient Records regulations: The Federal rules restrict any use of the information to criminally investigate or prosecute any alcohol or drug abuse patient.[facility] the event this information is protected by the Federal Confidentiality of Alcohol and Drug Abuse Patient Records regulations: The Federal rules restrict any use of the information to criminally investigate or prosecute any alcohol or drug abuse patient.[facility] the event this information is protected by the Federal Confidentiality of Alcohol and Drug Abuse Patient Records regulations: The Federal rules restrict any use of the information to criminally investigate or prosecute any alcohol or drug abuse patient.[facility] the event this information is protected by the Federal Confidentiality of Alcohol and Drug Abuse Patient Records regulations: The Federal rules restrict any use of the information to criminally investigate or prosecute any alcohol or drug abuse patient.[facility] the event this information is protected by the Federal Confidentiality of Alcohol and Drug Abuse Patient Records regulations: The Federal rules restrict any use of the information to criminally investigate or prosecute any alcohol or drug abuse patient.[facility] the event this information is protected by the Federal Confidentiality of Alcohol and Drug Abuse Patient Records regulations: The Federal rules restrict any use of the information to criminally investigate or prosecute any alcohol or drug abuse patient.[facility] the event this information is protected by the Federal Confidentiality of Alcohol and Drug Abuse Patient Records regulations: The Federal rules restrict any use of the information to criminally investigate or prosecute any alcohol or drug abuse patient.[facility] the event this information is protected by the Federal Confidentiality of Alcohol and Drug Abuse Patient Records regulations: The Federal rules restrict any use of the information to criminally investigate or prosecute any alcohol or drug abuse patient.[facility] the event this information is protected by the Federal Confidentiality of Alcohol and Drug Abuse Patient Records regulations: The Federal rules restrict any use of the information to criminally investigate or prosecute any alcohol or drug abuse patient.[facility] Scheduled Active and Recently Administ ered Medications [...] BE BASED ON THE PRIMARY CLINICAL RECORDS. [facility]. provides no warranty or guarantee of the accuracy or completeness of information in this document.
[2023-07-19 10:02] LABS: Anion Gap 6 (5-15); BUN 20 mg/dL (7-18); BUN/Creat Ratio 14.8 RATIO (10-20); Calcium,Total 10.2 mg/dL (8.5-10.1); Chloride 108 mmol/L (98-107); Creatinine, Serum 1.35 mg/dL (0.55-1.02); EST Glomerular Filtration Rate 41 mL/min (>60); Est Glom Filt Rate - Afr Amer 49 mL/min (>60); Estimated Creatinine Clearance 28.48 ml/min; Glucose 113 mg/dL (74-106); Potassium 3.5 mmol/L (3.5-5.1); Sodium Level 141 mmol/L (136-145); Troponin-I HS (w/2H Reflex) 32 pg/mL (3.0-54.0)
--- NOTE | 2023-07-19 11:16 | ED.RN ---
Patient states had pain on ambulating to restroom, denies pain currently, BP elevated. Nitro refused after discussion for reason for admin is pain control and helps with blood pressure, patient continues to refuse Nitro.
--- NOTE | 2023-07-19 11:30 | NURSING ---
DR HUY MURRAY
--- NOTE | 2023-07-19 11:34 | PCM.HP.STD ---
HPI - General General Date of Admission: 07/19/23 Date of Service: 07/19/23 Chief Complaint: Chest pain HPI Narrative ADOLFO TAMEZ, is a 77 F who presents with past medical history significant for breast CA with mets who has been in remission since 2016 following treatment with mastectomy radiation and chemo presented with chest pain. Patient symptoms started 3 days prior to her admission. Chest pain was described as pressure across the chest. Patient did not relate the pain to activity. Pain became more intense on the morning of admission presented to the emergency department. Initial set of cardiac enzymes came back negative patient however had dynamic EKG changes as well as recurrence of her chest pain with ambulation in the ED and assessment of unstable angina made patient started on heparin cardiology consulted Case discussed with Dr. Watters plan is for patient to undergo emergency left heart catheterization with intervention if warranted [facility] Medical History Bone metastases Cancer Cancer of right female breast CRF (chronic renal failure) Gastric reflux GERD (gastroesophageal reflux disease) High cholesterol History of echocardiogram History of stress test Hyperlipidemia Hypertension Hypokalemia Leg cramps Liver metastasis Low iron Neutropenia Non-smoker Pleural effusion, bilateral Pleural metastasis Wears glasses Home Medications acetaminophen 500 mg tablet 500 mg PO Q6H PRN Pain 11/18/16 [History Last Taken 07/16/23] calcium carbonate 600 mg calcium (1,500 mg) tablet 600 mg PO DAILY supplement 11/18/16 [History Last Taken 07/18/23] cholecalciferol (vitamin D3) 25 mcg (1,000 unit) tablet (Vitamin D3) 1,000 unit PO DAILY supplement 11/18/16 [History Last Taken 07/18/23] lovastatin 20 mg tablet 20 mg PO DAILY cholesterol 11/18/16 [History Last Taken 07/18/23] palbociclib 125 mg capsule (Ibrance) 75 mg PO DAILY breast cancer 11/18/16 [History Last Taken 02/08/23] cyanocobalamin (vitamin B-12) 100 mcg tablet 100 mcg PO DAILY supplement 10/09/21 [History Last Taken 07/18/23] pantoprazole 40 mg tablet,delayed release 40 mg PO DAILY acid reflux 02/23/22 [History Last Taken 07/18/23] mirtazapine 15 mg tablet 7.5 mg PO QHS insomnia 02/04/23 [History Last Taken 07/18/23] letrozole 2.5 mg tablet See Rx Instructions .Route .COMPLEX breast cancer #90 tabs 02/24/23 [Rx Last Taken 07/18/23] metoprolol tartrate 50 mg tablet 50 mg PO DAILY blood pressure 07/19/23 [History Last Taken 07/18/23] peg 400 0.4 %-propylene glycol (PF) 0.3 % eye drops (Systane Ultra (PF)) 1 drp EACH EYE BID cataract surgery 07/19/23 [History Last Taken 07/18/23] Allergy/AdvReac Type Severity Reaction Status Date / Time Sulfa (Sulfonamide Allergy Mild Rash Verified 07/19/23 09:03 Antibiotics) Family History Mother Heart disease Father Hypertension Surgical History H/O tooth extraction History of cataract extraction History of lumpectomy History of thoracentesis Status post bunionectomy Social History household members: none Smoking Status: Never smoker substance use type: does not use ROS ROS Narrative GENERAL: denies fever, chills, HEENT: denies headache, sinus congestion, or drainage, RESPIRATORY: shortness of breath, dyspnea on exertion CARDIAC: chest pain, GASTROINTESTINAL: denies abdominal pain, nausea, GENITOURINARY: denies dysuria, urgency, frequency, EXTREMITY: denies swelling MUSCULOSKELETAL: denies current joint pain or tenderness NEUROLOGIC: denies focal numbness, weakness, tingling HEMATOLOGIC: denies easy bruising and/or hemorrhage INTEGUMENT: denies rashes PSYCHIATRIC: denies suicidal or homicidal ideation Vital Signs Vital Signs Vital Signs: 07/19/23 09:04 07/19/23 09:04 07/19/23 09:21 Temperature 98.1 F Temperature Source Oral Pulse Rate 111 H Respiratory Rate 20 H Respiratory Effort Normal Non-Labored Blood Pressure 151/83 H Blood Pressure Mean 105 Pulse Ox 95 Oxygen Delivery Method Room Air Room Air 07/19/23 11:03 Temperature Temperature Source Pulse Rate 120 H Respiratory Rate 20 H Respiratory Effort Blood Pressure 127/114 H Blood Pressure Mean 118 Pulse Ox 97 Oxygen Delivery Method Room Air Weight Weight: 56.9 kg Body Mass Index (BMI) 22.9 Physical Exam Narrative GENERAL: cooperative HEENT: Atraumatic; normocephalic EYES; Anicteric, Normal Conjunctiva NECK; supple, normal thyroid, RESPIRATORY: Diminished to auscultation CARDIOVASCULAR: Regular S1 S2, GI: soft, normoactive bowel sounds, : No Renal angle tenderness; EXTREMITIES: No edema, no clubbing, MUSCULOSKELETAL: no muscle wasting NEURO: Awake; no lateralizing signs. SKIN: No Rash PSYCH; Flat affect Results Lab / Micro Data 07/19/23 09:12 07/19/23 09:12 Labs: Laboratory Results - last 24 hr 07/19/23 09:12: WBC 2.5 L, RBC 3.91 L, Hgb 13.1, Hct 39.2, MCV 100.3 H, MCH 33.5 H, MCHC 33.4, RDW Std Deviation 48.0 H, RDW Coeff of Aurea 13.2, Plt Count 145 L, MPV 10.3, Immature Gran % (Auto) 0.000, Neut % (Auto) 48.1, Lymph % (Auto) 33.7, [place] % (Auto) 14.6 H, Eos % (Auto) 1.2, Baso % (Auto) 2.4 H, Absolute Neuts (auto) 1.2 L, Absolute Lymphs (auto) 0.83, Nucleated RBC % 0, Sodium 141, Potassium 3.5, Chloride 108 H, Carbon Dioxide 27.0, Anion Gap 6, BUN 20 H, Creatinine 1.35 H, Estim Creat Clear Calc 28.48, Est GFR (MDRD) Af Amer 49 L, Est GFR (MDRD) Non-Af 41 L, BUN/Creatinine Ratio 14.8, Glucose 113 H, Calcium 10.2 H, Troponin I High Sens 32 Rhythm Strip Rhythm Strip: Sinus Tach Rate: 102 Ectopy: None Imaging Radiology Impression Chest X-Ray 07/19/23 09:21 IMPRESSION: Elevation of the right hemidiaphragm. Small right pleural effusion with right basilar atelectasis. Electronically Signed: Hever Madden MD at 10:05 EST , Assessment & Plan Assessment/Plan (1) Chest tightness: PLAN: Plan Patient is a 77-year-old presented with chest pain 1. Chest pain ? Consistent with unstable angina, patient admitted to a monitored bed started on treatment per protocol with beta-blockers systemic anticoagulation with heparin statin therapy ordered 2D echo consultation placed to cardiology plans for patient to undergo emergency left heart catheterization with intervention if needed 2. Dyslipidemia -Patient is on statin therapy, continued at home dose 3. Hypertension - Blood pressure controlled, home medications continued with dose adjustment as needed 4. Breast CA with mets to liver and lungs ? Patient has remained in remission for over 6 years currently on letrozole and) 5. GERD ? On PPI 6. DVT prophylaxis ? On heparin Time spent in the patient's overall evaluation,decision-making process, review of diagnostic data, adjustment of management, discussion with other providers, nursing nursing and ancillary staff involved in patient's care documentation, 75 Minutes Advance planning; did discuss with the patient and family regarding advanced directives as well as CODE STATUS. Did explain the various scenarios involved ( FULL CODE, DNR CCA, DNR CCA with no intubation, and DNR CC and what each meant) patient elected to remain full code with CPR and intubation if needed. Order was placed. Time spent on discussion 18 minutes. Charges/Coding Visit Charges Inpatient E&M: 87796 Init Hosp L3 Procedures Hospitalists Procedures: 34829 Advncd Care Plan 30 Min
--- NOTE | 2023-07-19 11:34 | NURSING ---
PCU KITTOE CHEST PAIN
[2023-07-19 11:38] LABS: Reflex Troponin-HS? (from REC) Y
[2023-07-19] MEDS: Heparin Injection (Vial) 5,000 UNIT/ML VIAL 4000 UNIT IV (12:00)
--- NOTE | 2023-07-19 12:08 | CON.PCM.CA_ITS ---
Assessment & Plan Assessment/Plan (1) Acute coronary insufficiency: PLAN: The patient presented with a 3-day history of an exceptionally good story for an acute coronary syndrome. The patient was documented to have dynamic ST segment changes laterally with chest discomfort. The patient has no previous history of coronary disease but she does have a history of hyperlipidemia hypertension and a family history of coronary disease. She is currently pain- free her initial troponin was 32. Given her dynamic EKG changes and symptoms wi th minimal activity simply walking in the ER room I feel that urgent left heart catheterization is indicated. Dr. Sow was consulted and will take the patient to the Psychology Professor. The patient is status post mantle radiation for her breast cancer in the past and has minimal elevation in aVR which is suggestive of a potential ostial left main trunk lesion. (2) Abnormal electrocardiogram finding: PLAN: Dynamic lateral ST segment depression and minimal elevation in lead aVR. (3) Breast cancer metastasized to multiple sites: QUALIFIERS: Laterality: right Qualified Code(s): C50.911 - Malignant neoplasm of unspecified site of right female breast PLAN: The patient is on oral chemotherapy that has well-controlled her metastasis since 2016. I did discuss with the patient and her daughter end-of-life issues. We all agree that given this dynamic change that a left heart catheterization and invasive evaluation is indicated. We discussed the possibility that should she have an unforeseen event and required mechanical ventilation that everything possible be done for 72 to 96 hours before making a decision on long-term management. The patient and daughter voiced understanding. (4) Hypertension: QUALIFIERS: Hypertension type: primary hypertension Qualified Code(s): I10 - Essential (primary) hypertension PLAN: This is been controlled on medical therapy in her home environment. (5) Hyperlipidemia: QUALIFIERS: Hyperlipidemia type: mixed hyperlipidemia Qualified Code(s): E78.2 - Mixed hyperlipidemia PLAN: The patient is on lovastatin. Should the patient proved to have a true acute coronary syndrome with coronary artery disease her statin therapy should probably be intensified. Lipids and liver function should be evaluated with a target of an LDL less than 70. (6) CRF (chronic renal failure): QUALIFIERS: Chronic kidney disease stage: unspecified stage Qualified Code(s): N18.9 - Chronic kidney disease, unspecified PLAN: Creatinine clearance is 41. She has been exposed to contrast for CAT scans for her breast cancer evaluation and treatment. She has not had issues with that in the past. We will limit her contrast exposure and perform an echocardiogram to evaluate her LV function. PLAN: Plan 1. Take the patient urgently to the Psychology Professor 2. 2D echocardiogram to evaluate LV function following the catheterization. 3. Aggressive post intervention medical therapy as indicated pending the outcome of the catheterization. HPI Consult Data Date of Consult: 07/19/23 HPI Narrative Reason for Consultation: chest Pain HPI Narrative: ADOLFO TAMEZ, is a 77 F who presents to the with a 3-day history of episodic chest pain. The patient describes this as an intense discomfort in her mid retrosternal area associated with shortness of breath and dyspnea on exertion. This occurred first on Tuesday rib reoccurred on Tuesday they lasted several minutes each time. She had a subsequent episode this morning and her daughter brought her to the emergency department. Initial EKG with symptoms showed ST segment depression laterally. Subsequent EKGs have shown resolution of the l ateral ST depression. The patient then got up and walked to the bathroom and had recurrence of the symptoms and her EKG showed ST segment depression laterally. The patient's initial troponin was 32. BUN and creatinine are slightly elevated her hemoglobin is normal she has chronic neutropenia. The patient has metastatic breast cancer that is been well-controlled on oral agent since 2016 she initially was treated with lumpectomy chemotherapy and radiation in early 1999's. Her repeat cancer recurred in 2016 but has not progressed since the institution of the oral therapy. We did discuss end -of-life issues and the patient wishes to be full go at this point in time. She is active and living at home. I discussed the situation with Dr. Sow and he agrees to take her to the Psychology Professor urgently. The patient is to receive aspirin and a heparin bolus of 4000 units in the ED. [facility] Medical History Bone metastases Cancer Cancer of right female breast CRF (chronic renal failure) Gastric reflux GERD (gastroesophageal reflux disease) High cholesterol History of echocardiogram History of stress test Hyperlipidemia Hypertension Hypokalemia Leg cramps Liver metastasis Low iron Neutropenia Non-smoker Pleural effusion, bilateral Pleural metastasis Wears glasses Home Medications acetaminophen 500 mg tablet 500 mg PO Q6H PRN Pain 11/18/16 [History Last Taken 07/16/23] calcium carbonate 600 mg calcium (1,500 mg) tablet 600 mg PO DAILY supplement 11/18/16 [History Last Taken 07/18/23] cholecalciferol (vitamin D3) 25 mcg (1,000 unit) tablet (Vitamin D3) 1,000 unit PO DAILY supplement 11/18/16 [History Last Taken 07/18/23] lovastatin 20 mg tablet 20 mg PO DAILY cholesterol 11/18/16 [History Last Taken 07/18/23] palbociclib 125 mg capsule (Ibrance) 75 mg PO DAILY breast cancer 11/18/16 [History Last Taken 02/08/23] cyanocobalamin (vitamin B-12) 100 mcg tablet 100 mcg PO DAILY supplement 10/09/21 [History Last Taken 07/18/23] pantoprazole 40 mg tablet,delayed release 40 mg PO DAILY acid reflux 02/23/22 [History Last Taken 07/18/23] mirtazapine 15 mg tablet 7.5 mg PO QHS insomnia 02/04/23 [History Last Taken 07/18/23] letrozole 2.5 mg tablet See Rx Instructions .Route .COMPLEX breast cancer #90 tabs 02/24/23 [Rx Last Taken 07/18/23] metoprolol tartrate 50 mg tablet 50 mg PO DAILY blood pressure 07/19/23 [History Last Taken 07/18/23] peg 400 0.4 %-propylene glycol (PF) 0.3 % eye drops (Systane Ultra (PF)) 1 drp EACH EYE BID cataract surgery 07/19/23 [History Last Taken 07/18/23] Allergy/AdvReac Type Severity Reaction Status Date / Time Sulfa (Sulfonamide Allergy Mild Rash Verified 07/19/23 09:03 Antibiotics) Family History Mother Heart disease Father Hypertension Surgical History H/O tooth extraction History of cataract extraction History of lumpectomy History of thoracentesis Status post bunionectomy Social History household members: none Smoking Status: Never smoker substance use type: does not use ROS ROS Narrative The patient reports resting comfortably at this time in the on the gurney in the emergency department. Constitutional Constitutional: Reports as per HPI Eyes Eyes: Reports systems reviewed and no addt'l complaints, except as documented ENT HEENT: Reports systems reviewed and no addt'l complaints, except as documented Cardiovascular Cardiovascular: Reports as per HPI Respiratory/Chest Respiratory/Chest: Reports as per HPI Gastrointestinal Gastrointestinal: Reports systems reviewed and no addt'l complaints, except as documented Genitourinary Genitourinary: Reports systems reviewed and no addt'l complaints, except as documented Musculoskeletal Musculoskeletal: Reports systems reviewed and no addt'l complaints, except as documented Integumentary Integumentary: Reports systems reviewed and no addt'l complaints, except as documented Neurologic Neurologic: Reports systems reviewed and no addt'l complaints, except as documented Psychiatric Psychiatric: Reports systems reviewed and no addt'l complaints, except as documented Endocrine Endocrinology: Reports systems reviewed and no addt'l complaints, except as documented Hematologic/Lymphatic Hematologic/Lymphatic: Reports as per HPI Allergic/Immunologic Allergic/Immunologic: Reports none Physical Exam Narrative Thin white female resting comfortably in the recumbent position. Const oriented x3 HEENT normocephalic Eyes EOMs intact bilaterally Neck no JVD and no carotid bruits Chest Chest: pectus excavatum Resp normal respiratory effort Auscultation: crackles right base and diminished lung sounds right lower Cardio regular rate, regular rhythm, S1 normal heart sound, S2 normal heart sound, no murmurs, no rub and no gallops Jugular Venous Distention: Negative for JVD Peripheral Pulses: radial pulses present right 2+ and posterior tibial pulses present bilateral 1+ GI normal to inspection, nondistended, normoactive bowel sounds Extremity no pedal edema Skin no rashes or lesions noted Psych mental status grossly normal Risk Stratification Risk Stratification Applicable: Yes Age >/= 65: Yes >/= 3 CAD Risk Factors (HTN, HLD, DM, family hx of CAD, or current smoker): Yes Aspirin Use in the Past 7 Days: No Severe Angina (>/= episodes in 24 hours): Yes EKG ST Changes >/= 0.5mm: Yes Positive Cardiac Marker: No JUVE Risk Stratification Score: 4 JUVE % Risk: 20% Risk Charges/Coding Visit Charges Inpatient E&M: 89547 Init Hosp L3 Objective Data Vital Signs: Vital Signs Temp Pulse Resp BP Pulse Ox O2 Del Method 98.1 F 100 28 H 140/92 H 97 Room Air 07/19/23 09:04 07/19/23 12:03 07/19/23 12:03 07/19/23 12:03 07/19/23 12:03 07/19/23 12:03 Oxygen Delivery Method Room Air Weight: 125 lb 7.088 oz Body Mass Index (BMI) 22.9 Lab / Micro Data Attestation: I reviewed the patient's lab results. 07/19/23 09:12 07/19/23 09:12 Labs: Laboratory Results - last 24 hr 07/19/23 09:12: WBC 2.5 L, RBC 3.91 L, Hgb 13.1, Hct 39.2, MCV 100.3 H, MCH 33.5 H, MCHC 33.4, RDW Std Deviation 48.0 H, RDW Coeff of Aurea 13.2, Plt Count 145 L, MPV 10.3, Immature Gran % (Auto) 0.000, Neut % (Auto) 48.1, Lymph % (Auto) 33.7, [place] % (Auto) 14.6 H, Eos % (Auto) 1.2, Baso % (Auto) 2.4 H, Absolute Neuts (auto) 1.2 L, Absolute Lymphs (auto) 0.83, Nucleated RBC % 0, Sodium 141, Potassium 3.5, Chloride 108 H, Carbon Dioxide 27.0, Anion Gap 6, BUN 20 H, Creatinine 1.35 H, Estim Creat Clear Calc 28.48, Est GFR (MDRD) Af Amer 49 L, Est GFR (MDRD) Non-Af 41 L, BUN/Creatinine Ratio 14.8, Glucose 113 H, Calcium 10.2 H, Troponin I High Sens 32 Rhythm Strip Rhythm Strip: Sinus Tach Rate: 102 Ectopy: None Cardiology Labs/Tests 07/19/23 09:12: WBC 2.5 L, RBC 3.91 L, Hgb 13.1, Hct 39.2, MCV 100.3 H, MCH 33.5 H, MCHC 33.4, Plt Count 145 L, MPV 10.3, Immature Gran % (Auto) 0.000, Neut % (Auto) 48.1, Lymph % (Auto) 33.7, [place] % (Auto) 14.6 H, Eos % (Auto) 1.2, Baso % (Auto) 2.4 H, Absolute Neuts (auto) 1.2 L, Nucleated RBC % 0, Sodium 141, Potas sium 3.5, Chloride 108 H, Carbon Dioxide 27.0, Anion Gap 6, BUN 20 H, Creatinine 1.35 H, Est GFR (MDRD) Af Amer 49 L, Est GFR (MDRD) Non-Af 41 L, BUN/Creatinine Ratio 14.8, Glucose 113 H, Calcium 10.2 H Rhythm: EKG: ECHO: Stress Test: Cardiac Cath: PCI: CT Surgery: Holter monitor: EPS: PPM: CXR: Chest CT Scan: Radiography Diagnostic Testing: Radiology Impression Chest X-Ray 07/19/23 09:21 IMPRESSION: Elevation of the right hemidiaphragm. Small right pleural effusion with right basilar atelectasis. Electronically Signed: Hever Madden MD at 10:05 EST ,
[2023-07-19 12:32] LABS: Troponin-I HS 39 pg/mL (3.0-54.0)
[2023-07-19 13:10] LABS: D-Dimer Quantitative (DVT/PE) 1.22 FEU/ug/m (0.27-0.49)
--- NOTE | 2023-07-19 13:43 | CASEMGMT ---
agricultural labor camp manager calls this RN CM and requests tertiary list for this pt. Per pt insurance, the following hospitals are in-network. [facility], [place], [facility], [facility], [facility], and . agricultural labor camp manager notified at this time.
--- NOTE | 2023-07-19 14:00 | ECHOD_ITS ---
Reason For Study: Chest pain Procedure This was a 2D Doppler, Color Flow transthoracic echocardiogram. Exam performed portable in patient room. Left Ventricle Normal LV size. Moderate assymetric septal hypertrophy. The estimated ejection fraction is 55-60 %. No evidence for diastolic dysfunction. Posterior basal and inferior basal severely hypokinetic. Right Ventricle Normal RV size. Normal systolic function. Atria The left and right atria are normal. Mitral Valve The mitral valve is structurally normal. No prolapse or stenosis seen. The mitral papillary muscle appears thickened and/or calcified. There is Mild focal anterior mitral annular calcification. There is no mitral valve stenosis. Mild (1+) mitral valve insufficiency. Tricuspid Valve Normal tricuspid valve. Unable to estimate RV systolic pressure due to insufficient tricuspid regurgitant envelope. Aortic Valve Trisinus/trileaflet aortic valve. Mild focal aortic valve calcification. Aortic sclerosis, no stenosis. Pulmonic Valve Normal pulmonic valve. Great Vessels Normal aortic root. Pericardium/Pleural No pericardial effusion. MMode/2D Measurements & Calculations LVIDd: 3.4 cm IVSd: 1.4 cm Ao root diam: 3.2 cm LVIDs: 2.5 cm LVPWd: 0.94 cm RVDd: 2.6 cm FS: 26.5 % LAV(MOD-bp): 18.7 ml LVAd ap4: 15.8 cm2 LVAd ap2: 14.6 cm2 LAV(MOD-bp) Indexed: 12.0 ml/m2 LVLd ap4: 5.9 cm LVLd ap2: 6.0 cm LAV(MOD-sp2): 14.9 ml EDV(MOD-sp4): 35.7 ml EDV(MOD-sp2): 30.8 ml LAV(MOD-sp4): 22.2 ml EDV(sp4-el): 35.9 ml EDV(sp2-el): 30.1 ml LVAs ap4: 9.6 cm2 LVAs ap2: 8.7 cm2 LVLs ap4: 5.0 cm LVLs ap2: 5.2 cm ESV(MOD-sp4): 16.6 ml ESV(MOD-sp2): 14.5 ml ESV(sp4-el): 15.8 ml ESV(sp2-el): 12.3 ml EF(MOD-sp4): 53.6 % EF(MOD-sp2): 53.1 % EF(sp4-el): 56.1 % SV(MOD-sp4): 19.1 ml SV(MOD-sp2): 16.3 ml SV(sp4-el): 20.1 ml LA dimension(2D): 2.9 cm LA A4 area: 11.1 cm2 RA A4 area: 7.7 cm2 TAPSE: 1.3 cm Time Measurements MV dec time: 0.14 sec Doppler Measurements & Calculations MV E max mo: 73.3 cm/sec Lat Peak E' Mo: 9.2 cm/sec Med Peak E' Mo: 5.6 cm/sec MV A max mo: 96.6 cm/sec E/E' lat: 7.9 E/E' med: 13.0 MV E/A: 0.76 MV dec slope: 537.3 cm/sec2 Ao V2 max: 124.2 cm/sec LV V1 max: 80.0 cm/sec Ao max P.2 mmHg LV V1 max P.6 mmHg PA V2 max: 79.7 cm/sec ECHO/Echo Complete Interpretation Summary The estimated ejection fraction is 55-60 %. Posterior basal and inferior basal severely hypokinetic. No evidence for diastolic dysfunction. Moderate assymetric septal hypertrophy. Mild (1+) mitral valve insufficiency. Aortic sclerosis, no stenosis. There is no comparison study available. Ordering Physician: Dm Joel Referring Physician: Mar Bucio Performed By: Sheryl Nuñez RDCS
--- NOTE | 2023-07-19 14:10 | CL.D_ITS ---
Patient Name: ADOLFO TAMEZ Study Date: 07/19/2023 Performing: Amari Sow MD Ht: 62 inches 157.48 cm : 1945 Wt: 125.6 lbs 56.9 kg Age: 77 Gender: female BSA: 1.57 PROCEDURE(S) PERFORMED [id number]-([id number])[facility] CL[facility]ICAL PROFILE AND INDICATIONS Indications: New Onset Angina <= 2 months Heart Failure: None Angina Classification Anginal Classification w/in 2 Weeks: CCS III CAD Presentations: Unstable angina. CONCLUSIONS 99% Prox RCA, heavily calcified 80% Mid LAD 95% Mid OM1, filling retrogradely via collaterals from Diag RECOMMENDATIONS Refer to tertiary center for rotational atherectomy/Shockwave Prox RCA DESCRIPTION OF PROCEDURE The patient arrived to the procedure lab. The risks and benefits of the procedure as well as a full description of our services here and current unavailability of surgical backup were fully explained to the patient and/or their significant other prior to the catheterization. The Timeout was completed, verifying the correct patient and procedure. The patient's procedural site was prepped and draped in the usual fashion. Local anesthetic was given subcutaneously to right radial region with Lidocaine 2%. Using a modified Seldinger technique, arterial access was obtained via the right radial artery, a 6Fr sheath was inserted. Left Coronary Artery selective angiography was performed in multiple views using a 5 Fr. 4.0 [place] catheter. Right Coronary Artery selective angiography was then performed in multiple views using a 5 Fr. 4.0 [place] catheter.The arterial sheath was pulled and a TR Band was applied for hemostasis CORONARY ANGIOGRAPHY DOMINANCE: Right Dominant LEFT MAIN: Tubular 40% Ostial lesion in Left Main LEFT ANTERIOR DESCENDING ARTERY: LAD: Calcified 30% Proximal lesion in LAD Tubular 80% Mid lesion in LAD OM 1: Tubular 95% Mid lesion in MARG1 OM 2: Tubular 95% Mid lesion in MARG1 RIGHT CORONARY ARTERY: RCA: Calcified 50% Mid lesion in RCA Eccentric Calcified 99% Proximal lesion in RCA COMPLICATIONS No Complications PROCEDURE MEDICATIONS Fentanyl 50 mcg IV Versed 1 mg IV Oxygen: 2 L/min via nasal cannula Brilinta 180 mg PO @ 07/19/2023 13:35:56 Heparin given IA 07/19/2023 13:17:19 Verapamil 2.5mg, Ntg 200mcgs, 2000 units of Heparin given IA 07/19/2023 13:17:19 SUMMARY OF HEMODYNAMIC DATA Time AIR REST ECG 13:07:31 AO 97/62 (70) SA 13:20:43 Signed By Amari Sow MD On 07/19/2023 14:09:11 Amari Sow MD
[2023-07-19] MEDS: 0.9% Normal Saline (1000mL) 1,000 ML 75 ML IV (14:30)
[2023-07-19 15:27] LABS: ACT Activated Clotting Time 250 sec (74-137)
[2023-07-19 15:54] LABS: Troponin-I HS 65 pg/mL (3.0-54.0)
--- OUTSIDE RECORDS SUMMARY | 2023-07-19 16:23 | XMS RPT_ITS | CCD ---
Author Name Unknown Address [id number] [place] [address] Organization [facility] Care Team Providers Care Artillery Officer Name Role Phone Dru Barahona Unavailable CHAPARRO LIU Unavailable Unavailable DRU BARAHONA Unavailable Unavailable Bryn Riojas Unavailable Unavailable Bryn Riojas Unavailable Unavailable Dru Barahona Unavailable Unavailable Dru Barahona Unavailable Unavailable Ivanauskeleonora, Saulius Unavailable Unavailable Jeanine, Saulius Unavailable Unavailable Dru Barahona DO Primary Care Provider [phone] No, Physician Primary Care Provider Unavailabl e [...] Amita TORRES, PhD, Catarino Renteria Unavailable Davin VERDIN-LOTTERIES AGENT, Ghazal Elizalde Unavailable [phone] Buzz RN, Jennifer Unavailable Unavailable Brett EMANUEL, Bethany Unavailable Unavailable Jeffery [facility], Kody Unavailable [facility], Dimitris Unavailable [phone] Lawrence TORRES, Korey P Unavailable Jeffery [facility], Kody W Unavailable [facility], Dimitris Unavailable [phone] Lawrence TORRES, Korey P Unavailable Doug HOOKS, Fco Unavailable Dread VERDIN-LOTTERIES AGENT, Taylor Huff Unavailable Mar Bucio Primary Care Provider Bryn Riojas Unavailable [phone] DRU BARAHONA Primary Care Unavailable CATARINO LEVI Attending Unavailable DRU BARAHONA Referring Unavailable CATARINO LEVI Referring Unavailable DRU BARAHONA Primary Care Unavailable CATARINO LEVI Attending Unavailable AMITA CATARINO B Referring Unavailable DUR BARAHONA Primary Care Unavailable CATARINO LEVI Attending [...] Unavailable Mar Bucio Primary Care Provider [phone] Kristin Bucio MDh Jean Claude Primary Care [...] Propensity to adverse reactions to drug 6 [facility] Work Phone: (2 sources) Sulfonamides (Antibiotic); Translations: [sulfa drugs] Propensity to adverse reactions to drug (disorder) [facility] (20 sources) Sulfonamides (Antibiotic) Propensity to adverse reactions to drug 6 Rash [facility] (5 sources) Sulfonamides (Antibiotic) Propensity to adverse reactions to drug 9 Rash [facility] Medications Current Medications Medication Drug Class(es) Dates [...] 81 mm[Hg] Que Townsend MD Work Phone: [facility] 03-24-2023 13:40-0400 Heart rate 78 /min Que Townsend MD Work Phone: [facility] 03-24-2023 13:40-0400 Respiratory rate 16 /min Que Townsend MD Work Phone: [facility] 03-24-2023 13:40-0400 SaO2% (BldA) [Mass fraction] 94 % Que Townsend MD Work Phone: [facility] 03-24-2023 13:40-0400 Systolic blood pressure 132 mm[Hg] Que Townsend MD Work Phone: [facility] 03-24-2023 13:25-0400 Body temperature 97.9 [degF] Que Townsend MD Work Phone: [facility] 03-24-2023 12:09-0400 Body height 158 cm Que Townsend MD Work Phone: [facility] 03-24-2023 12:09-0400 Body mass index (BMI) [Ratio] 22.43 kg/m2 Que Townsend MD Work Phone: [facility] 03-24-2023 12:09-0400 Body weight 56 kg Que Townsend MD Work Phone: [facility] 02-16-2023 15:24-0400 Diastolic blood pressure 83 mm[Hg] Que Townsend MD Work Phone: [facility] 02-16-2023 15:24-0400 Heart rate 83 /min Que Townsend MD Work Phone: [facility] 02-16-2023 15:24-0400 Systolic blood pressure 145 mm[Hg] Que Townsend MD Work Phone: [facility] 01-28-2023 09:45-0400 Diastolic blood pressure 83 mm[Hg] Que Townsend MD Work Phone: [facility] 01-28-2023 09:45-0400 Heart rate 83 /min Que Townsend MD Work Phone: [facility] 01-28-2023 09:45-0400 Systolic blood pressure 145 mm[Hg] Que Townsend MD Work Phone: [facility] 10-05-2021 09:26-0400 Body mass index (BMI) [Ratio] 21.84 kg/m2 Fco HOOKS Work Phone: [facility] 10-05-2021 09:26-0400 Body temperature 98.4 [degF] Fco HOOKS Work Phone: [facility] 10-05-2021 09:26-0400 Body weight 54.16 kg Fco HOOKS Work Phone: [facility] 10-05-2021 09:26-0400 Diastolic blood pressure 84 mm[Hg] Fco HOOKS Work Phone: 2([phone] [place] [address] 10-05-2021 09:26-0400 Heart rate 79 /min Fco HOOKS Work Phone: 6(214)[phone] [place] [address] 10-05-2021 09:26-0400 Respiratory rate 16 /min Fco HOOKS Work Phone: [phone] [place] [address] 10-05-2021 09:26-0400 Systolic blood pressure 145 mm[Hg] Fco HOOKS Work Phone: 8([phone] [place] [address] 01-26-2021 09:51-0400 Body mass index (BMI) [Ratio] 22.79 kg/m2 Catarino Levi MD, PhD Work Phone: 4([phone])[phone] [place] [address] 01-26-2021 09:51-0400 Body temperature 98.01 [degF] Catarino Levi MD, PhD Work Phone: 2([phone] [place] [address] 01-26-2021 09:51-0400 Body weight 56.52 kg Catarino Levi MD, PhD Work Phone: 2([phone])[phone] [place] [address] 01-26-2021 09:51-0400 Diastolic blood pressure 87 mm[Hg] Catarino Levi MD, PhD Work Phone: 5(077)[phone] [place] [address] 01-26-2021 09:51-0400 Heart rate 88 /min Catarino Levi MD, PhD Work Phone: 9([phone] [place] [address] 01-26-2021 09:51-0400 Respiratory rate 16 /min Catarino Levi MD, PhD Work Phone: 2([phone] [place] [address] 01-26-2021 09:51-0400 SaO2% (BldA) [Mass fraction] 100 % Catarino Levi MD, PhD Work Phone: 0([phone] [place] [address] 01-26-2021 09:51-0400 Systolic blood pressure 152 mm[Hg] Catarino Levi MD, PhD Work Phone: [facility] 05-17-2017 09:40-0500 BMI (Body Mass Index) 21.77 kg/m2 Chaparro Liu [facility] Work Phone: 05-17-2017 09:40-0500 BP Diastolic 79 mm[Hg] Chaparro Liu [facility] Work Phone: 05-17-2017 09:40-0500 BP Systolic 116 mm[Hg] Chaparro Liu [facility] Work Phone: 05-17-2017 09:40-0500 Height 157.5 cm Chaparro Liu [facility] Work Phone: 05-17-2017 09:40-0500 Pulse (Heart Rate) 97 /min Chaparro Liu [facility] Work Phone: 05-17-2017 09:40-0500 Pulse Oximetry 94 % Chaparro Liu [facility] Work Phone: 05-17-2017 09:40-0500 Weight 53.98 kg Chaparro Liu [facility] Work Phone: Encounters Encounter Date Encounter Type Care Provider Facility Start: 06-22-2023 End: 06-22-2023 ambulatory QUE TOWNSEND Facility:[place] Start: 04-20-2023 End: 04-20-2023 ambulatory QUE TOWNSEND Facility:[facility] Start: 04-20-2023 End: 04-20-2023 Patient encounter procedure [...] 10-05-2021 Bilirubin direct Meliss a L Jin SHEET METAL HELPER-LOTTERIES AGENT Work Phone: Start: 10-05-2021 CBC AND ELECTRONIC DIFF Ghazal L Jin SHEET METAL HELPER-LOTTERIES AGENT Work Phone: Start: 10-05-2021 Complete blood count with white cell differential, automated Ghazal L Jin SHEET METAL HELPER-LOTTERIES AGENT Work Phone: Start: 10-05-2021 MANUAL DIFF Ghazal L Jin SHEET METAL HELPER-LOTTERIES AGENT Work Phone: Start: 01-26-2021 Bilirubin direct Meliss a L Jin SHEET METAL HELPER-LOTTERIES AGENT Work Phone: Start: 01-26-2021 CBC AND ELECTRONIC DIFF Ghazal L Jin SHEET METAL HELPER-LOTTERIES AGENT Work Phone: Start: 01-26-2021 Complete blood count with white cell differential, automated Ghazal L Jin SHEET METAL HELPER-LOTTERIES AGENT Work Phone: Start: 01-26-2021 MANUAL DIFF Ghazal L Jin SHEET METAL HELPER-LOTTERIES AGENT Work Phone: Start: 01-26-2021 Ct thorax w/o contra st material Catarino Levi MD, PhD Work Phone: Start: 02-26-2016 Mammography Que philippe MD Work Phone: Start: 05-29-2015 [facility] Que philippe MD Work Phone: Plan of Treatment Date Care Activity Detail Author Start: 03-14-2028 Tetanus vaccination [facility] Start: 03-14-2028 Urine microalbumin profile DTaP,Tdap,Td Vaccine (2 - Td or Tdap) [facility] Start: 10-07-2026 Lipid 1996 panel - Serum or Plasma Lipid Screening [facility] Start: 10-07-2026 LIPID SCREEN LIPID SCREEN [facility] Start: 10-07-2024 DIABETES SCREEN DIABETES SCREEN [facility] Start: 10-07-2024 Diabetes Screening Diabetes Screening [facility] Start: 03-24-2023 End: 03-24-2023 Phacoemulsification Cataract with Insertion Intraocular Lens Phacoemulsification Cataract with Insertion Intraocular Lens Combined forms of age-related cataract of left eye 03/24/2023 12:52 PM EDT [facility] Work Phone: Start: 02-11-2023 Covid-19 Vaccine () Covid-19 Vaccine () [facility] Start: 02-11-2023 Influenza vaccination [facility] Start: 06-13-2022 ADVANCE DIRECTIVE DISCUSSION ADVANCE DIRECTIVE DISCUSSION [facility] Start: 06-13-2022 DEPRESSION ASSESSMENT DEPRESSION ASSESSMENT [facility] Start: 06-03-2022 COVID-19 VACCINE (5 - Pfizer risk series) COVID-19 VACCINE (5 - Pfizer risk series) [facility] Start: 02-11-2022 Influenza vaccination INFLUENZA (#1) [facility] Start: 12-02-2021 End: 12-02-2021 Patient encounter procedure Department o f Radiology Start: 10-18-2021 COVID-19 Vaccine (4 - Booster for Pfizer series) COVID-19 Vaccine (4 - Booster for Pfizer series) [facility] Start: 09-18-2021 COVID-19 Vaccine (4 - Booster for Pfizer series) COVID-19 Vaccine (4 - Booster for Pfizer series) [facility] Start: 07-31-2021 End: 07-31-2021 ambulatory 07/31/2021 Treatment Rehabilitation Saleem Brown, [address] [facility] [address] [place] [address] [id number] Tequila Kay, PT [facility] Start: 07-28-2021 End: 07-28-2021 ambulatory 07/28/2021 Treatment Rehabilitation Saleem Brown, DO [address] [place] [address] Mili Reynolds, [facility] Start: 07-23-2021 End: 07-23-2021 ambulatory 07/23/2021 Treatment Rehabilitation Saleem Brown, DO [address] [place] [address] [address] [place] [address] Jayson Grant [facility] Start: 07-21-2021 End: 07-21-2021 ambulatory 07/21/2021 Treatment Rehabilitation Saleem Brown, DO [address] [place] [address] [address] [place] [address] Mili Reynolds [facility] Start: 07-21-2021 COVID-19 VACCINE (4 - Booster for Pfizer series) COVID-19 VACCINE (4 - Booster for Pfizer series) [facility] Start: 07-17-2021 End: 07-17-2021 ambulatory [facility] Start: 07-14-2021 End: 07-14-2021 ambulatory 07/14/2021 Treatment Rehabilitation Saleem Brown, DO [address] [place] [address] [address] [place] [address] Shanika Watson [facility] Start: 07-09-2021 End: 07-09-2021 ambulatory 07/09/2021 Treatment Rehabilitation Saleem Brown, DO [address] [place] [address] [address] [place] [address] Jayson Grant [facility] Start: 07-07-2021 End: 07-07-2021 ambulatory 07/07/2021 Treatment Rehabilitation Saleem Brown, DO [address] [place] [address] [address] [place] [address] Shanika Watson, [facility] Start: 07-02-2021 End: 07-02-2021 ambulatory 07/02/2021 Treatment Rehabilitation Saleem Brown, DO [address] [place] [address] [address] [place], [place] [id number] Jayson Grant, [facility] Start: 06-30-2021 End: 06-30-2021 ambulatory 06/30/2021 Treatment Rehabilitation Saleem Brown, DO [address] [place] [address] [address] [place], [place] [id number] Shanika Watson, [facility] Start: 06-15-2021 COVID-19 Vaccine (2 - Pfizer series) COVID-19 Vaccine (2 - Pfizer series) [facility] Start: 06-15-2021 COVID-19 VACCINE (4 - Booster for Pfizer series) COVID-19 VACCINE (4 - Booster for Pfizer series) [facility] Start: 06-13-2021 ADVANCE DIRECTIVE DISCUSSION ADVANCE DIRECTIVE DISCUSSION [facility] Start: 06-13-2021 DEPRESSION ASSESSMENT DEPRESSION ASSESSMENT [facility] Start: 04-20-2021 End: 01-26-2022 CT of abdomen and pelvis CT ABDOMEN/PELVIS WITHOUT CONTRAST Imaging Routine Metastatic breast cancer Expected: 04/20/2021, Expires: 01/26/2022 [facility] Work Phone: Immunizations Immunization Date Immunization Notes Care Provider Fa [facility] 03-26-2022 influenza virus vaccine, unspecified formulation Que Townsend MD Work Phone: [facility] 04-20-2021 COVID-19 vaccine, MR YAMILET, Pfizer, 0.3 ML Fco HOOKS Work Phone: [facility] 04-20-2019 zoster vaccine, unspecified formulation Tess Weeks RN [facility] 03-13-2019 influenza, high dose seasonal, preservative-free Tess Weeks RN [facility] 03-13-2019 influenza virus vaccine, unspecified formulation Tess Weeks RN [facility] Payers Date Payer Category Payer Unknown 2021 Unknown [id number] 2018 Private Health Insurance [id number] [id number] 2018 Unknown [id number] [id number]. [id number] 2017 Medicare 2017 Private Health Insurance 2012 Medicare [id number] 2.16.840.1.010893.3.249.13 1945 Unknown [id number] 2.16840.1.389281.3.579.2. 71 1945 Unknown [id number] 2.16840.1.421148.3.579.2 1945 Unknown [id number] 2.16.840.1.505614.3.579.2. 356 1945 Unknown [id number] 2.16.840.1.791814.3.579.2 1945 Unknown [id number] 2.16.840.1.328103.3.579.2. 1945 Unknown [id number] 2.16.840.1.347922.3.579.2. 90 1945 Unknown [id number] 2.16.840.1.833483.3.579.2. 1945 Unknown [id number] 2.16.840.1.832467.3.579.2 1945 Unknown [id number] 2.16.840.1.400943.3.579.2. 1945 Unknown [id number] 2.16.840.1.097853.3.579.2. 903 1945 Unknown [id number] 2.16.840.1.303289.3.579.2. 903 1945 Unknown [id number] 2.16.840.1.503444.3.579.2. 594 1947 Unknown [id number] 2.16.840.1.747353.3.579.2. 594 1947 Unknown [id number] 2.16.840.1.623916.3.579.2. 594 1947 Unknown [id number] 2.16840.1.636512.3.579.2. 594 1947 Unknown [id number] 2.16.840.1.940422.3.579.2. 594 1947 Unknown [id number] 2.16840.1.580882.3.579.2. 594 1947 Unknown [id number] 2.16.840.1.070759.3.579.2. 594 1947 Unknown [id number] 2.16840.1.303104.3.579.2. 594 1947 Unknown [id number] 2.16.840.1.332143.3.579.2. 594 1947 Unknown [id number] 2.16840.1.784672.3.579.2. 594 1947 Unknown [id number] 2.16.840.1.880415.3.579.2. 594 1947 Unknown [id number] 2.16.840.1.374026.3.579.2. 594 1947 Unknown [id number] 2.16.840.1.385755.3.579.2. 594 1947 Unknown [id number] 2.16.840.1.543766.3.579.2. 594 1947 Unknown [id number] 2.16.840.1.495004.3.579.2. 594 1947 Unknown [id number] 2.16.840.1.632852.3.579.2. 594 1947 Unknown [id number] 2.16.840.1.444116.3.579.2. 594 1947 Unknown [id number] 2.16.840.1.870326.3.579.2. 594 1947 Unknown [id number] 2.16.840.1.722240.3.579.2. 594 1945 Unknown [id number] 2.16.840.1.906100.3.579.2. 1243 Medicare MEDICARE MEDICAR E A AND B [id number] Effective for all dates [address] [place] [address] [id number] 1.2.840.180873.1.13.172.2. 7.3.987958.315 Medicare [id number] Social History Date Type Detail Facility Start: 05-17-2017 End: 01-28-2023 Tobacco smoking status NHIS Never smoker [facility] Start: 1945 Sex Assigned At Not on file [facility] Work Phone: Start: 03-27-2015 End: 01-28-2023 Tobacco use and exposure Smokeless tobacco non-user [facility] Start: 05-17-2017 End: 04-20-2023 Alcohol intake Current non-drinker of alcohol (finding) [facility] Start: 07-26-2021 End: 03-23-2023 Exposure to SARS-CoV-2 (event) Not sure [facility] Start: 07-12-2018 End: 03-23-2023 Cigarettes smoked current (pack per day) - Reported 0.5 [facility] Start: 10-25-2022 End: 03-23-2023 Tobacco use panel [facility] National Score (1-10 0), lower number is lower risk 59 [facility] Start: 03-23-2023 Alcohol intake Lifetime non-d elvin (finding) [facility] Work Phone: Tobacco smoking stat us NHIS Tobacco smoking consumption unknown [facility] Work Phone: Medical Equipment Procedure Code Equipment Code Equipment Origin al Text Equipment Identifier Dates Lens, Intraocula r, Sn60wf 22.5 Harlan - [id number] - [id number] Start: 03-24-2023 Clinical Notes 05-29-2015 to 06-22-2023 Patient InstructionsJosh Gaston II, OD - 04/20/2023 8:58 AM Ольга Prasad MD - 04/05/2023 12:04 PM EDTPatient InstructionsJosh Gaston II, OD - 03/30/2023 4:26 PM EDT Note Date & Type Note Facility 06-22-2023 Note HNO ID: [id number] Author: JOSH GASTON II, OD Service: ? Author Type: [employer] Type: Progress Notes Filed: 06/22/2023 10:55 Note [...] its relevant components. Josh Gaston II, OD [facility] 04-20-2023 Note HNO ID: [id number] Author: Josh Gaston II, OD Service: ? Author Type: [employer]OUT Type: Progress Notes Filed: 04/20/2023 9:00 AM [...] its relevant components. Josh Gaston II, OD [facility] 04-20-2023 Instructions Josh Gaston II, OD - [...] Gaston II, OD documented in this encounter [facility] 04-20-2023 History of Present illness Narrative Assessment [...] Gaston II, OD documented in this encounter [facility] 04-05-2023 Note HNO ID: [id number] Author: Ольга Tabares MD Service: ? Author Type: Physician Type: Progress Notes Filed: 04/05/2023 12:42 PM Note Text: Referred by Dr. Que Townsend Incidental finding on routine examination - asymptomatic except shadow 1. Stage IV breast cancer - 09/10/16 CT A/P: Right pleural effusion, small left pleural effusion, multiple sclerotic lesions, liver lesions - 10/06/[address] Usha Hathaway, [facility] Pulmonology. - 10/21/16 Thoracentesis 900 mL - Metastatic adenocarcinoma consistent with breast primary - Patient went in for annual eye exam at [facility] and left eye cancer was found. - 11/01/16 New patient visit with Dr. Levi - 11/10/16: Liver biopsy demonstrates small patches of cells which are ER strongly +100%, FL negative, HER2 negative. - 11/17/17 Seen at [facility]. Started Letrozole. Palbociclib ordered. - 11/22/16 Started Palbociclib and continued Letrozole - 02/09/17 CT chest abdomen pelvis showed increased sclerosis of her bone lesions consistent with disease response. She has persistent right greater than left pleural effusion. - 02/21/18 Seen at [facility]. Continue current treatment with Palbociclib + Letrozole. Recommend Xgeva. - 05/09/17 Chest x-ray showed reaccumulation of pleural fluid in right lung base. - 05/09/17 Started Xgeva every 3 months - 05/23/17 Seen at [facility]. Recommend repeat staging scans with local oncologist [...] + Letrozole, Xgeva - 09/19/17 Seen at [facility]. Recommended consideration of Pleurx vs continued intermittent [...] stable. - Oncologist - Dr Fco Camacho- [facility] - CT C/A/P 07/13/21: stable. - Metastatic [...] Tabares MD April 05, 2023 12:41 PM [facility] 04-05-2023 History of Present illness Narrative Referred by Dr. Que Townsend Incidental finding on routine examination - asymptomatic except shadow 1. Stage IV breast cancer - 09/10/16 CT A/P: Right pleural effusion, small left pleural effusion, multiple sclerotic lesions, liver lesions - 10/06/[address] Usha Hathaway, [facility]mon[facility]. - 10/21/16 Thoracentesis 900 mL - Metastatic adenocarcinoma consistent with breast primary - Patient went in for annual eye exam at [facility] and left eye cancer was found. - 11/01/16 New patient visit with Dr. Levi - 11/10/16: Liver biopsy demonstrates small patches of cells which are ER strongly +100%, FL negative, HER2 negative. - 11/17/17 Seen at [facility]. Started Letrozole. Palbociclib ordered. - 11/22/16 Started Palbociclib and continued Letrozole - 02/09/17 CT chest abdomen pelvis showed increased sclerosis of her bone lesions consistent with disease response. She has persistent right greater than left pleural effusion. - 02/21/18 Seen at [facility]. Continue current treatment with Palbociclib + Letrozole. Recommend Xgeva. - 05/09/17 Chest x-ray showed reaccumulation of pleural fluid in right lung base. - 05/09/17 Started Xgeva every 3 months - 05/23/17 Seen at [facility]. Recommend repeat staging scans with local oncologist [...] + Letrozole, Xgeva - 09/19/17 Seen at [facility]. Recommended consideration of Pleurx vs continued intermittent [...] stable. - Oncologist - Dr Fco Camacho- [facility] - CT C/A/P 07/13/21: stable. - Metastatic [...] 2023 12:41 PM documented in this encounter [facility] 03-30-2023 Note HNO ID: [id number] Author: Josh Gaston II, OD Service: ? Author Type: [employer]OUT Type: Progress Notes Filed: 03/30/2023 4:27 PM [...] its relevant components. Josh Gaston II, OD [facility] 03-30-2023 Instructions Josh Gaston II OD - [...] Gaston II, OD documented in this encounter [facility] 03-30-2023 History of Present illness Narrative Assessment [...] Gaston II, OD documented in this encounter [facility] 03-25-2023 Note HNO ID: [id number] Author: Que Townsend MD Service: ? Author [...] diagnosis, and treatment options. Que Townsend MD [facility] 03-24-2023 Hospital Discharge instructions Que Townsend MD - 03/24/2023 1:39 PM EDT Follow printed discharge instructions documented in this encounter [facility] Work Phone: 03-24-2023 Note Formatting of this n ote is different from the original. 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 Procedure Summary Anesthesia: [...] 350 mL Specimen: No specimens collected Staff: Combat Systems Operator: Asha Nuñez RN Scrub Person: Ambrosio Mensah RN Implants: Implants Type Name Action Serial No. Lens LENS, INTRAOCULAR, SN60WF 22.5 HARLAN - [id number] - [id number] Implanted [id number] Findings: Combined Form Age Related Cataract Left [...] performed the procedure. 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 Procedure Summary Anesthesia: [...] 350 mL Specimen: No specimens collected Staff: Combat Systems Operator: Asha Nuñez RN Scrub Person: Ambrosio Mensah RN Implants: Implants Type Name Action Serial No. Lens LENS, INTRAOCULAR, SN60WF 22.5 HARLAN - [id number] - [id number] Implanted [id number] Findings: Combined Form Age Related Cataract Left [...] procedure. Que Townsend documented in this encounter [facility] Work Phone: 03-24-2023 History and physical note Images from the original note were not included. Reason for Visit Reason for Visit - Reason Comments Cataract Follow Up Left eye Post-op Cataract OD 02/24/2023 Encounter Details Encounter Details Date Type Department Care Team Description 03/14/2023 10:00 AM EDT Office [place] [address] Que Townsend MD [address] [place] [address] Combined form of age-related cataract, left eye [...] number is lower risk 4 Data from: https://www.neighborhoodatlas.[facility]/. Last address used for calculation [address] [place] [address] 175 Social History Sex and Gender Information [...] PM EDT Office Visit [facility] [address] [place] [address] Que Townsend MD [address] [place] [address] 04/05/2023 10:00 AM EDT Office Visit [facility] [address] [address] Ольга Tabares MD [address] [place], [place] [id number] Plan of Treatment - Scheduled Procedures Scheduled Procedures Name Priority Associated Diagnoses Date/Time SURGERY AT [facility] Combined form of age-related [...] the event of a Fluress shortage, administer [place]-Fluor 1 drop into both eyes as directed [...] - Wearing Rx Wearing Rx Sphere Cylinder Coffeen Right eye Left eye -4.75 +0.75 171 Eye Exam Type: SVL Eye Exam - Manifest Refraction (Auto) Manifest Refraction (Auto) Sphere Cylinder Coffeen Right eye -0.50 +1.25 026 Left eye -5.00 +1.50 165 Care Teams - documented as of this encounter Care Teams Artillery Officer Relationship Specialty Start Date End Date Mar Bucio MD PCP - General Family Medicine 08/24/21 [facility] Work Phone: 03-24-2023 History and physical note Images from the original note were not included. Reason for Visit Reason for Visit - Reason Comments Cataract Follow Up Left eye Post-op Cataract OD 02/24/2023 Encounter Details Encounter Details Date Type Department Care Team Description 03/14/2023 10:00 AM EDT Office Visit [facility] Op[facility] [address] [place] [address] Que Townsend MD [address] [place] [address] Combined form of age-related cataract, left eye [...] number is lower risk 4 Data from: https://www.neighborhoodatlas.[facility]/. Last address used for calculation [address] [place] [address] ROAD 175 Social History Sex and Gender [...] 1:00 PM EDT Office Visit [facility] [place] [id number] Que Townsend MD [address] [place] [address] 04/05/2023 10:00 AM EDT Office Visit [facility] [address] [address] Ольга Tabares MD [address] [place] [address] Plan of Treatment - Scheduled Procedures Scheduled Procedures Name Priority Associated Diagnoses Date/Time SURGERY AT [facility] Combined form of age-related [...] the event of a Fluress shortage, administer [place]-Fluor 1 drop into both eyes as directed [...] - Wearing Rx Wearing Rx Sphere Cylinder Coffeen Right eye Left eye -4.75 +0.75 171 Eye Exam Type: SVL Eye Exam - Manifest Refraction (Auto) Manifest Refraction (Auto) Sphere Cylinder Coffeen Right eye -0.50 +1.25 026 Left eye -5.00 +1.50 165 Care Teams - documented as of this encounter Care Teams Artillery Officer Relationship Specialty Start Date End Date Mar Bucio MD PCP - General Family Medicine 08/24/21 documented in this encounter [facility] Work Phone: 03-14-2023 Note HNO ID: [id number] Author: Que Townsend MD Service: ? Author [...] about the findings, diagnosis, and treatment options. [facility] 03-03-2023 Note HNO ID: [id number] Author: Josh Gaston II, OD Service: ? Author Type: DRAFTER AUTOMOTIVE DESIGN LAYOUT Type: Progress Notes Filed: 03/03/2023 1:15 PM [...] its relevant components. Josh Gaston II, JANUSZ [facility] 03-03-2023 Instructions Josh Gaston II OD - [...] Gaston II, OD documented in this encounter [facility] 03-03-2023 History of Present illness Narrative Assessment [...] Gaston II, OD documented in this encounter [facility] 02-25-2023 Note HNO ID: [id number] Author: Que Townsend MD Service: ? Author [...] diagnosis, and treatment options. Que Townsend MD [facility] 02-25-2023 Instructions Que Townsend MD - 02/25/2023 [...] any questions please contact our office at [phone]. After office hours or on the weekend, please call Dr. Townsend on his cell phone at [phone]. documented in this encounter [facility] 02-25-2023 History of Present illness Narrative ASSESSMENT/PLAN: [...] Que Townsend MD documented in this encounter [facility] 02-24-2023 Miscellaneous Notes Post Operative Note: Post-Procedure Diagnosis: 1. Combined Form Age Related Cataract Right Eye Procedure: 1. Cataract Extraction with Intraocular Lens Implant Right Eye Surgeon: Que Townsend MD Resident/Fellow/Other Church History Professor: None Estimated Blood Loss (mL): none Specimen: [...] by Que Townsend) documented in this encounter [facility] Work Phone: 02-24-2023 Note Formatting of this n ote is different from the original. Post Operative Note: Post-Procedure Diagnosis: 1. Combined Form Age Related Cataract Right Eye Procedure: 1. Cataract Extraction with Intraocular Lens Implant Right Eye Surgeon: Que Townsend MD Resident/Fellow/Other Church History Professor: None Estimated Blood Loss (mL): none Specimen: [...] 24-Feb-2023 11:32 by Que Townsend) [facility] Work Phone: 02-24-2023 History and physical [...] 24-Feb-2023 10:15 by Que Townsend) [facility] Work Phone: 02-24-2023 History and physical [...] by Que Townsend) documented in this encounter [facility] Work Phone: 02-16-2023 Note HNO ID: [id number] Author: Que Townsend MD Service: ? Author [...] lens right eye scheduled on 02/24/23 at [facility]. Patient wishes to have cataract [...] diagnosis, and treatment options. Que Townsend MD [facility] 02-16-2023 History of Present illness Narrative ASSESSMENT/PLAN: [...] lens right eye scheduled on 02/24/23 at [facility]. Patient wishes to have cataract [...] Que Townsend MD documented in this encounter [facility] 02-16-2023 Instructions Que Townsend MD - 02/16/2023 3:23 PM EDT Continue: Systane Complete Artificial Tears - Use 1 Drop into both eyes three times a day. If you have any questions please contact our office at [phone]. After office hours or on the weekend, please call Dr. Townsend on his cell phone at [phone]. documented in this encounter [facility] documented as of this encounter (statuses as of 03/31/2023) [facility]09-06-2023 History of Past illness Narrative* Problem Noted [...] of this encounter (statuses as of 04/05/2023) [facility]09-06-2023 History of Past illness Narrative* Problem Noted [...] of this encounter (statuses as of 04/20/2023) [facility]08-18-2023 NoteHNO ID: [id number] Author: Que Townsend MD Service: ? Author [...] findings, diagnosis, and treatment options. Que Townsend, [facility]08-18-2023 Instructions* Patient Instructions* Que Townsend MD - 01/28/2023 11:35 AM EDT Systane Complete Artificial Tears - Use 1 Drop into both eyes three times a day. Cataract surgery right eye is scheduled on 02/24/23 If you have any questions please contact our office at [phone]. After office hours or on the weekend, please call Dr. Townsend on his cell phone at [phone]. [facility] History of Present illness Narrative* Que Townsend [...] options. Que Townsend MD [facility]2023 NoteHNO ID: [id number] Author: Shreyas Gaston, JANUSZ Service: ? Author Type: DRAFTER AUTOMOTIVE DESIGN LAYOUT Type: Progress Notes Filed: 01/24/2023 3:19 PM [...] the neuro exam findings as obtained by others.[facility]05-15-2023 NoteHNO ID: [id number] Author: Que Townsend MD Service: ? Author [...] findings, diagnosis, and treatment options. Que Townsend [facility]05-15-2023 Instructions* Patient Instructions* Que Townsend MD - 10/25/2022 10:27 AM EDT Please monitor each eye daily with Amsler Grid. AREDS 2 Vitamins are available over the counter at any drug store. If you have any questions please contact our office at [phone]. After office hours or on the weekend, please call Dr. Townsend on his cell phone at [phone]. [facility] History of Present illness Narrative* Que Townsend [...] options. Que Townsend MD [facility]-2023 NoteHNO ID: [id number] Author: Shreyas Gaston OD Service: ? Author Type: DRAFTER AUTOMOTIVE DESIGN LAYOUT Type: Progress Notes Filed: 09/06/2022 11:10 AM [...] Dr. Townsend. Return as directed. Shreyas Gaston, JANSUZ I have confirmed and edited as necessary the relevant ophthalmic history, ROS, and the neuro exam findings as obtained by others.[facility]03-27-2023 Instructions* Patient Instructions* Shreyas Gaston OD - [...] Townsend. Return as directed. [facility] History of Present illness Narrative* Shreyas Gaston [...] as obtained by others. [facility]12[facility]-2022 Miscellaneous Notes* Telephone Encounter - Sonali Hagen RN - 06/02/2022 10:00 AM EST Received a request for Medical records from [facility] for Martha's last colonoscopy. Faxed 2014 colonoscopy report to [phone]. Fax confirmation sheet received. Sonali Hagen RN documented [facility]04-[facility] History of Present illness Narrative* Que Townsend [...] diagnosis, and treatment options. documented in [facility]04-26-2022 Instructions* Patient Instructions* Que Townsend MD - 10/06/2021 10:06 AM EDT If you have any questions please contact our office at [phone]. After office hours or on the weekend, please call Dr. Townsend on his cell phone at [phone]. [facility] History of Present illness Narrative* Bethany West RN - 10/05/2021 9:40 AM EDT Patient offered a medical hospice clinical marketer for sensitive exam. Pt declined * NEVA Chen - 10/05/2021 9:40 AM EDT Martha Stephens is a 75 y.o. 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 Eye exam at [facility] showed left retinal tumor 05/18/16 Stress Test: EF 80% 06/2016 Patient went to [place] for one month. She went to the ED in [place]. When she returned from [place] she established with Operating Room Registered Nurse, Dr. Karson Luis for heartburn with nausea, 20-lb weight loss. 09/07/16 EGD Chronic inflammation 09/10/16 CT A/P: Right pleural effusion, small left pleural effusion, multiple sclerotic lesions, liver lesions 10/06/[address] Usha Hathaway, [facility]monology. 10/21/16 Thoracentesis 900 mL Metastatic adenocarcinoma consistent with breast primary Patient went in for annual eye exam at [facility] and left eye cancer was found. 11/01/16 New patient visit with Dr. Levi 11/10/16: Liver biopsy demonstrates small patches of cells which are ER strongly +100%, FL negative, HER2 negative. 11/17/17 Seen at [facility]. Started Letrozole. Palbociclib ordered. 11/22/16 Started Palbociclib and continued Letrozole 02/09/17 CT chest abdomen pelvis showed increased sclerosis of her bone lesions consistent with disease response. She has persistent right greater than left pleural effusion. 02/21/18 Seen at [facility]. Continue current treatment with Palbociclib + Letrozole. Recommend Xgeva. 02/23/17 Left thoracentesis 03/02/17 Right thoracentesis 05/09/17 Chest x-ray showed reaccumulation of pleural fluid in right lung base. 05/09/17 Started Xgeva every 3 months 05/23/17 Seen at [facility]. Recommend repeat staging scans with local oncologist [...] Palbo + Letrozole, Xgeva 09/19/17 Seen at [facility]. Recommended consideration of Pleurx vs continued intermittent [...] get care locally near her home in [facility] where there is a clinic that collaborates [...] wall. preop chemo . Re-excision SLN bx.06/19. ER/FL pos HER- 2/la nena neg. Past Surgical [...] No abnormalities noted. Patient offered a medical hospice clinical marketer for sensitive exam. N/A Laboratory Data: Results [...] Immature Grans Absolute Abs Lymph Auto Abs Ford Auto Abs Eos Auto Abs Baso Auto MANUAL DIFF Result Value Ref Range DIFF STATUS Manual Differential Bands Relative 0.0 % Segs Relative 67.0 % Lymph Relative 25.0 % Ford Relative 4.0 % Eos Relative 4.0 % Baso Relative 0.0 % Nucleated RBC 0.0 <=0.0 /100 WBC Segs & Bands, Absolute 1.57 (L) 1.64 - 7.28 K/uL Abs Lymph Manual 0.59 (L) 1.16 - 3.51 K/uL Abs Ford Manual 0.09 (L) 0.22 - 0.87 K/uL [...] 75 y.o. female diagnosed in 2017 with ER+/FL-/HER2-, metastatic breast cancer who is here today [...] very stable. We will move scans to [id number] will try to get PET scans through her insurance given CKD .For the next assessment will keep to non contrast CT as this is already ordered but will recommend changing after that. *Bone Mets: -Zometa [id number] initiated on 04/19/18. -We will hold now due to prior effects on renal function. -Continue calcium and vitamin D -We talked about initiating denosumab, as she is seeking oncologic care near [place] I urged her todiscuss this with her [...] Malignancy: . -Follows with Dr. Townsend in [place] for Ophthalmology. *Health Maintenance: -We recommend maintaining [...] to Doug. NEVA Chen [facility] Instructions* Patient Instructions* Bethany West RN - 10/05/2021 9:35 AM EDT Images from the original note were not included. Medical Information Management at [phone] to request your medical records Store your [...] the take-back program closest to you @ https://takebackday.[employer].gov under the COLLECTION SITE DETASSELING CREW SUPERVISOR tab. Never dispose of un-needed medications down the sink or toilet. Instead, crush the medication and mix with damp coffee grounds or cat litter, place in a sealed plastic freezer bag, and dispose of in your regular trash. Your Medical/Oncology Team Doctor: Daniel Camacho MD Nurse Practitioner: Taylor Canada APRN-LOTTERIES AGENT Primary Nurses: JENAE Pino, DEBN, RN DEB [...] 2nd prompt, yes you are enrolled in [employer] medication assistance program At the 3rd prompt, no you are not calling to reorder You will then be told you are getting connected to a live outside sales representative insurance, or you may press 1 and enter extension number [id number] for Eunice Jimenez, the [employer] access counselor who works with the [facility] account - tell her you are a patient from [facility] and that your doctor electronically prescribed your Ibrance and that you are calling to set up delivery. If you must leave a message, remember to leave your name, date of , name of medication (Ibrance), dose of Ibrance, start date of the next cycle of Ibrance, whether or not you want a signature isidoro required for delivery, and a phone number for [employer] to call you back If you leave a message and do not receive a call back within 24 hours, please call [facility] again. documented in this encounterFost[facility]04-25-2022 Evaluation note * Diagnosis Metastatic breast cancer- Primary Stage 3a chronic kidney disease documented in this encounter [facility] Reason for referral (narrative)* Consultation (Routine) - Patient to Arrange Specialty Diagnoses / Procedures Referred By Leo mendoza Referred To Contact Nephrology Diagnoses Stage 3a chronic kidney disease Fco Camacho MBBS [address], [address] [place] [address] Referral ID Status Reason Start Date Expiration Date V isits Requested Visits Authorized [id number] Patient to Arrange 10/05/2021 10/30/2022 1 1 [facility]02-[facility] History of Present illness Narrative* Crystal Talley, PT - 08/05/2021 1:00 PM EST [facility] OUTPATIENT REH[facility]ATION DAILY TREATMENT NOTE Today's [...] core stability, hip strengthening, manual Therapeutic Exercise (49343) Intervention -- Parameters -- Intervention -- Parameters [...] Plan: Discharge Crystal Talley PT State License, [id number] documented in this [id number] History of Present illness Narrative* Jayson Grant, VEGETABLE GROWER - 07/23/2021 2:30 PM EST [facility] OUTPATIENT REHABILITATION DAILY TREATMENT NOTE Today's [...] core stability, hip strengthening, manual Therapeutic Exercise (33755) Intervention Scifit L1 x5 min Parameters SKTC [...] and stability Jayson Grant PTA STATE LICENSE, [id number] documented in this [id number] History of Present illness Narrative* Mili Reynolds PTA - 07/21/2021 2:30 PM EST [facility] OUTPATIENT REHABILITATION DAILY TREATMENT NOTE Today's [...] Evaluating Therapist: Tequila Kay Notes Visit 4 [phone] Vitals back flexibility and core stability, hip strengthening, manual Therapeutic Exercise (26224) Intervention Scifit L1 x5 min Parameters SKTC [...] core strengthening Mili Reynolds PTA STATE LICENSE, [id number] documented in this [id number] History of Present illness Narrative* Shanika Watson PTA - 07/14/2021 2:30 PM EST [facility] OUTPATIENT REHABILITATION DAILY TREATMENT NOTE Today's [...] Evaluating Therapist: Tequila Kay Notes Visit 3 [phone] Vitals back flexibility and core stability, hip strengthening, manual Therapeutic Exercise (85536) Intervention Scifit L1 x5 min Parameters SKTC [...] as tolerated Shanika Watson PTA STATE LICENSE, [id number] documented in this [id number] History of Present illness Narrative* Shanika Watson PTA - 07/09/2021 2:30 PM EST [facility] OUTPATIENT REHABILITATION DAILY TREATMENT NOTE Today's [...] Evaluating Therapist: Tequila Kay Notes Visit 2 7912-0643 Vitals back flexibility and core stability, hip strengthening, manual Therapeutic Exercise (26637) Intervention LTR 5 x10 Parameters SKTC 10 [...] as tolerated Shanika Watson PTA STATE LICENSE, [id number] documented in this [id number] History of Present illness Narrative* Jayson Grant PTA - 07/02/2021 2:30 PM EST [facility] OUTPATIENT REHABILITATION DAILY TREATMENT NOTE Today's [...] Treatments: Physical Therapy Exercise Log - 07/02/21 0126 OTHER Precautions/Contraindications Evaluating Therapist: Tequila Kay Notes Visit 1: 2:30 - 2:55 Vitals back flexibility and core stability, hip strengthening, manual Therapeutic Exercise (41555) Intervention LTR 5 x10 Parameters SKTC 10 [...] and stability Jayson Grant PTA STATE LICENSE, [id number] documented in this [id number] History of Present illness Narrative* Tequila Kay, PT - 06/26/2021 1:45 PM EST Images from the original note were not included. [facility] OUTPAT[facility]IL[facility]ATION Evaluation Today's Date 06/26/2021 [...] she went to other therapy place in [place] couple of days ago and provided with [...] Level: active Social Support: Patient lives alone. Jainism, social, or cultural considerations to be made [...] fall in the last 12 months: No Jainism, social, or cultural considerations to be made [...] core stability, hip strengthening, manual Therapeutic Exercise (14679) Intervention LTR 5 x10 Parameters SKTC 10 x3 Intervention bridging (shallow today) 5 x10 Parameters seated trunk rotation, side bending and forward 5 x10 Treatment Plan: Frequency of Visits: twice per week Duration: 5 weeks Interventions: Therapeutic Exercise (86700), Manual Therapy (23680) and Hot/Cold Pack (33230) Rehab Potential: good Goals: Physical Therapy Ortho [...] the following functional limitations: standing, walking, stairs, eyeglass lens generator, bending, lifting, carrying and reaching, functional mobility, [...] medically necessary. Tequila Kay, PT STATE LICENSE, [id number] documented in this [id number] History of Present illness Narrative* Tess Weeks [...] placed for elevated creatinine. documented in this encounterFost[facility]08-16-2021 History of Present illness Narrative* Kenia West RN - 01/26/2021 11:20 AM EDT Patient offered a medical hospice clinical marketer for sensitive exam. Pt declined. Bisphosphonate/Denosumab Assessment [...] no, MD/SANCHO notified. Report called to Erna (electronic installer) R - Recommendations for plan of care: Describe any changes to plan of care: none Patient has AVS, completed check out, and discharged to infusion unit For questions, please call: Kenia West RN * Catarino Levi MD, PhD - 01/26/2021 11:20 AM EDT Martha Stephens is a 75 y.o. 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 Eye exam at [facility] showed left retinal tumor 05/18/16 Stress Test: EF 80% 06/2016 Patient went to [place] for one month. She went to the ED in [place]. When she returned from [place] she established with Operating Room Registered Nurse, Dr. Karson Luis for heartburn with nausea, 20-lb weight loss. 09/07/16 EGD Chronic inflammation 09/10/16 CT A/P: Right pleural effusion, small left pleural effusion, multiple sclerotic lesions, liver lesions 10/06/[address] Usha Hathaway, [facility]monology. 10/21/16 Thoracentesis 900 mL Metastatic adenocarcinoma consistent with breast primary Patient went in for annual eye exam at [facility] and left eye cancer was found. 11/01/16 New patient visit with Dr. Levi 11/10/16: Liver biopsy demonstrates small patches of cells which are ER strongly +100%, FL negative, HER2 negative. 11/17/17 Seen at [facility]. Started Letrozole. Palbociclib ordered. 11/22/16 Started Palbociclib and continued Letrozole 02/09/17 CT chest abdomen pelvis showed increased sclerosis of her bone lesions consistent with disease response. She has persistent right greater than left pleural effusion. 02/21/18 Seen at [facility]. Continue current treatment with Palbociclib + Letrozole. Recommend Xgeva. 02/23/17 Left thoracentesis 03/02/17 Right thoracentesis 05/09/17 Chest x-ray showed reaccumulation of pleural fluid in right lung base. 05/09/17 Started Xgeva every 3 months 05/23/17 Seen at [facility]. Recommend repeat staging scans with local oncologist [...] Palbo + Letrozole, Xgeva 09/19/17 Seen at [facility]. Recommended consideration of Pleurx vs continued intermittent [...] weeks. She was evaluated by dermatology at [facility] for 3 suspicious lesions on right central bahai, right lateral cheek, and left superior central [...] wall. preop chemo . Re-excision SLN bx.06/19. ER/FL pos HER- 2/la nena neg. Past Surgical [...] diaphoretic. Biopsy confirmed BCC of right central bahai, right lateral cheek, and left superior central forehead. Psychiatric: Appropriate mood and affect. Back: No point vertebral tenderness. Lymph: No cervical or supraclavicular adenopathy. Chest Wall: No abnormalities noted. Patient offered a medical hospice clinical marketer for sensitive exam. N/A Laboratory Data: Results [...] Immature Grans Absolute Abs Lymph Auto Abs Ford Auto Abs Eos Auto Abs Baso Auto MANUAL DIFF Result Value Ref Range DIFF STATUS Manual Differential Bands Relative 1.0 % Segs Relative 65.0 % Lymph Relative 22.0 % Ford Relative 7.0 % Eos Relative 4.0 % Baso Relative 1.0 % Nucleated RBC 0.0 <=0.0 /100 WBC Segs & Bands, Absolute 1.42 (L) 1.64 - 7.28 K/uL Abs Lymph Manual 0.47 (L) 1.16 - 3.51 K/uL Abs Ford Manual 0.15 (L) 0.22 - 0.87 K/uL [...] 75 y.o. female diagnosed in 2017 with ER+/FL-/HER2-, metastatic breast cancer who is here today [...] clinic in 3 months. *Bone Mets: -Zometa [id number] initiated on 04/19/18. -Zometa previously held d/t renal insuffiencey. Next dose due today. Renal function has improved. No dental concerns. -Continue calcium and vitamin D *Chronic Kidney Disease: -Suspect worsening renal insufficiency due to Meloxicam usage. -Strongly advised patient to avoid taking Meloxicam and Ibuprofen. -Will continue to monitor. *BCC: -Right central bahai, right lateral cheek, and left superior central forehead. -Evaluated by dermatology at [facility]. Shave biopsy on 12/15/20 confirmed BCC of all 3 lesions -Scheduled for MOHS procedure. *Grief Over Loss of /Insomnia: -She declines medications or referrals at this time -Undergoing counseling with hospice group -She has family close for support -Insomnia well controlled with Mirtazapine. Rx refilled. 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 Follows with Dr. Tabares in [facility]. *Health Maintenance: -We recommend maintaining a [...] with the discharge instructions. [facility] Instructions* Patient Instructions* Kenia West RN [...] you @ https://takebackday.sima.gov under the COLLECTION SITE DETASSELING CREW SUPERVISOR tab. Never dispose of un-needed medications down the sink or toilet. Instead, crush the medication and mix with damp coffee grounds or cat litter, place in a sealed plastic freezer bag, and dispose of in your regular trash. Your Medical/Oncology Team Doctor: Catarino Levi MD Nurse Practitioner: Ghazal Jin, SHEET METAL HELPER-LOTTERIES AGENT Primary Nurses: Elmo BOYDN, RN, Bethany BOYDN, [...] (Tukysa ) [ ] Other: [ ] [facility] # [phone] [ ] [facility] # [phone] [ ] [facility] # [phone] [ ] [facility] # [phone] [ ] Mel[facility] Shahrz[facility] # [phone] [ ] [facility] # [phone] [ ] [facility] # [phone] [ ] [facility] # [phone] [ ] [facility] # [phone] [ ] [facility] # [phone] [ ] [facility] # [phone] [ ] Other: # documented in this encounterFost[facility] History of Past illness Narrative* Problem [...] of this encounter (statuses as of 10/06/2021) [facility] of Past illness Narrative* Problem Noted [...] of this encounter (statuses as of 06/02/2022) [facility] of Past illness Narrative* Problem Noted [...] of this encounter (statuses as of 09/06/2022) [facility] of [facility] illness Narrative* Problem Noted [...] of this encounter (statuses as of 10/25/2022) [facility] of [facility] illness Narrative* Problem Noted [...] of this encounter (statuses as of 01/28/2023) [facility] of [facility] illness Narrative* Problem Noted [...] of this encounter (statuses as of 02/17/2023) [facility] of Past illness Narrative* Problem Noted [...] of this encounter (statuses as of 02/25/2023) [facility] of Past illness Narrative* Problem Noted [...] of this encounter (statuses as of 03/04/2023) [facility] Degeneration of lumbar intervertebral disc Degeneration of lumbar or lumbosacral intervertebral disc Scoliosis due to degenerative disease of spine in adult [facility] Degeneration of lumbar intervertebral disc Degeneration of lumbar or lumbosacral intervertebral disc [facility] Diagnosis Degeneration of lumbar intervertebral disc Degeneration of lumbar or lumbosacral intervertebral disc [facility] Diagnosis Degeneration of lumbar intervertebral disc Degeneration of lumbar or lumbosacral intervertebral disc [facility] Degeneration of lumbar intervertebral disc Degeneration of lumbar or lumbosacral intervertebral disc [facility] Diagnosis Degeneration of lumbar intervertebral disc Degeneration of lumbar or lumbosacral intervertebral disc [facility] Diagnosis Degeneration of lumbar intervertebral disc- Primary Degeneration of lumbar or lumbosacral intervertebral disc [facility] Bone metastasis- Primary Secondary malignant neoplasm of bone and bone marrow Recurrent right pleural effusion Unspecified pleural effusion Metastatic breast cancer [facility] Diagnosis Metastatic breast cancer [facility] Diagnosis Metastatic breast cancer Metastatic breast cancer [facility] Diagnosis Metastatic breast cancer- Primary Bone metastasis Secondary malignant neoplasm of bone and bone marrow Recurrent right pleural effusion Unspecified pleural effusion Chemotherapy management, encounter for [facility] Diagnosis 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 Malignant neoplasm of choroid Early dry stage nonexudative age-related macular degeneration of both eyes Combined forms of age-related cataract of both eyes Other and combined forms of senile cataract 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) Other malignant neoplasm without specification of site [facility] Diagnosis Myopia, bilateral- Primary Myopia Regular astigmatism of both eyes Regular astigmatism Presbyopia [facility] Diagnosis 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) Malignant neoplasm of choroid Combined forms of age-related cataract of both eyes Other and combined forms of senile cataract [facility] Diagnosis Combined form of age-related cataract, [...] bronchus and lung [facility] Diagnosis Combined form of age-related cataract, [...] cataract, right eye [facility] Diagnosis Status post cataract extraction and insertion of intraocular lens of right eye- Primary Combined form of age-related cataract, left eye Combined form of age-related cataract, left eye [facility] Diagnosis Status post cataract extraction and insertion of intraocular lens of right eye- Primary Combined form of age-related cataract, left eye [facility] Diagnosis Combined forms of age-related cataract of left eye- Primary Combined forms of age-related cataract of left eye Depression Depressive disorder, not elsewhere classified Anxiety Anxiety state, unspecified Bipolar disorder ([facility]/HCC) Bipolar disorder, unspecified documented in this encounter [facility] Work Phone: Evaluation note* Diagnosis Status post cataract extraction and insertion of intraocular lens of left eye- Primary Status post cataract extraction and insertion of intraocular lens of right eye [facility] Diagnosis Status post cataract extraction and insertion of intraocular lens of left eye- Primary 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) Other malignant neoplasm without specification of site [facility]* Diagnosis Combined forms of age-related cataract, right eye documented in this encounter [facility] Work Phone: Assessments Diagnosis Hypertension, unspecified [...] FoundDocuments on File Type Date Recorded Patient Rig Manager Expl anation Advance Directives and Living Will Documents on File Type Date Recorded Patient Rig Manager Expl anation HealthCare Power of Log Yard Derrick Operator 05/28/2019 11:59 AM Advance Directives/Living Will 05/28/2019 11:59 AM HealthCare Power of Log Yard Derrick Operator 07/17/2003 12:00 AM Advance Directives/Living Will 07/17/2003 12:00 AM Latest Code Status on File Code Status Date Activated Date Inactivated Comments Full Code 05/28/2018 11:33 PM Documents on File Type Date Recorded Patient Rig Manager Expl anation HealthCare Power of Log Yard Derrick Operator 05/28/2019 11:59 AM Advance Directives/Living Will 05/28/2019 11:59 AM HealthCare Power of Log Yard Derrick Operator 07/17/2003 12:00 AM Advance Directives/Living Will 07/17/2003 12:00 AM Latest Code Status on File Code Status Date Activated Date Inactivated Comments Full Code 05/28/2018 11:33 PM Documents on File Type Date Recorded Patient Rig Manager Expl anation HealthCare Power of Log Yard Derrick Operator 05/28/2019 11:59 AM Advance Directives/Living Will 05/28/2019 11:59 AM HealthCare Power of Log Yard Derrick Operator 07/17/2003 Advance Directives/Living Will 07/17/2003 Latest Code [...] PELVIS,W/O CONTRAST Catarino Levi MD, PhD [address] [facility] [address] [place] [address] Referral ID Status Reason Start Date Expiration Date V isits Requested Visits Authorized [id number] New Request 2020 11/30/2021 1 1 Specialty Diagnoses / Procedures Referred By Contac t Referred To Contact Diagnoses Metastatic breast cancer Procedures CT CHEST WITHOUT CONTRAST CHG DIAGNOSTIC COMPUTED TOMOGRAPHY THORAX W/O Catarino Houston MD, PhD [address] [facility] [address] [place] [address] Referral ID Status Reason Start Date Expiration Date V isits Requested Visits Authorized [id number] New Request 2020 11/30/2021 1 1 Referral ID Status Reason Start Date Expiration Date V isits Requested Visits Authorized [id number] New Request 01/26/2021 02/20/2022 1 1 Referral ID Status Reason Start Date Expiration Date V isits Requested Visits Authorized [id number] New Request 01/26/2021 02/20/2022 1 1 Medications [...] DATE CREATED AUTHOR AUTHOR'S ORGANIZ ATION 12/07/2017 [facility] DATE CREATED AUTHOR AUTHOR'S ORGANIZ ATION 05/30/2018 [facility] DATE CREATED AUTHOR AUTHOR'S ORGANIZ ATION 06/01/2018 [facility] DATE CREATED AUTHOR AUTHOR'S ORGANIZ ATION 08/09/2021 [facility] DATE CREATED AUTHOR AUTHOR'S ORGANIZ ATION 08/29/2021 [facility] DATE CREATED AUTHOR AUTHOR'S ORGANIZ ATION 11/03/2021 [facility] DATE CREATED AUTHOR AUTHOR'S ORGANIZ ATION 11/24/2021 [facility] DATE CREATED AUTHOR AUTHOR'S ORGANIZ ATION 03/31/2023 [facility] DATE CREATED AUTHOR AUTHOR'S ORGANIZ ATION 06/23/2023 [facility] Reason for Visit (unrecogniz ed section and content) Specialty Diagnoses / Procedures Referred By Contac t Referred To Contact Rehabilitation Diagnoses Degeneration of lumbar intervertebral disc Scoliosis due to degenerative disease of spine in adult patient Saleem BrownDO [address] [facility] [address] [place] [address] [facility] [address] [address] Referral ID Status Reason Start Date Expiration Date V isits Requested Visits Authorized [id number] Authorized 06/25/2021 10/05/2021 11 11 Reason Comments Infusion Visit zometa Specialty Diagnoses / Procedures Referred By Contac t Referred To Contact Diagnoses Metastatic breast cancer Procedures CT ABDOMEN/PELVIS WITHOUT CONTRAST CHG CT SCAN,ABDOMENT AND PELVIS,W/O CONTRAST Catarino Levi MD, PhD [address] [address] Referral ID Status Reason Start Date Expiration Date V isits Requested Visits Authorized [id number] New Request 2020 11/30/2021 1 1 Specialty Diagnoses / Procedures Referred By Contac t Referred To Contact Diagnoses Metastatic breast cancer Procedures CT CHEST WITHOUT CONTRAST CHG DIAGNOSTIC COMPUTED TOMOGRAPHY THORAX W/O CNTRST Catarino Levi MD, PhD [address] [facility] [address] [place] [address] Referral ID Status Reason Start Date Expiration Date V isits Requested Visits Authorized [id number] New Request 2020 11/30/2021 1 1 Reason [...] age-related cataract of left eye [H25.812] Procedures FL XCAPSL CTRC RMVL INSJ IO LENS PROSTH W/O ECP CATARACT EXTRACTION W/IOL IMPLANT L EYE Que Townsend MD [address] [facility] [place] [address] [facility] Or [address] [place] [phone] Referral ID Status Reason Start Date Expiration Date Visits Re quested Visits Authorized [id number] 1 1 Reason Comments Post-op Cataract OU OD 02/24/23OS Reason Comments Malignant Neoplasm of Left Choroid Reason Comments Post-op Cataract OD 02/24/23 OS 03/24 Reason Comments Other Combined forms of ag e-related cataract, R eye Care Teams (unrecognized sec tion and content) Artillery Officer Relationship Specialty Start Date End Date No, Physician [facility] PCP - General 07/02/21 Artillery Officer Relationship Specialty Start Date End Date No, Physician [facility] PCP - General 07/02/21 Artillery Officer Relationship Specialty Start Date End Date No, Physician [facility] PCP - General 07/02/21 Artillery Officer Relationship Specialty Start Date End Date No, Physician [facility] PCP - General 07/02/21 Artillery Officer Relationship Specialty Start Date End Date No, Physician [facility] PCP - General 07/02/21 Artillery Officer Relationship Specialty Start Date End Date No, Physician [facility] PCP - General 07/02/21 Artillery Officer Relationship Specialty Start Date End Date Dru Barahona, DO [address] [place] [address] PCP - General 07/04/07 Jyoti Kramer MD [address] [place], [place] [phone] Radiation Oncology 11/01/16 Catarino Levi MD, PhD [address] [facility] [address] [place] [phone] Oncologist Medical Oncology 11/09/16 Ghazal Jin, SHEET METAL HELPER-LOTTERIES AGENT [address] [facility] [place], [place] [phone] Nurse Practitioner Medical Oncology 11/09/16 Jennifer Gerber, RN Registered Nurse Medical Oncology 02/15/17 Bethany West, RN Registered Nurse Medical Oncology 04/13/18 Kody Gil, [facility] [address] [facility] [address] [place] [address] Pharmacist Pharmacist 07/13/18 Dimitris Cuevas, [facility] [address] [facility] [address] [place] [address] Pharmacist Pharmacist 07/13/18 Korey Bravo MD [address] [place] [phone] Surgeon Surgical Oncology 09/24/09 Artillery Officer Relationship Specialty Start Date End Date Dru Barahona, DO [address] [place] [address] PCP - General 07/04/07 Jyoti Kramer MD [address] [place], [place] [phone] Radiation Oncology 11/01/16 Catarino Levi MD, PhD [address] [facility] [place] [address] Oncologist Medical Oncology 11/09/16 Ghazal Jin, SHEET METAL HELPER-LOTTERIES AGENT [address] [place] [address] Nurse Practitioner Medical Oncology 11/09/16 Jennifer Gerber, JENAE Registered Nurse Medical Oncology 02/15/17 Bethany [place], RN Registered Nurse Medical Oncology 04/13/18 Kody Gil, [facility] [address] [place] [address] Pharmacist Pharmacist 07/13/18 Dimitris Cuevas, [facility] [address] [facility] [address] [place] [address] Pharmacist Pharmacist 07/13/18 Korey Bravo MD [address] [facility] [address] [place] [phone] Surgeon Surgical Oncology 09/24/09 Artillery Officer Relationship Specialty Start Date End Date Dru Barahona, DO [address] [place] [address] PCP - General 07/04/07 Jyoti Kramer MD [address] [place], [place] [phone] Radiation Oncology 11/01/16 Catarino Levi MD, PhD [address] [facility] [address] [place] [phone] Oncologist Medical Oncology 11/09/16 Ghazal Jin, SHEET METAL HELPER-LOTTERIES AGENT [address] [facility] [place] [phone] Nurse Practitioner Medical Oncology 11/09/16 Jennifer Gerber, JENAE Registered Nurse Medical Oncology 02/15/17 Bethany West, RN Registered Nurse Medical Oncology 04/13/18 Kody Gil, [facility] [address] [place] [address] Pharmacist Pharmacist 07/13/18 Dimitris Cuveas, [facility] [address] [place] [address] Pharmacist Pharmacist 07/13/18 Korey Bravo MD [address] [facility] [address] [facility] [address] [place] [phone] Surgeon Surgical Oncology 09/24/09 Artillery Officer Relationship Specialty Start Date End Date Dru Barahona, DO [address] [place] [address] PCP - General 07/04/07 Jyoti Kramer MD [address] [place], [place] [phone] Radiation Oncology 11/01/16 Catarino Levi MD, PhD [address] [facility] [address] [place] [phone] Oncologist Medical Oncology 11/09/16 Ghazal Jin, SHEET METAL HELPER-LOTTERIES AGENT [address] [place] [address] Nurse Practitioner Medical Oncology 11/09/16 Jennifer Gerber, RN Registered Nurse Medical Oncology 02/15/17 Bethany [place], RN Registered Nurse Medical Oncology 04/13/18 Kody Gil, [facility] [address] [place] [address] Pharmacist Pharmacist 07/13/18 Dimitris Cuevas, [facility] [address] [place] [address] Pharmacist Pharmacist 07/13/18 Korey Bravo MD [address] [facility] [address] [place] [phone] Surgeon Surgical Oncology 09/24/09 Artillery Officer Relationship Specialty Start Date End Date Dru Barahona Tonio, DO [address] [place] [address] PCP - General 07/04/07 Jyoti Kramer MD [address] [place] [address] Radiation Oncology 11/01/16 Ghazal Jin, SHEET METAL HELPER-LOTTERIES AGENT [address] [facility] [place] [address] Nurse Practitioner Medical Oncology 11/09/16 Kody Gil, [facility] [address] [place] [address] Pharmacist Pharmacist 07/13/18 Dimitris Cuevas, [facility] [address] [place] [address] Pharmacist Pharmacist 07/13/18 Korey Bravo MD [address], [address] [place] [phone] Surgeon Surgical Oncology 09/24/09 Fco Camacho MBBS [address], [address] [place] [phone] Oncologist Medical Oncology 10/05/21 Taylor Canada SHEET METAL HELPER-LOTTERIES AGENT [address], [address] [place] [address] Certified Nurse Practitioner 10/05/21 Artillery Officer Relationship Specialty Start Date End Date Mar Bucio [address] [place] [phone] PCP - General Family Practice 08/24/21 Artillery Officer Relationship Specialty Start Date End Date Mar Bucio [address] [place] [address] PCP - General Family Medicine 08/24/21 Artillery Officer Relationship Specialty Start Date End Date Mar Bucio MD PCP - General Family Medicine 08/24/21 Artillery Officer Relationship Specialty Start Date End Date Mar Bucio MD PCP - General Family Medicine 08/24/21 Artillery Officer Relationship Specialty Start Date End Date Mar Bucio MD PCP - General Family Medicine 08/24/21 Artillery Officer Relationship Specialty Start Date End Date Mar Bucio MD PCP - General Family Medicine 08/24/21 Artillery Officer Relationship Specialty Start Date End Date Mar Bucio MD PCP - General Family Medicine 08/24/21 Artillery Officer Relationship Specialty Start Date End Date Mar Bucio MD [address] [facility] [place] [address] PCP - General 02/24/23 Artillery Officer Relationship Specialty Start Date End Date Mar Bucio MD PCP - General Family Medicine 08/24/21 Artillery Officer Relationship Specialty Start Date End Date Mar Bucio MD PCP - General Family Medicine 08/24/21 Artillery Officer Relationship Specialty Start Date End Date Mar Bucio MD PCP - General Family Medicine 08/24/21 Artillery Officer Relationship Specialty Start Date End Date Mar Bucio MD PCP - General 02/24/23 Source Comments (unrecognize d section and content) In the event this informatio n is protected by the Federal Confidentiality of Alcohol and Drug Abuse Patient Records regulations: The Federal rules restrict any use of the information to criminally investigate or prosecute any alcohol or drug abuse patient.[facility] the event this information is protected by the Federal Confidentiality of Alcohol and Drug Abuse Patient Records regulations: The Federal rules restrict any use of the information to criminally investigate or prosecute any alcohol or drug abuse patient.[facility] the event this information is protected by the Federal Confidentiality of Alcohol and Drug Abuse Patient Records regulations: The Federal rules restrict any use of the information to criminally investigate or prosecute any alcohol or drug abuse patient.[facility] the event this information is protected by the Federal Confidentiality of Alcohol and Drug Abuse Patient Records regulations: The Federal rules restrict any use of the information to criminally investigate or prosecute any alcohol or drug abuse patient.[facility] the event this information is protected by the Federal Confidentiality of Alcohol and Drug Abuse Patient Records regulations: The Federal rules restrict any use of the information to criminally investigate or prosecute any alcohol or drug abuse patient.[facility] the event this information is protected by the Federal Confidentiality of Alcohol and Drug Abuse Patient Records regulations: The Federal rules restrict any use of the information to criminally investigate or prosecute any alcohol or drug abuse patient.[facility] Center[facility] the event this information is protected by the Federal Confidentiality of Alcohol and Drug Abuse Patient Records regulations: The Federal rules restrict any use of the information to criminally investigate or prosecute any alcohol or drug abuse patient.[facility] Center[facility] the event this information is protected by the Federal Confidentiality of Alcohol and Drug Abuse Patient Records regulations: The Federal rules restrict any use of the information to criminally investigate or prosecute any alcohol or drug abuse patient.[facility] Center[facility] the event this information is protected by the Federal Confidentiality of Alcohol and Drug Abuse Patient Records regulations: The Federal rules restrict any use of the information to criminally investigate or prosecute any alcohol or drug abuse patient.[facility] Center[facility] the event this information is protected by the Federal Confidentiality of Alcohol and Drug Abuse Patient Records regulations: The Federal rules restrict any use of the information to criminally investigate or prosecute any alcohol or drug abuse patient.[facility] Center[facility] the event this information is protected by the Federal Confidentiality of Alcohol and Drug Abuse Patient Records regulations: The Federal rules restrict any use of the information to criminally investigate or prosecute any alcohol or drug abuse patient.[facility] Scheduled Active and Recently Administ ered Medications [...] BE BASED ON THE PRIMARY CLINICAL RECORDS. [facility]. provides no warranty or guarantee of the accuracy or completeness of information in this document.
--- OUTSIDE RECORDS SUMMARY | 2023-07-19 16:33 | XMS RPT_ITS | CCD ---
Author Name Unknown Address [address] [place] [address] Organization [facility] Care Team Providers Care Cloth Wire Weaver Name Role Phone Dru Barahona Unavailable CHAPARRO [...] Unavailable Dru Barahona DO Primary Care Provider [phone] Williams TORRES, Jyoti Unavailable Amita TORRES, PhD, Catarino Renteria Unavailable Davin VERDIN-CONTRACT ASSOCIATE, Ghazal Elizalde Unavailable [phone] Buzz RN, Jennifer Unavailable Unavailable Brett EMANUEL, Bethany Unavailable Unavailable Jeffery [facility], Kody Unavailable [facility], Dimitris Unavailable Lawrence TORRES, Korey P Unavailable [phone] Jeffery [facility], Kody W Unavailable [phone] [facility], Dimitris Unavailable [phone] Lawrence TORRES, Korey P Unavailable Doug HOOKS, Fco Unavailable Dread VERDIN-CONTRACT ASSOCIATE, Taylor Huff Unavailable Mar Bucio Primary Care Provider Bryn Riojas Unavailable DRU BARAHONA Primary Care [...] Referring Unavailable URBANOSEN, CATARINO Renteria Attending Unavailable RDU BARAHONA Referring Unavailable DRU BARAHONA Primary Care Unavailable SURAJEUSEN, CATARINO Renteria Attending Unavailable DRU BARAHONA Primary Care Unavailable URBANOSEN, CATARINO Renteria Referring Unavailable URBANOSEN, CATARINO Renteria Attending Unavailable DRU BARAHONA Primary Care Unavailable URBANOSENCATARINO Referring Unavailable URBANOSENCATARINO Attending Unavailable Mar Bucio Primary Care Provider [phone] Kristin Bucio MDh [facility] [...] Propensity to adverse reactions to drug [address] [facility] Work Phone: (2 sources) Sulfonamides (Antibiotic); Translations: [sulfa drugs] Propensity to adverse reactions to drug (disorder) [facility] Repository (20 sources) Sulfonamides (Antibiotic) Propensity to adverse reactions to drug [address] [facility] (5 sources) Sulfonamides (Antibiotic) Propensity to adverse reactions to drug 9 [facility] Medications Current Medications Medication Drug Class(es) [...] 81 mm[Hg] Que Townsend MD Work Phone: [facility] 03-24-2023 13:40-0400 Heart rate 78 /min Que Townsend MD Work Phone: [facility] 03-24-2023 13:40-0400 Respiratory rate 16 /min Que Townsend MD Work Phone: [facility] 03-24-2023 13:40-0400 SaO2% (BldA) [Mass fraction] 94 % Que Townsend MD Work Phone: [facility] 03-24-2023 13:40-0400 Systolic blood pressure 132 mm[Hg] Que Townsend MD Work Phone: [facility] 03-24-2023 13:25-0400 Body temperature 97.9 [degF] Que Townsend MD Work Phone: [facility] 03-24-2023 12:09-0400 Body height 158 cm Que Townsend MD Work Phone: [facility] 03-24-2023 12:09-0400 Body mass index (BMI) [Ratio] 22.43 kg/m2 Que Townsend MD Work Phone: [facility] 03-24-2023 12:09-0400 Body weight 56 kg Que Townsend MD Work Phone: [facility] 02-16-2023 15:24-0400 Diastolic blood pressure 83 mm[Hg] Que Townsend MD Work Phone: [facility] 02-16-2023 15:24-0400 Heart rate 83 /min Que Townsend MD Work Phone: [facility] 02-16-2023 15:24-0400 Systolic blood pressure 145 mm[Hg] Que Townsend MD Work Phone: [facility] 01-28-2023 09:45-0400 Diastolic blood pressure 83 mm[Hg] Que Townsend MD Work Phone: [facility] 01-28-2023 09:45-0400 Heart rate 83 /min Que Townsend MD Work Phone: [facility] 01-28-2023 09:45-0400 Systolic blood pressure 145 mm[Hg] Que Townsend MD Work Phone: [facility] 10-05-2021 09:26-0400 Body mass index (BMI) [Ratio] 21.84 kg/m2 Fco HOOKS Work Phone: [facility] 10-05-2021 09:26-0400 Body temperature 98.4 [degF] Fco HOOKS Work Phone: [facility] 10-05-2021 09:26-0400 Body weight 54.16 kg Fco HOOKS Work Phone: [facility] 10-05-2021 09:26-0400 Diastolic blood pressure 84 mm[Hg] Fco HOOKS Work Phone: 1(552)[phone] [place] [address] 10-05-2021 09:26-0400 Heart rate 79 /min Fco HOOKS Work Phone: 7(722)428-877976 [place] [address] 10-05-2021 09:26-0400 Respiratory rate 16 /min Fco HOOKS Work Phone: 1(853)537-634476 [place] [address] 10-05-2021 09:26-0400 Systolic blood pressure 145 mm[Hg] Fco HOOKS Work Phone: 9(645)[phone] [place] [address] 01-26-2021 09:51-0400 Body mass index (BMI) [Ratio] 22.79 kg/m2 Catarino Levi MD, PhD Work Phone: 9(403)[phone] [place] [address] 01-26-2021 09:51-0400 Body temperature 98.01 [degF] Catarino Levi MD, PhD Work Phone: 3(440)[phone] [place] [address] 01-26-2021 09:51-0400 Body weight 56.52 kg Catarino Levi MD, PhD Work Phone: 1(917)[phone] [place] [address] 01-26-2021 09:51-0400 Diastolic blood pressure 87 mm[Hg] Catarino Levi MD, PhD Work Phone: 9(367)063-168576 [place] [address] 01-26-2021 09:51-0400 Heart rate 88 /min Catarino Levi MD, PhD Work Phone: 2(145)767-186576 [place] [address] 01-26-2021 09:51-0400 Respiratory rate 16 /min Catarino Levi MD, PhD Work Phone: 9(521)[phone] [place] [address] 01-26-2021 09:51-0400 SaO2% (BldA) [Mass fraction] 100 % Catarino Levi MD, PhD Work Phone: 9(022)[phone] [place] [address] 01-26-2021 09:51-0400 Systolic blood pressure 152 mm[Hg] Catarino Levi MD, PhD Work Phone: [facility] 05-17-2017 09:40-0500 BMI (Body Mass Index) 21.77 kg/m2 Chaparro Liu [facility] Work Phone: 05-17-2017 09:40-0500 BP Diastolic 79 mm[Hg] Chaparro Liu [facility] Work Phone: 05-17-2017 09:40-0500 BP Systolic 116 mm[Hg] Chaparro Liu [facility] Work Phone: 05-17-2017 09:40-0500 Height 157.5 cm [address] [facility] Work Phone: 05-17-2017 09:40-0500 Pulse (Heart Rate) 97 /min Chaparro Liu [facility] Work Phone: 05-17-2017 09:40-0500 Pulse Oximetry 94 % Chaparro Liu [facility] Work Phone: 05-17-2017 09:40-0500 Weight 53.98 kg Chaparro [address] [facility] Work Phone: Encounters Encounter Date Encounter Type Care Provider Facility Start: 06-22-2023 End: 06-22-2023 ambulatory QUE TOWNSEND Facility:[facility] [place] Start: 04-20-2023 End: 04-20-2023 ambulatory QUE TOWNSEND Facility:[facility] [place] Start: 04-20-2023 End: 04-20-2023 Patient encounter procedure [...] 10-05-2021 Bilirubin direct Meliss a L Jin TELEVISION INSTALLER HELPER-CONTRACT ASSOCIATE Work Phone: Start: 10-05-2021 CBC AND ELECTRONIC DIFF Ghazal L Jin TELEVISION INSTALLER HELPER-CONTRACT ASSOCIATE Work Phone: Start: 10-05-2021 Complete blood count with white cell differential, automated Ghazal L Jin TELEVISION INSTALLER HELPER-CONTRACT ASSOCIATE Work Phone: Start: 10-05-2021 MANUAL DIFF Ghazal L Jin TELEVISION INSTALLER HELPER-CONTRACT ASSOCIATE Work Phone: Start: 01-26-2021 Bilirubin direct Meliss a L Jin TELEVISION INSTALLER HELPER-CONTRACT ASSOCIATE Work Phone: Start: 01-26-2021 CBC AND ELECTRONIC DIFF Ghazal L Jin TELEVISION INSTALLER HELPER-CONTRACT ASSOCIATE Work Phone: Start: 01-26-2021 Complete blood count with white cell differential, automated Ghazal L Jin TELEVISION INSTALLER HELPER-CONTRACT ASSOCIATE Work Phone: Start: 01-26-2021 MANUAL DIFF Ghazal L Jin TELEVISION INSTALLER HELPER-CONTRACT ASSOCIATE Work Phone: Start: 01-26-2021 Ct thorax w/o contra st material Catarino Levi MD, PhD Work Phone: Start: 02-26-2016 Mammography Que philippe MD Work Phone: Start: 05-29-2015 [facility] Que philippe MD Work Phone: Plan of Treatment Date Care Activity Detail Author Start: 03-14-[address] [facility] Start: 03-14-2028 Urine microalbumin profile DTaP,Tdap,Td Vaccine (2 - Td or Tdap) [facility] Start: 10-07-2026 Lipid 1996 panel - Serum or Plasma Lipid Screening [facility] Start: 10-07-2026 LIPID SCREEN LIPID SCREEN [facility] Start: 10-07-2024 DIABETES SCREEN DIABETES SCREEN [facility] Start: 10-07-2024 Diabetes Screening Diabetes Screening [facility] Start: 03-24-2023 End: 03-24-2023 Phacoemulsification Cataract with Insertion Intraocular Lens Phacoemulsification Cataract with Insertion Intraocular Lens Combined forms of age-related cataract of left eye 03/24/2023 12:52 PM EDT [facility] Work Phone: Start: 02-11-2023 Covid-19 Vaccine () Covid-19 Vaccine () [facility] Start: 02-11-2023 Influenza vaccination [facility] Start: 06-13-2022 ADVANCE DIRECTIVE DISCUSSION ADVANCE DIRECTIVE DISCUSSION [facility] Start: 06-13-2022 DEPRESSION ASSESSMENT DEPRESSION ASSESSMENT [facility] Start: 06-03-2022 COVID-19 VACCINE (5 - Pfizer risk series) COVID-19 VACCINE (5 - Pfizer risk series) [facility] Start: 02-11-2022 Influenza vaccination INFLUENZA (#1) [facility] Start: 12-02-2021 End: 12-02-2021 Patient encounter procedure Department o f Radiology Start: 10-18-2021 COVID-19 Vaccine (4 - Booster for Pfizer series) COVID-19 Vaccine (4 - Booster for Pfizer series) [facility] Start: 09-18-2021 COVID-19 Vaccine (4 - Booster for Pfizer series) COVID-19 Vaccine (4 - Booster for Pfizer series) [facility] Start: 07-31-2021 End: 07-31-2021 ambulatory 07/31/2021 Treatment Rehabilitation Saleem Brown, [address] [facility] [address] [place] [address] [id number] Tequila Kay, PT [facility] Start: 07-28-2021 End: 07-28-2021 ambulatory 07/28/2021 Treatment Rehabilitation Saleem Brown, DO [address] [place] [address] Mili Reynolds, [facility] Start: 07-23-2021 End: 07-23-2021 ambulatory 07/23/2021 Treatment Rehabilitation Saleem Brown, DO [address] [place] [address] [address] [place] [address] Jayson Grant [facility] Start: 07-21-2021 End: 07-21-2021 ambulatory 07/21/2021 Treatment Rehabilitation Saleem Brown, DO [address] [place] [address] [address] [place] [address] Mili Reynolds [facility] Start: 07-21-2021 COVID-19 VACCINE (4 - Booster for Pfizer series) COVID-19 VACCINE (4 - Booster for Pfizer series) [facility] Start: 07-17-2021 End: 07-17-2021 ambulatory [facility] Start: 07-14-2021 End: 07-14-2021 ambulatory 07/14/2021 Treatment Rehabilitation Saleem Brown, DO [address] [place] [address] [address] [place] [address] Shanika Watson [facility] Start: 07-09-2021 End: 07-09-2021 ambulatory 07/09/2021 Treatment Rehabilitation Saleem Brown, DO [address] [place] [address] [address] [place] [address] Jayson Grant [facility] Start: 07-07-2021 End: 07-07-2021 ambulatory 07/07/2021 Treatment Rehabilitation Saleem Brown, DO [address] [place] [address] [address] [place] [address] Shanika Watson, [facility] Start: 07-02-2021 End: 07-02-2021 ambulatory 07/02/2021 Treatment Rehabilitation Saleem Brown, DO [address] [place] [address] [address] [place], [place] [id number] Jayson Grant, [facility] Start: 06-30-2021 End: 06-30-2021 ambulatory 06/30/2021 Treatment Rehabilitation Saleem Brown, DO [address] [place] [address] [address] [place], [place] [id number] Shanika Watson, [facility] Start: 06-15-2021 COVID-19 Vaccine (2 - Pfizer series) COVID-19 Vaccine (2 - Pfizer series) [facility] Start: 06-15-2021 COVID-19 VACCINE (4 - Booster for Pfizer series) COVID-19 VACCINE (4 - Booster for Pfizer series) [facility] Start: 06-13-2021 ADVANCE DIRECTIVE DISCUSSION ADVANCE DIRECTIVE DISCUSSION [facility] Start: 06-13-2021 DEPRESSION ASSESSMENT DEPRESSION ASSESSMENT [facility] Start: 04-20-2021 End: 01-26-2022 CT of abdomen and pelvis CT ABDOMEN/PELVIS WITHOUT CONTRAST Imaging Routine Metastatic breast cancer Expected: 04/20/2021, Expires: 01/26/2022 [facility] Work Phone: Immunizations Immunization Date Immunization Notes Care Provider [facility] 03-26-2022 influenza virus vaccine, unspecified formulation Que Townsend MD Work Phone: [facility] 04-20-2021 COVID-19 vaccine, MR YAMILET, Pfizer, 0.3 ML Fco HOOKS Work Phone: [facility] 04-20-2019 zoster vaccine, unspecified formulation Tess Weeks RN [facility] 03-13-2019 influenza, high dose seasonal, preservative-free Tess Weeks RN [facility] 03-13-2019 influenza virus vaccine, unspecified formulation Tess Weeks RN [facility] Payers Date Payer Category Payer Unknown 2021 Unknown [id number] 2018 Private Health Insurance [id number] [id number] 2018 Unknown [id number] [id number]. [id number] 2017 Medicare 2017 Private Health Insurance 2012 Medicare [id number] 2.16.840.1.355327.3.249.13 1945 Unknown [id number] 2.16840.1.343284.3.579.2. 71 1945 Unknown [id number] 2.16840.1.666132.3.579.2 1945 Unknown [id number] 2.16.840.1.732892.3.579.2. 356 1945 Unknown [id number] 2.16.840.1.786797.3.579.2 1945 Unknown [id number] 2.16.840.1.450226.3.579.2. 1945 Unknown [id number] 2.16.840.1.874972.3.579.2. 90 1945 Unknown [id number] 2.16.840.1.219767.3.579.2. 1945 Unknown [id number] 2.16.840.1.640149.3.579.2 1945 Unknown [id number] 2.16.840.1.578308.3.579.2. 1945 Unknown [id number] 2.16.840.1.870401.3.579.2. 903 1945 Unknown [id number] 2.16.840.1.697910.3.579.2. 903 1945 Unknown [id number] 2.16.840.1.575245.3.579.2. 594 1947 Unknown [id number] 2.16.840.1.469907.3.579.2. 594 1947 Unknown [id number] 2.16.840.1.786193.3.579.2. 594 1947 Unknown [id number] 2.16840.1.964091.3.579.2. 594 1947 Unknown [id number] 2.16.840.1.304527.3.579.2. 594 1947 Unknown [id number] 2.16840.1.994070.3.579.2. 594 1947 Unknown [id number] 2.16.840.1.432278.3.579.2. 594 1947 Unknown [id number] 2.16840.1.648917.3.579.2. 594 1947 Unknown [id number] 2.16.840.1.836669.3.579.2. 594 1947 Unknown [id number] 2.16840.1.567182.3.579.2. 594 1947 Unknown [id number] 2.16.840.1.526089.3.579.2. 594 1947 Unknown [id number] 2.16.840.1.192987.3.579.2. 594 1947 Unknown [id number] 2.16.840.1.403267.3.579.2. 594 1947 Unknown [id number] 2.16.840.1.620760.3.579.2. 594 1947 Unknown [id number] 2.16.840.1.125253.3.579.2. 594 1947 Unknown [id number] 2.16.840.1.064452.3.579.2. 594 1947 Unknown [id number] 2.16.840.1.202967.3.579.2. 594 1947 Unknown [id number] 2.16.840.1.247432.3.579.2. 594 1947 Unknown [id number] 2.16.840.1.631979.3.579.2. 594 1945 Unknown [id number] 2.16.840.1.947680.3.579.2. 1243 Medicare MEDICARE MEDICAR E A AND B [id number] Effective for all dates [address] [place] [address] [id number] 1.2.840.448494.1.13.172.2. 7.3.253807.315 Medicare [id number] Social History Date Type Detail Facility Start: 05-17-2017 End: 01-28-2023 Tobacco smoking status NHIS Never smoker [facility] Start: 1945 Sex Assigned At Not on file O [employer] Work Phone: Start: 03-27-2015 End: 01-28-2023 Tobacco use and exposure Smokeless tobacco non-user [facility] Start: 05-17-2017 End: 04-20-2023 Alcohol intake Current non-drinker of alcohol (finding) [facility] Start: 07-26-2021 End: 03-23-2023 Exposure to SARS-CoV-2 (event) Not sure [facility] Start: 07-12-2018 End: 03-23-2023 Cigarettes smoked current (pack per day) - Reported 0.5 [facility] Start: 10-25-2022 End: 03-23-2023 Tobacco use panel [facility] National Score (1-10 0), lower number is lower risk 59 [facility] Start: 03-23-2023 Alcohol intake Lifetime non-d elvin (finding) [facility] Work Phone: Tobacco smoking stat us NHIS Tobacco smoking consumption unknown [facility] Work Phone: Medical Equipment Procedure Code Equipment Code Equipment Origin al Text Equipment Identifier Dates Lens, Intraocula r, Sn60wf 22.5 Harlan - [id number] - [id number] Start: 03-24-2023 Clinical Notes 05-29-2015 to 06-22-2023 Patient InstructionsJosh Gaston II, OD - 04/20/2023 8:58 AM Ольга Prasad MD - 04/05/2023 12:04 PM EDTPatient InstructionsJosh Gaston II, OD - 03/30/2023 4:26 PM EDT Note Date & Type Note Facility 06-22-2023 Note HNO ID: [id number] Author: JOSH GASTON II, OD Service: ? Author Type: CARCASS SPLITTER Type: Progress Notes Filed: 06/22/2023 10:55 Note [...] components. Josh Gaston II, OD [facility] 04-20-2023 Note HNO ID: [id number] Author: Josh Gaston II, OD Service: ? Author Type: CARCASS SPLITTER Type: Progress Notes Filed: 04/20/2023 9:00 AM [...] components. Josh Gaston II, OD [facility] 04-20-2023 Instructions Josh Gaston II, OD - [...] Gaston II, OD documented in this encounter [facility] 04-20-2023 History of Present illness Narrative Assessment [...] Gaston II, OD documented in this encounter [facility] 04-05-2023 Note HNO ID: [id number] Author: Ольга Tabares MD Service: ? Author Type: Physician Type: Progress Notes Filed: 04/05/2023 12:42 PM Note Text: Referred by Dr. Que Townsend Incidental finding on routine examination - asymptomatic except shadow 1. Stage IV breast cancer - 09/10/16 CT A/P: Right pleural effusion, small left pleural effusion, multiple sclerotic lesions, liver lesions - 10/06/[address] Usha Hathaway, [facility]. - 10/21/16 Thoracentesis 900 mL - Metastatic adenocarcinoma consistent with breast primary - Patient went in for annual eye exam at [facility] and left eye cancer was found. - 11/01/16 New patient visit with Dr. Levi - 11/10/16: Liver biopsy demonstrates small patches of cells which are ER strongly +100%, ID negative, HER2 negative. - 11/17/17 Seen at [facility]. Started Letrozole. Palbociclib ordered. - 11/22/16 Started Palbociclib and continued Letrozole - 02/09/17 CT chest abdomen pelvis showed increased sclerosis of her bone lesions consistent with disease response. She has persistent right greater than left pleural effusion. - 02/21/18 Seen at [facility]. Continue current treatment with Palbociclib + Letrozole. Recommend Xgeva. - 05/09/17 Chest x-ray showed reaccumulation of pleural fluid in right lung base. - 05/09/17 Started Xgeva every 3 months - 05/23/17 Seen at [facility]. Recommend repeat staging scans with local [...] + Letrozole, Xgeva - 09/19/17 Seen at [facility]. Recommended consideration of Pleurx vs continued [...] stable. - Oncologist - Dr Fco Camacho- [facility] - CT C/A/P 07/13/21: stable. - Metastatic [...] April 05, 2023 12:41 PM [facility] 04-05-2023 History of Present illness Narrative Referred by Dr. Que Townsend Incidental finding on routine examination - asymptomatic except shadow 1. Stage IV breast cancer - 09/10/16 CT A/P: Right pleural effusion, small left pleural effusion, multiple sclerotic lesions, liver lesions - 10/06/[address] Usha Hathaway, [facility]. - 10/21/16 Thoracentesis 900 mL - Metastatic adenocarcinoma consistent with breast primary - Patient went in for annual eye exam at [facility] and left eye cancer was found. - 11/01/16 New patient visit with Dr. Levi - 11/10/16: Liver biopsy demonstrates small patches of cells which are ER strongly +100%, ID negative, HER2 negative. - 11/17/17 Seen at [facility]. Started Letrozole. Palbociclib ordered. - 11/22/16 Started Palbociclib and continued Letrozole - 02/09/17 CT chest abdomen pelvis showed increased sclerosis of her bone lesions consistent with disease response. She has persistent right greater than left pleural effusion. - 02/21/18 Seen at [facility]. Continue current treatment with Palbociclib + Letrozole. Recommend Xgeva. - 05/09/17 Chest x-ray showed reaccumulation of pleural fluid in right lung base. - 05/09/17 Started Xgeva every 3 months - 05/23/17 Seen at [facility]. Recommend repeat staging scans with local [...] + Letrozole, Xgeva - 09/19/17 Seen at [facility]. Recommended consideration of Pleurx vs continued [...] stable. - Oncologist - Dr Fco Camacho- [facility] - CT C/A/P 07/13/21: stable. - Metastatic [...] 2023 12:41 PM documented in this encounter [facility] 03-30-2023 Note HNO ID: [id number] Author: Josh Gaston II, OD Service: ? Author Type: CARCASS SPLITTER Type: Progress Notes Filed: 03/30/2023 4:27 PM [...] components. Josh Gaston II, OD [facility] 03-30-2023 Instructions Josh Gaston II OD - [...] Gaston II, OD documented in this encounter [facility] 03-30-2023 History of Present illness Narrative Assessment [...] Gaston II, OD documented in this encounter [facility] 03-25-2023 Note HNO ID: [id number] Author: Que Townsend MD Service: ? Author [...] treatment options. Que Townsend MD [facility] 03-24-2023 Hospital Discharge instructions Que Townsend MD - 03/24/2023 1:39 PM EDT Follow printed discharge instructions documented in this encounter [facility] Work Phone: 03-24-2023 Note Formatting of this n ote is different from the original. 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 Procedure Summary Anesthesia: [...] 350 mL Specimen: No specimens collected Staff: Counter Sales Representative: Asha Nuñez RN Scrub Person: Ambrosio Mensah RN Implants: Implants Type Name Action Serial No. Lens LENS, INTRAOCULAR, SN60WF 22.5 HARLAN - [id number] - [id number] Implanted [id number] Findings: Combined Form Age Related Cataract Left [...] Attestation: I performed the procedure. Que Townsend 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 Procedure Summary Anesthesia: [...] 350 mL Specimen: No specimens collected Staff: Counter Sales Representative: Asha Nuñez RN Scrub Person: Ambrosio Mensah RN Implants: Implants Type Name Action Serial No. Lens LENS, INTRAOCULAR, SN60WF 22.5 HARLAN - [id number] - [id number] Implanted [id number] Findings: Combined Form Age Related Cataract Left [...] procedure. Que Townsend documented in this encounter [facility] Work Phone: 03-24-2023 History and physical note Images from the original note were not included. Reason for Visit Reason for Visit - Reason Comments Cataract Follow Up Left eye Post-op Cataract OD 02/24/2023 Encounter Details Encounter Details Date Type Department Care Team Description 03/14/2023 10:00 AM EDT Office [place] [address] Que Townsend MD [address] [place] [address] Combined form of age-related cataract, left eye [...] [facility] Last address used for calculation [address] [place] [address] 175 Social History Sex and Gender Information [...] PM EDT Office Visit [facility] Ophthalmology [address] [place] [address] Que Townsend MD [address] [place] [address] 04/05/2023 10:00 AM EDT Office Visit [facility] Ophthalmology [address] [address] Ольга Tabares MD [address] [place], [place] [id number] Plan of Treatment - Scheduled Procedures Scheduled Procedures Name Priority Associated Diagnoses Date/Time SURGERY AT [facility] Combined form of age-related [...] the event of a Fluress shortage, administer Boxford-Fluor 1 drop into both eyes as directed [...] - Wearing Rx Wearing Rx Sphere Cylinder [place] Right eye Left eye -4.75 +0.75 171 Eye Exam Type: SVL Eye Exam - Manifest Refraction (Auto) Manifest Refraction (Auto) Sphere Cylinder [place] Right eye -0.50 +1.25 026 Left eye -5.00 +1.50 165 Care Teams - documented as of this encounter Care Teams Cloth Wire Weaver Relationship Specialty Start Date End Date Mar Bucio MD PCP - General Family Medicine 08/24/21 [facility] Work Phone: 03-24-2023 History and physical note Images from the original note were not included. Reason for Visit Reason for Visit - Reason Comments Cataract Follow Up Left eye Post-op Cataract OD 02/24/2023 Encounter Details Encounter Details Date Type Department Care Team Description 03/14/2023 10:00 AM EDT Office Visit [facility] Ophthalmology [address] [place] [address] Que Townsend MD [address] [place] [address] Combined form of age-related cataract, left eye [...] is lower risk 4 Data from: https://www.neighborhoodatlas.[facility]/. Last address used for calculation [address] [place] [address] RO[address] 175 Social History Sex and Gender [...] 1:00 PM EDT Office Visit [facility] Ophthalmology [place] [id number] Que Townsend MD [address] [place] [address] 04/05/2023 10:00 AM EDT Office Visit [facility] Ophthalmology [address] [address] Ольга Tabares MD [address] [place] [address] Plan of Treatment - Scheduled Procedures Scheduled Procedures Name Priority Associated Diagnoses Date/Time SURGERY AT [facility] Combined form of age-related [...] the event of a Fluress shortage, administer [place]-Fluor 1 drop into both eyes as directed [...] - Wearing Rx Wearing Rx Sphere Cylinder [place] Right eye Left eye -4.75 +0.75 171 Eye Exam Type: SVL Eye Exam - Manifest Refraction (Auto) Manifest Refraction (Auto) Sphere Cylinder [place] Right eye -0.50 +1.25 026 Left eye -5.00 +1.50 165 Care Teams - documented as of this encounter Care Teams Cloth Wire Weaver Relationship Specialty Start Date End Date Mar Bucio MD PCP - General Family Medicine 08/24/21 documented in this encounter [facility] Work Phone: 03-14-2023 Note HNO ID: [id number] Author: Que Townsend MD Service: ? Author [...] findings, diagnosis, and treatment options. [facility] 03-03-2023 Note HNO ID: [id number] Author: Josh Gaston II, OD Service: ? Author Type: CARCASS SPLITTER Type: Progress Notes Filed: 03/03/2023 1:15 PM [...] components. Josh Gaston II, JANUSZ [facility] 03-03-2023 Instructions Josh Gaston II OD - [...] Gaston II, OD documented in this encounter [facility] 03-03-2023 History of Present illness Narrative Assessment [...] Gaston II, OD documented in this encounter [facility] 02-25-2023 Note HNO ID: [id number] Author: Que Townsend MD Service: ? Author [...] treatment options. Que Townsend MD [facility] 02-25-2023 Instructions Que Townsend MD - 02/25/2023 [...] any questions please contact our office at [phone]. After office hours or on the weekend, please call Dr. Townsend on his cell phone at [phone]. documented in this encounter [facility] 02-25-2023 History of Present illness Narrative ASSESSMENT/PLAN: [...] Que Townsend MD documented in this encounter [facility] 02-24-2023 Miscellaneous Notes Post Operative Note: Post-Procedure Diagnosis: 1. Combined Form Age Related Cataract Right Eye Procedure: 1. Cataract Extraction with Intraocular Lens Implant Right Eye Surgeon: Que Townsend MD Resident/Fellow/Other Drug Room Operator: None Estimated Blood Loss (mL): none Specimen: [...] by Que Townsend) documented in this encounter [facility] Work Phone: 02-24-2023 Note Formatting of this n ote is different from the original. Post Operative Note: Post-Procedure Diagnosis: 1. Combined Form Age Related Cataract Right Eye Procedure: 1. Cataract Extraction with Intraocular Lens Implant Right Eye Surgeon: Que Townsend MD Resident/Fellow/Other Drug Room Operator: None Estimated Blood Loss (mL): none Specimen: [...] Last Updated: 24-Feb-2023 11:32 by Que Townsend) [facility] Work Phone: 02-24-2023 History and physical note [...] Last Updated: 24-Feb-2023 10:15 by Que Townsend) [facility] Work Phone: 02-24-2023 History and physical note [...] by Que Townsend) documented in this encounter [facility] Work Phone: 02-16-2023 Note HNO ID: [id number] Author: Que Townsend MD Service: ? Author [...] lens right eye scheduled on 02/24/23 at [facility]. Patient wishes to have cataract [...] treatment options. Que Townsend MD [facility] 02-16-2023 History of Present illness Narrative ASSESSMENT/PLAN: [...] lens right eye scheduled on 02/24/23 at [facility]. Patient wishes to have cataract [...] Que Townsend MD documented in this encounter [facility] 02-16-2023 Instructions Que Townsend MD - 02/16/2023 3:23 PM EDT Continue: Systane Complete Artificial Tears - Use 1 Drop into both eyes three times a day. If you have any questions please contact our office at [phone]. After office hours or on the weekend, please call Dr. Townsend on his cell phone at [phone]. documented in this encounter [facility] documented as of this encounter (statuses as of 03/31/2023) [facility]09-06-2023 History of Past illness Narrative* Problem Noted [...] of this encounter (statuses as of 04/05/2023) [facility]09-06-2023 History of Past illness Narrative* Problem Noted [...] of this encounter (statuses as of 04/20/2023) [facility]08-18-2023 NoteHNO ID: [id number] Author: Que Townsend MD Service: ? Author [...] and treatment options. Que Townsend, [facility]08-18-2023 Instructions* Patient Instructions* Que Townsend MD - 01/28/2023 11:35 AM EDT Systane Complete Artificial Tears - Use 1 Drop into both eyes three times a day. Cataract surgery right eye is scheduled on 02/24/23 If you have any questions please contact our office at [phone]. After office hours or on the weekend, please call Dr. Townsend on his cell phone at [phone]. [facility] History of Present illness Narrative* Que Townsend [...] options. Que Townsend MD documented in [facility] encounter[facility]-14-2023 NoteHNO ID: [id number] Author: Shreyas Gaston, JANUSZ Service: ? Author Type: CARCASS SPLITTER Type: Progress Notes Filed: 01/24/2023 3:19 PM [...] exam findings as obtained by others.[facility]05-15-2023 NoteHNO ID: [id number] Author: Que Townsend MD Service: ? Author [...] findings, diagnosis, and treatment options. Que Townsend [facility]05-15-2023 Instructions* Patient Instructions* Que Townsend MD - 10/25/2022 10:27 AM EDT Please monitor each eye daily with Amsler Grid. AREDS 2 Vitamins are available over the counter at any drug store. If you have any questions please contact our office at [phone]. After office hours or on the weekend, please call Dr. Townsend on his cell phone at [phone]. documented in [facility]23 History of Present illness Narrative* Que Townsend [...] options. Que Townsend MD documented in [facility]03-27-2023 NoteHNO ID: [id number] Author: Shreyas Gaston OD Service: ? Author Type: CARCASS SPLITTER Type: Progress Notes Filed: 09/06/2022 11:10 AM [...] exam findings as obtained by others.[facility]03-27-2023 Instructions* Patient Instructions* Shreyas Gaston OD - [...] Townsend. Return as directed. documented in this encounter[facility]23 History of Present illness Narrative* Shreyas Gaston [...] as obtained by others. documented in [facility]12-[facility]-2022 Miscellaneous Notes* Telephone Encounter - Sonali Hagen RN - 06/02/2022 10:00 AM EST Received a request for Medical records from [facility] for Martha's last colonoscopy. Faxed 2014 colonoscopy report to [phone]. Fax confirmation sheet received. Sonali Hagen RN documented in this encounter[facility]04-26-2022 History of Present illness Narrative* Que Townsend [...] diagnosis, and treatment options. documented in this encounterReg[facility]04-26-2022 Instructions* Patient Instructions* Que Townsend MD - 10/06/2021 10:06 AM EDT If you have any questions please contact our office at [phone]. After office hours or on the weekend, please call Dr. Townsend on his cell phone at [phone]. documented in this encounterReg[facility]04-25-2022 History of Present illness Narrative* Bethany West RN - 10/05/2021 9:40 AM EDT Patient offered a medical spragger for sensitive exam. Pt declined * NEVA Chen - 10/05/2021 9:40 AM EDT Martha Stephens is a 75 y.o. 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 Eye exam at [facility] showed left retinal tumor 05/18/16 Stress Test: EF 80% 06/2016 Patient went to [place] for one month. She went to the ED in [place]. When she returned from [place] she established with Certified Professional Midwife, Dr. Karson Luis for heartburn with nausea, 20-lb weight loss. 09/07/16 EGD Chronic inflammation 09/10/16 CT A/P: Right pleural effusion, small left pleural effusion, multiple sclerotic lesions, liver lesions 10/06/[address] Usha Hathaway, [facility]. 10/21/16 Thoracentesis 900 mL Metastatic adenocarcinoma consistent with breast primary Patient went in for annual eye exam at [facility] and left eye cancer was found. 11/01/16 New patient visit with Dr. Levi 11/10/16: Liver biopsy demonstrates small patches of cells which are ER strongly +100%, ID negative, HER2 negative. 11/17/17 Seen at [facility]. Started Letrozole. Palbociclib ordered. 11/22/16 Started Palbociclib and continued Letrozole 02/09/17 CT chest abdomen pelvis showed increased sclerosis of her bone lesions consistent with disease response. She has persistent right greater than left pleural effusion. 02/21/18 Seen at [facility]. Continue current treatment with Palbociclib + Letrozole. Recommend Xgeva. 02/23/17 Left thoracentesis 03/02/17 Right thoracentesis 05/09/17 Chest x-ray showed reaccumulation of pleural fluid in right lung base. 05/09/17 Started Xgeva every 3 months 05/23/17 Seen at [facility]. Recommend repeat staging scans with local [...] Palbo + Letrozole, Xgeva 09/19/17 Seen at [facility]. Recommended consideration of Pleurx vs continued [...] get care locally near her home in [facility] where there is a clinic that collaborates [...] wall. preop chemo . Re-excision SLN bx.06/19. ER/ID pos HER- 2/la nena neg. Past Surgical [...] No abnormalities noted. Patient offered a medical spragger for sensitive exam. N/A Laboratory Data: Results [...] Immature Grans Absolute Abs Lymph Auto Abs Ray Auto Abs Eos Auto Abs Baso Auto MANUAL DIFF Result Value Ref Range DIFF STATUS Manual Differential Bands Relative 0.0 % Segs Relative 67.0 % Lymph Relative 25.0 % Ray Relative 4.0 % Eos Relative 4.0 % Baso Relative 0.0 % Nucleated RBC 0.0 <=0.0 /100 WBC Segs & Bands, Absolute 1.57 (L) 1.64 - 7.28 K/uL Abs Lymph Manual 0.59 (L) 1.16 - 3.51 K/uL Abs Ray Manual 0.09 (L) 0.22 - 0.87 K/uL [...] 75 y.o. female diagnosed in 2017 with ER+/ID-/HER2-, metastatic breast cancer who is here today [...] very stable. We will move scans to [id number] will try to get PET scans through her insurance given CKD .For the next assessment will keep to non contrast CT as this is already ordered but will recommend changing after that. *Bone Mets: -Zometa [id number] initiated on 04/19/18. -We will hold now due to prior effects on renal function. -Continue calcium and vitamin D -We talked about initiating denosumab, as she is seeking oncologic care near [place] I urged her todiscuss this with her [...] Malignancy: . -Follows with Dr. Townsend in [place] for Ophthalmology. *Health Maintenance: -We recommend maintaining [...] to Doug. NEVA Chen documented in [facility] encounterReg[facility]04-[facility]22 Instructions* Patient Instructions* Bethany West RN - 10/05/2021 9:35 AM EDT Images from the original note were not included. Medical Information Management at [phone] to request your medical records Store your [...] the take-back program closest to you @ https://takebackday.[employer].gov under the COLLECTION SITE UPPER MARKER tab. Never dispose of un-needed medications down the sink or toilet. Instead, crush the medication and mix with damp coffee grounds or cat litter, place in a sealed plastic freezer bag, and dispose of in your regular trash. Your Medical/Oncology Team Doctor: Daniel Camacho MD Nurse Practitioner: Taylor Canada APRN-CONTRACT ASSOCIATE Primary Nurses: JENAE Pino, DEBN, RN DEB [...] 2nd prompt, yes you are enrolled in [employer] medication assistance program At the 3rd prompt, no you are not calling to reorder You will then be told you are getting connected to a live union contract representative, or you may press 1 and enter extension number [id number] for Eunice Jimenez, the [employer] access counselor who works with the [facility] account - tell her you are a patient from [facility] and that your doctor electronically prescribed your Ibrance and that you are calling to set up delivery. If you must leave a message, remember to leave your name, date of , name of medication (Ibrance), dose of Ibrance, start date of the next cycle of Ibrance, whether or not you want a signature isidoro required for delivery, and a phone number for [employer] to call you back If you leave a message and do not receive a call back within 24 hours, please call [facility] again. documented in this encounterRegency [facility]04-25-2022 Evaluation note * Diagnosis Metastatic breast cancer- Primary Stage 3a chronic kidney disease documented in this encounter [facility] Reason for referral (narrative)* Consultation (Routine) - Patient to Arrange Specialty Diagnoses / Procedures Referred By Leo mendoza Referred To Contact Nephrology Diagnoses Stage 3a chronic kidney disease Fco Camacho MBBS [address], [address] [place] [address] Referral ID Status Reason Start Date Expiration Date V isits Requested Visits Authorized [id number] Patient to Arrange 10/05/2021 10/30/2022 1 1 [facility]02-[facility] History of Present illness Narrative* Crystal Talley, PT - 08/05/2021 1:00 PM EST [facility] DAILY TREATMENT NOTE Today's Date [...] core stability, hip strengthening, manual Therapeutic Exercise (71977) Intervention -- Parameters -- Intervention -- Parameters [...] Plan: Discharge Crystal Talley PT State License, [id number] documented in this [id number] History of Present illness Narrative* Jayson Grant, LEAD ENTERPRISE ARCHITECT - 07/23/2021 2:30 PM EST [facility] DAILY TREATMENT NOTE Today's Date [...] core stability, hip strengthening, manual Therapeutic Exercise (93745) Intervention Scifit L1 x5 min Parameters SKTC [...] and stability Jayson Grant PTA STATE LICENSE, [id number] documented in this [id number] History of Present illness Narrative* Mili Reynolds PTA - 07/21/2021 2:30 PM EST [facility] DAILY TREATMENT NOTE Today's Date [...] Evaluating Therapist: Tequila Kay Notes Visit 4 [phone] Vitals back flexibility and core stability, hip strengthening, manual Therapeutic Exercise (72614) Intervention Scifit L1 x5 min Parameters SKTC [...] core strengthening Mili Reynolds PTA STATE LICENSE, [id number] documented in this [id number] History of Present illness Narrative* Shanika Watson PTA - 07/14/2021 2:30 PM EST [facility] DAILY TREATMENT NOTE Today's Date [...] Evaluating Therapist: Tequila Kay Notes Visit 3 [phone] Vitals back flexibility and core stability, hip strengthening, manual Therapeutic Exercise (30927) Intervention Scifit L1 x5 min Parameters SKTC [...] as tolerated Shanika Watson PTA STATE LICENSE, [id number] documented in this [id number] History of Present illness Narrative* Shanika Watson PTA - 07/09/2021 2:30 PM EST [facility] DAILY TREATMENT NOTE Today's Date [...] Evaluating Therapist: Tequila Kay Notes Visit 2 [phone] Vitals back flexibility and core stability, hip strengthening, manual Therapeutic Exercise (62619) Intervention LTR 5 x10 Parameters SKTC 10 [...] as tolerated Shanika Watson PTA STATE LICENSE, [id number] documented in this [id number] History of Present illness Narrative* Jayson Grant PTA - 07/02/2021 2:30 PM EST [facility] DAILY TREATMENT NOTE Today's Date [...] Treatments: Physical Therapy Exercise Log - 07/02/21 3920 OTHER Precautions/Contraindications Evaluating Therapist: Tequila Kay Notes Visit 1: 2:30 - 2:55 Vitals back flexibility and core stability, hip strengthening, manual Therapeutic Exercise (75450) Intervention LTR 5 x10 Parameters SKTC 10 [...] and stability Jayson Grant PTA STATE LICENSE, [id number] documented in this [id number] History of Present illness Narrative* Tequila Kay, PT - 06/26/2021 1:45 PM EST Images from the original note were not included. [facility] Evaluation Today's Date 06/26/2021 Patient [...] she went to other therapy place in [place] couple of days ago and provided with [...] Level: active Social Support: Patient lives alone. Scientologist, social, or cultural considerations to be made [...] fall in the last 12 months: No Scientologist, social, or cultural considerations to be made [...] core stability, hip strengthening, manual Therapeutic Exercise (54973) Intervention LTR 5 x10 Parameters SKTC 10 x3 Intervention bridging (shallow today) 5 x10 Parameters seated trunk rotation, side bending and forward 5 x10 Treatment Plan: Frequency of Visits: twice per week Duration: 5 weeks Interventions: Therapeutic Exercise (22146), Manual Therapy (91041) and Hot/Cold Pack (93943) Rehab Potential: good Goals: Physical Therapy Ortho [...] the following functional limitations: standing, walking, 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 Tequila Kay, PT STATE LICENSE, [id number] documented in this [id number] History of Present illness Narrative* Tess Weeks [...] placed for elevated creatinine. documented in this encounterRegency Hospital [facility]08-16-2021 History of Present illness Narrative* Kenia West RN - 01/26/2021 11:20 AM EDT Patient offered a medical spragger for sensitive exam. Pt declined. Bisphosphonate/Denosumab Assessment [...] no, MD/SANCHO notified. Report called to Erna (coach professional athletes) R - Recommendations for plan of care: Describe any changes to plan of care: none Patient has AVS, completed check out, and discharged to infusion unit For questions, please call: Kenia West RN * Catarino Levi MD, PhD - 01/26/2021 11:20 AM EDT Martha Stephens is a 75 y.o. 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 Eye exam at [facility] showed left retinal tumor 05/18/16 Stress Test: EF 80% 06/2016 Patient went to [place] for one month. She went to the ED in [place]. When she returned from [place] she established with Certified Professional Midwife, Dr. Karson Luis for heartburn with nausea, 20-lb weight loss. 09/07/16 EGD Chronic inflammation 09/10/16 CT A/P: Right pleural effusion, small left pleural effusion, multiple sclerotic lesions, liver lesions 10/06/[address] Usha Hathaway, [facility]. 10/21/16 Thoracentesis 900 mL Metastatic adenocarcinoma consistent with breast primary Patient went in for annual eye exam at [facility] and left eye cancer was found. 11/01/16 New patient visit with Dr. Levi 11/10/16: Liver biopsy demonstrates small patches of cells which are ER strongly +100%, ID negative, HER2 negative. 11/17/17 Seen at [facility]. Started Letrozole. Palbociclib ordered. 11/22/16 Started Palbociclib and continued Letrozole 02/09/17 CT chest abdomen pelvis showed increased sclerosis of her bone lesions consistent with disease response. She has persistent right greater than left pleural effusion. 02/21/18 Seen at [facility]. Continue current treatment with Palbociclib + Letrozole. Recommend Xgeva. 02/23/17 Left thoracentesis 03/02/17 Right thoracentesis 05/09/17 Chest x-ray showed reaccumulation of pleural fluid in right lung base. 05/09/17 Started Xgeva every 3 months 05/23/17 Seen at [facility]. Recommend repeat staging scans with local [...] Palbo + Letrozole, Xgeva 09/19/17 Seen at [facility]. Recommended consideration of Pleurx vs continued [...] weeks. She was evaluated by dermatology at [facility] for 3 suspicious lesions on right central congregation, right lateral cheek, and left superior central [...] wall. preop chemo . Re-excision SLN bx.06/19. ER/ID pos HER- 2/la nena neg. Past Surgical [...] diaphoretic. Biopsy confirmed BCC of right central congregation, right lateral cheek, and left superior central forehead. Psychiatric: Appropriate mood and affect. Back: No point vertebral tenderness. Lymph: No cervical or supraclavicular adenopathy. Chest Wall: No abnormalities noted. Patient offered a medical spragger for sensitive exam. N/A Laboratory Data: Results [...] Immature Grans Absolute Abs Lymph Auto Abs Ray Auto Abs Eos Auto Abs Baso Auto MANUAL DIFF Result Value Ref Range DIFF STATUS Manual Differential Bands Relative 1.0 % Segs Relative 65.0 % Lymph Relative 22.0 % Ray Relative 7.0 % Eos Relative 4.0 % Baso Relative 1.0 % Nucleated RBC 0.0 <=0.0 /100 WBC Segs & Bands, Absolute 1.42 (L) 1.64 - 7.28 K/uL Abs Lymph Manual 0.47 (L) 1.16 - 3.51 K/uL Abs Ray Manual 0.15 (L) 0.22 - 0.87 K/uL [...] 75 y.o. female diagnosed in 2017 with ER+/ID-/HER2-, metastatic breast cancer who is here today [...] clinic in 3 months. *Bone Mets: -Zometa [id number] initiated on 04/19/18. -Zometa previously held d/t renal insuffiencey. Next dose due today. Renal function has improved. No dental concerns. -Continue calcium and vitamin D *Chronic Kidney Disease: -Suspect worsening renal insufficiency due to Meloxicam usage. -Strongly advised patient to avoid taking Meloxicam and Ibuprofen. -Will continue to monitor. *BCC: -Right central congregation, right lateral cheek, and left superior central forehead. -Evaluated by dermatology at [facility]. Shave biopsy on 12/15/20 confirmed BCC of all 3 lesions -Scheduled for MOHS procedure. *Grief Over Loss of /Insomnia: -She declines medications or referrals at this time -Undergoing counseling with hospice group -She has family close for support -Insomnia well controlled with Mirtazapine. Rx refilled. 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 Follows with Dr. Tabares in [facility]. *Health Maintenance: -We recommend maintaining a [...] with the discharge instructions. [facility] Instructions* Patient Instructions* Kenia West RN - [...] you @ https://takebackday.sima.gov under the COLLECTION SITE UPPER MARKER tab. Never dispose of un-needed medications down the sink or toilet. Instead, crush the medication and mix with damp coffee grounds or cat litter, place in a sealed plastic freezer bag, and dispose of in your regular trash. Your Medical/Oncology Team Doctor: Catarino Levi MD Nurse Practitioner: Ghazal Jin, TELEVISION INSTALLER HELPER-CONTRACT ASSOCIATE Primary Nurses: Elmo BOYDN, RN, Bethany BOYDN, [...] (Tukysa ) [ ] Other: [ ] [facility] # [phone] [ ] [facility] # [phone] [ ] [facility] # [phone] [ ] [facility] # [phone] [ ] [facility] Shahrz[facility] # [phone] [ ] [facility] # [phone] [ ] [facility] # [phone] [ ] [facility] # [phone] [ ] [facility] # [phone] [ ] [facility] # [phone] [ ] [facility] # [phone] [ ] Other: # documented in this encounterReg[facility] History of Past illness Narrative* Problem Noted [...] of this encounter (statuses as of 10/06/2021) [facility] History of Past illness Narrative* Problem Noted [...] of this encounter (statuses as of 06/02/2022) [facility] History of Past illness Narrative* Problem Noted [...] of this encounter (statuses as of 09/06/2022) [facility] History of Past illness Narrative* Problem Noted [...] of this encounter (statuses as of 10/25/2022) [facility] History of Past illness Narrative* Problem Noted [...] of this encounter (statuses as of 01/28/2023) [facility] History of Past illness Narrative* Problem Noted [...] of this encounter (statuses as of 02/17/2023) [facility] History of Past illness Narrative* Problem Noted Date Diagnosed Date Resolved Date Screening for colon cancer 05/29/2015 1 07/30/2014 Myopia - Left Eye 05/13/2014 05/19/2015 Other chronic dermatitis due to solar radiation 05/01/2008 04/25/2015 Other seborrheic keratosis 05/01/2008 1 06/25/2014 Viral warts, unspecified 05/01/2008 NEVUS BACK/TRUNK///BENIGN GURDEEP SKIN TRUNK 05/01/2008 04/25/2015 VIEVROS ANGIOMA///NEVUS, NON-NEOPLASTIC 05/01/2008 04/25/2015 Diverticulosis of colon (wit hout mention of hemorrhage) 01/12/2007 04/25/2015 Internal hemorrhoids without mention of complication 01/12/2007 04/25/2015 External hemorrhoids without mention of complication 01/12/2007 04/25/2015 Unspecified constipation 01/11/2007 Postmenopausal atrophic vaginitis 11/02/2006 04/25/2015 Malignant neoplasm of other specified sites of female breast 08/26/2006 05/29/2015 documented as of this encounter (statuses as of 02/25/2023) [facility] History of Past illness Narrative* Problem Noted [...] of this encounter (statuses as of 03/04/2023) [facility] Diagnosis Degeneration of lumbar intervertebral disc Degeneration of lumbar or lumbosacral intervertebral disc Scoliosis due to degenerative disease of spine in adult patient [facility] Degeneration of lumbar intervertebral disc Degeneration of lumbar or lumbosacral intervertebral disc [facility] Diagnosis Degeneration of lumbar intervertebral disc Degeneration of lumbar or lumbosacral intervertebral disc [facility] Diagnosis Degeneration of lumbar intervertebral disc Degeneration of lumbar or lumbosacral intervertebral disc [facility] Degeneration of lumbar intervertebral disc Degeneration of lumbar or lumbosacral intervertebral disc [facility] Diagnosis Degeneration of lumbar intervertebral disc Degeneration of lumbar or lumbosacral intervertebral disc documented in this encounter [facility] Diagnosis Degeneration of lumbar intervertebral disc- Primary Degeneration of lumbar or lumbosacral intervertebral disc [facility] Diagnosis Bone metastasis- Primary Secondary malignant neoplasm of bone and bone marrow Recurrent right pleural effusion Unspecified pleural effusion Metastatic breast cancer [facility] Diagnosis Metastatic breast cancer [facility] Diagnosis Metastatic breast cancer Metastatic breast cancer [facility] Diagnosis Metastatic breast cancer- Primary Bone metastasis Secondary malignant neoplasm of bone and bone marrow Recurrent right pleural effusion Unspecified pleural effusion Chemotherapy management, encounter for [facility] Diagnosis 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 Malignant neoplasm of choroid Early dry stage nonexudative age-related macular degeneration of both eyes Combined forms of age-related cataract of both eyes Other and combined forms of senile cataract 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) Other malignant neoplasm without specification of site [facility] Diagnosis Myopia, bilateral- Primary Myopia Regular astigmatism of both eyes Regular astigmatism Presbyopia [facility] Diagnosis 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) Malignant neoplasm of choroid Combined forms of age-related cataract of both eyes Other and combined forms of senile cataract [facility] Diagnosis Combined form of age-related cataract, [...] bronchus and lung [facility] Diagnosis Combined form of age-related cataract, [...] cataract, right eye [facility]* Diagnosis Status post cataract extraction and insertion of intraocular lens of right eye- Primary Combined form of age-related cataract, left eye Combined form of age-related cataract, left eye [facility] Diagnosis Status post cataract extraction and insertion of intraocular lens of right eye- Primary Combined form of age-related cataract, left eye [facility] Diagnosis Combined forms of age-related cataract of left eye- Primary Combined forms of age-related cataract of left eye Depression Depressive disorder, not elsewhere classified Anxiety Anxiety state, unspecified Bipolar disorder ([facility]/HCC) Bipolar disorder, unspecified documented in this encounter [facility] Work Phone: Evaluation note* Diagnosis Status post cataract extraction and insertion of intraocular lens of left eye- Primary Status post cataract extraction and insertion of intraocular lens of right eye [facility] Diagnosis Status post cataract extraction and insertion of intraocular lens of left eye- Primary 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) Other malignant neoplasm without specification of site [facility]* Diagnosis Combined forms of age-related cataract, right eye documented in this encounter [facility] Work Phone: Assessments Diagnosis Hypertension, [...] FoundDocuments on File Type Date Recorded 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 Advance Directives and Living Will Documents on File Type Date Recorded 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 HealthCare Power of Case Maker 05/28/2019 11:59 AM Advance Directives/Living Will 05/28/2019 11:59 AM HealthCare Power of Case Maker 07/17/2003 12:00 AM Advance Directives/Living Will 07/17/2003 12:00 AM Latest Code Status on File Code Status Date Activated Date Inactivated Comments Full Code 05/28/2018 11:33 PM Documents on File Type Date Recorded 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 HealthCare Power of Case Maker 05/28/2019 11:59 AM Advance Directives/Living Will 05/28/2019 11:59 AM HealthCare Power of Case Maker 07/17/2003 12:00 AM Advance Directives/Living Will 07/17/2003 12:00 AM Latest Code Status on File Code Status Date Activated Date Inactivated Comments Full Code 05/28/2018 11:33 PM Documents on File Type Date Recorded 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 HealthCare Power of Case Maker 05/28/2019 11:59 AM Advance Directives/Living Will 05/28/2019 11:59 AM HealthCare Power of Case Maker 07/17/2003 Advance Directives/Living Will 07/17/2003 Latest Code [...] PELVIS,W/O CONTRAST Catarino Levi MD, PhD [address] [facility] [address] [place] [address] Referral ID Status Reason Start Date Expiration Date V isits Requested Visits Authorized [id number] New Request 2020 11/30/2021 1 1 Specialty Diagnoses / Procedures Referred By Contac t Referred To Contact Diagnoses Metastatic breast cancer Procedures CT CHEST WITHOUT CONTRAST CHG DIAGNOSTIC COMPUTED TOMOGRAPHY THORAX W/O Catarino Houston MD, PhD [address] [facility] [address] [place] [address] Referral ID Status Reason Start Date Expiration Date V isits Requested Visits Authorized [id number] New Request 2020 11/30/2021 1 1 Referral ID Status Reason Start Date Expiration Date V isits Requested Visits Authorized [id number] New Request 01/26/2021 02/20/2022 1 1 Referral ID Status Reason Start Date Expiration Date V isits Requested Visits Authorized [id number] New Request 01/26/2021 02/20/2022 1 1 Medications [...] DATE CREATED AUTHOR AUTHOR'S ORGANIZ ATION 12/07/2017 [facility] DATE CREATED AUTHOR AUTHOR'S ORGANIZ ATION 05/30/2018 [facility] DATE CREATED AUTHOR AUTHOR'S ORGANIZ ATION 06/01/2018 [facility] DATE CREATED AUTHOR AUTHOR'S ORGANIZ ATION 08/09/2021 [facility] DATE CREATED AUTHOR AUTHOR'S ORGANIZ ATION 08/29/2021 [facility] DATE CREATED AUTHOR AUTHOR'S ORGANIZ ATION 11/03/2021 [facility] DATE CREATED AUTHOR AUTHOR'S ORGANIZ ATION 11/24/2021 [facility] DATE CREATED AUTHOR AUTHOR'S ORGANIZ ATION 03/31/[address] [facility] DATE CREATED AUTHOR AUTHOR'S ORGANIZ ATION 06/23/2023 [facility] Reason for Visit (unrecogniz ed section and content) Specialty Diagnoses / Procedures Referred By Contac t Referred To Contact Rehabilitation Diagnoses Degeneration of lumbar intervertebral disc Scoliosis due to degenerative disease of spine in adult patient Saleem BrownDO [address] [facility] [address] [place] [address] [facility] [address] [address] Referral ID Status Reason Start Date Expiration Date V isits Requested Visits Authorized [id number] Authorized 06/25/2021 10/05/2021 11 11 Reason Comments Infusion Visit zometa Specialty Diagnoses / Procedures Referred By Contac t Referred To Contact Diagnoses Metastatic breast cancer Procedures CT ABDOMEN/PELVIS WITHOUT CONTRAST CHG CT SCAN,ABDOMENT AND PELVIS,W/O CONTRAST Catarino Levi MD, PhD [address] [address] Referral ID Status Reason Start Date Expiration Date V isits Requested Visits Authorized [id number] New Request 2020 11/30/2021 1 1 Specialty Diagnoses / Procedures Referred By Contac t Referred To Contact Diagnoses Metastatic breast cancer Procedures CT CHEST WITHOUT CONTRAST CHG DIAGNOSTIC COMPUTED TOMOGRAPHY THORAX W/O CNTRST Catarino Levi MD, PhD [address] [facility] [address] [place] [address] Referral ID Status Reason Start Date Expiration Date V isits Requested Visits Authorized [id number] New Request 2020 11/30/2021 1 1 Reason [...] age-related cataract of left eye [H25.812] Procedures ID XCAPSL CTRC RMVL INSJ IO LENS PROSTH W/O ECP CATARACT EXTRACTION W/IOL IMPLANT L EYE Que Townsend MD [address] [facility] [place] [address] [facility] Or [address] [place] [phone] Referral ID Status Reason Start Date Expiration Date Visits Re quested Visits Authorized [id number] 1 1 Reason Comments Post-op Cataract OU OD 02/24/23OS Reason Comments Malignant Neoplasm of Left Choroid Reason Comments Post-op Cataract OD 02/24/23 OS 03/24 Reason Comments Other Combined forms of ag e-related cataract, R eye Care Teams (unrecognized sec tion and content) Cloth Wire Weaver Relationship Specialty Start Date End Date No, Physician [facility] PCP - General 07/02/21 Cloth Wire Weaver Relationship Specialty Start Date End Date No, Physician [facility] PCP - General 07/02/21 Cloth Wire Weaver Relationship Specialty Start Date End Date No, Physician [facility] PCP - General 07/02/21 Cloth Wire Weaver Relationship Specialty Start Date End Date No, Physician [facility] PCP - General 07/02/21 Cloth Wire Weaver Relationship Specialty Start Date End Date No, Physician [facility] PCP - General 07/02/21 Cloth Wire Weaver Relationship Specialty Start Date End Date No, Physician [facility] PCP - General 07/02/21 Cloth Wire Weaver Relationship Specialty Start Date End Date Dru Barahona, DO [address] [place] [address] PCP - General 07/04/07 Jyoti Kramer MD [address] [place], [place] [phone] Radiation Oncology 11/01/16 Catarino Levi MD, PhD [address] [facility] [address] [place] [phone] Oncologist Medical Oncology 11/09/16 Ghazal Jin, TELEVISION INSTALLER HELPER-CONTRACT ASSOCIATE [address] [facility] [address] [place], [place] [phone] Nurse Practitioner Medical Oncology 11/09/16 Jennifer Gerber, RN Registered Nurse Medical Oncology 02/15/17 Bethany West, RN Registered Nurse Medical Oncology 04/13/18 Kody Gil, [facility] [address] [facility] [address] [place] [address] Pharmacist Pharmacist 07/13/18 Dimitris Cuevas, [facility] [address] [facility] [address] [place] [address] Pharmacist Pharmacist 07/13/18 Korey Bravo MD [address] [facility] [address] [place] [phone] Surgeon Surgical Oncology 09/24/09 Cloth Wire Weaver Relationship Specialty Start Date End Date Dru Barahona, DO [address] [place] [address] PCP - General 07/04/07 Jyoti Kramer MD [address] [place], [place] [phone] Radiation Oncology 11/01/16 Catarino Levi MD, PhD [address] [facility] [address] [place] [address] Oncologist Medical Oncology 11/09/16 Ghazal Jin, TELEVISION INSTALLER HELPER-CONTRACT ASSOCIATE [address] [facility] [address] [place] [address] Nurse Practitioner Medical Oncology 11/09/16 Jennifer Gerber, JENAE Registered Nurse Medical Oncology 02/15/17 Bethany West, RN Registered Nurse Medical Oncology 04/13/18 Kody Gil, [facility] [address] [place] [address] Pharmacist Pharmacist 07/13/18 Dimitris Cuevas, [facility] [address] [facility] [address] [place] [address] Pharmacist Pharmacist 07/13/18 Korey Bravo MD [address] [facility] [address] [place] [phone] Surgeon Surgical Oncology 09/24/09 Cloth Wire Weaver Relationship Specialty Start Date End Date Dru Barahona, DO [address] [place] [address] PCP - General 07/04/07 Jyoti Kramer MD [address] [place], [place] [phone] Radiation Oncology 11/01/16 Catarino Levi MD, PhD [address] [facility] [address] [place] [address] Oncologist Medical Oncology 11/09/16 Ghazal Jin, TELEVISION INSTALLER HELPER-CONTRACT ASSOCIATE [address] [facility] [address] [place] [phone] Nurse Practitioner Medical Oncology 11/09/16 Jennifer Gerber, JENAE Registered Nurse Medical Oncology 02/15/17 Bethany West, RN Registered Nurse Medical Oncology 04/13/18 Kody Gil, [facility] [address] [place] [address] Pharmacist Pharmacist 07/13/18 Dimitris Cuevas, [facility] [address] [place] [address] Pharmacist Pharmacist 07/13/18 Korey Bravo MD [address] [facility] [address] [place] [phone] Surgeon Surgical Oncology 09/24/09 Cloth Wire Weaver Relationship Specialty Start Date End Date Dru Barahona, DO [address] [place] [address] PCP - General 07/04/07 Jyoti Kramer MD [address] [place], [place] [phone] Radiation Oncology 11/01/16 Catarino Levi MD, PhD [address] [facility] [address] [place] [phone] Oncologist Medical Oncology 11/09/16 Ghazal Jin, TELEVISION INSTALLER HELPER-CONTRACT ASSOCIATE [address] [facility] [address] [place] [address] Nurse Practitioner Medical Oncology 11/09/16 Jennifer Gerber, RN Registered Nurse Medical Oncology 02/15/17 Bethany West, RN Registered Nurse Medical Oncology 04/13/18 Kody Gil, [facility] [address] [place] [address] Pharmacist Pharmacist 07/13/18 Dimitris Cuevas, [facility] [address] [place] [address] Pharmacist Pharmacist 07/13/18 Korey Bravo MD [address] [facility] [address] [place] [phone] Surgeon Surgical Oncology 09/24/09 Cloth Wire Weaver Relationship Specialty Start Date End Date Dru Barahona Tonio, DO [address] [place] [address] PCP - General 07/04/07 Jyoti Kramer MD [address] [place] [address] Radiation Oncology 11/01/16 Ghazal Jin, TELEVISION INSTALLER HELPER-CONTRACT ASSOCIATE [address] [facility] [address] [place] [address] Nurse Practitioner Medical Oncology 11/09/16 Kody Gil, [facility] [address] [place] [address] Pharmacist Pharmacist 07/13/18 Dimitris Cuevas, [facility] [address] [place] [address] Pharmacist Pharmacist 07/13/18 Korey Bravo MD [address] [facility] [address], [address] [place] [phone] Surgeon Surgical Oncology 09/24/09 Fco Camacho MBBS [address] [facility] [address], [address] [place] [address] Oncologist Medical Oncology 10/05/21 Taylor Canada TELEVISION INSTALLER HELPER-CONTRACT ASSOCIATE [address] [facility] [address], [address] [place] [phone] Certified Nurse Practitioner 10/05/21 Cloth Wire Weaver Relationship Specialty Start Date End Date Mar Bucio [address] [place] [place] [phone] PCP - General Family Practice 08/24/21 Cloth Wire Weaver Relationship Specialty Start Date End Date Mar Bucio [address] [place] [address] PCP - General Family Medicine 08/24/21 Cloth Wire Weaver Relationship Specialty Start Date End Date Mar Bucio MD PCP - General Family Medicine 08/24/21 Cloth Wire Weaver Relationship Specialty Start Date End Date Mar Bucio MD PCP - General Family Medicine 08/24/21 Cloth Wire Weaver Relationship Specialty Start Date End Date Mar Bucio MD PCP - General Family Medicine 08/24/21 Cloth Wire Weaver Relationship Specialty Start Date End Date Mar Bucio MD PCP - General Family Medicine 08/24/21 Cloth Wire Weaver Relationship Specialty Start Date End Date Mar Bucio MD PCP - General Family Medicine 08/24/21 Cloth Wire Weaver Relationship Specialty Start Date End Date Mar Bucio MD [address] [facility] [place] [address] PCP - General 02/24/23 Cloth Wire Weaver Relationship Specialty Start Date End Date Mar Bucio MD PCP - General Family Medicine 08/24/21 Cloth Wire Weaver Relationship Specialty Start Date End Date Mar Bucio MD PCP - General Family Medicine 08/24/21 Cloth Wire Weaver Relationship Specialty Start Date End Date Mar Bucio MD PCP - General Family Medicine 08/24/21 Cloth Wire Weaver Relationship Specialty Start Date End Date Mar Bucio MD PCP - General 02/24/23 Source Comments (unrecognize d section and content) In the event this informatio n is protected by the Federal Confidentiality of Alcohol and Drug Abuse Patient Records regulations: The Federal rules restrict any use of the information to criminally investigate or prosecute any alcohol or drug abuse patient.[facility] the event this information is protected by the Federal Confidentiality of Alcohol and Drug Abuse Patient Records regulations: The Federal rules restrict any use of the information to criminally investigate or prosecute any alcohol or drug abuse patient.[facility] the event this information is protected by the Federal Confidentiality of Alcohol and Drug Abuse Patient Records regulations: The Federal rules restrict any use of the information to criminally investigate or prosecute any alcohol or drug abuse patient.[facility] the event this information is protected by the Federal Confidentiality of Alcohol and Drug Abuse Patient Records regulations: The Federal rules restrict any use of the information to criminally investigate or prosecute any alcohol or drug abuse patient.[facility] the event this information is protected by the Federal Confidentiality of Alcohol and Drug Abuse Patient Records regulations: The Federal rules restrict any use of the information to criminally investigate or prosecute any alcohol or drug abuse patient.[facility] the event this information is protected by the Federal Confidentiality of Alcohol and Drug Abuse Patient Records regulations: The Federal rules restrict any use of the information to criminally investigate or prosecute any alcohol or drug abuse patient.[facility] the event this information is protected by the Federal Confidentiality of Alcohol and Drug Abuse Patient Records regulations: The Federal rules restrict any use of the information to criminally investigate or prosecute any alcohol or drug abuse patient.[facility] [facility] the event this information is protected by the Federal Confidentiality of Alcohol and Drug Abuse Patient Records regulations: The Federal rules restrict any use of the information to criminally investigate or prosecute any alcohol or drug abuse patient.[facility] the event this information is protected by the Federal Confidentiality of Alcohol and Drug Abuse Patient Records regulations: The Federal rules restrict any use of the information to criminally investigate or prosecute any alcohol or drug abuse patient.[facility] the event this information is protected by the Federal Confidentiality of Alcohol and Drug Abuse Patient Records regulations: The Federal rules restrict any use of the information to criminally investigate or prosecute any alcohol or drug abuse patient.[facility] the event this information is protected by the Federal Confidentiality of Alcohol and Drug Abuse Patient Records regulations: The Federal rules restrict any use of the information to criminally investigate or prosecute any alcohol or drug abuse patient.[facility] Scheduled Active and Recently Administ ered Medications [...] BE BASED ON THE PRIMARY CLINICAL RECORDS. [employer] [facility] provides no warranty or guarantee of the accuracy or completeness of information in this document.
--- OUTSIDE RECORDS SUMMARY | 2023-07-19 16:35 | XMS RPT_ITS | CCD ---
Author Name Unknown Address [address] [place] [address] Organization [facility] Care Team Providers Care Airplane First Officer Name Role Phone Dru Barahona Unavailable CHAPARRO LIU Unavailable Unavailable DRU BARAHONA Unavailable Unavailable Bryn Riojas Unavailable Unavailable Bryn Riojas Unavailable Unavailable Dru Barahona Unavailable Unavailable Dru Barahona Unavailable Unavailable Ivanauskeleonora, Saulius Unavailable Unavailable Jenaine, Saulius Unavailable Unavailable Dru Barahona DO Primary [...] Unavailable Dru Barahona DO Primary Care Provider [phone] Williams TORRES, Jyoti Unavailable Amita TORRES, PhD, Catarino Renteria Unavailable Davin VERDIN-SHOWER SCREEN INSTALLER, Ghazal Elizalde Unavailable [phone] Buzz RN, Jennifer Unavailable Unavailable Brett EMANUEL, Bethany Unavailable Unavailable Jeffery [facility], Kody Unavailable [facility], Dimitris Unavailable Lawrence TORRES, Korey P Unavailable Jeffery [facility], Kody W Unavailable [facility], Dimitris Unavailable Lawrence TORRES, Korey P Unavailable Doug HOOKS, Fco Unavailable Dread VERDIN-SHOWER SCREEN INSTALLER, Taylor Huff Unavailable Mar Bucio Primary Care Provider [phone] Bryn Riojas Unavailable DRU BARAHONA Primary Care [...] Unavailable Mar Bucio Primary Care Provider [phone] Kristin Bucio MDh Jean Claude Primary Care [...] Propensity to adverse reactions to drug 6 [facility] Work Phone: (2 sources) Sulfonamides (Antibiotic); Translations: [sulfa drugs] Propensity to adverse reactions to drug (disorder) [facility]OF [facility] Repository (20 sources) Sulfonamides (Antibiotic) Propensity to adverse reactions to drug 6 Rash [facility] (5 sources) Sulfonamides (Antibiotic) Propensity to adverse reactions to drug 9 Rash U [facility] Medications Current Medications Medication Drug Class(es) [...] 81 mm[Hg] Que Townsend MD Work Phone: [facility] 03-24-2023 13:40-0400 Heart rate 78 /min Que Townsend MD Work Phone: [facility] 03-24-2023 13:40-0400 Respiratory rate 16 /min Que Townsend MD Work Phone: [facility] 03-24-2023 13:40-0400 SaO2% (BldA) [Mass fraction] 94 % Que Townsend MD Work Phone: [facility] 03-24-2023 13:40-0400 Systolic blood pressure 132 mm[Hg] Que Townsend MD Work Phone: [facility] 03-24-2023 13:25-0400 Body temperature 97.9 [degF] uQe Townsend MD Work Phone: [facility] 03-24-2023 12:09-0400 Body height 158 cm Que Townsend MD Work Phone: [facility] 03-24-2023 12:09-0400 Body mass index (BMI) [Ratio] 22.43 kg/m2 Que Townsend MD Work Phone: [facility] 03-24-2023 12:09-0400 Body weight 56 kg Que Townsend MD Work Phone: [facility] 02-16-2023 15:24-0400 Diastolic blood pressure [...] [Ratio] 21.84 kg/m2 Fco HOOKS Work Phone: [facility] 10-05-2021 09:26-0400 Body temperature 98.4 [degF] Fco HOOKS Work Phone: [facility] 10-05-2021 09:26-0400 Body weight 54.16 kg Fco HOOKS Work Phone: [facility] 10-05-2021 09:26-0400 Diastolic blood pressure 84 mm[Hg] Fco HOOKS Work Phone: [phone] [place] [address] 10-05-2021 09:26-0400 Heart rate 79 /min Fco HOOKS Work Phone: 3(326)[phone] [place] [address] 10-05-2021 09:26-0400 Respiratory rate 16 /min Fco HOOKS Work Phone: 3(126)[phone] [place] [address] 10-05-2021 09:26-0400 Systolic blood pressure 145 mm[Hg] Fco HOOKS Work Phone: 0(590)[phone] [place] [address] 01-26-2021 09:51-0400 Body mass index (BMI) [Ratio] 22.79 kg/m2 Catarino Levi MD, PhD Work Phone: 4(520)[phone] [place] [address] 01-26-2021 09:51-0400 Body temperature 98.01 [degF] Catarino Levi MD, PhD Work Phone: [phone](515)[phone] [place] [address] 01-26-2021 09:51-0400 Body weight 56.52 kg Catarino Levi MD, PhD Work Phone: 0(010)[phone] [place] [address] 01-26-2021 09:51-0400 Diastolic blood pressure 87 mm[Hg] Catarino Levi MD, PhD Work Phone: 0(014)[phone] [place] [address] 01-26-2021 09:51-0400 Heart rate 88 /min Catarino Levi MD, PhD Work Phone: 1(655)[phone] [place] [address] 01-26-2021 09:51-0400 Respiratory rate 16 /min Catarino Levi MD, PhD Work Phone: 1(997)[phone] [place] [address] 01-26-2021 09:51-0400 SaO2% (BldA) [Mass fraction] 100 % Catarino Levi MD, PhD Work Phone: 4(474)[phone] [place] [address] 01-26-2021 09:51-0400 Systolic blood pressure 152 mm[Hg] Catarino Levi MD, PhD Work Phone: [facility] 05-17-2017 09:40-0500 BMI (Body Mass Index) 21.77 kg/m2 Chaparro Liu [facility] Work Phone: 05-17-2017 09:40-0500 BP Diastolic 79 mm[Hg] Chaparro Liu [facility] Work Phone: 05-17-2017 09:40-0500 BP Systolic 116 mm[Hg] Chaparro Liu [facility] Work Phone: 05-17-2017 09:40-0500 Height 157.5 cm Chaparro Liu [facility] Work Phone: 05-17-2017 09:40-0500 Pulse (Heart Rate) 97 /min Chaparro Liu [facility] Work Phone: 05-17-2017 09:40-0500 Pulse Oximetry 94 % Chaparro Liu [facility] Work Phone: 05-17-2017 09:40-0500 Weight 53.98 kg Chaparro Liu [facility] Work Phone: Encounters Encounter Date Encounter Type Care Provider Facility Start: 06-22-2023 End: 06-22-2023 ambulatory QUE TOWNSEND Facility:[facility] Start: 04-20-2023 End: 04-20-2023 ambulatory QUE TOWNSEND Facility:[facility] Start: 04-20-2023 End: 04-20-2023 Patient encounter procedure [...] 10-05-2021 Bilirubin direct Meliss a L Jin GOLF BALL INSPECTOR-SHOWER SCREEN INSTALLER Work Phone: Start: 10-05-2021 CBC AND ELECTRONIC DIFF Ghazal L Jin GOLF BALL INSPECTOR-SHOWER SCREEN INSTALLER Work Phone: Start: 10-05-2021 Complete blood count with white cell differential, automated Ghazal L Jin GOLF BALL INSPECTOR-SHOWER SCREEN INSTALLER Work Phone: Start: 10-05-2021 MANUAL DIFF Ghazal L Jin GOLF BALL INSPECTOR-SHOWER SCREEN INSTALLER Work Phone: Start: 01-26-2021 Bilirubin direct Meliss a L Jin GOLF BALL INSPECTOR-SHOWER SCREEN INSTALLER Work Phone: Start: 01-26-2021 CBC AND ELECTRONIC DIFF Ghazal L Jin GOLF BALL INSPECTOR-SHOWER SCREEN INSTALLER Work Phone: Start: 01-26-2021 Complete blood count with white cell differential, automated Ghazal L Jin GOLF BALL INSPECTOR-SHOWER SCREEN INSTALLER Work Phone: Start: 01-26-2021 MANUAL DIFF Ghazal L Jin GOLF BALL INSPECTOR-SHOWER SCREEN INSTALLER Work Phone: Start: 01-26-2021 Ct thorax w/o contra st material Catarino Levi MD, PhD Work Phone: Start: 02-26-2016 Mammography Que philippe MD Work Phone: Start: 05-29-2015 [facility] Que philippe MD Work Phone: Plan of Treatment Date Care Activity Detail Author Start: 03-14-2028 Tetanus vaccination [facility] Start: 03-14-2028 Urine microalbumin profile DTaP,Tdap,Td [...] of left eye 03/24/2023 12:52 PM EDT [facility] Work Phone: Start: 02-11-2023 Covid-19 [...] Vaccine (4 - Booster for Pfizer series) [facility] Start: 09-18-2021 COVID-19 Vaccine (4 - Booster for Pfizer series) COVID-19 Vaccine (4 - Booster for Pfizer series) [facility] Start: 07-31-2021 End: 07-31-2021 ambulatory 07/31/2021 Treatment Rehabilitation Saleem Brown, [address] [facility] [address] [place] [address] [id number] Tequila Kay, PT [facility] Start: 07-28-2021 End: 07-28-2021 ambulatory 07/28/2021 Treatment Rehabilitation Saleem Brown, DO [address] [place] [address] Mili Reynolds, [facility] Start: 07-23-2021 End: 07-23-2021 ambulatory 07/23/2021 Treatment Rehabilitation aSleem Brown, DO [address] [place] [address] [address] [place] [address] Jayson Grant [facility] Start: 07-21-2021 End: 07-21-2021 ambulatory 07/21/2021 Treatment Rehabilitation Saleem Brown, DO [address] [place] [address] [address] [place] [address] M[facility] Start: 07-21-2021 COVID-19 VACCINE (4 - Booster for Pfizer series) COVID-19 VACCINE (4 - Booster for Pfizer series) [facility] Start: 07-17-2021 End: 07-17-2021 ambulatory [facility] Start: 07-14-2021 End: 07-14-2021 ambulatory 07/14/2021 Treatment Rehabilitation Saleem Brown, DO [address] [place] [address] [address] [place] [address] Shanika Watson [facility] Start: 07-09-2021 End: 07-09-2021 ambulatory 07/09/2021 Treatment Rehabilitation Saleem Brown, DO [address] [place] [address] [address] [place] [address] Jayson Grant [facility] Start: 07-07-2021 End: 07-07-2021 ambulatory 07/07/2021 Treatment Rehabilitation Saleem Brown, DO [address] [place] [address] [address] [place] [address] Shanika Watson, [facility] Start: 07-02-2021 End: 07-02-2021 ambulatory 07/02/2021 Treatment Rehabilitation Saleem Brown, DO [address] [place] [address] [address] [place], [place] [id number] Jayson Grant, [facility] Start: 06-30-2021 End: 06-30-2021 ambulatory 06/30/2021 Treatment Rehabilitation Saleem Brown, DO [address] [place] [address] [address] [place], [place] [id number] Shanika Watson, [facility] Start: 06-15-2021 COVID-19 Vaccine (2 - Pfizer series) COVID-19 Vaccine (2 - Pfizer series) [facility] Start: 06-15-2021 COVID-19 VACCINE (4 [...] Metastatic breast cancer Expected: 04/20/2021, Expires: 01/26/2022 [facility] Work Phone: Immunizations Immunization Date Immunization Notes Care Provider [facility] 03-26-2022 influenza virus vaccine, unspecified formulation Que Townsend MD Work Phone: [facility] 04-20-2021 COVID-19 vaccine, MR YAMILET, Pfizer, 0.3 ML Fco HOOKS Work Phone: [facility] 04-20-2019 zoster vaccine, unspecified formulation Tess Weeks RN [facility] 03-13-2019 influenza, high dose seasonal, preservative-free Tess Weeks RN [facility] 03-13-2019 influenza virus vaccine, unspecified formulation Tess Weeks RN [facility] Payers Date Payer Category Payer Unknown 2021 Unknown [id number] 2018 Private Health Insurance [id number] [id number] 2018 Unknown [id number] [id number]. [id number] 2017 Medicare 2017 Private Health Insurance 2012 Medicare [id number] 2.16.840.1.217976.3.249.13 1947 Unknown [id number] 2.16840.1.950767.3.579.2. 71 1945 Unknown [id number] 2.16840.1.657489.3.579.2 1945 Unknown [id number] 2.16.840.1.468851.3.579.2. 356 1945 Unknown [id number] 2.16.840.1.469097.3.579.2 1947 Unknown [id number] 2.16.840.1.488651.3.579.2. 1945 Unknown [id number] 2.16.840.1.789175.3.579.2. 90 1945 Unknown [id number] 2.16.840.1.249760.3.579.2. 1945 Unknown [id number] 2.16.840.1.173725.3.579.2 1947 Unknown [id number] 2.16.840.1.369919.3.579.2. 1945 Unknown [id number] 2.16.840.1.407983.3.579.2. 903 1945 Unknown [id number] 2.16.840.1.391176.3.579.2. 903 1945 Unknown [id number] 2.16.840.1.598424.3.579.2. 594 1945 Unknown [id number] 2.16.840.1.224080.3.579.2. 594 1947 Unknown [id number] 2.16.840.1.308352.3.579.2. 594 1947 Unknown [id number] 2.16840.1.644641.3.579.2. 594 1947 Unknown [id number] 2.16.840.1.610400.3.579.2. 594 1947 Unknown [id number] 2.16840.1.502207.3.579.2. 594 1947 Unknown [id number] 2.16.840.1.479957.3.579.2. 594 1947 Unknown [id number] 2.16840.1.332501.3.579.2. 594 1947 Unknown [id number] 2.16.840.1.894931.3.579.2. 594 1947 Unknown [id number] 2.16840.1.906992.3.579.2. 594 1947 Unknown [id number] 2.16.840.1.991847.3.579.2. 594 1947 Unknown [id number] 2.16.840.1.956738.3.579.2. 594 1947 Unknown [id number] 2.16.840.1.038832.3.579.2. 594 1947 Unknown [id number] 2.16.840.1.676511.3.579.2. 594 1947 Unknown [id number] 2.16.840.1.036396.3.579.2. 594 1947 Unknown [id number] 2.16.840.1.284344.3.579.2. 594 1947 Unknown [id number] 2.16.840.1.869697.3.579.2. 594 1947 Unknown [id number] 2.16.840.1.664943.3.579.2. 594 1947 Unknown [id number] 2.16.840.1.818894.3.579.2. 594 1947 Unknown [id number] 2.16.840.1.010333.3.579.2. 1243 Medicare MEDICARE MEDICAR E A AND B [id number] Effective for all dates [address] [place] [address] [id number] 1.2.840.236718.1.13.172.2. 7.3.841741.315 Medicare [id number] Social History Date Type Detail Facility Start: 05-17-2017 End: 01-28-2023 Tobacco smoking status NHIS Never smoker [facility] Start: 1945 Sex Assigned At Not on file [facility] [employer] Work Phone: Start: 03-27-2015 End: 01-28-2023 Tobacco use and exposure Smokeless tobacco non-user [facility] Start: 05-17-2017 End: 04-20-2023 Alcohol intake Current non-drinker of alcohol (finding) [facility] Start: 07-26-2021 End: 03-23-2023 Exposure to SARS-CoV-2 (event) Not sure [facility] Start: 07-12-2018 End: 03-23-2023 Cigarettes smoked current (pack per day) - Reported 0.5 [facility] Start: 10-25-2022 End: 03-23-2023 Tobacco use panel [facility] National Score (1-10 0), lower number is lower risk 59 [facility] Start: 03-23-2023 Alcohol intake Lifetime non-d elvin (finding) [facility] Work Phone: Tobacco smoking stat us NHIS Tobacco smoking consumption unknown [facility] Work Phone: Medical Equipment Procedure Code Equipment Code Equipment Origin al Text Equipment Identifier Dates Lens, Intraocula r, Sn60wf 22.5 Harlan - [id number] - [id number] Start: 03-24-2023 Clinical Notes 05-29-2015 to 06-22-2023 Patient InstructionsJosh Gaston II, OD - 04/20/2023 8:58 AM Ольга Prasad MD - 04/05/2023 12:04 PM EDTPatient InstructionsJosh Gaston II, OD - 03/30/2023 4:26 PM EDT Note Date & Type Note Facility 06-22-2023 Note HNO ID: [id number] Author: JOSH GASTON II, OD Service: ? Author Type: HUMAN RESOURCE ADVISOR Type: Progress Notes Filed: 06/22/2023 10:55 Note [...] its relevant components. Josh Gaston II, OD [facility] 04-20-2023 Note HNO ID: [id number] Author: Josh Gaston II, OD Service: ? Author Type: HUMAN RESOURCE ADVISOR Type: Progress Notes Filed: 04/20/2023 9:00 AM [...] its relevant components. Josh Gaston II, OD [facility] 04-20-2023 Instructions Josh Gaston II, OD - [...] others. I have seen and examined Martha Stephesn. I have discussed the case and the [...] [facility] 04-05-2023 Note HNO ID: [id number] Author: Ольга Tabares MD Service: ? Author Type: Physician Type: Progress Notes Filed: 04/05/2023 12:42 PM Note Text: Referred by Dr. Que Townsend Incidental finding on routine examination - asymptomatic except shadow 1. Stage IV breast cancer - 09/10/16 CT A/P: Right pleural effusion, small left pleural effusion, multiple sclerotic lesions, liver lesions - 10/06/[address] Usha Hathaway, [facility]. - 10/21/16 Thoracentesis 900 mL - Metastatic adenocarcinoma consistent with breast primary - Patient went in for annual eye exam at [facility] and left eye cancer was found. - 11/01/16 New patient visit with Dr. Levi - 11/10/16: Liver biopsy demonstrates small patches of cells which are ER strongly +100%, CA negative, HER2 negative. - 11/17/17 Seen at [facility]. Started Letrozole. Palbociclib ordered. - 11/22/16 Started Palbociclib and continued Letrozole - 02/09/17 CT chest abdomen pelvis showed increased sclerosis of her bone lesions consistent with disease response. She has persistent right greater than left pleural effusion. - 02/21/18 Seen at [facility]. Continue current treatment with Palbociclib + Letrozole. Recommend Xgeva. - 05/09/17 Chest x-ray showed reaccumulation of pleural fluid in right lung base. - 05/09/17 Started Xgeva every 3 months - 05/23/17 Seen at [facility]. Recommend repeat staging scans with local [...] + Letrozole, Xgeva - 09/19/17 Seen at [facility]. Recommended consideration of Pleurx vs continued [...] stable. - Oncologist - Dr Fco Camacho- [facility] - CT C/A/P 07/13/21: stable. - Metastatic [...] Tabares MD April 05, 2023 12:41 PM [facility] 04-05-2023 History of Present illness Narrative Referred by Dr. Que Townsend Incidental finding on routine examination - asymptomatic except shadow 1. Stage IV breast cancer - 09/10/16 CT A/P: Right pleural effusion, small left pleural effusion, multiple sclerotic lesions, liver lesions - 10/06/[address] Usha Hathaway, [facility]. - 10/21/16 Thoracentesis 900 mL - Metastatic adenocarcinoma consistent with breast primary - Patient went in for annual eye exam at [facility] and left eye cancer was found. - 11/01/16 New patient visit with Dr. Levi - 11/10/16: Liver biopsy demonstrates small patches of cells which are ER strongly +100%, CA negative, HER2 negative. - 11/17/17 Seen at [facility]. Started Letrozole. Palbociclib ordered. - 11/22/16 Started Palbociclib and continued Letrozole - 02/09/17 CT chest abdomen pelvis showed increased sclerosis of her bone lesions consistent with disease response. She has persistent right greater than left pleural effusion. - 02/21/18 Seen at [facility]. Continue current treatment with Palbociclib + Letrozole. Recommend Xgeva. - 05/09/17 Chest x-ray showed reaccumulation of pleural fluid in right lung base. - 05/09/17 Started Xgeva every 3 months - 05/23/17 Seen at [facility]. Recommend repeat staging scans with local [...] + Letrozole, Xgeva - 09/19/17 Seen at [facility]. Recommended consideration of Pleurx vs continued [...] stable. - Oncologist - Dr Fco Camacho- [facility] - CT C/A/P 07/13/21: stable. - Metastatic [...] [facility] 03-30-2023 Note HNO ID: [id number] Author: Josh Gaston II, OD Service: ? Author Type: HUMAN RESOURCE ADVISOR Type: Progress Notes Filed: 03/30/2023 4:27 PM [...] its relevant components. Josh Gaston II, OD [facility] 03-30-2023 Instructions Josh Gaston II OD - [...] [facility] 03-25-2023 Note HNO ID: [id number] Author: Que Townsend MD Service: ? Author [...] diagnosis, and treatment options. Que Townsend MD [facility] 03-24-2023 Hospital Discharge instructions Que Townsend MD - 03/24/2023 1:39 PM EDT Follow printed discharge instructions documented in this encounter [facility] Work Phone: 03-24-2023 Note Formatting of this n ote is different from the original. 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 Procedure Summary Anesthesia: [...] 350 mL Specimen: No specimens collected Staff: Experimental Machining Lab Manager: Asha Nuñez RN Scrub Person: Ambrosio Mensah RN Implants: Implants Type Name Action Serial No. Lens LENS, INTRAOCULAR, SN60WF 22.5 HARLAN - [id number] - [id number] Implanted [id number] Findings: Combined Form Age Related Cataract Left [...] Attestation: I performed the procedure. 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 Procedure Summary Anesthesia: [...] 350 mL Specimen: No specimens collected Staff: Experimental Machining Lab Manager: Asha Nuñez RN Scrub Person: Ambrosio Mensha RN Implants: Implants Type Name Action Serial No. Lens LENS, INTRAOCULAR, SN60WF 22.5 HARLAN - [id number] - [id number] Implanted [id number] Findings: Combined Form Age Related Cataract Left [...] procedure. Que Townsend documented in this encounter [facility] Work Phone: 03-24-2023 History and physical note Images from the original note were not included. Reason for Visit Reason for Visit - Reason Comments Cataract Follow Up Left eye Post-op Cataract OD 02/24/2023 Encounter Details Encounter Details Date Type Department Care Team Description 03/14/2023 10:00 AM EDT Office [place] [address] Qeu Townsend MD [address] [place] [address] Combined form of age-related cataract, left eye [...] number is lower risk 4 Data from: https://www.neighborhoodatlas.[place] healthcare/. Last address used for calculation [address] [place] [address] 175 Social History Sex and Gender Information [...] PM EDT Office Visit [facility] Ophthalmology [address] [place] [address] Que Townsend MD [address] [place] [address] 04/05/2023 10:00 AM EDT Office Visit [facility] Op[facility]mology [address] [address] Ольга Tabares MD [address] [place], [place] [id number] Plan of Treatment - Scheduled Procedures Scheduled Procedures Name Priority Associated Diagnoses Date/Time SURGERY AT [facility] Combined form of age-related cataract, left [...] the event of a Fluress shortage, administer [place]-Fluor 1 drop into both eyes as directed [...] - Wearing Rx Wearing Rx Sphere Cylinder Midway Right eye Left eye -4.75 +0.75 171 Eye Exam Type: SVL Eye Exam - Manifest Refraction (Auto) Manifest Refraction (Auto) Sphere Cylinder Midway Right eye -0.50 +1.25 026 Left eye -5.00 +1.50 165 Care Teams - documented as of this encounter Care Teams Airplane First Officer Relationship Specialty Start Date End Date Mar Bucio MD PCP - General Family Medicine 08/24/21 [facility] Work Phone: 03-24-2023 History and physical note Images from the original note were not included. Reason for Visit Reason for Visit - Reason Comments Cataract Follow Up Left eye Post-op Cataract OD 02/24/2023 Encounter Details Encounter Details Date Type Department Care Team Description 03/14/2023 10:00 AM EDT Office Visit [facility] Ophthalmology [address] [place] [address] Que Townsend MD [address] [place] [address] Combined form of age-related cataract, left eye [...] number is lower risk 4 Data from: https://www.neighborhoodatlas.[facility]/. Last address used for calculation [address] [place] [address] [address] Social History Sex and Gender [...] 1:00 PM EDT Office Visit [facility] [place] [id number] Que Townsend MD [address] [place] [address] 04/05/2023 10:00 AM EDT Office Visit [facility] Op[facility]mology [address] [address] Ольга Tabares MD [address] [place] [address] Plan of Treatment - Scheduled Procedures Scheduled Procedures Name Priority Associated Diagnoses Date/Time SURGERY AT [facility] Combined form of age-related cataract, left [...] the event of a Fluress shortage, administer [place]-Fluor 1 drop into both eyes as directed [...] - Wearing Rx Wearing Rx Sphere Cylinder Midway Right eye Left eye -4.75 +0.75 171 Eye Exam Type: SVL Eye Exam - Manifest Refraction (Auto) Manifest Refraction (Auto) Sphere Cylinder Midway Right eye -0.50 +1.25 026 Left eye -5.00 +1.50 165 Care Teams - documented as of this encounter Care Teams Airplane First Officer Relationship Specialty Start Date End Date Mar Bucio MD PCP - General Family Medicine 08/24/21 documented in this encounter [facility] Work Phone: 03-14-2023 Note HNO ID: [id number] Author: Que Townsend MD Service: ? Author [...] about the findings, diagnosis, and treatment options. [facility] 03-03-2023 Note HNO ID: [id number] Author: Josh Gaston II, OD Service: ? Author Type: HUMAN RESOURCE ADVISOR Type: Progress Notes Filed: 03/03/2023 1:15 PM [...] its relevant components. Josh Gaston II, JANUSZ [facility] 03-03-2023 Instructions Josh Gaston II OD - [...] [facility]23 Note HNO ID: [id number] Author: Que Townsend MD Service: ? Author [...] diagnosis, and treatment options. Que Townsend MD [facility] 02-25-2023 Instructions Que Townsend MD - 02/25/2023 [...] any questions please contact our office at [phone]. After office hours or on the weekend, please call Dr. Townsend on his cell phone at [phone]. documented in this encounter [facility] [...] Right Eye Surgeon: Que Townsend MD Resident/Fellow/Other Scientific Informatics Analyst: None Estimated Blood Loss (mL): none Specimen: [...] by Que Townsend) documented in this encounter [facility] Work Phone: 02-24-2023 Note Formatting of this n ote is different from the original. Post Operative Note: Post-Procedure Diagnosis: 1. Combined Form Age Related Cataract Right Eye Procedure: 1. Cataract Extraction with Intraocular Lens Implant Right Eye Surgeon: Qeu Townsend MD Resident/Fellow/Other Scientific Informatics Analyst: None Estimated Blood Loss (mL): none Specimen: [...] Last Updated: 24-Feb-2023 11:32 by Que Townsend) [facility] Work Phone: 02-24-2023 History and physical note [...] Last Updated: 24-Feb-2023 10:15 by Que Townsend) [facility] Work Phone: 02-24-2023 History and physical note [...] by Que Townsend) documented in this encounter [facility] Work Phone: 02-16-2023 Note HNO ID: [id number] Author: Que Townsend MD Service: ? Author [...] right eye scheduled on 02/24/23 at [facility]. Patient wishes to have cataract surgery with [...] diagnosis, and treatment options. Que Townsend MD [facility] 02-16-2023 History of Present illness Narrative ASSESSMENT/PLAN: [...] right eye scheduled on 02/24/23 at [facility]. Patient wishes to have cataract surgery with [...] any questions please contact our office at [phone]. After office hours or on the weekend, please call Dr. Townsend on his cell phone at [phone]. documented in [facility] [...] 04/20/2023) [facility]08-18-2023 NoteHNO ID: [id number] Author: Que Townsend MD Service: ? Author [...] intraocular lens implantation were discussed with Martha Stpehens in detail. Martha Stephens appeared to understand [...] findings, diagnosis, and treatment options. Que Townsend, [facility]08-18-2023 Instructions* Patient Instructions* Que Townsend MD - 01/28/2023 11:35 AM EDT Systane Complete Artificial Tears - Use 1 Drop into both eyes three times a day. Cataract surgery right eye is scheduled on 02/24/23 If you have any questions please contact our office at [phone]. After office hours or on the weekend, please call Dr. Townsend on his cell phone at [phone]. [facility] [...] [facility]23 NoteHNO ID: [id number] Author: Shreyas Gaston, JANUSZ Service: ? Author Type: HUMAN RESOURCE ADVISOR Type: Progress Notes Filed: 01/24/2023 3:19 PM [...] the neuro exam findings as obtained by others.[facility]05-15-2023 NoteHNO ID: [id number] Author: Que Townsend MD Service: ? Author [...] about the findings, diagnosis, and treatment options. Qeu Townsend [facility]05-15-2023 Instructions* Patient Instructions* Que Townsend MD - 10/25/2022 10:27 AM EDT Please monitor each eye daily with Amsler Grid. AREDS 2 Vitamins are available over the counter at any drug store. If you have any questions please contact our office at [phone]. After office hours or on the weekend, please call Dr. Townsend on his cell phone at [phone]. [facility] [...] [facility]-2023 NoteHNO ID: [id number] Author: Shreyas Gaston OD Service: ? Author Type: HUMAN RESOURCE ADVISOR Type: Progress Notes Filed: 09/06/2022 11:10 AM [...] the neuro exam findings as obtained by others.[facility]03-27-2023 Instructions* Patient Instructions* Shreyas Gaston OD - [...] for Medical records from [facility] for Martha's last colonoscopy. Faxed 2014 colonoscopy report to [phone]. Fax confirmation sheet received. Sonali Hagen RN [facility] History of Present illness Narrative* Que Townsedn MD - 10/06/2021 10:12 AM EDT ASSESSMENT/PLAN: [...] any questions please contact our office at [phone]. After office hours or on the weekend, please call Dr. Townsend on his cell phone at [phone]. [facility] History of Present illness Narrative* Bethany West RN - 10/05/2021 9:40 AM EDT Patient offered a medical campus manager for sensitive exam. Pt declined * NEVA Chen - 10/05/2021 9:40 AM EDT Martha Stephens is a 75 y.o. 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 She went to the ED in [place]. When she returned from [place] she established with [facility], Dr. Karson Luis for heartburn with nausea, 20-lb weight loss. 09/07/16 EGD Chronic inflammation 09/10/16 CT A/P: Right pleural effusion, small left pleural effusion, multiple sclerotic lesions, liver lesions 10/06/[address] Usha Hathaway, [facility]. 10/21/16 Thoracentesis 900 mL Metastatic adenocarcinoma consistent with breast primary Patient went in for annual eye exam at [facility] and left eye cancer was found. 11/01/16 New patient visit with Dr. Levi 11/10/16: Liver biopsy demonstrates small patches of cells which are ER strongly +100%, CA negative, HER2 negative. 11/17/17 Seen at [facility]. Started Letrozole. Palbociclib ordered. 11/22/16 Started Palbociclib and continued Letrozole 02/09/17 CT chest abdomen pelvis showed increased sclerosis of her bone lesions consistent with disease response. She has persistent right greater than left pleural effusion. 02/21/18 Seen at [facility]. Continue current treatment with Palbociclib + Letrozole. Recommend Xgeva. 02/23/17 Left thoracentesis 03/02/17 Right thoracentesis 05/09/17 Chest x-ray showed reaccumulation of pleural fluid in right lung base. 05/09/17 Started Xgeva every 3 months 05/23/17 Seen at [facility]. Recommend repeat staging scans with local [...] Palbo + Letrozole, Xgeva 09/19/17 Seen at [facility]. Recommended consideration of Pleurx vs continued [...] get care locally near her home in [facility] where there is a clinic that [...] wall. preop chemo . Re-excision SLN bx.06/19. ER/CA pos HER- 2/la nena neg. Past Surgical [...] No abnormalities noted. Patient offered a medical campus manager for sensitive exam. N/A Laboratory Data: Results [...] Immature Grans Absolute Abs Lymph Auto Abs Harvey Auto Abs Eos Auto Abs Baso Auto MANUAL DIFF Result Value Ref Range DIFF STATUS Manual Differential Bands Relative 0.0 % Segs Relative 67.0 % Lymph Relative 25.0 % Harvey Relative 4.0 % Eos Relative 4.0 % Baso Relative 0.0 % Nucleated RBC 0.0 <=0.0 /100 WBC Segs & Bands, Absolute 1.57 (L) 1.64 - 7.28 K/uL Abs Lymph Manual 0.59 (L) 1.16 - 3.51 K/uL Abs Harvey Manual 0.09 (L) 0.22 - 0.87 K/uL [...] 75 y.o. female diagnosed in 2017 with ER+/CA-/HER2-, metastatic breast cancer who is here today [...] very stable. We will move scans to [id number] will try to get PET scans through her insurance given CKD .For the next assessment will keep to non contrast CT as this is already ordered but will recommend changing after that. *Bone Mets: -Zometa [id number] initiated on 04/19/18. -We will hold now due to prior effects on renal function. -Continue calcium and vitamin D -We talked about initiating denosumab, as she is seeking oncologic care near [place] I urged her todiscuss this with her [...] Malignancy: . -Follows with Dr. Townsend in [place] for Ophthalmology. *Health Maintenance: -We recommend maintaining [...] to Doug. NEVA Chen documented in this encounterUniversity Hospitals [facility]04-25-2022 Instructions* Patient Instructions* Bethany West RN - 10/05/2021 9:35 AM EDT Images from the original note were not included. Medical Information Management at [phone] to request your medical records Store your [...] the take-back program closest to you @ https://takebackday.[employer].gov under the COLLECTION SITE AMMUNITION STOREKEEPER tab. Never dispose of un-needed medications down the sink or toilet. Instead, crush the medication and mix with damp coffee grounds or cat litter, place in a sealed plastic freezer bag, and dispose of in your regular trash. Your Medical/Oncology Team Doctor: Daniel Camacho MD Nurse Practitioner: Taylor Canada APRN-SHOWER SCREEN INSTALLER Primary Nurses: JENAE Pino, DEBN, RN DEB [...] 2nd prompt, yes you are enrolled in [employer] medication assistance program At the 3rd prompt, no you are not calling to reorder You will then be told you are getting connected to a live service representative, or you may press 1 and enter extension number [id number] for Eunice Jimenez, the [employer] access counselor who works with the [facility] account - tell her you are a patient from [facility] and that your doctor electronically prescribed your Ibrance and that you are calling to set up delivery. If you must leave a message, remember to leave your name, date of , name of medication (Ibrance), dose of Ibrance, start date of the next cycle of Ibrance, whether or not you want a signature isidoro required for delivery, and a phone number for [employer] to call you back If you leave a message and do not receive a call back within 24 hours, please call [facility] again. documented in this encounterUniversity Hospitals [facility]04-25-2022 Evaluation note * Diagnosis Metastatic breast cancer- Primary Stage 3a chronic kidney disease documented in this encounter [facility]04-[facility]22 Reason for referral (narrative)* Consultation (Routine) - Patient to Arrange Specialty Diagnoses / Procedures Referred By Leo mendoza Referred To Contact Nephrology Diagnoses Stage 3a chronic kidney disease Fco Camacho MBBS [address], [address] [place] [address] Referral ID Status Reason Start Date Expiration Date V isits Requested Visits Authorized [id number] Patient to Arrange 10/05/2021 10/30/2022 1 1 [facility]02-23-[facility]22 History of Present illness Narrative* Crystal Talley, PT - 08/05/2021 1:00 PM EST [facility] DAILY TREATMENT NOTE Today's Date [...] core stability, hip strengthening, manual Therapeutic Exercise (17375) Intervention -- Parameters -- Intervention -- Parameters [...] Plan: Discharge Crystal Talley PT State License, [id number] documented in this [id number] History of Present illness Narrative* Jayson Grant, BISCUIT FACTORY WORKER - 07/23/2021 2:30 PM EST [facility] DAILY TREATMENT NOTE Today's Date [...] core stability, hip strengthening, manual Therapeutic Exercise (13824) Intervention Scifit L1 x5 min Parameters SKTC [...] and stability Jayson Grant PTA STATE LICENSE, [id number] documented in this [id number] History of Present illness Narrative* Mili Reynolds PTA - 07/21/2021 2:30 PM EST [facility] DAILY TREATMENT NOTE Today's Date [...] Evaluating Therapist: Tequila Kay Notes Visit 4 [phone] Vitals back flexibility and core stability, hip strengthening, manual Therapeutic Exercise (38917) Intervention Scifit L1 x5 min Parameters SKTC [...] core strengthening Mili Reynolds PTA STATE LICENSE, [id number] documented in this [id number] History of Present illness Narrative* Shanika Watson PTA - 07/14/2021 2:30 PM EST [facility] DAILY TREATMENT NOTE Today's Date [...] Evaluating Therapist: Tequila Kay Notes Visit 3 [phone] Vitals back flexibility and core stability, hip strengthening, manual Therapeutic Exercise (24652) Intervention Scifit L1 x5 min Parameters SKTC [...] as tolerated Shanika Watson PTA STATE LICENSE, [id number] documented in this [id number] History of Present illness Narrative* Shanika Watson PTA - 07/09/2021 2:30 PM EST [facility] DAILY TREATMENT NOTE Today's Date [...] Evaluating Therapist: Tequila Kay Notes Visit 2 [phone] Vitals back flexibility and core stability, hip strengthening, manual Therapeutic Exercise (58721) Intervention LTR 5 x10 Parameters SKTC 10 [...] as tolerated Shanika Watson PTA STATE LICENSE, [id number] documented in this [id number] History of Present illness Narrative* Jayson Grant PTA - 07/02/2021 2:30 PM EST [facility] DAILY TREATMENT NOTE Today's Date 07/02/2021 Patient Name: Martha tSephens Date of : 1945 Current Visit #: 2 Authorized Visits: 11 Case Name: Degeneration of lumbar intervertebral disc, scoliosis History: Pre-Treatment Pain Scale: 0 Symptoms: gradually improved Functional Diagnosis: 1. Degeneration of lumbar intervertebral disc Clinical Information: Subjective: Pt reports back feeling good today with no c/o pain. Compliant with HEP Objective Treatments: Physical Therapy Exercise Log - 07/02/21 8247 OTHER Precautions/Contraindications Evaluating Therapist: Tequila Kay Notes Visit 1: 2:30 - 2:55 Vitals back flexibility and core stability, hip strengthening, manual Therapeutic Exercise (79722) Intervention LTR 5 x10 Parameters SKTC 10 [...] and stability Jayson Grant PTA STATE LICENSE, [id number] documented in this [id number] History of Present illness Narrative* Tequila Kay, PT - 06/26/2021 1:45 PM EST Images from the original note were not included. [facility] Evaluation Today's Date 06/26/2021 Patient [...] she went to other therapy place in [place] couple of days ago and provided with [...] Level: active Social Support: Patient lives alone. Taoism, social, or cultural considerations to be made [...] fall in the last 12 months: No Taoism, social, or cultural considerations to be made [...] core stability, hip strengthening, manual Therapeutic Exercise (18372) Intervention LTR 5 x10 Parameters SKTC 10 x3 Intervention bridging (shallow today) 5 x10 Parameters seated trunk rotation, side bending and forward 5 x10 Treatment Plan: Frequency of Visits: twice per week Duration: 5 weeks Interventions: Therapeutic Exercise (87775), Manual Therapy (16904) and Hot/Cold Pack (03342) Rehab Potential: good Goals: Physical Therapy Ortho [...] the following functional limitations: standing, walking, stairs, certified dietary manager, bending, lifting, carrying and reaching, functional mobility, [...] medically necessary. Tequila Kay, PT STATE LICENSE, [id number] documented in this [id number] History of Present illness Narrative* Tess Weeks [...] placed for elevated creatinine. documented in this encounterUniversity Hospitals [facility]08-16-2021 History of Present illness Narrative* Kenia West RN - 01/26/2021 11:20 AM EDT Patient offered a medical campus manager for sensitive exam. Pt declined. Bisphosphonate/Denosumab Assessment [...] no, MD/SANCHO notified. Report called to Erna (gas pumping station operator) R - Recommendations for plan of care: Describe any changes to plan of care: none Patient has AVS, completed check out, and discharged to infusion unit For questions, please call: Kenia West RN * Catarino Levi MD, PhD - 01/26/2021 11:20 AM EDT Martha Stephens is a 75 y.o. 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 She went to the ED in [place]. When she returned from [place] she established with [facility], Dr. Karson Luis for heartburn with nausea, 20-lb weight loss. 09/07/16 EGD Chronic inflammation 09/10/16 CT A/P: Right pleural effusion, small left pleural effusion, multiple sclerotic lesions, liver lesions 10/06/[address] Usha Hathaway, [facility]. 10/21/16 Thoracentesis 900 mL Metastatic adenocarcinoma consistent with breast primary Patient went in for annual eye exam at [facility] and left eye cancer was found. 11/01/16 New patient visit with Dr. Levi 11/10/16: Liver biopsy demonstrates small patches of cells which are ER strongly +100%, CA negative, HER2 negative. 11/17/17 Seen at [facility]. Started Letrozole. Palbociclib ordered. 11/22/16 Started Palbociclib and continued Letrozole 02/09/17 CT chest abdomen pelvis showed increased sclerosis of her bone lesions consistent with disease response. She has persistent right greater than left pleural effusion. 02/21/18 Seen at [facility]. Continue current treatment with Palbociclib + Letrozole. Recommend Xgeva. 02/23/17 Left thoracentesis 03/02/17 Right thoracentesis 05/09/17 Chest x-ray showed reaccumulation of pleural fluid in right lung base. 05/09/17 Started Xgeva every 3 months 05/23/17 Seen at [facility]. Recommend repeat staging scans with local [...] Palbo + Letrozole, Xgeva 09/19/17 Seen at [facility]. Recommended consideration of Pleurx vs continued [...] weeks. She was evaluated by dermatology at [facility] for 3 suspicious lesions on right central sikh, right lateral cheek, and left superior central [...] wall. preop chemo . Re-excision SLN bx.06/19. ER/CA pos HER- 2/la nena neg. Past Surgical [...] diaphoretic. Biopsy confirmed BCC of right central sikh, right lateral cheek, and left superior central forehead. Psychiatric: Appropriate mood and affect. Back: No point vertebral tenderness. Lymph: No cervical or supraclavicular adenopathy. Chest Wall: No abnormalities noted. Patient offered a medical campus manager for sensitive exam. N/A Laboratory Data: Results [...] Immature Grans Absolute Abs Lymph Auto Abs Harvey Auto Abs Eos Auto Abs Baso Auto MANUAL DIFF Result Value Ref Range DIFF STATUS Manual Differential Bands Relative 1.0 % Segs Relative 65.0 % Lymph Relative 22.0 % Harvey Relative 7.0 % Eos Relative 4.0 % Baso Relative 1.0 % Nucleated RBC 0.0 <=0.0 /100 WBC Segs & Bands, Absolute 1.42 (L) 1.64 - 7.28 K/uL Abs Lymph Manual 0.47 (L) 1.16 - 3.51 K/uL Abs Harvey Manual 0.15 (L) 0.22 - 0.87 K/uL [...] 75 y.o. female diagnosed in 2017 with ER+/CA-/HER2-, metastatic breast cancer who is here today [...] clinic in 3 months. *Bone Mets: -Zometa [id number] initiated on 04/19/18. -Zometa previously held d/t renal insuffiencey. Next dose due today. Renal function has improved. No dental concerns. -Continue calcium and vitamin D *Chronic Kidney Disease: -Suspect worsening renal insufficiency due to Meloxicam usage. -Strongly advised patient to avoid taking Meloxicam and Ibuprofen. -Will continue to monitor. *BCC: -Right central sikh, right lateral cheek, and left superior central forehead. -Evaluated by dermatology at [facility]. Shave biopsy on 12/15/20 confirmed BCC of [...] with the discharge instructions. documented in this encounterUniversity Hospitals [facility]08-16-2021 Instructions* Patient Instructions* Kenia West RN - [...] you @ https://takebackday.sima.gov under the COLLECTION SITE AMMUNITION STOREKEEPER tab. Never dispose of un-needed medications down the sink or toilet. Instead, crush the medication and mix with damp coffee grounds or cat litter, place in a sealed plastic freezer bag, and dispose of in your regular trash. Your Medical/Oncology Team Doctor: Catarino Levi MD Nurse Practitioner: Ghazal Jin, GOLF BALL INSPECTOR-SHOWER SCREEN INSTALLER Primary Nurses: Elmo BOYDN, RN, Bethany BOYDN, [...] (Tukysa ) [ ] Other: [ ] [employer] # [phone] [ ] [facility] # [phone] [ ] [facility] # [phone] [ ] [facility] # [phone] [ ] [facility] # [phone] [ ] [employer] # [phone] [ ] [facility] # [phone] [ ] [employer] # [phone] [ ] [facility] # [phone] [ ] [facility] # [phone] [ ] [facility] # [phone] [ ] Other: # documented in this encounterUniversity Hospitals [facility]12-17-2015 History of Past illness Narrative* [...] lumbosacral intervertebral disc [facility] Degeneration of lumbar intervertebral disc Degeneration of lumbar or lumbosacral intervertebral disc [facility] Degeneration of lumbar intervertebral disc Degeneration of lumbar or lumbosacral intervertebral disc [facility] Degeneration of lumbar intervertebral disc Degeneration of lumbar or lumbosacral intervertebral disc [facility] Diagnosis Degeneration of lumbar intervertebral disc Degeneration of lumbar or lumbosacral intervertebral disc [facility] Diagnosis Degeneration of lumbar intervertebral disc- Primary Degeneration of lumbar or lumbosacral intervertebral disc [facility] Diagnosis Bone metastasis- Primary Secondary malignant neoplasm of bone and bone marrow Recurrent right pleural effusion Unspecified pleural effusion Metastatic breast cancer documented in this encounter [facility]* Diagnosis Metastatic breast cancer documented in this [facility]* Diagnosis Metastatic breast cancer Metastatic breast cancer documented in this encounter [facility]* Diagnosis Metastatic breast cancer- Primary Bone metastasis Secondary malignant neoplasm of bone and bone marrow Recurrent right pleural effusion Unspecified pleural effusion Chemotherapy management, encounter for documented in this encounter [facility]* Diagnosis 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 Malignant neoplasm of choroid Early dry stage nonexudative age-related macular degeneration of both eyes Combined forms of age-related cataract of both eyes Other and combined forms of senile cataract 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) Other malignant neoplasm without specification of site [facility] Diagnosis Myopia, bilateral- Primary Myopia Regular [...] [facility] Diagnosis Status post cataract extraction and insertion of intraocular lens of right eye- Primary Combined form of age-related cataract, left eye [facility] Diagnosis Combined forms of age-related cataract of left eye- Primary Combined forms of age-related cataract of left eye Depression Depressive disorder, not elsewhere classified Anxiety Anxiety state, unspecified Bipolar disorder ([facility]/HCC) Bipolar disorder, unspecified documented in this encounter [facility] Work Phone: Evaluation note* Diagnosis Status post cataract extraction and insertion of intraocular lens of left eye- Primary Status post cataract extraction and insertion of intraocular lens of right eye [facility] Diagnosis Status post cataract extraction and insertion of intraocular lens of left eye- Primary 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) Other malignant neoplasm without specification of site [facility] Diagnosis Combined forms of age-related cataract, right eye documented in this encounter [facility] Work Phone: Assessments Diagnosis Hypertension, [...] FoundDocuments on File Type Date Recorded Patient Marketing Director Expl anation Advance Directives and Living Will Documents on File Type Date Recorded Patient Marketing Director Expl anation HealthCare Power of [employer] 05/28/2019 11:59 AM Advance Directives/Living Will 05/28/2019 11:59 AM HealthCare Power of [employer] 07/17/2003 12:00 AM Advance Directives/Living Will 07/17/2003 12:00 AM Latest Code Status on File Code Status Date Activated Date Inactivated Comments Full Code 05/28/2018 11:33 PM Documents on File Type Date Recorded Patient Marketing Director Expl anation HealthCare Power of [employer] 05/28/2019 11:59 AM Advance Directives/Living Will 05/28/2019 11:59 AM HealthCare Power of [employer] 07/17/2003 12:00 AM Advance Directives/Living Will 07/17/2003 12:00 AM Latest Code Status on File Code Status Date Activated Date Inactivated Comments Full Code 05/28/2018 11:33 PM Documents on File Type Date Recorded Patient Marketing Director Expl anation HealthCare Power of [employer] 05/28/2019 11:59 AM Advance Directives/Living Will 05/28/2019 11:59 AM HealthCare Power of [employer] 07/17/2003 Advance Directives/Living Will 07/17/2003 Latest Code [...] PELVIS,W/O CONTRAST Catarino Levi MD, PhD [address] [facility] [address] [place] [address] Referral ID Status Reason Start Date Expiration Date V isits Requested Visits Authorized [id number] New Request 2020 11/30/2021 1 1 Specialty Diagnoses / Procedures Referred By Contac t Referred To Contact Diagnoses Metastatic breast cancer Procedures CT CHEST WITHOUT CONTRAST CHG DIAGNOSTIC COMPUTED TOMOGRAPHY THORAX W/O Catarino Houston MD, PhD [address] [facility] [address] [place] [address] Referral ID Status Reason Start Date Expiration Date V isits Requested Visits Authorized [id number] New Request 2020 11/30/2021 1 1 Referral ID Status Reason Start Date Expiration Date V isits Requested Visits Authorized [id number] New Request 01/26/2021 02/20/2022 1 1 Referral ID Status Reason Start Date Expiration Date V isits Requested Visits Authorized [id number] New Request 01/26/2021 02/20/2022 1 1 Medications [...] DATE CREATED AUTHOR AUTHOR'S ORGANIZ ATION 12/07/2017 [facility] DATE CREATED AUTHOR AUTHOR'S ORGANIZ ATION 05/30/2018 [facility] DATE CREATED AUTHOR AUTHOR'S ORGANIZ ATION 06/01/2018 [facility] DATE CREATED AUTHOR AUTHOR'S ORGANIZ ATION 08/09/2021 [facility] DATE CREATED AUTHOR AUTHOR'S ORGANIZ ATION 08/29/2021 [facility] DATE CREATED AUTHOR AUTHOR'S ORGANIZ ATION 11/03/2021 [email or web address] DATE CREATED AUTHOR AUTHOR'S ORGANIZ ATION 11/24/2021 [facility] DATE CREATED AUTHOR AUTHOR'S ORGANIZ ATION 03/31/2023 [facility] DATE CREATED AUTHOR AUTHOR'S ORGANIZ ATION 06/23/2023 [facility] Reason for Visit (unrecogniz ed section and content) Specialty Diagnoses / Procedures Referred By Contac t Referred To Contact Rehabilitation Diagnoses Degeneration of lumbar intervertebral disc Scoliosis due to degenerative disease of spine in adult patient Saleem BrownDO [address] [facility] [address] [place] [address] [facility] [address] [address] Referral ID Status Reason Start Date Expiration Date V isits Requested Visits Authorized [id number] Authorized 06/25/2021 10/05/2021 11 11 Reason Comments Infusion Visit zometa Specialty Diagnoses / Procedures Referred By Contac t Referred To Contact Diagnoses Metastatic breast cancer Procedures CT ABDOMEN/PELVIS WITHOUT CONTRAST CHG CT SCAN,ABDOMENT AND PELVIS,W/O CONTRAST Catarino Levi MD, PhD [address] [address] Referral ID Status Reason Start Date Expiration Date V isits Requested Visits Authorized [id number] New Request 2020 11/30/2021 1 1 Specialty Diagnoses / Procedures Referred By Contac t Referred To Contact Diagnoses Metastatic breast cancer Procedures CT CHEST WITHOUT CONTRAST CHG DIAGNOSTIC COMPUTED TOMOGRAPHY THORAX W/O CNTRST Catarino Levi MD, PhD [address] [facility] [address] [place] [address] Referral ID Status Reason Start Date Expiration Date V isits Requested Visits Authorized [id number] New Request 2020 11/30/2021 1 1 Reason [...] age-related cataract of left eye [H25.812] Procedures CA XCAPSL CTRC RMVL INSJ IO LENS PROSTH W/O ECP CATARACT EXTRACTION W/IOL IMPLANT L EYE Que Townsend MD [address] [facility] [place] [address] [facility] Or [address] [place] [phone] Referral ID Status Reason Start Date Expiration Date Visits Re quested Visits Authorized [id number] 1 1 Reason Comments Post-op Cataract OU OD 02/24/23OS Reason Comments Malignant Neoplasm of Left Choroid Reason Comments Post-op Cataract OD 02/24/23 OS 03/24 Reason Comments Other Combined forms of ag e-related cataract, R eye Care Teams (unrecognized sec tion and content) Airplane First Officer Relationship Specialty Start Date End Date No, Physician [facility] PCP - General 07/02/21 Airplane First Officer Relationship Specialty Start Date End Date No, Physician [facility] PCP - General 07/02/21 Airplane First Officer Relationship Specialty Start Date End Date No, Physician [facility] PCP - General 07/02/21 Airplane First Officer Relationship Specialty Start Date End Date No, Physician [facility] PCP - General 07/02/21 Airplane First Officer Relationship Specialty Start Date End Date No, Physician [facility] PCP - General 07/02/21 Airplane First Officer Relationship Specialty Start Date End Date No, Physician [facility] PCP - General 07/02/21 Airplane First Officer Relationship Specialty Start Date End Date Dru Barahona, DO [address] [place] [address] PCP - General 07/04/07 Jyoti Kramer MD [address] [place], [place] [phone] Radiation Oncology 11/01/16 Catarino Levi MD, PhD [address] [facility] [address] [place] [phone] Oncologist Medical Oncology 11/09/16 Ghazal Jin, GOLF BALL INSPECTOR-SHOWER SCREEN INSTALLER [address] [place], [place] [phone] Nurse Practitioner Medical Oncology 11/09/16 Jennifer Gerber, RN Registered Nurse Medical Oncology 02/15/17 Bethany West, RN Registered Nurse Medical Oncology 04/13/18 Kody Gil, [facility] [address] [facility] [address] [place] [address] Pharmacist Pharmacist 07/13/18 Dimitris Cuevas, [facility] [address] [facility] [address] [place] [address] Pharmacist Pharmacist 07/13/18 Korey Bravo MD [address] [place] [phone] Surgeon Surgical Oncology 09/24/09 Airplane First Officer Relationship Specialty Start Date End Date Dru Barahona, DO [address] [place] [address] PCP - General 07/04/07 Jyoti Kramer MD [address] [place], [place] [phone] Radiation Oncology 11/01/16 Catairno Levi MD, PhD [address] [place] [address] Oncologist Medical Oncology 11/09/16 Ghazal Jin, GOLF BALL INSPECTOR-SHOWER SCREEN INSTALLER [address] [place] [address] Nurse Practitioner Medical Oncology 11/09/16 Jennifer Gerber, JENAE Registered Nurse Medical Oncology 02/15/17 Bethany West, RN Registered Nurse Medical Oncology 04/13/18 Kody Gil, [facility] [address] [place] [address] Pharmacist Pharmacist 07/13/18 Dimitris Cuevas, [facility] [address] [facility] [address] [place] [address] Pharmacist Pharmacist 07/13/18 Korey Bravo MD [address] [place] [phone] Surgeon Surgical Oncology 09/24/09 Airplane First Officer Relationship Specialty Start Date End Date Dru Barahona, DO [address] [place] [address] PCP - General 07/04/07 Jyoti Kramer MD [address] [place], [place] [phone] Radiation Oncology 11/01/16 Catarino Levi MD, PhD [address] [place] [phone] Oncologist Medical Oncology 11/09/16 Ghazal Jin, GOLF BALL INSPECTOR-SHOWER SCREEN INSTALLER [address] [place] [phone] Nurse Practitioner Medical Oncology 11/09/16 Jennifer Gerber, JENAE Registered Nurse Medical Oncology 02/15/17 Bethany West, RN Registered Nurse Medical Oncology 04/13/18 Kody Gil, [facility] [address] [place] [address] Pharmacist Pharmacist 07/13/18 Dimitris Cuevas, [facility] [address] [place] [address] Pharmacist Pharmacist 07/13/18 Korey Bravo MD [address] [facility] [address] [place] [phone] Surgeon Surgical Oncology 09/24/09 Airplane First Officer Relationship Specialty Start Date End Date Dru Barahona, DO [address] [place] [address] PCP - General 07/04/07 Jyoti Kramer MD [address] [place], [place] [phone] Radiation Oncology 11/01/16 Catarino Levi MD, PhD [address] [place] [phone] Oncologist Medical Oncology 11/09/16 Ghazal Jin, GOLF BALL INSPECTOR-SHOWER SCREEN INSTALLER [address] [place] [address] Nurse Practitioner Medical Oncology 11/09/16 Jennifer Gerber, RN Registered Nurse Medical Oncology 02/15/17 Bethany West, RN Registered Nurse Medical Oncology 04/13/18 Kody Gil, [facility] [address] [place] [address] Pharmacist Pharmacist 07/13/18 Dimitris Cuevas, [facility] [address] [place] [address] Pharmacist Pharmacist 07/13/18 Korey Bravo MD [address] [place] [phone] Surgeon Surgical Oncology 09/24/09 Airplane First Officer Relationship Specialty Start Date End Date Dru Barahona Tonio, DO [address] [place] [address] PCP - General 07/04/07 Jyoti Kramer MD [address] [place] [address] Radiation Oncology 11/01/16 Ghazal Jin, GOLF BALL INSPECTOR-SHOWER SCREEN INSTALLER [address] [place] [address] Nurse Practitioner Medical Oncology 11/09/16 Kody Gil, [facility] [address] [place] [address] Pharmacist Pharmacist 07/13/18 Dimitris Cuevas, [facility] [address] [place] [address] Pharmacist Pharmacist 07/13/18 Korey Bravo MD [address], [address] [place] [phone] Surgeon Surgical Oncology 09/24/09 Fco Camacho MBBS [address], [address] [place] [phone] Oncologist Medical Oncology 10/05/21 Taylor Canada GOLF BALL INSPECTOR-SHOWER SCREEN INSTALLER [address], [address] [place] [phone] Certified Nurse Practitioner 10/05/21 Airplane First Officer Relationship Specialty Start Date End Date Mar Bucio [address] [place] [phone] PCP - General Family Practice 08/24/21 Airplane First Officer Relationship Specialty Start Date End Date Mar Bucio [address] [place] [address] PCP - General Family Medicine 08/24/21 Airplane First Officer Relationship Specialty Start Date End Date Mar Bucio MD PCP - General Family Medicine 08/24/21 Airplane First Officer Relationship Specialty Start Date End Date Mar Bucio MD PCP - General Family Medicine 08/24/21 Airplane First Officer Relationship Specialty Start Date End Date Mar Bucio MD PCP - General Family Medicine 08/24/21 Airplane First Officer Relationship Specialty Start Date End Date Mar Bucio MD PCP - General Family Medicine 08/24/21 Airplane First Officer Relationship Specialty Start Date End Date Mar Bucio MD PCP - General Family Medicine 08/24/21 Airplane First Officer Relationship Specialty Start Date End Date Mar Bucio MD [address] [facility] [place] [address] PCP - General 02/24/23 Airplane First Officer Relationship Specialty Start Date End Date Mar Bucio MD PCP - General Family Medicine 08/24/21 Airplane First Officer Relationship Specialty Start Date End Date Mar Bucio MD PCP - General Family Medicine 08/24/21 Airplane First Officer Relationship Specialty Start Date End Date Mar Bucio MD PCP - General Family Medicine 08/24/21 Airplane First Officer Relationship Specialty Start Date End Date [...] BE BASED ON THE PRIMARY CLINICAL RECORDS. [employer] [facility]. provides no warranty or guarantee of the accuracy or completeness of information in this document.
--- NOTE | 2023-07-19 16:40 | PCM.DC.SUM ---
Providers Date of Admission: 07/19/23 Date of Discharge: 07/19/23 Primary Care Physician: Dr. Mar Bucio MD Consultations 07/19/23 14:00 Consult: Cardiology Routine Consulting Provider: Joaquin Watters Reason for Consult: Chest Pain EMERGENT Consult: Yes Notified: Yes Date Notified: 07/19/23 Time Notified: 12:42 Method of Notification: Verbal Reason For Visit: CHEST PAIN Diagnosis Discharge Diagnosis (1) Chest tightness: Status: Acute Code(s): R07.89 - Other chest pain Plan Patient is a 77-year-old presented with chest pain 1. Chest pain ? Consistent with unstable angina, patient admitted to a monitored bed started on treatment per protocol with beta-blockers systemic anticoagulation with heparin statin therapy ordered 2D echo consultation placed to cardiology plans for patient to undergo emergency left heart catheterization with intervention if needed ? Patient underwent left heart catheterization findings as below CORONARY ANGIOGRAPHY DOMINANCE: Right Dominant LEFT MAIN: Tubular 40% Ostial lesion in Left Main LEFT ANTERIOR DING ARTERY: LAD: Calcified 30% Proximal lesion in LAD Tubular 80% Mid lesion in LAD OM 1: Tubular 95% Mid lesion in MARG1 OM 2: Tubular 95% Mid lesion in MARG1 RIGHT CORONARY ARTERY: RCA: Calcified 50% Mid lesion in RCA Eccentric Calcified 99% Proximal lesion in RCA Based on above arrangements were made for patient to be transferred to the [facility] for further intervention 2. Dyslipidemia -Patient is on statin therapy, continued at home dose 3. Hypertension - Blood pressure controlled, home medications continued with dose adjustment as needed 4. Breast CA with mets to liver and lungs ? Patient has remained in remission for over 6 years currently on letrozole and) 5. GERD ? On PPI 6. DVT prophylaxis ? On heparin Time spent in the patient's overall evaluation,decision-making process, review of diagnostic data, adjustment of management, discussion with other providers, nursing nursing and ancillary staff involved in patient's care documentation, 90 Minutes Medications at Discharge Home Medications acetaminophen 500 mg tablet 500 mg PO Q6H PRN Pain 11/18/16 calcium carbonate 600 mg calcium (1,500 mg) tablet 600 mg PO DAILY supplement 11/18/16 cholecalciferol (vitamin D3) 25 mcg (1,000 unit) tablet (Vitamin D3) 1,000 unit PO DAILY supplement 11/18/16 lovastatin 20 mg tablet 20 mg PO DAILY cholesterol 11/18/16 palbociclib 125 mg capsule (Ibrance) 75 mg PO DAILY breast cancer 11/18/16 cyanocobalamin (vitamin B-12) 100 mcg tablet 100 mcg PO DAILY supplement 10/09/21 pantoprazole 40 mg tablet,delayed release 40 mg PO DAILY acid reflux 02/23/22 mirtazapine 15 mg tablet 7.5 mg PO QHS insomnia 02/04/23 letrozole 2.5 mg tablet See Rx Instructions .Route .COMPLEX breast cancer #90 tabs 02/24/23 aspirin 81 mg tablet,delayed release 81 mg PO BREAKFAST #0 tabs 07/19/23 metoprolol tartrate 50 mg tablet 50 mg PO DAILY blood pressure 07/19/23 peg 400 0.4 %-propylene glycol (PF) 0.3 % eye drops (Systane Ultra (PF)) 1 drp EACH EYE BID cataract surgery 07/19/23 ticagrelor 90 mg tablet (Brilinta) 90 mg PO BID #0 tabs 07/19/23 Physical Exam Narrative GENERAL: cooperative HEENT: Atraumatic; normocephalic EYES; Anicteric, Normal Conjunctiva NECK; supple, normal thyroid, RESPIRATORY: Diminished to auscultation CARDIOVASCULAR: Regular S1 S2, GI: soft, normoactive bowel sounds, : No Renal angle tenderness; EXTREMITIES: No edema, no clubbing, MUSCULOSKELETAL: no muscle wasting NEURO: Awake; no lateralizing signs. SKIN: No Rash PSYCH; Flat affect Weight / BMI Weight Weight: 55.338 kg Body Mass Index (BMI) 22.0 ABG / Lab / Microbiology Data 07/19/23 09:12 07/19/23 09:12 Laboratory: Laboratory Results - last 24 hr 07/19/23 09:12: WBC 2.5 L, RBC 3.91 L, Hgb 13.1, Hct 39.2, MCV 100.3 H, MCH 33.5 H, MCHC 33.4, RDW Std Deviation 48.0 H, RDW Coeff of Aurea 13.2, Plt Count 145 L, MPV 10.3, Immature Gran % (Auto) 0.000, Neut % (Auto) 48.1, Lymph % (Auto) 33.7, [place] % (Auto) 14.6 H, Eos % (Auto) 1.2, Baso % (Auto) 2.4 H, Absolute Neuts (auto) 1.2 L, Absolute Lymphs (auto) 0.83, Nucleated RBC % 0, D-Dimer Quant (PE/DVT) 1.22 H*, Sodium 141, Potassium 3.5, Chloride 108 H, Carbon Dioxide 27.0, Anion Gap 6, BUN 20 H, Creatinine 1.35 H, Estim Creat Clear Calc 28.48, Est GFR (MDRD) Af Amer 49 L, Est GFR (MDRD) Non-Af 41 L, BUN/Creatinine Ratio 14.8, Glucose 113 H, Calcium 10.2 H, Troponin I High Sens 32 07/19/23 11:20: Troponin I High Sens 39 07/19/23 13:30: Activated Clotting Time 250 H 07/19/23 15:13: Troponin I High Sens 65 H Radiography Diagnostic Testing: Radiology Impression Chest X-Ray 07/19/23 09:21 IMPRESSION: Elevation of the right hemidiaphragm. Small right pleural effusion with right basilar atelectasis. Electronically Signed: Hever Madden MD at 10:05 EST , D/C Instructions Discharge Diet: No restrictions Discharge Activity: Return to Normal Activity Call your doctor if you observe: Fever of 101 or Higher, Shortness of breath, Fainting spells and Chest pain Meaningful Use Info Meaningful Use Diagnoses (Choose all that apply): None applicable Discharge Plan Admission Admit Date/Time: 07/19/23 11:30 Attending Provider: Amari Sow Primary Care Provider: Mar Bucio Consulting Providers: Joaquin Watters Discharge Orders/Prescriptions Prescriptions: New aspirin 81 mg Tablet,Delayed Release (Dr/Ec) 81 mg PO BREAKFAST Qty: 0 0RF Brilinta 90 mg Tablet 90 mg PO BID Qty: 0 0RF Continued cyanocobalamin (vitamin B-12) 100 mcg tablet 100 mcg PO DAILY acetaminophen 500 MG tablet 500 mg PO Q6H PRN (Reason: Pain) calcium carbonate 600 MG tablet 600 mg PO DAILY cholecalciferol (vitamin D3) [Vitamin D3] 1,000 UNIT tablet 1,000 unit PO DAILY lovastatin 20 MG tablet 20 mg PO DAILY Ibrance 125 MG capsule 75 mg PO DAILY Patient Comments: pt was supposed to get blood work done today and depending on results pt was suppose to start med tonight. pantoprazole 40 mg tablet,delayed release (DR/EC) 40 mg PO DAILY mirtazapine 15 MG tablet 7.5 mg PO QHS Rx Instructions: 1 tab PO QHS metoprolol tartrate 50 mg tablet 50 mg PO DAILY Systane Ultra (PF) 0.4-0.3 % drops 1 drp EACH EYE BID letrozole 2.5 mg tablet See Rx Instructions .ROUTE .COMPLEX Qty: 90 3RF Dose Instruction: TAKE 1 TABLET EVERY DAY Rx Instructions: TAKE 1 TABLET EVERY DAY Referrals / Follow Up: Mra Bucio MD [Primary Care Provider] - Disposition Disposition (needs filled in before D/C Order can be placed): Acute Care Hospital Charges/Coding Visit Charges OBSV E&M: 49943 Observ/hosp same date L3
[2023-07-19 16:59] LABS: Partial Thromboplast Time 75.5 Seconds (24.1-36.2)
--- NOTE | 2023-07-19 18:25 | NURSING ---
Report called to bedside nurse at [facility]. Transport set up for [id number]
[2023-08-19 16:26] LABS: ACT Activated Clotting Time 250 sec (74-137)
== END 2023-07-19 20:30 | disposition short-term general hospital (02) | DRG 287 ==
LOC: CLSP 12:12 → ED 12:12 → PCU 12:13
PROVIDERS: Admitting Provider Internal Medicine; Emergency Provider Emergency Medicine; PCP Family Medicine; Visit Provider Internal Medicine Cardiovascular Disease
DX: I20.0 Unstable angina (principal); C79.9 Secondary malignant neoplasm of unspecified site; C78.7 Secondary malignant neoplasm of liver and intrahepatic bile duct; C50.911 Malignant neoplasm of unspecified site of right female breast; I12.9 Hypertensive chronic kidney disease with stage 1 through stage 4 chronic kidney disease, or unspecified chronic kidney disease; N18.9 Chronic kidney disease, unspecified; E78.5 Hyperlipidemia, unspecified; K21.9 Gastro-esophageal reflux disease without esophagitis; Z66 Do not resuscitate; Z82.49 Family history of ischemic heart disease and other diseases of the circulatory system; Z79.82 Long term (current) use of aspirin
CPT/HCPCS: 36415; 71045; 80048; 84484; 85025; 85347; 85379; 85730; 93005; 93306; 93454; 99152; 99153; 99252; 99284; J7030; Q9967; A4216; C1769; C1894; G0463